=== PATIENT | male | born 1930 | race Caucasian/White ===

== ENCOUNTER 2017-05-18 09:42 | Inpatient (IN) | payer MEDICARE, BC ==
[~2017-05-18] VITALS: Ht 177.8 cm; Wt 67.1 kg
[2017-05-18] MEDS ORDERED: HYDR-4076 PO (10:16)
[2017-05-18] MEDS ORDERED: FINA5TAB11 PO (10:16)
[2017-05-18] MEDS ORDERED: VERA240C2 PO (10:16)
[2017-05-18] MEDS ORDERED: OXYB10TA4 PO (10:16)
[2017-05-18] MEDS ORDERED: VITAMIN D2 (10:16)
[2017-05-18] MEDS ORDERED: LOSA100T15 PO (10:16)
[2017-05-18] MEDS ORDERED: BICA50TA2 PO (10:16)
[2017-05-18] MEDS ORDERED: CALC-343 PO (10:16)
[2017-05-18] MEDS ORDERED: IV NORMAL SALINE 1000 ML BAG IV ONE (10:30)
[2017-05-18 10:47] LABS: BASOPHILS # (AUTO) 0.1 K/uL (0.0-8.0); BASOPHILS % (AUTO) 0.5 % (0.0-2.0); EOSINOPHILS # (AUTO) 0.1 K/uL (0.0-0.7); EOSINOPHILS % (AUTO) 0.4 % (0.0-7.0); HEMOGLOBIN 13.4 g/dL (12.5-16.3); LYMPHOCYTES # (AUTO) 1.4 K/uL (20.0-40.0); LYMPHOCYTES % (AUTO) 10.3 % (20.5-51.5); MEAN CORPUSCULAR HEMOGLOBIN 27.9 uug (23.8-33.4); MEAN CORPUSCULAR HGB CONC 33 g/dL (32.5-36.3); MEAN CORPUSCULAR VOLUME 85.2 fL (73.0-96.2); MONOCYTES # (AUTO) 0.9 K/uL (2.0-10.0); MONOCYTES % (AUTO) 6.3 % (0.0-11.0); NEUTROPHILS # (AUTO) 11.2 K/uL (1.8-8.9); NEUTROPHILS % (AUTO) 82.5 % (38.5-71.5); PLATELET COUNT (AUTO) 244 K/uL (152-348); RED BLOOD CELL COUNT(AUTO) 4.81 MIL/uL (4.06-5.63); WHITE BLOOD COUNT (AUTO) 13.6 K/uL (3.6-10.2)
[2017-05-18 10:55] LABS: CARBON DIOXIDE 24 mmol/L (21-32); CHLORIDE 108 mmol/L (98-107); GLUCOSE 117 mg/dL (74-106); POTASSIUM 4.1 mmol/L (3.5-5.1); UREA NITROGEN, BLOOD 27 mg/dL (7-18)
[2017-05-18 11:09] LABS: ALANINE AMINOTRANSFERASE 19 U/L (16-63); ALKALINE PHOSPHATASE 58 U/L (50-136); ASPARTATE AMINOTRANSFERASE 14 U/L (15-37); BILIRUBIN,DIRECT 0.1 mg/dL (0.0-0.2); BILIRUBIN,TOTAL 0.5 mg/dL (0.2-1.0); TOTAL PROTEIN, SERUM 7.3 g/dL (6.4-8.2)
[2017-05-18] MEDS ORDERED: ASPIRIN 81 MG TAB.CHEW PO ONE (12:00)
[2017-05-18 12:14] LABS: *BILIRUBIN,URIN NEGATIVE (NEGATIVE); *BLOOD, URINE NEGATIVE (NEGATIVE); *CLARITY,URINE CLEAR (CLEAR); *COLOR,URINE YELLOW (YELLOW); *KETONES,URINE NEGATIVE (NEGATIVE); *PROTEIN,URINE NEGATIVE (NEGATIVE); *UROBILINOGEN,URINE 0.2 E.U./dl (NORMAL); LEUKOCYTE ESTERASE ,URINE NEGATIVE (NEGATIVE); NITRITE, URINE NEGATIVE (NEGATIVE); UGLUCOSE NEGATIVE (NEGATIVE)
--- NOTE | 2017-05-18 12:21 | NUR ---
MSECOMPLETED, BELONGINGS LIST,ADMIT ORDER DONE. SBAR REPORT TO RACHEL HERNANDEZ. PT TRANSFERED [facility] TO RM 221.
[2017-05-18] MEDS ORDERED: ASPIRIN 81 MG TAB.CHEW ONE (12:26)
[2017-05-18 12:34] LABS: BACTERIA,URINE NONE SEEN /HPF (NONE SEEN); RBC,URINE 0-3 /HPF (0-3); SQUAMOUS EPITHELIAL CELL,UR FEW /HPF (NONE SEEN); WBC,URINE 0-3 /HPF (0-3)
[2017-05-18 12:45] VITALS: BP 179/93
--- NOTE | 2017-05-18 14:24 | NUR ---
arrived to unit at 1245 via bed, Alert and oriented no complaints of pain, no signs of distress noted, daughter at bedside, all belongings documented, no skin issues noted, patient put on telemetry, call light in reach, bed locked and in lowest position
[2017-05-18 15:40] VITALS: BP 156/80
[2017-05-18] MEDS ORDERED: ERGOCALCIFEROL 50,000 UNIT CAPSULE PO SCH (18:30)
--- NOTE | 2017-05-18 19:50 | NUR ---
Pt resting in bed and watching TV. AAO x4. No acute distress noted. No c/o pain or discomfort. Safety measures maintained. Bed alarm on. Call light and personal belongings within reach. Will continue to monitor.
[2017-05-18 20:00] VITALS: BP 166/75
[2017-05-18] MEDS ORDERED: BISMUTH SUBSALICYLATE 262 MG/15 ML UDC PO PRN (20:15)
--- NOTE | 2017-05-18 20:30 | NUR ---
Pt c/o of upset stomach and gas feeling. No distention noted. Pt asked to have pepto bismol. Notified MD. New order of pepto bismol 30cc Q6HPRN. Will continue to monitor.
[2017-05-18] MEDS: hydrALAZINE HCL 25 MG TABLET PO SCH (21:07)
--- NOTE | 2017-05-18 23:35 | NUR ---
Pt BP elevated 167/85 and temp also elevated 99.8 F. Notified . New order for hydralazine 50 mg PO Q6HPRN for SBP > 150 and okay to give tylenol regarding temp. Will continue to monitor.
[2017-05-18 23:49] VITALS: BP 167/85
[2017-05-18] MEDS: hydrALAZINE HCL 25 MG TABLET PO PRN (23:52)
[2017-05-18] MEDS: ACETAMINOPHEN 325 MG TABLET PO PRN (23:52)
[2017-05-19 04:00] VITALS: BP 117/51
[2017-05-19] MEDS: hydrALAZINE HCL 25 MG TABLET PO SCH (05:41)
[2017-05-19 07:05] LABS: BASOPHILS % (AUTO) 0.3 % (0.0-2.0); EOSINOPHILS # (AUTO) 0.2 K/uL (0.0-0.7); EOSINOPHILS % (AUTO) 1.8 % (0.0-7.0); HEMATOCRIT 35.8 % (36.7-47.1); LYMPHOCYTES # (AUTO) 2.1 K/uL (20.0-40.0); LYMPHOCYTES % (AUTO) 19.3 % (20.5-51.5); MEAN CORPUSCULAR HEMOGLOBIN 28.6 uug (23.8-33.4); MEAN CORPUSCULAR HGB CONC 34 g/dL (32.5-36.3); MEAN CORPUSCULAR VOLUME 85.1 fL (73.0-96.2); MONOCYTES # (AUTO) 0.8 K/uL (2.0-10.0); MONOCYTES % (AUTO) 7.8 % (0.0-11.0); NEUTROPHILS # (AUTO) 7.6 K/uL (1.8-8.9); NEUTROPHILS % (AUTO) 70.8 % (38.5-71.5); PLATELET COUNT (AUTO) 213 K/uL (152-348); RED BLOOD CELL COUNT(AUTO) 4.21 MIL/uL (4.06-5.63); WHITE BLOOD COUNT (AUTO) 10.7 K/uL (3.6-10.2)
[2017-05-19] MEDS: VERAPAMIL SR 120 MG TABLET.SA PO SCH (08:14)
[2017-05-19] MEDS: FINASTERIDE 5 MG TABLET PO SCH (08:14)
[2017-05-19] MEDS: LOSARTAN POTASSIUM 50 MG TABLET PO SCH (08:14)
[2017-05-19] MEDS: OXYBUTYNIN XL 5 MG TABSR PO SCH (08:14)
[2017-05-19] MEDS: hydrALAZINE HCL 25 MG TABLET PO PRN ×2 (08:17→17:53)
[2017-05-19 08:26] LABS: ALANINE AMINOTRANSFERASE 17 U/L (16-63); ALKALINE PHOSPHATASE 46 U/L (50-136); ASPARTATE AMINOTRANSFERASE 15 U/L (15-37); BILIRUBIN,TOTAL 0.4 mg/dL (0.2-1.0); CARBON DIOXIDE 24 mmol/L (21-32); CHLORIDE 110 mmol/L (98-107); CHOLESTEROL 156 mg/dL (<200); CREATININE 1.7 mg/dL (0.6-1.3); GLUCOSE 91 mg/dL (74-106); HDL CHOLESTEROL 31 mg/dL (40-60); MAGNESIUM 1.7 mg/dL (1.8-2.4); PHOSPHOROUS 3.2 mg/dL (2.5-4.9); POTASSIUM 3.6 mmol/L (3.5-5.1); TOTAL PROTEIN, SERUM 6.2 g/dL (6.4-8.2); TRIGLYCERIDES 99 MG/DL (30-150); UREA NITROGEN, BLOOD 22 mg/dL (7-18)
[2017-05-19] MEDS: BICALUTAMIDE 50 MG TABLET PO SCH (08:27)
--- NOTE | 2017-05-19 08:30 | NUR ---
Pt. b/p elevated above 170 gave prn meds and routine medications. Pt is in no acute distress and asymptomatic with elevated b/p. Call light is within reach.
[2017-05-19] MEDS ORDERED: FUROSEMIDE 20 MG/2 ML VIAL IV SCH (09:00)
[2017-05-19] MEDS ORDERED: CALCIUM CARBONATE 500 MG TAB.CHEW PO SCH (09:00)
--- NOTE | 2017-05-19 11:30 | NUR ---
Notified Dr byers of pt's elevated b/p of sbp >170 pt remains asymptomatic from the elevated b/p. New orders received and carried out.
[2017-05-19] MEDS: SPIRONOLACTONE 25 MG TABLET PO SCH (11:49)
[2017-05-19 11:58] VITALS: BP 172/93
[2017-05-19] MEDS ORDERED: MAGNESIUM OXIDE 400 MG TABLET PO ONE (13:00)
--- NOTE | 2017-05-19 13:00 | NUR ---
Asked daughter re: pt's vit d mediaction on what day of the week he takes them. Daughter states that she will go back home and check the bottle about the proper dosage and frequency.
[2017-05-19] MEDS: hydrALAZINE HCL 50 MG TABLET PO SCH ×2 (13:53→21:08)
[2017-05-19] MEDS ORDERED: hydrALAZINE HCL 25 MG TABLET PO SCH (14:00)
[2017-05-19] MEDS ORDERED: CALC-555 PO (15:22)
[2017-05-19 15:37] VITALS: BP 158/84
--- NOTE | 2017-05-19 16:00 | NUR ---
Medication clarified and notified Pharmacist.
[2017-05-19 17:37] VITALS: BP 159/80
[2017-05-19] MEDS: ACETAMINOPHEN 325 MG TABLET PO PRN (17:37)
--- NOTE | 2017-05-19 18:30 | NUR ---
Pt remains asymptomatic with elevated b/p. Pt is in no acute distress. Call light is within reach.
--- NOTE | 2017-05-19 19:30 | NUR ---
RECEIVED PT LYING IN BED. AAOX4. DENIES ANY PAIN OR SOB. NOT IN ACUTE DISTRESS. 1ST DEGREE AV BLOCK ON TELE. IV SITE ON RIGHT WRIST INTACT AND PATENT. SAFETY MEASURE INITIATED AND CALL BROWNING WITHIN REACHED.
[2017-05-19 19:56] VITALS: BP 144/73
[2017-05-20 00:12] VITALS: BP 156/82
[2017-05-20] MEDS: hydrALAZINE HCL 25 MG TABLET PO PRN (00:13)
--- NOTE | 2017-05-20 00:13 | NUR ---
BP 156/82, HR 73. GAVE HYDRALAZINE 50MG PO. DENIES ANY DIZZINESS OR HEADACHE.
--- NOTE | 2017-05-20 03:00 | NUR ---
@ 0130 RECHECK BP 167.83, HR 74. @ 0230 RECHECK BP 160/88, HR 72 @0300 TELEPHONE CALL TO DOCTOR SWAPNIL AND INFORMED OF ABOVE. WITH NEW ORDER FOR NITRO PASTE 1/2 INCH Q6 HRS PRN FOR SBP > 160. ORDER READ BACK AND VERIFIED.
[2017-05-20] MEDS ORDERED: NITROGLYCERIN OINT 1 GM PACKET TP PRN ×2 (03:15→09:26)
[2017-05-20 04:00] VITALS: BP 159/85
[2017-05-20] MEDS: hydrALAZINE HCL 50 MG TABLET PO SCH (05:37)
[2017-05-20] MEDS: ACETAMINOPHEN 325 MG TABLET PO PRN (05:59)
--- NOTE | 2017-05-20 06:00 | NUR ---
AAOX4. DENIES ANY SOB. O2 SAT AT 94% ON RA. NOT IN ACUTE DISTRESS. COMPLAINED OF MILD HEADACHE AND GIVEN TYLENOL 650MG PER ORDER. 1ST DEGREE AV BLOCK AND BBB ON TELE. IV SITE ON RIGHT WRIST AREA INTACT AND PATENT. NEEDS ATTENDED TO AND MET. SAFETY MEASURE MAINTAINED AND CALL BROWNING WITHIN REACH.
--- NOTE | 2017-05-20 06:30 | NUR ---
BP DOWN TO 133/80, HR 72, AFTER GIVEN HYDRALAZINE ROUTINELY AN HOUR AGO.
--- NOTE | 2017-05-20 07:00 | NUR ---
received report from shift superintendent. patient in bed asleep. no acute distress noted iv access on the left wrist #22 intact and patent. elevated blood pressure noted last night around 150s/80's, pt has order for hydralazine routine and prn 0630 bp 133/80 per shift superintendent. No complaints of chest pain at this time. comfort measures provided will continue to monitor closely.
[2017-05-20 07:37] LABS: BASOPHILS % (AUTO) 0.3 % (0.0-2.0); EOSINOPHILS # (AUTO) 0.1 K/uL (0.0-0.7); HEMATOCRIT 37.4 % (36.7-47.1); HEMOGLOBIN 12.4 g/dL (12.5-16.3); LYMPHOCYTES # (AUTO) 1.6 K/uL (20.0-40.0); LYMPHOCYTES % (AUTO) 14.6 % (20.5-51.5); MEAN CORPUSCULAR HGB CONC 33 g/dL (32.5-36.3); MEAN CORPUSCULAR VOLUME 84.4 fL (73.0-96.2); MONOCYTES # (AUTO) 0.8 K/uL (2.0-10.0); MONOCYTES % (AUTO) 7.3 % (0.0-11.0); NEUTROPHILS # (AUTO) 8.7 K/uL (1.8-8.9); NEUTROPHILS % (AUTO) 76.8 % (38.5-71.5); PLATELET COUNT (AUTO) 242 K/uL (152-348); RED BLOOD CELL COUNT(AUTO) 4.43 MIL/uL (4.06-5.63); WHITE BLOOD COUNT (AUTO) 11.3 K/uL (3.6-10.2)
[2017-05-20 07:46] LABS: ALANINE AMINOTRANSFERASE 18 U/L (16-63); ALKALINE PHOSPHATASE 47 U/L (50-136); ASPARTATE AMINOTRANSFERASE 15 U/L (15-37); BILIRUBIN,TOTAL 0.6 mg/dL (0.2-1.0); CARBON DIOXIDE 25 mmol/L (21-32); CHLORIDE 106 mmol/L (98-107); CREATININE 1.7 mg/dL (0.6-1.3); GLUCOSE 96 mg/dL (74-106); MAGNESIUM 1.7 mg/dL (1.8-2.4); PHOSPHOROUS 3.2 mg/dL (2.5-4.9); POTASSIUM 3.4 mmol/L (3.5-5.1); TOTAL PROTEIN, SERUM 6.6 g/dL (6.4-8.2); UREA NITROGEN, BLOOD 25 mg/dL (7-18)
[2017-05-20] MEDS ORDERED: HYDR50TA68 PO (08:32)
[2017-05-20] MEDS ORDERED: ASPI81TA31 PO (08:32)
[2017-05-20] MEDS ORDERED: ISOS60TA4 PO (08:32)
[2017-05-20] MEDS ORDERED: SPIR25TA PO (08:32)
[2017-05-20] MEDS: SPIRONOLACTONE 25 MG TABLET PO SCH (08:39)
[2017-05-20] MEDS: BICALUTAMIDE 50 MG TABLET PO SCH (08:39)
[2017-05-20] MEDS: OXYBUTYNIN XL 5 MG TABSR PO SCH (08:40)
[2017-05-20] MEDS: LOSARTAN POTASSIUM 50 MG TABLET PO SCH (08:40)
[2017-05-20] MEDS: FINASTERIDE 5 MG TABLET PO SCH (08:40)
[2017-05-20 08:41] VITALS: BP 142/73
[2017-05-20] MEDS: VERAPAMIL SR 120 MG TABLET.SA PO SCH (08:41)
[2017-05-20] MEDS ORDERED: CALCIUM CARB/VITAMIN D 500MG-200UNITS TABLET PO SCH (09:00)
[2017-05-20] MEDS ORDERED: ASPIRIN 81 MG TAB.CHEW PO SCH (09:00)
--- NOTE | 2017-05-20 10:30 | NUR ---
Patient with orders for discharge, discharge papers explained and given to patient. belongings list completed. awaiting patient's daughter Heavenly to come and pick him up. will continue to monitor closely.
--- NOTE | 2017-05-20 11:00 | NUR ---
Dr. Hope came and assessed patient, daughter edmundo at bedside voiced concern about patient's back pain and requested if they could get an xray, Dr. Hope got in touch with Medical doctor, Order for bilateral hip xray stat, noted and carried out. Will continue to monitor closely.
--- NOTE | 2017-05-20 12:17 | NUR ---
PATIENT DISCHARGED IN STABLE CONDITION, DISCHARGE INSTRUCTIONS AND PAPERS GIVEN TO PATIENT. IV ACCESS REMOVED WELL TOLERATED ID BAND REMOVED AND DISCARDED. ACCOMPANIED PATIENT OUT OF HOSPITAL, LEFT VIA PRIVATE CAR WITH DAUGHTER CHIQUI.
== END 2017-05-20 12:17 | disposition home or self-care (01) | DRG 280 ==
LOC: ER 09:42 → TELE 12:16
PROVIDERS: ADMIT Internal Medicine; ATTEND Internal Medicine
DX: I13.0 Hypertensive heart and chronic kidney disease with heart failure and stage 1 through stage 4 chronic kidney disease, or unspecified chronic kidney disease (principal); I50.33 Acute on chronic diastolic (congestive) heart failure; I21.A1 Myocardial infarction type 2; N17.0 Acute kidney failure with tubular necrosis; I27.20 Pulmonary hypertension, unspecified; I08.3 Combined rheumatic disorders of mitral, aortic and tricuspid valves; C61 Malignant neoplasm of prostate; N18.9 Chronic kidney disease, unspecified; I25.10 Atherosclerotic heart disease of native coronary artery without angina pectoris; K57.90 Diverticulosis of intestine, part unspecified, without perforation or abscess without bleeding; Z98.61 Coronary angioplasty status; Z85.828 Personal history of other malignant neoplasm of skin; N40.0 Benign prostatic hyperplasia without lower urinary tract symptoms; Z79.899 Other long term (current) drug therapy; K52.9 Noninfective gastroenteritis and colitis, unspecified; E53.8 Deficiency of other specified B group vitamins; E55.9 Vitamin D deficiency, unspecified; I44.0 Atrioventricular block, first degree; I45.10 Unspecified right bundle-branch block; F03.90 Unspecified dementia, unspecified severity, without behavioral disturbance, psychotic disturbance, mood disturbance, and anxiety; E78.5 Hyperlipidemia, unspecified; R26.9 Unspecified abnormalities of gait and mobility; Z87.891 Personal history of nicotine dependence; Z91.81 History of falling; Z79.82 Long term (current) use of aspirin; H91.90 Unspecified hearing loss, unspecified ear; Z90.49 Acquired absence of other specified parts of digestive tract; M47.9 Spondylosis, unspecified; R15.9 Full incontinence of feces; N13.9 Obstructive and reflux uropathy, unspecified
CPT/HCPCS: 36415; 70030-TC; 71045; 71250; 73521; 83605; 83735; 84100; 84153; 84443; 85025; 85730; 87040; 87086; 93005; 93307; A4663; J1940; J7030

== ENCOUNTER 2017-06-12 10:25 | Inpatient (IN) | payer MEDICARE, BC ==
[~2017-06-12] VITALS: Ht 162.6 cm; Wt 66.2 kg
[~2017-06-12 10:25] MED LIST: ASPI81TA31 PO; BICA50TA2 PO; CALC-555 PO; FINA5TAB11 PO; HYDR50TA68 PO; ISOS60TA4 PO; LOSA100T15 PO; OXYB10TA4 PO; SPIR25TA PO; VERA240C2 PO
[2017-06-12] MEDS ORDERED: CYAN100071 PO (10:39)
--- NOTE | 2017-06-12 11:13 | NUR ---
PT IS IN BED #1A. DR GUTIERREZ EVALUATED THE PT.
[2017-06-12 11:17] LABS: BASOPHILS % (AUTO) 0.4 % (0.0-2.0); EOSINOPHILS # (AUTO) 0.1 K/uL (0.0-0.7); EOSINOPHILS % (AUTO) 1.4 % (0.0-7.0); HEMOGLOBIN 11.4 g/dL (12.5-16.3); LYMPHOCYTES # (AUTO) 1.7 K/uL (20.0-40.0); MEAN CORPUSCULAR HEMOGLOBIN 28.7 uug (23.8-33.4); MEAN CORPUSCULAR HGB CONC 34 g/dL (32.5-36.3); MEAN CORPUSCULAR VOLUME 85.4 fL (73.0-96.2); MONOCYTES # (AUTO) 0.7 K/uL (2.0-10.0); MONOCYTES % (AUTO) 7.9 % (0.0-11.0); NEUTROPHILS # (AUTO) 6.8 K/uL (1.8-8.9); NEUTROPHILS % (AUTO) 72.3 % (38.5-71.5); PLATELET COUNT (AUTO) 206 K/uL (152-348); RED BLOOD CELL COUNT(AUTO) 3.98 MIL/uL (4.06-5.63); WHITE BLOOD COUNT (AUTO) 9.4 K/uL (3.6-10.2)
[2017-06-12 11:24] LABS: CARBON DIOXIDE 24 mmol/L (21-32); CHLORIDE 106 mmol/L (98-107); CREATININE 3.6 mg/dL (0.6-1.3); GLUCOSE 92 mg/dL (74-106); POTASSIUM 5.3 mmol/L (3.5-5.1); UREA NITROGEN, BLOOD 61 mg/dL (7-18)
[2017-06-12 11:28] LABS: ALANINE AMINOTRANSFERASE 18 U/L (16-63); ALKALINE PHOSPHATASE 40 U/L (50-136); ASPARTATE AMINOTRANSFERASE 10 U/L (15-37); BILIRUBIN,DIRECT 0.1 mg/dL (0.0-0.2); BILIRUBIN,TOTAL 0.5 mg/dL (0.2-1.0); TOTAL PROTEIN, SERUM 7.1 g/dL (6.4-8.2)
[2017-06-12 11:41] LABS: *BILIRUBIN,URIN NEGATIVE (NEGATIVE); *BLOOD, URINE NEGATIVE (NEGATIVE); *CLARITY,URINE CLEAR (CLEAR); *COLOR,URINE YELLOW (YELLOW); *KETONES,URINE NEGATIVE (NEGATIVE); *PROTEIN,URINE NEGATIVE (NEGATIVE); *UROBILINOGEN,URINE 0.2 E.U./dl (NORMAL); LEUKOCYTE ESTERASE ,URINE NEGATIVE (NEGATIVE); NITRITE, URINE NEGATIVE (NEGATIVE); PH,URINE 5.5 (5.0-8.0); UGLUCOSE NEGATIVE (NEGATIVE)
[2017-06-12 11:51] LABS: BACTERIA,URINE NONE SEEN /HPF (NONE SEEN); RBC,URINE 0-3 /HPF (0-3); SQUAMOUS EPITHELIAL CELL,UR FEW /HPF (NONE SEEN); WBC,URINE 0-3 /HPF (0-3)
--- NOTE | 2017-06-12 12:48 | NUR ---
PT WAS TRANSFERED TO ROOM #222. REPORT WAS GIVEN TO DAVID M/Rachel.
--- NOTE | 2017-06-12 13:10 | NUR ---
Admitted 86 y/o male from ER. Admitting dx Acute Kidney Injury. Pt A&O x4. Ugandan speaking, able to make needs known. Denies pain. On RA. Sinus rhythm on Tele with PACs. PO diet. BM current. No acute distress noted. Head to toe skin assessment completed. Noted with redness to sacrum. Pt continent of bowel and bladder. Oriented pt to unit, room, bed, call light, and surroundings. Appears comfortable. Will continue to monitor for change.
--- NOTE | 2017-06-12 14:05 | NUR ---
Called Dr. Levine's office for orders. Spoke with Renee and left message. Awaiting call back.
[2017-06-12 15:48] VITALS: BP 153/63
[2017-06-12] MEDS ORDERED: ONDANSETRON 4 MG/2 ML VIAL IV PRN (16:00)
[2017-06-12] MEDS ORDERED: ACETAMINOPHEN 325 MG TABLET PO PRN (16:00)
[2017-06-12] MEDS ORDERED: ZOLPIDEM 5 MG TABLET PO PRN (16:00)
[2017-06-12] MEDS: IV NS 1000 ML 1,000 ML IV PRN (16:08)
[2017-06-12] MEDS: CALCIUM CARB/VITAMIN D 500MG-200UNITS TABLET PO SCH (18:05)
--- NOTE | 2017-06-12 19:20 | NUR ---
AAOX4. DENIES ANY PAIN OR SOB AT THIS TIME. IN NO ACUTE DISTRESS. IV SITE ON RIGHT AC INTACT AND PATENT. IVF INFUSING. SR ON TELE AT 74/MIN WITH 1ST DEGREE AV BLOCK. SAFETY MEASURE INITIATED AND CALL BROWNING WITHIN REACH.
[2017-06-12 20:00] VITALS: BP 142/87
[2017-06-12] MEDS: hydrALAZINE HCL 50 MG TABLET PO SCH (21:08)
[2017-06-13] VITALS: BP 132/74
[2017-06-13 04:00] VITALS: BP 155/83
[2017-06-13] MEDS: hydrALAZINE HCL 50 MG TABLET PO SCH ×3 (05:29→21:15)
--- NOTE | 2017-06-13 06:08 | NUR ---
AAOX4. DENIES ANY PAIN OR SOB. IN NO ACUTE DISTRESS. O2 SAT AT 97% ON RA. IV SITE ON RIGHT AC INTACT AND PATENT. IVF INFUSING. SR ON TELE, WITH 1ST DEGREE AV BLOCK. DENIES ANY CHEST PAIN. SAFETY MEASURE MAINTAINED AND CALL BROWNING WITHIN REACH.
[2017-06-13 06:43] LABS: ALANINE AMINOTRANSFERASE 17 U/L (16-63); ALKALINE PHOSPHATASE 39 U/L (50-136); ASPARTATE AMINOTRANSFERASE 12 U/L (15-37); BILIRUBIN,TOTAL 0.3 mg/dL (0.2-1.0); CARBON DIOXIDE 26 mmol/L (21-32); CHLORIDE 108 mmol/L (98-107); GLUCOSE 92 mg/dL (74-106); MAGNESIUM 1.9 mg/dL (1.8-2.4); PHOSPHOROUS 3.6 mg/dL (2.5-4.9); POTASSIUM 4.9 mmol/L (3.5-5.1); TOTAL PROTEIN, SERUM 6.7 g/dL (6.4-8.2); UREA NITROGEN, BLOOD 54 mg/dL (7-18)
[2017-06-13 07:04] LABS: BASOPHILS # (AUTO) 0.1 K/uL (0.0-8.0); BASOPHILS % (AUTO) 0.6 % (0.0-2.0); EOSINOPHILS # (AUTO) 0.2 K/uL (0.0-0.7); EOSINOPHILS % (AUTO) 1.8 % (0.0-7.0); HEMATOCRIT 34.6 % (36.7-47.1); HEMOGLOBIN 11.9 g/dL (12.5-16.3); LYMPHOCYTES # (AUTO) 1.8 K/uL (20.0-40.0); LYMPHOCYTES % (AUTO) 19.1 % (20.5-51.5); MEAN CORPUSCULAR HEMOGLOBIN 29.2 uug (23.8-33.4); MEAN CORPUSCULAR HGB CONC 35 g/dL (32.5-36.3); MEAN CORPUSCULAR VOLUME 84.8 fL (73.0-96.2); MONOCYTES # (AUTO) 0.7 K/uL (2.0-10.0); NEUTROPHILS # (AUTO) 6.8 K/uL (1.8-8.9); NEUTROPHILS % (AUTO) 71.5 % (38.5-71.5); PLATELET COUNT (AUTO) 196 K/uL (152-348); RED BLOOD CELL COUNT(AUTO) 4.08 MIL/uL (4.06-5.63); WHITE BLOOD COUNT (AUTO) 9.5 K/uL (3.6-10.2)
--- NOTE | 2017-06-13 07:25 | NUR ---
received report from brick off bearer nurse, patient in bed awake, no distress noted at this time, bed in low position, side rails up x2, bed alarm on.
[2017-06-13] MEDS ORDERED: VERAPAMIL 120 MG TABLET PO SCH (09:00)
[2017-06-13] MEDS ORDERED: OXYBUTYNIN CHLORIDE 5 MG TABLET PO SCH (09:00)
[2017-06-13] MEDS ORDERED: SPIRONOLACTONE 25 MG TABLET PO SCH (09:00)
[2017-06-13] MEDS: FINASTERIDE 5 MG TABLET PO SCH (09:16)
[2017-06-13] MEDS: ASPIRIN 81 MG TAB.CHEW PO SCH (09:16)
[2017-06-13] MEDS: CALCIUM CARB/VITAMIN D 500MG-200UNITS TABLET PO SCH ×2 (09:16→17:44)
[2017-06-13] MEDS: CYANOCOBALAMIN 1,000 MCG TABLET PO SCH (09:16)
[2017-06-13] MEDS: OXYBUTYNIN XL 5 MG TABSR PO SCH (09:17)
[2017-06-13] MEDS: VERAPAMIL SR 120 MG TABLET.SA PO SCH (09:19)
[2017-06-13] MEDS: BICALUTAMIDE 50 MG TABLET PO SCH (09:19)
[2017-06-13] MEDS: ISOSORBIDE MONONITRATE 60 MG TAB.SR.24H PO SCH (09:20)
[2017-06-13 10:57] VITALS: BP 186/79
[2017-06-13 12:05] VITALS: BP 138/86
[2017-06-13 14:53] VITALS: BP 123/74
--- NOTE | 2017-06-13 15:00 | NUR ---
patient was experiencing nausea, and was given zofran.
[2017-06-13] MEDS: IV NS 1000 ML 1,000 ML IV PRN (16:41)
--- NOTE | 2017-06-13 17:00 | NUR ---
patient taken for head ct. Addendum: 06/13/17 at 1846 by DONITA GRIGSBY RN disregard: patient was not taken to ct
--- NOTE | 2017-06-13 18:46 | NUR ---
patient has been cooperative with care, patients daughter spoke with dr. mathews. currently patient in bed, no distress noted, bed in low position, side rails up x2.
--- NOTE | 2017-06-13 19:20 | NUR ---
AAOX4. DENIES ANY PAIN OR SOB. IN NO ACUTE DISTRESS. IV SITE ON RIGHT ARM INTACT AND PATENT. IVF INFUSING. SR ON TELE AT 67/MIN WITH 1ST DEGREE AV BLOCK. NEEDS ATTENDED TO AND MET. AMBULATED ON THE BATHROOM WITH WALKER AND SUPERVISION THEN BACK TO BED. SAFETY MEASURE INITIATED AND CALL BROWNING WITHIN REACH.
[2017-06-13 21:02] VITALS: BP 119/62
[2017-06-14 00:48] VITALS: BP 126/66
[2017-06-14 04:00] VITALS: BP 123/90
[2017-06-14] MEDS: hydrALAZINE HCL 50 MG TABLET PO SCH ×2 (05:01→13:58)
--- NOTE | 2017-06-14 06:11 | NUR ---
AAOX4. DENIES ANY PAIN OR SOB. IN NO ACUTE DISTRESS. VS WNL. O2 SAT AT 97% ON RA. IV SITE ON RIGHT ARM INTACT AND PATENT. IVF INFUSING. SR WITH 1ST DEGREE AV BLOCK. HAD 1 EPISODE OF MOBITZ 2, NOT SUSTAINED. DENIES ANY CHEST PAIN. OR TIGHTNESS. SAFETY MEASURE MAINTAINED AND CALL BROWNING WITHIN REACH.
[2017-06-14] MEDS: FINASTERIDE 5 MG TABLET PO SCH (08:54)
[2017-06-14] MEDS: ASPIRIN 81 MG TAB.CHEW PO SCH (08:54)
[2017-06-14] MEDS: CALCIUM CARB/VITAMIN D 500MG-200UNITS TABLET PO SCH (08:54)
[2017-06-14] MEDS: CYANOCOBALAMIN 1,000 MCG TABLET PO SCH (08:54)
[2017-06-14] MEDS: OXYBUTYNIN XL 5 MG TABSR PO SCH (08:55)
[2017-06-14] MEDS: VERAPAMIL SR 120 MG TABLET.SA PO SCH (08:55)
[2017-06-14] MEDS: ISOSORBIDE MONONITRATE 60 MG TAB.SR.24H PO SCH (08:55)
[2017-06-14] MEDS: BICALUTAMIDE 50 MG TABLET PO SCH (08:59)
[2017-06-14 11:54] VITALS: BP 132/72
[2017-06-14 14:25] LABS: BASOPHILS % (AUTO) 0.4 % (0.0-2.0); EOSINOPHILS # (AUTO) 0.2 K/uL (0.0-0.7); EOSINOPHILS % (AUTO) 1.6 % (0.0-7.0); HEMATOCRIT 37.1 % (36.7-47.1); HEMOGLOBIN 12.3 g/dL (12.5-16.3); LYMPHOCYTES # (AUTO) 1.8 K/uL (20.0-40.0); LYMPHOCYTES % (AUTO) 15.7 % (20.5-51.5); MEAN CORPUSCULAR HEMOGLOBIN 28.2 uug (23.8-33.4); MEAN CORPUSCULAR HGB CONC 33 g/dL (32.5-36.3); MEAN CORPUSCULAR VOLUME 85.2 fL (73.0-96.2); MONOCYTES # (AUTO) 0.7 K/uL (2.0-10.0); MONOCYTES % (AUTO) 6.6 % (0.0-11.0); NEUTROPHILS # (AUTO) 8.5 K/uL (1.8-8.9); NEUTROPHILS % (AUTO) 75.7 % (38.5-71.5); PLATELET COUNT (AUTO) 220 K/uL (152-348); RED BLOOD CELL COUNT(AUTO) 4.35 MIL/uL (4.06-5.63); WHITE BLOOD COUNT (AUTO) 11.3 K/uL (3.6-10.2)
[2017-06-14 14:42] LABS: ALANINE AMINOTRANSFERASE 17 U/L (16-63); ALKALINE PHOSPHATASE 38 U/L (50-136); ASPARTATE AMINOTRANSFERASE 10 U/L (15-37); BILIRUBIN,TOTAL 0.3 mg/dL (0.2-1.0); CARBON DIOXIDE 25 mmol/L (21-32); CHLORIDE 107 mmol/L (98-107); CREATININE 2.7 mg/dL (0.6-1.3); GLUCOSE 112 mg/dL (74-106); MAGNESIUM 1.7 mg/dL (1.8-2.4); PHOSPHOROUS 3.9 mg/dL (2.5-4.9); POTASSIUM 4.6 mmol/L (3.5-5.1); TOTAL PROTEIN, SERUM 6.5 g/dL (6.4-8.2); UREA NITROGEN, BLOOD 45 mg/dL (7-18)
[2017-06-14 15:48] VITALS: BP 127/72
--- NOTE | 2017-06-14 16:00 | NUR ---
Pt is in no acute distress. Discharge instructions given to patient and daughter. Pt and daughter verbalized understanding. IV taken off. Pt is to f/u with primary doctor within 1 week. Pt is to f/u with Vaccines with his doctor.
== END 2017-06-14 16:05 | disposition home or self-care (01) | DRG 682 ==
LOC: ER 10:25 → MED 12:51 → TELE 15:55
PROVIDERS: ADMIT Internal Medicine; ATTEND Internal Medicine
DX: N17.0 Acute kidney failure with tubular necrosis (principal); G93.40 Encephalopathy, unspecified; E87.5 Hyperkalemia; N13.8 Other obstructive and reflux uropathy; D64.9 Anemia, unspecified; I34.0 Nonrheumatic mitral (valve) insufficiency; N20.0 Calculus of kidney; E78.5 Hyperlipidemia, unspecified; Z88.0 Allergy status to penicillin; Z85.828 Personal history of other malignant neoplasm of skin; Z79.82 Long term (current) use of aspirin; Z79.899 Other long term (current) drug therapy; Z85.46 Personal history of malignant neoplasm of prostate; I13.10 Hypertensive heart and chronic kidney disease without heart failure, with stage 1 through stage 4 chronic kidney disease, or unspecified chronic kidney disease; N18.9 Chronic kidney disease, unspecified
CPT/HCPCS: 36415; 70450; 71045; 76770; 83735; 84100; 85025; 85730; 93005; A4663; J2405; J7030

== ENCOUNTER 2017-10-20 14:59 | Inpatient (IN) | payer MEDICARE, BC ==
[~2017-10-20] VITALS: Ht 165.1 cm; Wt 64.9 kg
[~2017-10-20 14:59] MED LIST changes: -BICA50TA2 PO; +BICA50TA49 PO; +CYAN100071 PO; -LOSA100T15 PO; -SPIR25TA PO
--- NOTE | 2017-10-20 15:00 | NUR ---
PT ADMITTED IN RM 1A VIA ACCOMPANIED BY DAUGHTER. C/O GENERALIZED WEAKNESS FROM HIS HD CLINIC. DAUGHTER CLAIMED PT PT FROM HIS WC AND THEN SLIDED DOWN ON THE FLOOR OF THE ADMITTING AREA. NO NEURO DEFICT NOTED. PT PLACED ON THE GURNEY.
--- NOTE | 2017-10-20 15:20 | NUR ---
PT REFUSED TO HAVE AN IV LINE AND DR DO IS AWARE.
--- NOTE | 2017-10-20 15:20 | NUR ---
SEEN AND EXAMINED BY DR DO WITH NEW ORDERS.
[2017-10-20 15:31] LABS: BASOPHILS # (AUTO) 0.1 K/uL (0.0-8.0); BASOPHILS % (AUTO) 0.4 % (0.0-2.0); EOSINOPHILS # (AUTO) 0.1 K/uL (0.0-0.7); EOSINOPHILS % (AUTO) 0.8 % (0.0-7.0); HEMATOCRIT 25.3 % (36.7-47.1); HEMOGLOBIN 8.5 g/dL (12.5-16.3); LYMPHOCYTES # (AUTO) 1.8 K/uL (20.0-40.0); LYMPHOCYTES % (AUTO) 11.4 % (20.5-51.5); MEAN CORPUSCULAR HEMOGLOBIN 28.7 uug (23.8-33.4); MEAN CORPUSCULAR HGB CONC 34 g/dL (32.5-36.3); MEAN CORPUSCULAR VOLUME 85.4 fL (73.0-96.2); MONOCYTES # (AUTO) 0.9 K/uL (2.0-10.0); MONOCYTES % (AUTO) 5.4 % (0.0-11.0); NEUTROPHILS # (AUTO) 13.2 K/uL (1.8-8.9); PLATELET COUNT (AUTO) 170 K/uL (152-348); RED BLOOD CELL COUNT(AUTO) 2.96 MIL/uL (4.06-5.63); WHITE BLOOD COUNT (AUTO) 16.1 K/uL (3.6-10.2)
[2017-10-20 15:36] LABS: CARBON DIOXIDE 27 mmol/L (21-32); CHLORIDE 100 mmol/L (98-107); CREATININE 1.7 mg/dL (0.6-1.3); GLUCOSE 144 mg/dL (74-106); POTASSIUM 3.2 mmol/L (3.5-5.1); UREA NITROGEN, BLOOD 13 mg/dL (7-18)
--- NOTE | 2017-10-20 15:36 | NUR ---
PT'S DAUGHTER LEFT BEFORE REVIEWING MEDICATION LIST. PT IS DIFFICULTY REMEMBERING HIS MEDICATIONS AT THIS TIME.
[2017-10-20 15:42] LABS: ALANINE AMINOTRANSFERASE 19 U/L (16-63); ALKALINE PHOSPHATASE 46 U/L (50-136); ASPARTATE AMINOTRANSFERASE 17 U/L (15-37); BILIRUBIN,DIRECT 0.2 mg/dL (0.0-0.2); BILIRUBIN,TOTAL 0.7 mg/dL (0.2-1.0); TOTAL PROTEIN, SERUM 7.2 g/dL (6.4-8.2)
[2017-10-20] MEDS ORDERED: VANCOMYCIN IV 1,000 MG in IV DEXTROSE 5% 250 ML IV ONE (16:00)
[2017-10-20] MEDS ORDERED: LEVOFLOXACIN 750 MG/D5W 150 ML PIGGYBACK IV ONE (16:00)
[2017-10-20] MEDS ORDERED: LEVOFLOXACIN 750MG/D5W 150 ML IV ONE (16:48)
[2017-10-20] MEDS ORDERED: VANCOMYCIN IV 200 ML ONE (16:49)
[2017-10-20] MEDS ORDERED: ATOR20TA PO (17:35)
[2017-10-20] MEDS ORDERED: CLOP75TA33 PO (17:35)
[2017-10-20] MEDS ORDERED: AMLO5TAB4 PO (17:35)
--- NOTE | 2017-10-20 18:45 | NUR ---
PT IS BEING ADMITTED TO TELEMETRY UNIT . AWAITING FOR A BED ASSIGNMENT AND ROOM CLEANED. VANCOMYCIN 1GM IVPB AND LEVAQUIN 750MG IVPB GIVEN VIA LEFT FA G20. PT HAS A LILY CATHETER ON THE RIGHT UPPER CHEST FOR HIS HD.
--- NOTE | 2017-10-20 18:50 | NUR ---
STILL AWAITING FOR THE BED. DAUGHTER IS VERY UPSET. RN CUSTOM BOW MAKER IS AWARE.
--- NOTE | 2017-10-20 19:00 | NUR ---
REPORT GIVEN TO UBALDO HERNANDEZ
--- NOTE | 2017-10-20 19:41 | NUR ---
Report given to Romulo HERNANDEZ Tele.
--- NOTE | 2017-10-20 20:00 | NUR ---
NEW ADMIT FROM ER ADMITTED FOR PNEUMONIA, AAOX3 DENIES NO C/O CHEST PAIN OR SOB ON ASSESSMENT. ADMISSION ASSESSMENTS DONE. SAFETY MEASURES INITIATED, CALL LIGHT LEFT WITHIN PATIENT'S REACH
[2017-10-20 20:48] VITALS: BP 137/63
[2017-10-20] MEDS ORDERED: Z GUARD REMEDY PASTE 57 GM TUBE TOP PRN (21:00)
[2017-10-20] MEDS ORDERED: MAGNESIUM HYDROXIDE 30 ML LIQUID UDC PO PRN (21:00)
[2017-10-20] MEDS ORDERED: ONDANSETRON 4 MG/2 ML VIAL IV PRN (21:00)
[2017-10-20] MEDS ORDERED: ZOLPIDEM 5 MG TABLET PO PRN (21:00)
[2017-10-20] MEDS ORDERED: AZTREONAM 1 G in IV NORMAL SALINE 50 ML IV ONE (22:00)
[2017-10-20] MEDS ORDERED: AZTREONAM 1 G VIAL ONE (22:49)
[2017-10-20] MEDS: hydrALAZINE HCL 50 MG TABLET PO SCH (23:02)
[2017-10-21] VITALS (9 sets, daily range): BP systolic 95–141; BP diastolic 47–65
[2017-10-21] MEDS ORDERED: NITROGLYCERIN OINT 1 GM PACKET TP PRN (02:30)
[2017-10-21] MEDS: hydrALAZINE HCL 50 MG TABLET PO SCH ×3 (05:10→22:00)
--- NOTE | 2017-10-21 06:26 | NUR ---
PATIENT SLEPT WELL THROUGH THE SHIFT, ON TELE WITH SR AT 78. NO C/O CHEST PAIN OR SOB OR FEVER ON THIS SHIFT. NO ACUTE DISTRESS AT PRESENT. SAFETY MEASURES MAINTAINED AT ALL TIMES
[2017-10-21 06:30] LABS: EOSINOPHILS # (AUTO) 0.1 K/uL (0.0-0.7); MEAN CORPUSCULAR VOLUME 83.6 fL (73.0-96.2)
[2017-10-21 06:32] LABS: BASOPHILS % (AUTO) 0.3 % (0.0-2.0); EOSINOPHILS % (AUTO) 0.7 % (0.0-7.0); LYMPHOCYTES # (AUTO) 1.6 K/uL (20.0-40.0); LYMPHOCYTES % (AUTO) 12.5 % (20.5-51.5); MEAN CORPUSCULAR HEMOGLOBIN 28.3 uug (23.8-33.4); MEAN CORPUSCULAR HGB CONC 34 g/dL (32.5-36.3); MONOCYTES # (AUTO) 0.9 K/uL (2.0-10.0); MONOCYTES % (AUTO) 7.2 % (0.0-11.0); NEUTROPHILS # (AUTO) 10.3 K/uL (1.8-8.9); NEUTROPHILS % (AUTO) 79.3 % (38.5-71.5); PLATELET COUNT (AUTO) 162 K/uL (152-348)
--- NOTE | 2017-10-21 06:40 | NUR ---
MD KRAFT NOTIFIED OF POTASSIUM OF 3.2 FROM YESTERDAY IN ER AT 1520. LABS RECHECKED POTASSIUM IS NOW 3.9. AWARE OF NEW VALUE
[2017-10-21 06:58] LABS: HEMATOCRIT 20.6 % (36.7-47.1); RED BLOOD CELL COUNT(AUTO) 2.46 MIL/uL (4.06-5.63)
[2017-10-21 07:02] LABS: HEMOGLOBIN 6.9 g/dL (12.5-16.3)
--- NOTE | 2017-10-21 07:09 | NUR ---
DR. KRAFT NOTIFIED OF CRITICAL LAB VALUE: HEMOGLOBIN 6.9 ORDERS PROVIDED BY MD: -PROTONIX 40 MG IV DAILY -STOOL OB TIMES THREE -TRANSFUSE 1 UNIT OF PACKED RED BLOOD CELLS WITHOUT DIALYSIS
[2017-10-21 07:27] LABS: CARBON DIOXIDE 26 mmol/L (21-32); CHLORIDE 102 mmol/L (98-107); CREATININE 2.3 mg/dL (0.6-1.3); FERRITIN 266 ng/mL (26-388); GLUCOSE 99 mg/dL (74-106); MAGNESIUM 1.8 mg/dL (1.8-2.4); POTASSIUM 3.9 mmol/L (3.5-5.1); UREA NITROGEN, BLOOD 25 mg/dL (7-18)
[2017-10-21 08:14] LABS: IRON, SERUM 36 ug/dL (50-175)
--- NOTE | 2017-10-21 08:28 | NUR ---
PATIENT RESTING COMFORTABLY IN BED. NO SIGNS OF DISTRESS AT THIS TIME. STABLE CONDITION. 1-UNIT OF PRBC ORDERED TO BE TRANSFUSED. WILL NOTIFY DAUGHTER AND GET CONSENT FORM SIGNED BY PATIENT. BED REST AT THIS TIME. PT EVAL ORDERED. WILL CONTINUE TO MONITOR. BED ALARM ON, CALL LIGHT WITHIN REACH OF PATIENT.
[2017-10-21 08:33] LABS: CHOLESTEROL 108 mg/dL (<200); HDL CHOLESTEROL 39 mg/dL (40-60); PHOSPHOROUS 3.1 mg/dL (2.5-4.9); TRIGLYCERIDES 69 MG/DL (30-150)
[2017-10-21] MEDS ORDERED: CLOPIDOGREL 75 MG TABLET PO SCH (09:00)
[2017-10-21] MEDS: ISOSORBIDE MONONITRATE 60 MG TAB.SR.24H PO SCH (09:00)
[2017-10-21] MEDS ORDERED: ASPIRIN 81 MG TAB.CHEW PO SCH (09:00)
[2017-10-21] MEDS: AMLODIPINE 5 MG TABLET PO SCH (09:00)
[2017-10-21] MEDS: FINASTERIDE 5 MG TABLET PO SCH (09:00)
[2017-10-21] MEDS: PANTOPRAZOLE SODIUM 40 MG VIAL IV SCH (09:11)
[2017-10-21] MEDS: CYANOCOBALAMIN 1,000 MCG TABLET PO SCH (09:13)
--- NOTE | 2017-10-21 10:27 | NUR ---
NON ADMINISTRATION: NORVASC 5 MG PO, IMDUR 60 MG PO, PROSCAR 5 MG PO DUE TO DECREASED BLOOD PRESSURE. PLAVIX 75 MG PO AND ASPIRIN 81 MG PO DUE TO RISK FOR BLEEDING.
[2017-10-21 10:37] LABS: LYMPHOCYTES % (MANUAL) 13 % (20-40); MONOCYTES % (MANUAL) 7 % (2-10); NEUTROPHILS % (MANUAL) 80 % (42-75)
[2017-10-21] MEDS: BICALUTAMIDE 50 MG TABLET PO SCH (10:38)
[2017-10-21] MEDS ORDERED: VANCOMYCIN IV 1 G in PREMIXED 0 EACH IV ONE ×2 (12:00→16:30)
--- NOTE | 2017-10-21 13:26 | NUR ---
CALLED ERICA (DIALYSIS NURSE) TO CONFIRM TIME FOR BLOOD TRANSFUSION THROUGH DIALYSIS MACHINE. PATIENT HAS NOT YET BEEN SCHEDULED - UNKNOWN TIME AT THIS TIME.
[2017-10-21 13:56] LABS: *OCCULT BLOOD STOOL NEGATIVE (NEGATIVE)
--- NOTE | 2017-10-21 14:00 | NUR ---
Clinical Pharmacy Note: Vancomycin Dosing per Pharmacy Subjective: Vancomycin IV to start on this HD patient for pna. Patient received vancomycin 1000mg IVPB x1 on 10/21 at 1700. Objective: BUN 25/Scr 2.3 WBC 13 Temperature 98.8 Pre-HD level: 10.6 (per RN , occasional HD. Per MD, patient will be dialyzed today) Assessment/Plan: HD has been scheduled for today.As per vancomycin dosing protocol for dialysis patient, since vanco pre-HD level is below 15 mcg/ml, will give vancomycin 1000 mg IVPB x1 today post -HD. Plan to order vancomycin random level before next HD or if no HD , will dose by fall off level (not yet ordered). Will continue to dose per pre-HD vancomycin level. Will follow closely daily.
[2017-10-21] MEDS ORDERED: ALBUTEROL SULFATE 2.5 MG/3 ML NEBU NEB PRN (14:15)
[2017-10-21] MEDS ORDERED: IPRATROPIUM BROMIDE 0.5 MG/2.5 ML NEBU NEB PRN (14:15)
[2017-10-21] MEDS: AZTREONAM 0.5 G in IV NORMAL SALINE 50 ML IV SCH ×3 (14:17→22:04)
--- NOTE | 2017-10-21 14:17 | NUR ---
Azactam unable to be administered due to the start of dialysis.
[2017-10-21] MEDS ORDERED: EPOETIN ALFA 10,000 UNITS/ML VIAL IV ONE (14:30)
--- NOTE | 2017-10-21 14:30 | NUR ---
Dialysis started at this time. Epoetin administered by dialysis nurse with hemoglobin of 6.9. 1 unit PRBC will also be transfused through dialysis by dialysis nurse.
--- NOTE | 2017-10-21 14:45 | NUR ---
BLOOD PICKED UP AT THIS TIME. VERIFIED WITH LABORATORY. CONSENT SIGNED BY PATIENT.
--- NOTE | 2017-10-21 15:05 | NUR ---
PATIENT ASSESSED DURING FIRST 15 MINUTES OF BLOOD TRANSFUSION. NO ADVERSE REACTIONS NOTED. AFEBRILE. NO SIGNS OF RESPIRATORY DISTRESS. VITAL SIGNS STABLE. PATIENT A/OX4. NO SIGNIFICANT CHANGES NOTED.
--- NOTE | 2017-10-21 15:35 | NUR ---
Blood transfusion 1-unit PRBC transfusion completed at this time. vital signs stable. no signs of distress. afebrile. no signs of respiratory distress. No adverse reactions noted.
[2017-10-21 15:39] LABS: HEMATOCRIT 27.3 % (36.7-47.1)
[2017-10-21 15:50] LABS: HEMOGLOBIN 9.1 g/dL (12.5-16.3)
--- NOTE | 2017-10-21 16:01 | NUR ---
Vancomycin ordered to administered post-dialysis. MD orders will be followed. After administration of Vancomycin post-dialysis, administration of Azatam will follow.
[2017-10-21 16:31] LABS: *BILIRUBIN,URIN NEGATIVE (NEGATIVE); *BLOOD, URINE NEGATIVE (NEGATIVE); *CLARITY,URINE CLEAR (CLEAR); *COLOR,URINE YELLOW (YELLOW); *KETONES,URINE NEGATIVE (NEGATIVE); *PROTEIN,URINE NEGATIVE (NEGATIVE); *UROBILINOGEN,URINE 0.2 E.U./dl (NORMAL); LEUKOCYTE ESTERASE ,URINE NEGATIVE (NEGATIVE); NITRITE, URINE NEGATIVE (NEGATIVE); PH,URINE 5.5 (5.0-8.0); UGLUCOSE NEGATIVE (NEGATIVE)
[2017-10-21 17:12] LABS: *CREATININE,URINE 71.4 mg/dL (30-125); *URINE TOTAL PROTEIN RANDOM 20.5 mg/dL (<150/24HR)
--- NOTE | 2017-10-21 17:56 | NUR ---
Azactam 0.5 G IV will be administered later than scheduled due to Dialysis today, which delayed the administration time. Also, patient required Vancomycin to be administered post-dialysis. Vancomycin currently running - will run Azactam 0.5 G IV following vancomycin.
[2017-10-21 18:03] LABS: MUCUS,URINE FEW /LPF (0-FEW); WBC,URINE 0-3 /HPF (0-3)
--- NOTE | 2017-10-21 18:18 | NUR ---
Patient resting comfortably in bed. stable condition. vital signs stable. no signs of distress. O2 taken off - currently saturating at 95% room air. Telemetry discontinued. bed in locked/low position, side rails up x2, bed alarm on, call light within reach.
--- NOTE | 2017-10-21 19:00 | NUR ---
RECEIVED IN BED ALERT ORIENTED. NO SOB NO CHEST PAIN, R CHEST PERMA CATH DRESSING INTACT, NO BLEEDING NOTED. CONT TO MONITOR.
[2017-10-21] MEDS: ATORVASTATIN 20 MG TABLET PO SCH (20:25)
[2017-10-21] MEDS: CALCIUM CARB/VITAMIN D 500MG-200UNITS TABLET PO SCH (20:25)
[2017-10-22 05:10] VITALS: BP 122/66
[2017-10-22] MEDS: AZTREONAM 0.5 G in IV NORMAL SALINE 50 ML IV SCH ×3 (05:37→22:29)
[2017-10-22] MEDS: hydrALAZINE HCL 50 MG TABLET PO SCH ×3 (05:38→22:00)
--- NOTE | 2017-10-22 06:43 | NUR ---
PATIENT SLEPT MOST PART OF THE NIGHT, NO SOB NO CHEST PAIN, NOTED, NO COMPLAIN OF PAIN AT THIS TIME, KEPT CLEAN AND DRY, CALL LIGHT WITHIN REACH.
[2017-10-22 08:16] LABS: *OCCULT BLOOD STOOL NEGATIVE (NEGATIVE)
[2017-10-22] MEDS: CYANOCOBALAMIN 1,000 MCG TABLET PO SCH (08:36)
[2017-10-22] MEDS: ASPIRIN 81 MG TAB.CHEW PO SCH (08:37)
[2017-10-22] MEDS: CALCIUM CARB/VITAMIN D 500MG-200UNITS TABLET PO SCH ×2 (08:37→20:53)
[2017-10-22] MEDS: PANTOPRAZOLE SODIUM 40 MG VIAL IV SCH (08:37)
[2017-10-22] MEDS: FINASTERIDE 5 MG TABLET PO SCH (08:37)
[2017-10-22] MEDS: BICALUTAMIDE 50 MG TABLET PO SCH (08:38)
[2017-10-22] MEDS: PANTOPRAZOLE SODIUM 40 MG TABLET.DR PO SCH (08:39)
[2017-10-22] MEDS: ISOSORBIDE MONONITRATE 60 MG TAB.SR.24H PO SCH (08:39)
[2017-10-22] MEDS: AMLODIPINE 5 MG TABLET PO SCH (10:30)
[2017-10-22 10:42] VITALS: BP 99/54
[2017-10-22] MEDS: ACETAMINOPHEN 325 MG TABLET PO PRN (10:46)
--- NOTE | 2017-10-22 12:01 | NUR ---
Clinical Pharmacy Note: Vancomycin Dosing per Pharmacy Subjective: Vancomycin IV to continue on this HD patient (Per RN occasional HD) for sepsis, pna. Objective: BUN 25/Scr 2.3 (10/21) WBC 13 (10/21) Temperature 98.2 WT 165 cm HT 65kg Assessment/Plan: HD has been scheduled for today.As per vancomycin dosing protocol for dialysis patient, No dose cuellar be due today. Since patient on occasional HD, will consider dosing by fall off level, if no further HD is scheduled. Plan to order vancomycin random level before next HD or if no HD (by level-not yet ordered). Will continue to dose per pre-HD vancomycin level. Will follow closely daily.
[2017-10-22 15:05] VITALS: BP 105/47
[2017-10-22 16:11] LABS: BASOPHILS % (AUTO) 0.2 % (0.0-2.0); EOSINOPHILS # (AUTO) 0.1 K/uL (0.0-0.7); EOSINOPHILS % (AUTO) 0.4 % (0.0-7.0); HEMATOCRIT 24.6 % (36.7-47.1); HEMOGLOBIN 8.3 g/dL (12.5-16.3); LYMPHOCYTES # (AUTO) 2.1 K/uL (20.0-40.0); LYMPHOCYTES % (AUTO) 12.5 % (20.5-51.5); MEAN CORPUSCULAR HEMOGLOBIN 29.4 uug (23.8-33.4); MEAN CORPUSCULAR HGB CONC 34 g/dL (32.5-36.3); MEAN CORPUSCULAR VOLUME 86.7 fL (73.0-96.2); MONOCYTES # (AUTO) 1.8 K/uL (2.0-10.0); MONOCYTES % (AUTO) 10.7 % (0.0-11.0); NEUTROPHILS # (AUTO) 12.7 K/uL (1.8-8.9); NEUTROPHILS % (AUTO) 76.2 % (38.5-71.5); PLATELET COUNT (AUTO) 179 K/uL (152-348); RED BLOOD CELL COUNT(AUTO) 2.84 MIL/uL (4.06-5.63); WHITE BLOOD COUNT (AUTO) 16.7 K/uL (3.6-10.2)
[2017-10-22 16:24] LABS: ALANINE AMINOTRANSFERASE 14 U/L (16-63); ALKALINE PHOSPHATASE 45 U/L (50-136); ASPARTATE AMINOTRANSFERASE 11 U/L (15-37); BILIRUBIN,TOTAL 0.7 mg/dL (0.2-1.0); CARBON DIOXIDE 24 mmol/L (21-32); CREATININE 3.8 mg/dL (0.6-1.3); GLUCOSE 103 mg/dL (74-106); MAGNESIUM 1.8 mg/dL (1.8-2.4); PHOSPHOROUS 4.7 mg/dL (2.5-4.9); POTASSIUM 3.9 mmol/L (3.5-5.1); TOTAL PROTEIN, SERUM 6.6 g/dL (6.4-8.2); UREA NITROGEN, BLOOD 51 mg/dL (7-18)
[2017-10-22 16:32] LABS: CHLORIDE 97 mmol/L (98-107)
[2017-10-22 16:35] LABS: THYROID STIMULATING HORMONE 2.487 mIU/mL (0.358-3.740)
--- NOTE | 2017-10-22 18:44 | NUR ---
PT IS ALERT, IN NO DISTRESS. IV ANTIBIOTICS ADMINISTERED ORDERED, NO ADVERSE REACTION NOTED. VS STABLE, AFEBRILE. PT NO COUGHING, NO SOB NOTED. SAFETY MEASURES IN PLACE.
--- NOTE | 2017-10-22 19:50 | NUR ---
RECEIVED IN BED ALERT ORIENTED, NO COUGHING NO CONGESTION NOTED, CONT ON ABX FOR PNA, WITH NO ADVERSE REACTION NOTED, KEPT CLEAN AND DRY, CALL LIGHT WITHIN REACH. CONT TO MONITOR.
[2017-10-22 20:14] VITALS: BP 93/45
[2017-10-22] MEDS: ATORVASTATIN 20 MG TABLET PO SCH (20:53)
[2017-10-23] MEDS: AZTREONAM 0.5 G in IV NORMAL SALINE 50 ML IV SCH ×3 (05:13→21:03)
[2017-10-23] MEDS: hydrALAZINE HCL 50 MG TABLET PO SCH ×3 (06:00→21:35)
[2017-10-23] MEDS: PANTOPRAZOLE SODIUM 40 MG TABLET.DR PO SCH (06:04)
[2017-10-23 06:20] LABS: BASOPHILS # (AUTO) 0.1 K/uL (0.0-8.0); BASOPHILS % (AUTO) 0.6 % (0.0-2.0); EOSINOPHILS # (AUTO) 0.1 K/uL (0.0-0.7); EOSINOPHILS % (AUTO) 0.8 % (0.0-7.0); HEMOGLOBIN 7.8 g/dL (12.5-16.3); LYMPHOCYTES # (AUTO) 2.2 K/uL (20.0-40.0); LYMPHOCYTES % (AUTO) 15.7 % (20.5-51.5); MEAN CORPUSCULAR HEMOGLOBIN 28.9 uug (23.8-33.4); MEAN CORPUSCULAR HGB CONC 34 g/dL (32.5-36.3); MEAN CORPUSCULAR VOLUME 85.4 fL (73.0-96.2); MONOCYTES # (AUTO) 1.4 K/uL (2.0-10.0); MONOCYTES % (AUTO) 9.8 % (0.0-11.0); NEUTROPHILS # (AUTO) 10.2 K/uL (1.8-8.9); NEUTROPHILS % (AUTO) 73.1 % (38.5-71.5); PLATELET COUNT (AUTO) 179 K/uL (152-348); RED BLOOD CELL COUNT(AUTO) 2.69 MIL/uL (4.06-5.63)
[2017-10-23 06:25] VITALS: BP 103/47
[2017-10-23 06:34] LABS: ALANINE AMINOTRANSFERASE 12 U/L (16-63); ALKALINE PHOSPHATASE 39 U/L (50-136); ASPARTATE AMINOTRANSFERASE 14 U/L (15-37); BILIRUBIN,TOTAL 0.6 mg/dL (0.2-1.0); CARBON DIOXIDE 22 mmol/L (21-32); CHLORIDE 100 mmol/L (98-107); CREATININE 3.8 mg/dL (0.6-1.3); GLUCOSE 106 mg/dL (74-106); MAGNESIUM 1.9 mg/dL (1.8-2.4); PHOSPHOROUS 4.5 mg/dL (2.5-4.9); POTASSIUM 3.7 mmol/L (3.5-5.1); TOTAL PROTEIN, SERUM 6.2 g/dL (6.4-8.2); UREA NITROGEN, BLOOD 59 mg/dL (7-18)
--- NOTE | 2017-10-23 06:36 | NUR ---
PATIENT AWAKE, SLEPT MOST OF THE NIGHT, NO COMPLAIN OF PAIN NOR DISCOMFORT, NO COUGHING NO CONGESTION NOTED, TURN AND REPOSITION, KEPT CLEAN AND DRY. CALL LIGHT WITHIN REACH.
[2017-10-23] MEDS: ISOSORBIDE MONONITRATE 60 MG TAB.SR.24H PO SCH (09:00)
[2017-10-23] MEDS: CYANOCOBALAMIN 1,000 MCG TABLET PO SCH (09:54)
[2017-10-23] MEDS: FINASTERIDE 5 MG TABLET PO SCH (09:55)
[2017-10-23] MEDS: CLOPIDOGREL 75 MG TABLET PO SCH (09:55)
[2017-10-23] MEDS: ASPIRIN 81 MG TAB.CHEW PO SCH (09:55)
[2017-10-23] MEDS: CALCIUM CARB/VITAMIN D 500MG-200UNITS TABLET PO SCH ×2 (09:55→20:54)
[2017-10-23] MEDS: BICALUTAMIDE 50 MG TABLET PO SCH (09:58)
[2017-10-23] MEDS: ACETAMINOPHEN 325 MG TABLET PO PRN (10:56)
[2017-10-23 11:14] VITALS: BP 105/50
--- NOTE | 2017-10-23 11:16 | NUR ---
Clinical Pharmacy Note: Vancomycin Dosing per Pharmacy Subjective: Vancomycin IV to continue on this HD patient (Per RN occasional HD) for sepsis, pna. Objective: BUN 59/Scr 3.8 WBC 14 Temperature 98.4 WT 165 cm HT 65kg Assessment/Plan: HD has been scheduled for today.As per vancomycin dosing protocol for dialysis patient, pre-HD random level is on order. . Will follow the level for further dosing. Will follow closely daily. Addendum: 10/23/17 at 1540 by BANDAR BARRERA ADM PRE-HD VANCOMYCIN LEVEL IS 14.6. WILL ADMINISTER 1GRAM X1 POST HD TODAY(HD IS NOT DONE YET).
[2017-10-23 15:06] VITALS: BP 130/55
--- NOTE | 2017-10-23 18:39 | NUR ---
PATIENT ALERT, IN NO DISTRESS. IV ANTIBIOTICS ADMINISTERED ORDERED, NO ADVERSE REACTION NOTED. VS STABLE, AFEBRILE, NO COUGHING NOTED. PATIENT KEPT CLEAN/DRY. SAFETY MEASURES IN PLACE.
--- NOTE | 2017-10-23 19:30 | NUR ---
Received patient in stable condition with no acute distress. Patient is A/Ox2-3 & able to make his needs known. Pertinent assessment completed. Vital signs within range. Patient denies pain & SOB. Dialysis nurse with patient at beginning of shift while patient is doing dialysis. Noted with a perma cath on right upper chest which is patent. IV site noted & documented on the left forearm 22G SL. Patient to be on ATB therapy for prophylaxis. Call light within reach of patient. Will continue to monitor through shift.
[2017-10-23 20:44] VITALS: BP 104/53
[2017-10-23] MEDS: ATORVASTATIN 20 MG TABLET PO SCH (20:54)
--- NOTE | 2017-10-23 21:30 | NUR ---
Per dialysis nurse, 2L taken out from patient. Patient tolerated well. No acute distress. Vitals were stable. Will continue to monitor through shift.
[2017-10-23] MEDS ORDERED: VANCOMYCIN IV 1 G in PREMIXED 0 EACH IV ONE (22:00)
[2017-10-24 04:28] VITALS: BP 114/57
[2017-10-24] MEDS: hydrALAZINE HCL 50 MG TABLET PO SCH ×2 (05:02→13:01)
[2017-10-24] MEDS: AZTREONAM 0.5 G in IV NORMAL SALINE 50 ML IV SCH ×3 (05:02→21:07)
--- NOTE | 2017-10-24 05:46 | NUR ---
Patient slept well during the night. No acute distress noted. Vital signs within range. All needs attended to promptly. Medications administered per MD order. Safety & comfort measures implemented. Call light within reach. Will endorse to oncoming shift.
[2017-10-24] MEDS: PANTOPRAZOLE SODIUM 40 MG TABLET.DR PO SCH (06:07)
[2017-10-24] MEDS: ISOSORBIDE MONONITRATE 60 MG TAB.SR.24H PO SCH (09:00)
[2017-10-24] MEDS: CLOPIDOGREL 75 MG TABLET PO SCH (09:05)
[2017-10-24] MEDS: CALCIUM CARB/VITAMIN D 500MG-200UNITS TABLET PO SCH ×2 (09:05→20:21)
[2017-10-24] MEDS: FINASTERIDE 5 MG TABLET PO SCH (09:05)
[2017-10-24] MEDS: CYANOCOBALAMIN 1,000 MCG TABLET PO SCH (09:05)
[2017-10-24] MEDS: BICALUTAMIDE 50 MG TABLET PO SCH (09:07)
[2017-10-24] MEDS: ASPIRIN 81 MG TAB.CHEW PO SCH (09:12)
--- NOTE | 2017-10-24 09:53 | NUR ---
Clinical Pharmacy Note: Vancomycin Dosing per Pharmacy Subjective: Vancomycin IV to continue on this HD patient (Per RN occasional HD) for sepsis, pna. Objective: BUN 59/Scr 3.8 (10/23) WBC 14 (10/23) Temperature 98.3 WT 165 cm HT 65kg Assessment/Plan: No HD scheduled for today therefore no dose will be given today. Last dose yesterday 10/23 @2206 of 1gm post HD. Will continue to follow HD schedule for dose per protocol. Will monitor
[2017-10-24 11:04] VITALS: BP 96/49
[2017-10-24 12:23] LABS: BASOPHILS # (AUTO) 0.1 K/uL (0.0-8.0); BASOPHILS % (AUTO) 0.5 % (0.0-2.0); EOSINOPHILS # (AUTO) 0.2 K/uL (0.0-0.7); EOSINOPHILS % (AUTO) 1.2 % (0.0-7.0); HEMOGLOBIN 7.8 g/dL (12.5-16.3); LYMPHOCYTES # (AUTO) 2.4 K/uL (20.0-40.0); MEAN CORPUSCULAR HEMOGLOBIN 29.5 uug (23.8-33.4); MEAN CORPUSCULAR HGB CONC 34 g/dL (32.5-36.3); MEAN CORPUSCULAR VOLUME 86.8 fL (73.0-96.2); MONOCYTES # (AUTO) 1.5 K/uL (2.0-10.0); MONOCYTES % (AUTO) 9.8 % (0.0-11.0); NEUTROPHILS # (AUTO) 11.5 K/uL (1.8-8.9); NEUTROPHILS % (AUTO) 73.5 % (38.5-71.5); PLATELET COUNT (AUTO) 190 K/uL (152-348); RED BLOOD CELL COUNT(AUTO) 2.65 MIL/uL (4.06-5.63); WHITE BLOOD COUNT (AUTO) 15.6 K/uL (3.6-10.2)
[2017-10-24 12:42] LABS: ALANINE AMINOTRANSFERASE 11 U/L (16-63); ALKALINE PHOSPHATASE 42 U/L (50-136); ASPARTATE AMINOTRANSFERASE 11 U/L (15-37); BILIRUBIN,TOTAL 0.7 mg/dL (0.2-1.0); CARBON DIOXIDE 24 mmol/L (21-32); CHLORIDE 98 mmol/L (98-107); CREATININE 3.3 mg/dL (0.6-1.3); GLUCOSE 94 mg/dL (74-106); MAGNESIUM 1.8 mg/dL (1.8-2.4); PHOSPHOROUS 3.8 mg/dL (2.5-4.9); POTASSIUM 3.7 mmol/L (3.5-5.1); TOTAL PROTEIN, SERUM 6.4 g/dL (6.4-8.2); UREA NITROGEN, BLOOD 57 mg/dL (7-18)
[2017-10-24 15:32] VITALS: BP 99/55
--- NOTE | 2017-10-24 17:57 | NUR ---
PATIENT SLEPT INTERMITTENTLY, IN NO DISTRESS. MEAL INTAKE/FLUID ADEQUATE, PT WITH GOOD APPETITE. MONITORED VS, BP THROUGHOUT THE SHIFT, HELD BP MEDICATIONS DUE TO DECREASE IN BP, MD AWARE. NO SIGNIFICANT CHANGE IN PATIENT'S CONDITION. PATIENT KEPT CLEAN/DRY. SAFETY MEASURES IN PLACE.
--- NOTE | 2017-10-24 18:00 | NUR ---
PERMACATH ON RIGHT UPPER CHEST INTACT, DRESSING CLEAN/DRY, NO S/S OF BLEEDING.
--- NOTE | 2017-10-24 19:30 | NUR ---
Received patient in stable condition with no acute distress. Patient resting comfortably at beginning of shift, vital signs within range. Pertinent assessment completed. Noted with Permacath right upper chest for dialysis, which is intact, dressing is clean & dry. IV site on right wrist is flushing well & patent. On ATB therapy for PNA. Call light within reach. Will continue to monitor through shift.
[2017-10-24 20:13] VITALS: BP 101/47
[2017-10-24] MEDS: ATORVASTATIN 20 MG TABLET PO SCH (20:21)
[2017-10-25 04:53] VITALS: BP 101/48
[2017-10-25] MEDS: AZTREONAM 0.5 G in IV NORMAL SALINE 50 ML IV SCH (06:05)
[2017-10-25] MEDS: PANTOPRAZOLE SODIUM 40 MG TABLET.DR PO SCH (06:05)
--- NOTE | 2017-10-25 06:23 | NUR ---
Patient slept well during the shift. All needs attended to. No pain or SOB during shift. Skin care provided. Patient changed per diaper soiling. Medications administered per MD order. Good input & output from patient. Permacath is intact, dressing is clean & dry with no s/s of bleeding. Comfort & safety measures provided. Will endorse to day shift nurse.
[2017-10-25 06:35] LABS: BASOPHILS # (AUTO) 0.1 K/uL (0.0-8.0); BASOPHILS % (AUTO) 0.6 % (0.0-2.0); EOSINOPHILS # (AUTO) 0.2 K/uL (0.0-0.7); EOSINOPHILS % (AUTO) 1.5 % (0.0-7.0); HEMATOCRIT 23.6 % (36.7-47.1); LYMPHOCYTES # (AUTO) 2.2 K/uL (20.0-40.0); LYMPHOCYTES % (AUTO) 14.3 % (20.5-51.5); MEAN CORPUSCULAR HEMOGLOBIN 29.6 uug (23.8-33.4); MEAN CORPUSCULAR HGB CONC 34 g/dL (32.5-36.3); MEAN CORPUSCULAR VOLUME 87.3 fL (73.0-96.2); MONOCYTES # (AUTO) 1.5 K/uL (2.0-10.0); MONOCYTES % (AUTO) 10.1 % (0.0-11.0); NEUTROPHILS % (AUTO) 73.5 % (38.5-71.5); PLATELET COUNT (AUTO) 228 K/uL (152-348)
[2017-10-25 06:56] LABS: CARBON DIOXIDE 25 mmol/L (21-32); CHLORIDE 101 mmol/L (98-107); CREATININE 3.3 mg/dL (0.6-1.3); GLUCOSE 94 mg/dL (74-106); MAGNESIUM 1.8 mg/dL (1.8-2.4); UREA NITROGEN, BLOOD 63 mg/dL (7-18)
[2017-10-25] MEDS: CLOPIDOGREL 75 MG TABLET PO SCH (08:40)
[2017-10-25] MEDS: ASPIRIN 81 MG TAB.CHEW PO SCH (08:40)
[2017-10-25] MEDS: FINASTERIDE 5 MG TABLET PO SCH (08:40)
[2017-10-25] MEDS: CALCIUM CARB/VITAMIN D 500MG-200UNITS TABLET PO SCH (08:40)
[2017-10-25] MEDS: CYANOCOBALAMIN 1,000 MCG TABLET PO SCH (08:40)
[2017-10-25] MEDS: BICALUTAMIDE 50 MG TABLET PO SCH (08:42)
[2017-10-25] MEDS: ISOSORBIDE MONONITRATE 60 MG TAB.SR.24H PO SCH (08:45)
--- NOTE | 2017-10-25 09:50 | NUR ---
EPOCRIT GIVEN TO SINKER PULLER, TO BE ADMINISTERED WITH DIALYSIS PROCEDURE.
[2017-10-25] MEDS ORDERED: EPOETIN ALFA 20,000 UNIT/ML ML IV ONE (10:00)
[2017-10-25 11:06] VITALS: BP 99/38
[2017-10-25] MEDS ORDERED: PANT40TA2 PO (12:31)
[2017-10-25] MEDS ORDERED: ALBU2.5V7 NEB (12:31)
[2017-10-25] MEDS ORDERED: IPRA0.2S6 NEB (12:31)
[2017-10-25] MEDS ORDERED: ACET325T53 PO (12:31)
[2017-10-25] MEDS ORDERED: AZIT250T13 PO (12:31)
--- NOTE | 2017-10-25 13:20 | NUR ---
DISCHARGE PACKET PRINTED UNDER [employer] T[employer]PER'S USER ACCOUNT DUE TO PRIMARY RN'S PENDING [facility] ISSUE/PROBLEM.
--- NOTE | 2017-10-25 13:20 | NUR ---
PATIENT DISCHARGED TO [facility]. DISCHARGE INSTRUCTIONS/TEACHINGS PROVIDED, PT VERBALIZED UNDERSTANDING. IV ACCESS AND ID BAND REMOVED. BELONGINGS DONE.
[2017-10-25] MEDS ORDERED: AZITHROMYCIN 250 MG TABLET PO ONE (14:00)
[2017-10-25] MEDS ORDERED: VANCOMYCIN IV 500 MG in IV DEXTROSE 5% 100 ML IV ONE (14:00)
--- NOTE | 2017-10-25 14:30 | NUR ---
REPORT GIVEN TO AFSANEH BLANTON [facility]
--- NOTE | 2017-10-25 14:50 | NUR ---
PATIENT PICKED UP BY AMBULANCE. PATIENT ALERT, IN NO DISTRESS. DAUGHTER PRESENT.
[2017-10-25] MEDS ORDERED: CALCIUM CARB/VITAMIN D 500MG-200UNITS TABLET PO SCH (21:00)
[2017-10-26] MEDS ORDERED: AZITHROMYCIN 250 MG TABLET PO SCH (14:00)
== END 2017-10-25 15:00 | DRG 193 ==
LOC: ER 15:01 → TELE 19:41 → MED 10-21 17:09
PROVIDERS: ADMIT Internal Medicine; ATTEND Internal Medicine
PROC: 5A1D70Z Performance of Urinary Filtration, Intermittent, Less than 6 Hours Per Day (ICD-10-PCS; principal; 2017-10-21)
DX: J18.9 Pneumonia, unspecified organism (principal); I21.A1 Myocardial infarction type 2; N17.0 Acute kidney failure with tubular necrosis; J98.11 Atelectasis; E44.0 Moderate protein-calorie malnutrition; I31.3 Pericardial effusion (noninflammatory); J91.8 Pleural effusion in other conditions classified elsewhere; D63.8 Anemia in other chronic diseases classified elsewhere; I25.2 Old myocardial infarction; Z88.0 Allergy status to penicillin; Z87.891 Personal history of nicotine dependence; F03.90 Unspecified dementia, unspecified severity, without behavioral disturbance, psychotic disturbance, mood disturbance, and anxiety; I34.1 Nonrheumatic mitral (valve) prolapse; Z99.2 Dependence on renal dialysis; Z95.5 Presence of coronary angioplasty implant and graft; Z90.49 Acquired absence of other specified parts of digestive tract; Z85.46 Personal history of malignant neoplasm of prostate; Z85.828 Personal history of other malignant neoplasm of skin; K21.0 Gastro-esophageal reflux disease with esophagitis; Z79.82 Long term (current) use of aspirin; Z79.02 Long term (current) use of antithrombotics/antiplatelets; D50.9 Iron deficiency anemia, unspecified; H91.90 Unspecified hearing loss, unspecified ear; K52.9 Noninfective gastroenteritis and colitis, unspecified; S30.1XXA Contusion of abdominal wall, initial encounter; W19.XXXA Unspecified fall, initial encounter; Y92.099 Unspecified place in other non-institutional residence as the place of occurrence of the external cause; K22.70 Barrett's esophagus without dysplasia; M85.80 Other specified disorders of bone density and structure, unspecified site; E78.5 Hyperlipidemia, unspecified; M25.552 Pain in left hip; M19.90 Unspecified osteoarthritis, unspecified site; Z87.19 Personal history of other diseases of the digestive system; R73.9 Hyperglycemia, unspecified; I12.9 Hypertensive chronic kidney disease with stage 1 through stage 4 chronic kidney disease, or unspecified chronic kidney disease; N18.9 Chronic kidney disease, unspecified
CPT/HCPCS: 36415; 70030-TC; 71045; 73501; 83550; 83605; 83735; 84100; 84156; 84300; 84443; 85018; 85025; 85730; 86850; 86900; 86901; 86920; 87040; 87086; 90937; 93005; 93307; 97110; 97116; 97530; A4663; C9113; J0885; J1956; J3370; J3490; J7040; J7060; P9016-BL; P9021; Q0144

== ENCOUNTER 2017-12-08 16:44 | Inpatient (IN) | payer MEDICARE, BC ==
[~2017-12-08] VITALS: Ht 165.1 cm; Wt 65.8 kg
[~2017-12-08 16:44] MED LIST changes: +ACET325T53 PO; +ALBU2.5V7 NEB; +ATOR20TA PO; +AZIT250T13 PO; +CLOP75TA33 PO; -HYDR50TA68 PO; +IPRA0.2S6 NEB; +PANT40TA2 PO; -VERA240C2 PO
[2017-12-08] MEDS ORDERED: IV NORMAL SALINE 500 ML BAG IV ONE (17:00)
[2017-12-08] MEDS ORDERED: MAGN400O6 PO (17:03)
[2017-12-08] MEDS ORDERED: CLOP75TA15 PO (17:03)
[2017-12-08 17:15] LABS: BASOPHILS # (AUTO) 0.1 K/uL (0.0-8.0); BASOPHILS % (AUTO) 0.5 % (0.0-2.0); EOSINOPHILS # (AUTO) 0.1 K/uL (0.0-0.7); EOSINOPHILS % (AUTO) 1.2 % (0.0-7.0); HEMATOCRIT 36.1 % (36.7-47.1); HEMOGLOBIN 11.7 g/dL (12.5-16.3); LYMPHOCYTES # (AUTO) 2.4 K/uL (20.0-40.0); LYMPHOCYTES % (AUTO) 21.1 % (20.5-51.5); MEAN CORPUSCULAR HGB CONC 32 g/dL (32.5-36.3); MEAN CORPUSCULAR VOLUME 89.6 fL (73.0-96.2); NEUTROPHILS # (AUTO) 7.6 K/uL (1.8-8.9); NEUTROPHILS % (AUTO) 68.2 % (38.5-71.5); PLATELET COUNT (AUTO) 201 K/uL (152-348); RED BLOOD CELL COUNT(AUTO) 4.03 MIL/uL (4.06-5.63); WHITE BLOOD COUNT (AUTO) 11.2 K/uL (3.6-10.2)
[2017-12-08 17:28] LABS: CARBON DIOXIDE 27 mmol/L (21-32); CHLORIDE 107 mmol/L (98-107); CREATININE 2.5 mg/dL (0.6-1.3); GLUCOSE 101 mg/dL (74-106); UREA NITROGEN, BLOOD 38 mg/dL (7-18)
[2017-12-08 17:34] LABS: ALANINE AMINOTRANSFERASE 73 U/L (16-63); ALKALINE PHOSPHATASE 53 U/L (50-136); ASPARTATE AMINOTRANSFERASE 30 U/L (15-37); BILIRUBIN,DIRECT 0.2 mg/dL (0.0-0.2)
[2017-12-08] MEDS ORDERED: ASPIRIN 81 MG TAB.CHEW ONE (17:59)
[2017-12-08] MEDS ORDERED: ASPIRIN 81 MG TAB.CHEW PO ONE (18:00)
[2017-12-08 18:55] VITALS: BP 187/103
[2017-12-08] MEDS: NITROGLYCERIN OINT 1 GM PACKET TP SCH (19:00)
[2017-12-08] MEDS ORDERED: ERYT3.5O24 EACHEYE (19:52)
[2017-12-08] MEDS ORDERED: EYEL1MED TP (19:52)
[2017-12-08] MEDS ORDERED: ISOS30TA6 PO (19:52)
[2017-12-08] MEDS ORDERED: CARV3.12 PO (19:52)
[2017-12-08 20:13] VITALS: BP 166/100
[2017-12-08] MEDS ORDERED: IV 1/2NS 1000 ML 1,000 ML IV PRN (20:23)
[2017-12-08] MEDS ORDERED: Z GUARD REMEDY PASTE 57 GM TUBE TOP PRN (20:30)
[2017-12-08] MEDS ORDERED: ZOLPIDEM 5 MG TABLET PO PRN (20:30)
[2017-12-08] MEDS ORDERED: ACETAMINOPHEN 325 MG TABLET PO PRN (20:30)
[2017-12-08] MEDS ORDERED: ONDANSETRON 4 MG/2 ML VIAL IV PRN (20:30)
[2017-12-08] MEDS ORDERED: MAGNESIUM HYDROXIDE 30 ML LIQUID UDC PO PRN (20:30)
[2017-12-08] MEDS ORDERED: CARVEDILOL 3.125 MG TABLET PO SCH (21:00)
[2017-12-08] MEDS: hydrALAZINE HCL 50 MG TABLET PO SCH (21:02)
[2017-12-08 21:51] LABS: *BILIRUBIN,URIN NEGATIVE (NEGATIVE); *BLOOD, URINE Trace-intact (NEGATIVE); *CLARITY,URINE CLEAR (CLEAR); *COLOR,URINE YELLOW (YELLOW); *KETONES,URINE NEGATIVE (NEGATIVE); *PROTEIN,URINE TRACE (NEGATIVE); *UROBILINOGEN,URINE 0.2 E.U./dl (NORMAL); LEUKOCYTE ESTERASE ,URINE NEGATIVE (NEGATIVE); NITRITE, URINE NEGATIVE (NEGATIVE); PH,URINE 6.5 (5.0-8.0); UGLUCOSE NEGATIVE (NEGATIVE)
[2017-12-08 21:55] LABS: BACTERIA,URINE NONE SEEN /HPF (NONE SEEN); RBC,URINE 0-3 /HPF (0-3); SQUAMOUS EPITHELIAL CELL,UR FEW /HPF (NONE SEEN); WBC,URINE 0-3 /HPF (0-3)
[2017-12-08 21:57] LABS: *CREATININE,URINE 114.7 mg/dL (30-125); *URINE TOTAL PROTEIN RANDOM 38.5 mg/dL (<150/24HR)
[2017-12-09] VITALS (16 sets, daily range): BP systolic 120–206; BP diastolic 62–121
[2017-12-09] MEDS: NITROGLYCERIN OINT 1 GM PACKET TP SCH ×5 (00:25→23:12)
[2017-12-09] MEDS ORDERED: CARVEDILOL 12.5 MG TABLET PO ONE (00:50)
[2017-12-09 01:35] LABS: ABG BASE EXCESS -2.1 mmol/L; ABG HCO3 23.6 mmol/L; ABG PH 7.348 (7.350-7.450); ABG PO2 77.2 mmHg (75.0-100.0); ABG SITE RIGHT RADIAL; ABG TOTAL HEMOGLOBIN 12.3 G/dL (13.5-18.0); COHb 1.9 % (0.5-1.5); MetHb 0.2 % (0.0-1.5); O2Hb 92.4 % (94.0-97.0); VENT MODE Nasal Cannula
[2017-12-09] MEDS ORDERED: FUROSEMIDE 40 MG/4 ML VIAL IV ONE (02:45)
[2017-12-09 05:30] LABS: BASOPHILS % (AUTO) 0.2 % (0.0-2.0); EOSINOPHILS % (AUTO) 0.3 % (0.0-7.0); HEMATOCRIT 33.5 % (36.7-47.1); LYMPHOCYTES # (AUTO) 1.5 K/uL (20.0-40.0); MEAN CORPUSCULAR HEMOGLOBIN 28.9 uug (23.8-33.4); MEAN CORPUSCULAR HGB CONC 33 g/dL (32.5-36.3); MEAN CORPUSCULAR VOLUME 88.1 fL (73.0-96.2); MONOCYTES # (AUTO) 0.8 K/uL (2.0-10.0); MONOCYTES % (AUTO) 6.7 % (0.0-11.0); NEUTROPHILS # (AUTO) 9.2 K/uL (1.8-8.9); NEUTROPHILS % (AUTO) 79.8 % (38.5-71.5); PLATELET COUNT (AUTO) 175 K/uL (152-348); WHITE BLOOD COUNT (AUTO) 11.5 K/uL (3.6-10.2)
[2017-12-09 05:52] LABS: CARBON DIOXIDE 27 mmol/L (21-32); CHLORIDE 108 mmol/L (98-107); CHOLESTEROL 99 mg/dL (<200); CREATININE 2.5 mg/dL (0.6-1.3); FERRITIN 143 ng/mL (26-388); GLUCOSE 113 mg/dL (74-106); HDL CHOLESTEROL 36 mg/dL (40-60); MAGNESIUM 1.9 mg/dL (1.8-2.4); PHOSPHOROUS 4.2 mg/dL (2.5-4.9); POTASSIUM 3.9 mmol/L (3.5-5.1); TRIGLYCERIDES 67 MG/DL (30-150); UREA NITROGEN, BLOOD 36 mg/dL (7-18)
[2017-12-09 05:53] LABS: IRON, SERUM 36 ug/dL (50-175)
[2017-12-09 05:55] LABS: THYROID STIMULATING HORMONE 2.631 mIU/mL (0.358-3.740)
[2017-12-09] MEDS: hydrALAZINE HCL 50 MG TABLET PO SCH ×3 (05:56→21:03)
[2017-12-09] MEDS ORDERED: CARVEDILOL 12.5 MG TABLET PO SCH (08:00)
[2017-12-09] MEDS: CLOPIDOGREL 75 MG TABLET PO SCH (08:13)
[2017-12-09] MEDS: FINASTERIDE 5 MG TABLET PO SCH (08:13)
[2017-12-09] MEDS: ATORVASTATIN 20 MG TABLET PO SCH (08:14)
[2017-12-09] MEDS: ASPIRIN 81 MG TAB.CHEW PO SCH (08:14)
[2017-12-09] MEDS: ISOSORBIDE MONONITRATE 30 MG TAB.SR.24H PO SCH (08:15)
[2017-12-09] MEDS: ERYTHROMYCIN 0.5% OPHT OINT 3.5 GM TUBE RIGHTEYE SCH ×2 (09:00→21:03)
[2017-12-09] MEDS ORDERED: VANCOMYCIN IV 1 G in PREMIXED 0 EACH IV ONE (10:00)
[2017-12-09] MEDS ORDERED: AZTREONAM 1 G in IV NORMAL SALINE 50 ML IV SCH (14:00)
[2017-12-09] MEDS: AZTREONAM 0.5 G in IV NORMAL SALINE 50 ML IV SCH ×2 (14:53→21:03)
[2017-12-09 21:39] LABS: *BILIRUBIN,URIN NEGATIVE (NEGATIVE); *BLOOD, URINE NEGATIVE (NEGATIVE); *COLOR,URINE YELLOW (YELLOW); *KETONES,URINE NEGATIVE (NEGATIVE); *PROTEIN,URINE NEGATIVE (NEGATIVE); *UROBILINOGEN,URINE 0.2 E.U./dl (NORMAL); LEUKOCYTE ESTERASE ,URINE NEGATIVE (NEGATIVE); NITRITE, URINE NEGATIVE (NEGATIVE); PH,URINE 5.5 (5.0-8.0); UGLUCOSE NEGATIVE (NEGATIVE)
[2017-12-09 21:52] LABS: *CLARITY,URINE SLIGHTLY HAZY (CLEAR)
[2017-12-09 21:53] LABS: BACTERIA,URINE MODERATE /HPF (NONE SEEN); MUCUS,URINE MODERATE /LPF (0-FEW); WBC,URINE NONE SEEN /HPF (0-3)
[2017-12-10] VITALS (9 sets, daily range): BP systolic 107–178; BP diastolic 64–109
[2017-12-10] MEDS: AZTREONAM 0.5 G in IV NORMAL SALINE 50 ML IV SCH ×3 (05:13→21:04)
[2017-12-10] MEDS: NITROGLYCERIN OINT 1 GM PACKET TP SCH ×4 (05:13→23:44)
[2017-12-10] MEDS: hydrALAZINE HCL 50 MG TABLET PO SCH ×3 (05:14→21:03)
[2017-12-10 06:55] LABS: BASOPHILS # (AUTO) 0.1 K/uL (0.0-8.0); BASOPHILS % (AUTO) 0.5 % (0.0-2.0); EOSINOPHILS # (AUTO) 0.1 K/uL (0.0-0.7); EOSINOPHILS % (AUTO) 1.2 % (0.0-7.0); HEMATOCRIT 34.1 % (36.7-47.1); HEMOGLOBIN 11.3 g/dL (12.5-16.3); LYMPHOCYTES # (AUTO) 1.6 K/uL (20.0-40.0); LYMPHOCYTES % (AUTO) 13.1 % (20.5-51.5); MEAN CORPUSCULAR HEMOGLOBIN 29.5 uug (23.8-33.4); MEAN CORPUSCULAR HGB CONC 33 g/dL (32.5-36.3); MEAN CORPUSCULAR VOLUME 89.1 fL (73.0-96.2); MONOCYTES # (AUTO) 0.8 K/uL (2.0-10.0); NEUTROPHILS # (AUTO) 9.4 K/uL (1.8-8.9); NEUTROPHILS % (AUTO) 78.2 % (38.5-71.5); PLATELET COUNT (AUTO) 162 K/uL (152-348); RED BLOOD CELL COUNT(AUTO) 3.83 MIL/uL (4.06-5.63)
[2017-12-10 07:07] LABS: ALANINE AMINOTRANSFERASE 62 U/L (16-63); ALKALINE PHOSPHATASE 46 U/L (50-136); ASPARTATE AMINOTRANSFERASE 25 U/L (15-37); BILIRUBIN,TOTAL 0.9 mg/dL (0.2-1.0); CARBON DIOXIDE 28 mmol/L (21-32); CHLORIDE 108 mmol/L (98-107); CREATININE 2.3 mg/dL (0.6-1.3); GLUCOSE 105 mg/dL (74-106); MAGNESIUM 1.7 mg/dL (1.8-2.4); PHOSPHOROUS 3.5 mg/dL (2.5-4.9); POTASSIUM 3.2 mmol/L (3.5-5.1); TOTAL PROTEIN, SERUM 6.4 g/dL (6.4-8.2); UREA NITROGEN, BLOOD 38 mg/dL (7-18); VANCOMYCIN,RANDOM 8.6 ug/mL (18.0-26.0)
[2017-12-10] MEDS: FINASTERIDE 5 MG TABLET PO SCH ×2 (09:00→11:47)
[2017-12-10] MEDS ORDERED: VANCOMYCIN IV 1 G in PREMIXED 0 EACH IV ONE (10:00)
[2017-12-10] MEDS: ISOSORBIDE MONONITRATE 30 MG TAB.SR.24H PO SCH (11:47)
[2017-12-10] MEDS: ATORVASTATIN 20 MG TABLET PO SCH (11:47)
[2017-12-10] MEDS: CLOPIDOGREL 75 MG TABLET PO SCH (11:47)
[2017-12-10] MEDS: ASPIRIN 81 MG TAB.CHEW PO SCH (11:47)
[2017-12-10] MEDS: ERYTHROMYCIN 0.5% OPHT OINT 3.5 GM TUBE RIGHTEYE SCH ×2 (11:48→21:03)
[2017-12-10] MEDS ORDERED: POTASSIUM CHLORIDE 10 MEQ TAB.PRT.SR PO ONE (14:15)
[2017-12-10] MEDS ORDERED: MAGNESIUM SULFATE/D5W 100 ML IV SCH (14:30)
[2017-12-10 14:39] LABS: HEPATITIS B SURFACE AB Reactive (.); HEPATITIS B SURFACE AG Negative (Negative)
[2017-12-10] MEDS: FUROSEMIDE 40 MG/4 ML VIAL IV SCH (16:34)
[2017-12-10] MEDS: AMLODIPINE 5 MG TABLET PO SCH (18:54)
[2017-12-10] MEDS: ISOSORBIDE DINITRATE 20 MG TABLET PO SCH (21:03)
[2017-12-11] VITALS (8 sets, daily range): BP systolic 106–134; BP diastolic 48–75
[2017-12-11] MEDS: AZTREONAM 0.5 G in IV NORMAL SALINE 50 ML IV SCH ×3 (05:11→21:08)
[2017-12-11] MEDS: ISOSORBIDE DINITRATE 20 MG TABLET PO SCH ×3 (05:13→21:12)
[2017-12-11 06:09] LABS: BASOPHILS # (AUTO) 0.1 K/uL (0.0-8.0); BASOPHILS % (AUTO) 0.5 % (0.0-2.0); EOSINOPHILS # (AUTO) 0.3 K/uL (0.0-0.7); EOSINOPHILS % (AUTO) 2.1 % (0.0-7.0); HEMATOCRIT 33.4 % (36.7-47.1); HEMOGLOBIN 11.3 g/dL (12.5-16.3); LYMPHOCYTES # (AUTO) 2.5 K/uL (20.0-40.0); LYMPHOCYTES % (AUTO) 18.8 % (20.5-51.5); MEAN CORPUSCULAR HEMOGLOBIN 29.9 uug (23.8-33.4); MEAN CORPUSCULAR HGB CONC 34 g/dL (32.5-36.3); MEAN CORPUSCULAR VOLUME 88.7 fL (73.0-96.2); MONOCYTES # (AUTO) 1.2 K/uL (2.0-10.0); MONOCYTES % (AUTO) 8.7 % (0.0-11.0); NEUTROPHILS # (AUTO) 9.3 K/uL (1.8-8.9); NEUTROPHILS % (AUTO) 69.9 % (38.5-71.5); PLATELET COUNT (AUTO) 211 K/uL (152-348); RED BLOOD CELL COUNT(AUTO) 3.77 MIL/uL (4.06-5.63); WHITE BLOOD COUNT (AUTO) 13.4 K/uL (3.6-10.2)
[2017-12-11] MEDS: NITROGLYCERIN OINT 1 GM PACKET TP SCH ×4 (06:10→23:55)
[2017-12-11 06:38] LABS: CARBON DIOXIDE 27 mmol/L (21-32); CHLORIDE 108 mmol/L (98-107); CREATININE 2.3 mg/dL (0.6-1.3); GLUCOSE 91 mg/dL (74-106); MAGNESIUM 2.2 mg/dL (1.8-2.4); PHOSPHOROUS 3.4 mg/dL (2.5-4.9); POTASSIUM 3.5 mmol/L (3.5-5.1); UREA NITROGEN, BLOOD 35 mg/dL (7-18)
[2017-12-11] MEDS: hydrALAZINE HCL 50 MG TABLET PO SCH ×3 (08:27→21:12)
[2017-12-11] MEDS: ASPIRIN 81 MG TAB.CHEW PO SCH (08:28)
[2017-12-11] MEDS: CLOPIDOGREL 75 MG TABLET PO SCH (08:28)
[2017-12-11] MEDS: FUROSEMIDE 40 MG/4 ML VIAL IV SCH ×2 (08:28→10:40)
[2017-12-11] MEDS: ATORVASTATIN 20 MG TABLET PO SCH (08:28)
[2017-12-11] MEDS: AMLODIPINE 5 MG TABLET PO SCH (08:28)
[2017-12-11] MEDS: MUPIROCIN 2% OINT 22 GM TUBE NS SCH ×2 (08:29→21:08)
[2017-12-11] MEDS: ERYTHROMYCIN 0.5% OPHT OINT 3.5 GM TUBE RIGHTEYE SCH ×3 (08:30→21:08)
[2017-12-11 10:08] LABS: CALCITRIOL VIT D,1,25 DIHYDROX 10.5 pg/mL (19.9-79.3)
[2017-12-11 10:24] LABS: VANCOMYCIN,RANDOM 14.8 ug/mL (18.0-26.0)
[2017-12-11] MEDS ORDERED: VANCOMYCIN IV 1 G in PREMIXED 0 EACH IV ONE (12:00)
[2017-12-12] VITALS: BP 107/59
[2017-12-12 04:00] VITALS: BP 108/61
[2017-12-12] MEDS: AZTREONAM 0.5 G in IV NORMAL SALINE 50 ML IV SCH ×3 (05:44→21:13)
[2017-12-12] MEDS: NITROGLYCERIN OINT 1 GM PACKET TP SCH ×4 (05:44→23:50)
[2017-12-12] MEDS: hydrALAZINE HCL 50 MG TABLET PO SCH ×3 (06:00→21:19)
[2017-12-12] MEDS: ISOSORBIDE DINITRATE 20 MG TABLET PO SCH ×3 (06:00→21:20)
[2017-12-12] MEDS: CLOPIDOGREL 75 MG TABLET PO SCH (08:37)
[2017-12-12] MEDS: ASPIRIN 81 MG TAB.CHEW PO SCH (08:37)
[2017-12-12] MEDS: ATORVASTATIN 20 MG TABLET PO SCH (08:37)
[2017-12-12] MEDS: FUROSEMIDE 40 MG/4 ML VIAL IV SCH (08:37)
[2017-12-12] MEDS: ERYTHROMYCIN 0.5% OPHT OINT 3.5 GM TUBE RIGHTEYE SCH ×2 (08:40→20:35)
[2017-12-12] MEDS: MUPIROCIN 2% OINT 22 GM TUBE NS SCH ×2 (08:40→20:35)
[2017-12-12] MEDS: AMLODIPINE 5 MG TABLET PO SCH (08:43)
[2017-12-12 08:44] VITALS: BP 93/57
[2017-12-12] MEDS ORDERED: VANCOMYCIN IV 1 G in PREMIXED 0 EACH IV ONE (09:00)
[2017-12-12 12:14] VITALS: BP 120/56
[2017-12-12 15:54] VITALS: BP 116/60
[2017-12-12 20:03] VITALS: BP 106/49
[2017-12-12] MEDS: MIRALAX 17 GM POWD.PACK PO SCH (21:47)
[2017-12-13 04:52] VITALS: BP 129/76
[2017-12-13] MEDS: AZTREONAM 0.5 G in IV NORMAL SALINE 50 ML IV SCH (05:05)
[2017-12-13] MEDS: NITROGLYCERIN OINT 1 GM PACKET TP SCH ×2 (05:05→12:54)
[2017-12-13 06:23] LABS: BASOPHILS # (AUTO) 0.1 K/uL (0.0-8.0); BASOPHILS % (AUTO) 0.6 % (0.0-2.0); EOSINOPHILS # (AUTO) 0.2 K/uL (0.0-0.7); EOSINOPHILS % (AUTO) 1.7 % (0.0-7.0); HEMATOCRIT 31.7 % (36.7-47.1); HEMOGLOBIN 10.8 g/dL (12.5-16.3); LYMPHOCYTES % (AUTO) 17.1 % (20.5-51.5); MEAN CORPUSCULAR HEMOGLOBIN 29.6 uug (23.8-33.4); MEAN CORPUSCULAR HGB CONC 34 g/dL (32.5-36.3); MONOCYTES # (AUTO) 1.2 K/uL (2.0-10.0); MONOCYTES % (AUTO) 9.8 % (0.0-11.0); NEUTROPHILS # (AUTO) 8.3 K/uL (1.8-8.9); NEUTROPHILS % (AUTO) 70.8 % (38.5-71.5); PLATELET COUNT (AUTO) 188 K/uL (152-348); RED BLOOD CELL COUNT(AUTO) 3.64 MIL/uL (4.06-5.63); WHITE BLOOD COUNT (AUTO) 11.7 K/uL (3.6-10.2)
[2017-12-13] MEDS: ISOSORBIDE DINITRATE 20 MG TABLET PO SCH ×2 (06:28→14:22)
[2017-12-13] MEDS: hydrALAZINE HCL 50 MG TABLET PO SCH ×2 (06:28→14:22)
[2017-12-13 07:03] LABS: ALANINE AMINOTRANSFERASE 33 U/L (16-63); ALKALINE PHOSPHATASE 37 U/L (50-136); ASPARTATE AMINOTRANSFERASE 13 U/L (15-37); BILIRUBIN,TOTAL 0.5 mg/dL (0.2-1.0); CARBON DIOXIDE 25 mmol/L (21-32); CHLORIDE 106 mmol/L (98-107); CREATININE 2.5 mg/dL (0.6-1.3); GLUCOSE 93 mg/dL (74-106); MAGNESIUM 1.9 mg/dL (1.8-2.4); PHOSPHOROUS 3.1 mg/dL (2.5-4.9); POTASSIUM 3.3 mmol/L (3.5-5.1); TOTAL PROTEIN, SERUM 5.7 g/dL (6.4-8.2); UREA NITROGEN, BLOOD 42 mg/dL (7-18)
[2017-12-13] MEDS: CLOPIDOGREL 75 MG TABLET PO SCH (08:42)
[2017-12-13] MEDS: ASPIRIN 81 MG TAB.CHEW PO SCH (08:42)
[2017-12-13] MEDS: ATORVASTATIN 20 MG TABLET PO SCH (08:42)
[2017-12-13] MEDS: FUROSEMIDE 40 MG/4 ML VIAL IV SCH (08:42)
[2017-12-13] MEDS: AMLODIPINE 5 MG TABLET PO SCH ×2 (08:43→08:55)
[2017-12-13] MEDS: MIRALAX 17 GM POWD.PACK PO SCH (08:43)
[2017-12-13] MEDS: MUPIROCIN 2% OINT 22 GM TUBE NS SCH (08:44)
[2017-12-13] MEDS: ERYTHROMYCIN 0.5% OPHT OINT 3.5 GM TUBE RIGHTEYE SCH (08:45)
[2017-12-13] MEDS ORDERED: FURO40TA5 PO (11:30)
[2017-12-13] MEDS ORDERED: POTASSIUM CHLORIDE 20 MEQ TAB.PRT.SR PO ONE (11:30)
[2017-12-13] MEDS ORDERED: MUPI22OI2 NS (11:30)
[2017-12-13] MEDS ORDERED: AMLO5TAB7 PO (11:30)
[2017-12-13] MEDS ORDERED: ZOLP5TAB8 PO (11:30)
[2017-12-13] MEDS ORDERED: CLOP75TA15 PO (11:30)
[2017-12-13] MEDS ORDERED: ERYT3.5O24 RIGHTEYE (11:30)
[2017-12-13] MEDS ORDERED: POLY17PO4 PO (11:30)
[2017-12-13] MEDS ORDERED: HYDR50TA68 PO (11:30)
[2017-12-13 11:42] VITALS: BP 109/54
[2017-12-13 14:22] VITALS: BP 126/45
[2017-12-14] MEDS ORDERED: FUROSEMIDE 40 MG TABLET PO SCH (09:00)
[2017-12-14] MEDS ORDERED: ISOS20TA8 PO (10:31)
[2017-12-14] MEDS ORDERED: NITROGLYCERIN OINT (10:37)
== END 2017-12-13 15:15 | DRG 280 ==
LOC: ER 16:44 → TELE 18:04 → CCU 12-09 01:17 → TELE 12-09 15:23 → MED 12-12 16:00
PROVIDERS: ADMIT Internal Medicine; ATTEND Internal Medicine
PROC: 0W9B3ZX Drainage of Left Pleural Cavity, Percutaneous Approach, Diagnostic (ICD-10-PCS; principal; 2017-12-11)
PROC: 0W993ZX Drainage of Right Pleural Cavity, Percutaneous Approach, Diagnostic (ICD-10-PCS; 2017-12-12)
DX: I13.0 Hypertensive heart and chronic kidney disease with heart failure and stage 1 through stage 4 chronic kidney disease, or unspecified chronic kidney disease (principal); N17.0 Acute kidney failure with tubular necrosis; I21.A1 Myocardial infarction type 2; G92 Toxic encephalopathy; I50.33 Acute on chronic diastolic (congestive) heart failure; J96.91 Respiratory failure, unspecified with hypoxia; J15.9 Unspecified bacterial pneumonia; E44.1 Mild protein-calorie malnutrition; N39.0 Urinary tract infection, site not specified; J91.8 Pleural effusion in other conditions classified elsewhere; J98.11 Atelectasis; Z87.891 Personal history of nicotine dependence; I25.2 Old myocardial infarction; Z88.0 Allergy status to penicillin; R29.6 Repeated falls; I25.10 Atherosclerotic heart disease of native coronary artery without angina pectoris; Z95.5 Presence of coronary angioplasty implant and graft; N18.9 Chronic kidney disease, unspecified; I08.0 Rheumatic disorders of both mitral and aortic valves; E83.52 Hypercalcemia; Z68.24 Body mass index [BMI] 24.0-24.9, adult; Z79.82 Long term (current) use of aspirin; C61 Malignant neoplasm of prostate; E86.1 Hypovolemia; D64.9 Anemia, unspecified; F03.90 Unspecified dementia, unspecified severity, without behavioral disturbance, psychotic disturbance, mood disturbance, and anxiety; K21.9 Gastro-esophageal reflux disease without esophagitis; K80.20 Calculus of gallbladder without cholecystitis without obstruction; Z85.828 Personal history of other malignant neoplasm of skin; I70.0 Atherosclerosis of aorta; I44.1 Atrioventricular block, second degree; I27.20 Pulmonary hypertension, unspecified; Z22.322 Carrier or suspected carrier of Methicillin resistant Staphylococcus aureus
CPT/HCPCS: 32555; 36415; 36600; 70030-TC; 70450; 71045; 76604; 76700; 82652; 83550; 83615; 83735; 83970; 83986; 84100; 84155; 84156; 84300; 84443; 85025; 85730; 86592; 86706; 86803; 87040; 87070; 87086; 87205; 87340; 93005; 93307; 97110; 97116; 97530; A4663; G0378; J1940; J2405; J3370; J3475; J3490; J7040

== ENCOUNTER 2017-12-13 15:46 | Inpatient (IN) | payer MEDICARE, BC ==
[~2017-12-13] VITALS: Ht 165.1 cm; Wt 65.8 kg
[~2017-12-13 15:46] MED LIST changes: -ALBU2.5V7 NEB; +AMLO5TAB7 PO; -AZIT250T13 PO; -BICA50TA49 PO; +CARV3.12 PO; +CLOP75TA15 PO; -CLOP75TA33 PO; +ERYT3.5O24 EACHEYE; +ERYT3.5O24 RIGHTEYE; +EYEL1MED TP; +FURO40TA5 PO; +HYDR50TA68 PO; -IPRA0.2S6 NEB; +ISOS30TA6 PO; -ISOS60TA4 PO; +MAGN400O6 PO; +MUPI22OI2 NS; -OXYB10TA4 PO; -PANT40TA2 PO; +POLY17PO4 PO; +ZOLP5TAB8 PO
[2017-12-13] MEDS ORDERED: ONDANSETRON 4 MG/2 ML VIAL IV PRN (16:00)
[2017-12-13] MEDS ORDERED: MAGNESIUM HYDROXIDE 30 ML LIQUID UDC PO PRN (16:00)
[2017-12-13] MEDS ORDERED: ACETAMINOPHEN 325 MG TABLET PO PRN (16:00)
[2017-12-13] MEDS ORDERED: HYDROCODONE/APAP 5-325MG TABLET PO PRN (16:00)
[2017-12-13] MEDS ORDERED: ZOLPIDEM 5 MG TABLET PO PRN (16:00)
[2017-12-13 16:27] VITALS: BP 121/55
[2017-12-13 20:03] VITALS: BP 94/45
[2017-12-13] MEDS ORDERED: DOCUSATE SODIUM 100 MG CAPSULE PO SCH (21:00)
[2017-12-14 05:46] VITALS: BP 139/78
[2017-12-14] MEDS ORDERED: PANTOPRAZOLE SODIUM 40 MG TABLET.DR PO SCH (07:00)
[2017-12-14 07:24] LABS: BASOPHILS % (AUTO) 0.4 % (0.0-2.0); EOSINOPHILS # (AUTO) 0.1 K/uL (0.0-0.7); EOSINOPHILS % (AUTO) 0.9 % (0.0-7.0); HEMATOCRIT 32.8 % (36.7-47.1); HEMOGLOBIN 11.1 g/dL (12.5-16.3); LYMPHOCYTES # (AUTO) 1.8 K/uL (20.0-40.0); LYMPHOCYTES % (AUTO) 14.2 % (20.5-51.5); MEAN CORPUSCULAR HEMOGLOBIN 29.9 uug (23.8-33.4); MEAN CORPUSCULAR HGB CONC 34 g/dL (32.5-36.3); MEAN CORPUSCULAR VOLUME 88.2 fL (73.0-96.2); MONOCYTES # (AUTO) 1.1 K/uL (2.0-10.0); MONOCYTES % (AUTO) 8.8 % (0.0-11.0); NEUTROPHILS # (AUTO) 9.4 K/uL (1.8-8.9); NEUTROPHILS % (AUTO) 75.7 % (38.5-71.5); PLATELET COUNT (AUTO) 204 K/uL (152-348); RED BLOOD CELL COUNT(AUTO) 3.71 MIL/uL (4.06-5.63); WHITE BLOOD COUNT (AUTO) 12.4 K/uL (3.6-10.2)
[2017-12-14 07:46] LABS: CARBON DIOXIDE 26 mmol/L (21-32); CHLORIDE 107 mmol/L (98-107); CHOLESTEROL 107 mg/dL (<200); CREATININE 2.2 mg/dL (0.6-1.3); GLUCOSE 93 mg/dL (74-106); HDL CHOLESTEROL 34 mg/dL (40-60); PHOSPHOROUS 2.8 mg/dL (2.5-4.9); POTASSIUM 3.2 mmol/L (3.5-5.1); TRIGLYCERIDES 86 MG/DL (30-150); UREA NITROGEN, BLOOD 37 mg/dL (7-18)
[2017-12-14] MEDS ORDERED: MAGNESIUM HYDROXIDE 30 ML LIQUID UDC PO PRN (09:45)
[2017-12-14] MEDS ORDERED: FINASTERIDE 5 MG TABLET PO SCH (09:45)
[2017-12-14] MEDS ORDERED: ACETAMINOPHEN 325 MG TABLET PO PRN (10:15)
[2017-12-14] MEDS: hydrALAZINE HCL 50 MG TABLET PO SCH ×3 (10:15→21:02)
[2017-12-14] MEDS ORDERED: ZOLPIDEM 5 MG TABLET PO PRN (10:15)
[2017-12-14] MEDS ORDERED: ISOS20TA8 PO (10:31)
[2017-12-14] MEDS ORDERED: NITROGLYCERIN OINT (10:37)
[2017-12-14] MEDS ORDERED: ISOSORBIDE DINITRATE 20 MG TABLET PO SCH (10:45)
[2017-12-14] MEDS: ATORVASTATIN 20 MG TABLET PO SCH (10:48)
[2017-12-14] MEDS: MUPIROCIN 2% OINT 22 GM TUBE NS SCH ×2 (10:48→20:58)
[2017-12-14] MEDS: ERYTHROMYCIN 0.5% OPHT OINT 3.5 GM TUBE RIGHTEYE SCH ×2 (10:48→20:55)
[2017-12-14] MEDS: ASPIRIN 81 MG TAB.CHEW PO SCH (10:49)
[2017-12-14] MEDS: CLOPIDOGREL 75 MG TABLET PO SCH (10:49)
[2017-12-14] MEDS: FUROSEMIDE 40 MG TABLET PO SCH (10:49)
[2017-12-14] MEDS: AMLODIPINE 5 MG TABLET PO SCH (10:49)
[2017-12-14] MEDS: CALCIUM CARB/VITAMIN D 500MG-200UNITS TABLET PO SCH ×2 (10:50→17:39)
[2017-12-14] MEDS: ISOSORBIDE DINITRATE 20 MG TABLET PO SCH ×3 (10:50→21:01)
[2017-12-14] MEDS: MIRALAX 17 GM POWD.PACK PO SCH (10:50)
[2017-12-14] MEDS ORDERED: POTASSIUM CHLORIDE 20 MEQ TAB.PRT.SR PO ONE (11:15)
[2017-12-14] MEDS ORDERED: NITROGLYCERIN OINT 1 GM PACKET TP SCH (12:00)
[2017-12-14 16:39] VITALS: BP 129/70
[2017-12-14 19:30] VITALS: BP 136/85
[2017-12-15 04:00] VITALS: BP 123/60
[2017-12-15] MEDS: hydrALAZINE HCL 50 MG TABLET PO SCH ×3 (05:53→21:16)
[2017-12-15] MEDS: ISOSORBIDE DINITRATE 20 MG TABLET PO SCH ×3 (05:54→21:16)
[2017-12-15 06:50] LABS: BASOPHILS # (AUTO) 0.1 K/uL (0.0-8.0); BASOPHILS % (AUTO) 0.4 % (0.0-2.0); EOSINOPHILS # (AUTO) 0.1 K/uL (0.0-0.7); HEMATOCRIT 32.5 % (36.7-47.1); LYMPHOCYTES # (AUTO) 2.4 K/uL (20.0-40.0); LYMPHOCYTES % (AUTO) 19.4 % (20.5-51.5); MEAN CORPUSCULAR HEMOGLOBIN 29.8 uug (23.8-33.4); MEAN CORPUSCULAR HGB CONC 34 g/dL (32.5-36.3); MONOCYTES # (AUTO) 1.2 K/uL (2.0-10.0); MONOCYTES % (AUTO) 10.2 % (0.0-11.0); NEUTROPHILS # (AUTO) 8.4 K/uL (1.8-8.9); PLATELET COUNT (AUTO) 211 K/uL (152-348); RED BLOOD CELL COUNT(AUTO) 3.69 MIL/uL (4.06-5.63); WHITE BLOOD COUNT (AUTO) 12.1 K/uL (3.6-10.2)
[2017-12-15 07:10] LABS: ALANINE AMINOTRANSFERASE 28 U/L (16-63); ALKALINE PHOSPHATASE 45 U/L (50-136); ASPARTATE AMINOTRANSFERASE 16 U/L (15-37); BILIRUBIN,TOTAL 0.6 mg/dL (0.2-1.0); CARBON DIOXIDE 28 mmol/L (21-32); CHLORIDE 108 mmol/L (98-107); GLUCOSE 98 mg/dL (74-106); MAGNESIUM 2.1 mg/dL (1.8-2.4); PHOSPHOROUS 2.7 mg/dL (2.5-4.9); POTASSIUM 3.6 mmol/L (3.5-5.1); TOTAL PROTEIN, SERUM 6.2 g/dL (6.4-8.2); UREA NITROGEN, BLOOD 31 mg/dL (7-18)
[2017-12-15 08:00] VITALS: BP 151/88
[2017-12-15] MEDS: ASPIRIN 81 MG TAB.CHEW PO SCH (09:26)
[2017-12-15] MEDS: CLOPIDOGREL 75 MG TABLET PO SCH (09:26)
[2017-12-15] MEDS: FUROSEMIDE 40 MG TABLET PO SCH (09:26)
[2017-12-15] MEDS: ATORVASTATIN 20 MG TABLET PO SCH (09:26)
[2017-12-15] MEDS: CALCIUM CARB/VITAMIN D 500MG-200UNITS TABLET PO SCH ×2 (09:27→18:03)
[2017-12-15] MEDS: AMLODIPINE 5 MG TABLET PO SCH (09:27)
[2017-12-15] MEDS: MIRALAX 17 GM POWD.PACK PO SCH (09:27)
[2017-12-15] MEDS: MUPIROCIN 2% OINT 22 GM TUBE NS SCH ×2 (09:33→20:38)
[2017-12-15] MEDS: ERYTHROMYCIN 0.5% OPHT OINT 3.5 GM TUBE RIGHTEYE SCH ×2 (09:33→20:35)
[2017-12-15 16:00] VITALS: BP 126/74
[2017-12-15 20:33] VITALS: BP 132/70
[2017-12-16 05:05] VITALS: BP 128/64
[2017-12-16] MEDS: hydrALAZINE HCL 50 MG TABLET PO SCH ×3 (06:06→21:18)
[2017-12-16] MEDS: ISOSORBIDE DINITRATE 20 MG TABLET PO SCH ×3 (06:08→21:18)
[2017-12-16 08:00] VITALS: BP 117/65
[2017-12-16] MEDS: MIRALAX 17 GM POWD.PACK PO SCH ×2 (09:00→09:30)
[2017-12-16] MEDS: MUPIROCIN 2% OINT 22 GM TUBE NS SCH ×2 (09:29→20:54)
[2017-12-16] MEDS: AMLODIPINE 5 MG TABLET PO SCH (09:30)
[2017-12-16] MEDS: ATORVASTATIN 20 MG TABLET PO SCH (09:30)
[2017-12-16] MEDS: ERYTHROMYCIN 0.5% OPHT OINT 3.5 GM TUBE RIGHTEYE SCH ×2 (09:30→20:54)
[2017-12-16] MEDS: FUROSEMIDE 40 MG TABLET PO SCH (09:30)
[2017-12-16] MEDS: ASPIRIN 81 MG TAB.CHEW PO SCH (09:30)
[2017-12-16] MEDS: CLOPIDOGREL 75 MG TABLET PO SCH (09:30)
[2017-12-16] MEDS: CALCIUM CARB/VITAMIN D 500MG-200UNITS TABLET PO SCH ×2 (09:31→17:48)
[2017-12-16 16:00] VITALS: BP 132/66
[2017-12-16 19:50] VITALS: BP 127/77
[2017-12-17 04:30] VITALS: BP 121/68
[2017-12-17] MEDS: ISOSORBIDE DINITRATE 20 MG TABLET PO SCH (06:11)
[2017-12-17] MEDS: hydrALAZINE HCL 50 MG TABLET PO SCH ×3 (06:11→21:06)
[2017-12-17] MEDS: FUROSEMIDE 40 MG TABLET PO SCH (08:56)
[2017-12-17] MEDS: ASPIRIN 81 MG TAB.CHEW PO SCH (08:56)
[2017-12-17] MEDS: ATORVASTATIN 20 MG TABLET PO SCH (08:56)
[2017-12-17] MEDS: CALCIUM CARB/VITAMIN D 500MG-200UNITS TABLET PO SCH ×2 (08:57→17:11)
[2017-12-17] MEDS: AMLODIPINE 5 MG TABLET PO SCH (08:57)
[2017-12-17] MEDS: MIRALAX 17 GM POWD.PACK PO SCH (08:57)
[2017-12-17] MEDS: CLOPIDOGREL 75 MG TABLET PO SCH (08:58)
[2017-12-17] MEDS: ERYTHROMYCIN 0.5% OPHT OINT 3.5 GM TUBE RIGHTEYE SCH ×2 (09:00→21:09)
[2017-12-17] MEDS: MUPIROCIN 2% OINT 22 GM TUBE NS SCH ×2 (09:02→21:08)
[2017-12-17] MEDS: ISOSORBIDE DINITRATE 10 MG TABLET PO SCH ×2 (13:31→21:07)
[2017-12-17 15:53] VITALS: BP 130/70
[2017-12-17 20:03] VITALS: BP 140/80
[2017-12-18 06:04] VITALS: BP 176/95
[2017-12-18] MEDS: hydrALAZINE HCL 50 MG TABLET PO SCH ×3 (06:19→21:32)
[2017-12-18] MEDS: ISOSORBIDE DINITRATE 10 MG TABLET PO SCH ×3 (06:19→21:57)
[2017-12-18] MEDS: MIRALAX 17 GM POWD.PACK PO SCH (09:00)
[2017-12-18] MEDS: CLOPIDOGREL 75 MG TABLET PO SCH (09:07)
[2017-12-18] MEDS: FUROSEMIDE 40 MG TABLET PO SCH (09:07)
[2017-12-18] MEDS: CALCIUM CARB/VITAMIN D 500MG-200UNITS TABLET PO SCH ×2 (09:07→17:06)
[2017-12-18] MEDS: ASPIRIN 81 MG TAB.CHEW PO SCH (09:07)
[2017-12-18] MEDS: ATORVASTATIN 20 MG TABLET PO SCH (09:08)
[2017-12-18] MEDS: AMLODIPINE 5 MG TABLET PO SCH (09:08)
[2017-12-18 10:18] VITALS: BP 142/69
[2017-12-18] MEDS: MUPIROCIN 2% OINT 22 GM TUBE NS SCH ×2 (10:37→20:18)
[2017-12-18] MEDS: ERYTHROMYCIN 0.5% OPHT OINT 3.5 GM TUBE RIGHTEYE SCH ×2 (10:40→20:18)
[2017-12-18 16:00] VITALS: BP 113/55
[2017-12-18 20:05] VITALS: BP 131/70
[2017-12-19] MEDS: ISOSORBIDE DINITRATE 10 MG TABLET PO SCH ×3 (05:31→22:35)
[2017-12-19] MEDS: hydrALAZINE HCL 50 MG TABLET PO SCH ×3 (05:32→22:35)
[2017-12-19 05:42] VITALS: BP 151/81
[2017-12-19] MEDS: FUROSEMIDE 40 MG TABLET PO SCH (08:53)
[2017-12-19] MEDS: ATORVASTATIN 20 MG TABLET PO SCH (08:53)
[2017-12-19] MEDS: CLOPIDOGREL 75 MG TABLET PO SCH (08:53)
[2017-12-19] MEDS: ASPIRIN 81 MG TAB.CHEW PO SCH (08:53)
[2017-12-19] MEDS: CALCIUM CARB/VITAMIN D 500MG-200UNITS TABLET PO SCH ×2 (08:53→16:35)
[2017-12-19] MEDS: MIRALAX 17 GM POWD.PACK PO SCH (08:54)
[2017-12-19] MEDS: AMLODIPINE 5 MG TABLET PO SCH (08:54)
[2017-12-19] MEDS: ERYTHROMYCIN 0.5% OPHT OINT 3.5 GM TUBE RIGHTEYE SCH ×2 (08:59→22:40)
[2017-12-19] MEDS: MUPIROCIN 2% OINT 22 GM TUBE NS SCH (08:59)
[2017-12-19 16:47] VITALS: BP 121/62
[2017-12-19 20:00] VITALS: BP 126/69
[2017-12-20 04:00] VITALS: BP 164/83
[2017-12-20] MEDS: hydrALAZINE HCL 50 MG TABLET PO SCH ×3 (06:28→21:09)
[2017-12-20] MEDS: ISOSORBIDE DINITRATE 10 MG TABLET PO SCH ×3 (06:29→21:10)
[2017-12-20 07:19] LABS: BASOPHILS # (AUTO) 0.1 K/uL (0.0-8.0); BASOPHILS % (AUTO) 0.6 % (0.0-2.0); EOSINOPHILS # (AUTO) 0.2 K/uL (0.0-0.7); EOSINOPHILS % (AUTO) 1.5 % (0.0-7.0); HEMATOCRIT 33.4 % (36.7-47.1); HEMOGLOBIN 11.3 g/dL (12.5-16.3); LYMPHOCYTES # (AUTO) 2.3 K/uL (20.0-40.0); LYMPHOCYTES % (AUTO) 22.2 % (20.5-51.5); MEAN CORPUSCULAR HEMOGLOBIN 29.2 uug (23.8-33.4); MEAN CORPUSCULAR HGB CONC 34 g/dL (32.5-36.3); MEAN CORPUSCULAR VOLUME 86.2 fL (73.0-96.2); MONOCYTES # (AUTO) 0.8 K/uL (2.0-10.0); NEUTROPHILS % (AUTO) 67.7 % (38.5-71.5); PLATELET COUNT (AUTO) 229 K/uL (152-348); RED BLOOD CELL COUNT(AUTO) 3.87 MIL/uL (4.06-5.63); WHITE BLOOD COUNT (AUTO) 10.3 K/uL (3.6-10.2)
[2017-12-20 08:15] LABS: CARBON DIOXIDE 30 mmol/L (21-32); CHLORIDE 105 mmol/L (98-107); CREATININE 2.4 mg/dL (0.6-1.3); GLUCOSE 94 mg/dL (74-106); PHOSPHOROUS 3.6 mg/dL (2.5-4.9); POTASSIUM 3.4 mmol/L (3.5-5.1); UREA NITROGEN, BLOOD 32 mg/dL (7-18)
[2017-12-20] MEDS: ASPIRIN 81 MG TAB.CHEW PO SCH (09:00)
[2017-12-20] MEDS: ATORVASTATIN 20 MG TABLET PO SCH (09:00)
[2017-12-20] MEDS: FUROSEMIDE 40 MG TABLET PO SCH (09:00)
[2017-12-20] MEDS: CLOPIDOGREL 75 MG TABLET PO SCH (09:00)
[2017-12-20] MEDS: MIRALAX 17 GM POWD.PACK PO SCH (09:00)
[2017-12-20] MEDS: CALCIUM CARB/VITAMIN D 500MG-200UNITS TABLET PO SCH ×2 (09:01→17:21)
[2017-12-20] MEDS: AMLODIPINE 5 MG TABLET PO SCH (09:01)
[2017-12-20] MEDS: ERYTHROMYCIN 0.5% OPHT OINT 3.5 GM TUBE RIGHTEYE SCH ×2 (09:02→21:11)
[2017-12-20] MEDS ORDERED: POTASSIUM CHLORIDE 20 MEQ TAB.PRT.SR PO ONE (11:00)
[2017-12-20 16:02] VITALS: BP 139/75
[2017-12-20 19:29] VITALS: BP 118/70
[2017-12-21 06:17] VITALS: BP 154/83
[2017-12-21 06:18] VITALS: BP 154/83
[2017-12-21] MEDS: hydrALAZINE HCL 50 MG TABLET PO SCH ×3 (06:27→21:03)
[2017-12-21] MEDS: ISOSORBIDE DINITRATE 10 MG TABLET PO SCH ×3 (06:27→21:05)
[2017-12-21 06:38] LABS: BASOPHILS # (AUTO) 0.1 K/uL (0.0-8.0); BASOPHILS % (AUTO) 0.7 % (0.0-2.0); EOSINOPHILS # (AUTO) 0.2 K/uL (0.0-0.7); EOSINOPHILS % (AUTO) 1.9 % (0.0-7.0); HEMOGLOBIN 11.1 g/dL (12.5-16.3); LYMPHOCYTES % (AUTO) 20.6 % (20.5-51.5); MEAN CORPUSCULAR HEMOGLOBIN 29.5 uug (23.8-33.4); MEAN CORPUSCULAR HGB CONC 34 g/dL (32.5-36.3); MONOCYTES # (AUTO) 0.8 K/uL (2.0-10.0); MONOCYTES % (AUTO) 8.2 % (0.0-11.0); NEUTROPHILS # (AUTO) 6.5 K/uL (1.8-8.9); NEUTROPHILS % (AUTO) 68.6 % (38.5-71.5); PLATELET COUNT (AUTO) 227 K/uL (152-348); RED BLOOD CELL COUNT(AUTO) 3.75 MIL/uL (4.06-5.63); WHITE BLOOD COUNT (AUTO) 9.5 K/uL (3.6-10.2)
[2017-12-21 06:48] LABS: ALANINE AMINOTRANSFERASE 22 U/L (16-63); ALKALINE PHOSPHATASE 40 U/L (50-136); ASPARTATE AMINOTRANSFERASE 15 U/L (15-37); BILIRUBIN,TOTAL 0.6 mg/dL (0.2-1.0); CARBON DIOXIDE 31 mmol/L (21-32); CHLORIDE 106 mmol/L (98-107); CREATININE 2.4 mg/dL (0.6-1.3); GLUCOSE 92 mg/dL (74-106); PHOSPHOROUS 3.9 mg/dL (2.5-4.9); POTASSIUM 3.3 mmol/L (3.5-5.1); TOTAL PROTEIN, SERUM 6.2 g/dL (6.4-8.2); UREA NITROGEN, BLOOD 34 mg/dL (7-18)
[2017-12-21 08:00] VITALS: BP 128/70
[2017-12-21] MEDS: CLOPIDOGREL 75 MG TABLET PO SCH (08:48)
[2017-12-21] MEDS: ASPIRIN 81 MG TAB.CHEW PO SCH (08:48)
[2017-12-21] MEDS: FUROSEMIDE 40 MG TABLET PO SCH (08:48)
[2017-12-21] MEDS: ATORVASTATIN 20 MG TABLET PO SCH (08:48)
[2017-12-21] MEDS: ERYTHROMYCIN 0.5% OPHT OINT 3.5 GM TUBE RIGHTEYE SCH ×2 (08:49→21:06)
[2017-12-21] MEDS: AMLODIPINE 5 MG TABLET PO SCH (08:49)
[2017-12-21] MEDS: CALCIUM CARB/VITAMIN D 500MG-200UNITS TABLET PO SCH ×2 (08:49→17:12)
[2017-12-21] MEDS: MIRALAX 17 GM POWD.PACK PO SCH (09:00)
[2017-12-21] MEDS: Z GUARD REMEDY PASTE 57 GM TUBE TOP PRN (11:02)
[2017-12-21] MEDS ORDERED: POTASSIUM CHLORIDE 10 MEQ TAB.PRT.SR PO ONE (14:15)
[2017-12-21 17:00] VITALS: BP 144/75
[2017-12-21 19:21] VITALS: BP 132/71
[2017-12-22 05:11] VITALS: BP 144/65
[2017-12-22] MEDS: ISOSORBIDE DINITRATE 10 MG TABLET PO SCH ×3 (06:06→21:02)
[2017-12-22] MEDS: hydrALAZINE HCL 50 MG TABLET PO SCH ×3 (06:06→21:01)
[2017-12-22] MEDS: MIRALAX 17 GM POWD.PACK PO SCH (09:00)
[2017-12-22] MEDS: ASPIRIN 81 MG TAB.CHEW PO SCH (09:01)
[2017-12-22] MEDS: ATORVASTATIN 20 MG TABLET PO SCH (09:01)
[2017-12-22] MEDS: CLOPIDOGREL 75 MG TABLET PO SCH (09:01)
[2017-12-22] MEDS: AMLODIPINE 5 MG TABLET PO SCH (09:01)
[2017-12-22] MEDS: FUROSEMIDE 40 MG TABLET PO SCH (09:01)
[2017-12-22] MEDS: CALCIUM CARB/VITAMIN D 500MG-200UNITS TABLET PO SCH ×2 (09:02→17:00)
[2017-12-22] MEDS: ERYTHROMYCIN 0.5% OPHT OINT 3.5 GM TUBE RIGHTEYE SCH ×2 (09:18→20:44)
[2017-12-22 19:24] VITALS: BP 137/76
[2017-12-23 05:09] VITALS: BP 140/88
[2017-12-23] MEDS: ISOSORBIDE DINITRATE 10 MG TABLET PO SCH ×3 (06:10→21:13)
[2017-12-23] MEDS: hydrALAZINE HCL 50 MG TABLET PO SCH ×3 (06:10→21:13)
[2017-12-23] MEDS: AMLODIPINE 5 MG TABLET PO SCH (08:44)
[2017-12-23] MEDS: MIRALAX 17 GM POWD.PACK PO SCH (08:44)
[2017-12-23] MEDS: CLOPIDOGREL 75 MG TABLET PO SCH (08:44)
[2017-12-23] MEDS: FUROSEMIDE 40 MG TABLET PO SCH (08:44)
[2017-12-23] MEDS: POTASSIUM CHLORIDE 10 MEQ TAB.PRT.SR PO SCH (08:44)
[2017-12-23] MEDS: CALCIUM CARB/VITAMIN D 500MG-200UNITS TABLET PO SCH ×2 (08:44→16:37)
[2017-12-23] MEDS: ATORVASTATIN 20 MG TABLET PO SCH (08:44)
[2017-12-23] MEDS: ASPIRIN 81 MG TAB.CHEW PO SCH (08:44)
[2017-12-23] MEDS: ERYTHROMYCIN 0.5% OPHT OINT 3.5 GM TUBE RIGHTEYE SCH ×2 (08:45→20:05)
[2017-12-23 19:32] VITALS: BP 147/80
[2017-12-24 06:17] VITALS: BP 141/92
[2017-12-24] MEDS: hydrALAZINE HCL 50 MG TABLET PO SCH ×3 (06:18→21:37)
[2017-12-24] MEDS: ISOSORBIDE DINITRATE 10 MG TABLET PO SCH ×3 (06:18→21:37)
[2017-12-24 07:26] LABS: BASOPHILS % (AUTO) 0.5 % (0.0-2.0); EOSINOPHILS # (AUTO) 0.2 K/uL (0.0-0.7); EOSINOPHILS % (AUTO) 2.1 % (0.0-7.0); HEMATOCRIT 33.4 % (36.7-47.1); HEMOGLOBIN 11.3 g/dL (12.5-16.3); LYMPHOCYTES # (AUTO) 1.8 K/uL (20.0-40.0); LYMPHOCYTES % (AUTO) 19.5 % (20.5-51.5); MEAN CORPUSCULAR HEMOGLOBIN 28.9 uug (23.8-33.4); MEAN CORPUSCULAR HGB CONC 34 g/dL (32.5-36.3); MEAN CORPUSCULAR VOLUME 85.5 fL (73.0-96.2); MONOCYTES # (AUTO) 0.8 K/uL (2.0-10.0); NEUTROPHILS # (AUTO) 6.6 K/uL (1.8-8.9); NEUTROPHILS % (AUTO) 69.9 % (38.5-71.5); PLATELET COUNT (AUTO) 235 K/uL (152-348); WHITE BLOOD COUNT (AUTO) 9.5 K/uL (3.6-10.2)
[2017-12-24 07:36] LABS: CARBON DIOXIDE 31 mmol/L (21-32); CHLORIDE 106 mmol/L (98-107); CREATININE 2.2 mg/dL (0.6-1.3); GLUCOSE 93 mg/dL (74-106); MAGNESIUM 1.9 mg/dL (1.8-2.4); PHOSPHOROUS 3.7 mg/dL (2.5-4.9); POTASSIUM 3.3 mmol/L (3.5-5.1); UREA NITROGEN, BLOOD 32 mg/dL (7-18)
[2017-12-24 08:31] VITALS: BP 129/77
[2017-12-24] MEDS: ASPIRIN 81 MG TAB.CHEW PO SCH (08:33)
[2017-12-24] MEDS: ATORVASTATIN 20 MG TABLET PO SCH (08:33)
[2017-12-24] MEDS: POTASSIUM CHLORIDE 10 MEQ TAB.PRT.SR PO SCH (08:33)
[2017-12-24] MEDS: CLOPIDOGREL 75 MG TABLET PO SCH (08:33)
[2017-12-24] MEDS: FUROSEMIDE 40 MG TABLET PO SCH (08:33)
[2017-12-24] MEDS: AMLODIPINE 5 MG TABLET PO SCH (08:34)
[2017-12-24] MEDS: CALCIUM CARB/VITAMIN D 500MG-200UNITS TABLET PO SCH ×2 (08:34→16:37)
[2017-12-24] MEDS: MIRALAX 17 GM POWD.PACK PO SCH (09:29)
[2017-12-24] MEDS ORDERED: POTASSIUM CHLORIDE 10 MEQ TAB.PRT.SR PO ONE (11:00)
[2017-12-24] MEDS ORDERED: MIRALAX 17 GM POWD.PACK PO PRN (16:30)
[2017-12-24 16:37] VITALS: BP 121/61
[2017-12-24 20:47] VITALS: BP 144/72
[2017-12-25 06:00] VITALS: BP 129/66
[2017-12-25] MEDS: hydrALAZINE HCL 50 MG TABLET PO SCH ×3 (06:15→21:26)
[2017-12-25] MEDS: ISOSORBIDE DINITRATE 10 MG TABLET PO SCH ×3 (06:39→21:27)
[2017-12-25 08:05] VITALS: BP 167/51
[2017-12-25] MEDS: ASPIRIN 81 MG TAB.CHEW PO SCH (08:20)
[2017-12-25] MEDS: CALCIUM CARB/VITAMIN D 500MG-200UNITS TABLET PO SCH ×2 (08:20→16:24)
[2017-12-25] MEDS: CLOPIDOGREL 75 MG TABLET PO SCH (08:20)
[2017-12-25] MEDS: AMLODIPINE 5 MG TABLET PO SCH (08:21)
[2017-12-25] MEDS: POTASSIUM CHLORIDE 10 MEQ TAB.PRT.SR PO SCH (08:21)
[2017-12-25] MEDS: FUROSEMIDE 40 MG TABLET PO SCH (08:21)
[2017-12-25] MEDS: ATORVASTATIN 20 MG TABLET PO SCH (08:21)
[2017-12-25 15:26] VITALS: BP 125/71
[2017-12-25] MEDS: CLOTRIMAZOLE 1% CREAM 30 GM TUBE TOP SCH (16:24)
[2017-12-25] MEDS: Z GUARD REMEDY PASTE 57 GM TUBE TOP PRN (16:24)
[2017-12-25 20:00] VITALS: BP 136/64
[2017-12-26 04:30] VITALS: BP 125/60
[2017-12-26] MEDS: hydrALAZINE HCL 50 MG TABLET PO SCH ×3 (05:55→22:17)
[2017-12-26] MEDS: ISOSORBIDE DINITRATE 10 MG TABLET PO SCH ×3 (05:56→22:17)
[2017-12-26 08:00] VITALS: BP 105/55
[2017-12-26] MEDS: ATORVASTATIN 20 MG TABLET PO SCH (08:33)
[2017-12-26] MEDS: FUROSEMIDE 40 MG TABLET PO SCH (08:33)
[2017-12-26] MEDS: CLOPIDOGREL 75 MG TABLET PO SCH (08:33)
[2017-12-26] MEDS: POTASSIUM CHLORIDE 10 MEQ TAB.PRT.SR PO SCH (08:33)
[2017-12-26] MEDS: ASPIRIN 81 MG TAB.CHEW PO SCH (08:34)
[2017-12-26] MEDS: CALCIUM CARB/VITAMIN D 500MG-200UNITS TABLET PO SCH ×2 (08:34→16:52)
[2017-12-26] MEDS: CLOTRIMAZOLE 1% CREAM 30 GM TUBE TOP SCH ×2 (08:34→16:53)
[2017-12-26] MEDS: AMLODIPINE 5 MG TABLET PO SCH (08:35)
[2017-12-26 16:20] VITALS: BP 122/58
[2017-12-26 20:00] VITALS: BP 127/62
[2017-12-27 06:30] VITALS: BP 131/62
[2017-12-27] MEDS: ISOSORBIDE DINITRATE 10 MG TABLET PO SCH ×3 (06:39→21:09)
[2017-12-27] MEDS: hydrALAZINE HCL 50 MG TABLET PO SCH ×3 (06:40→21:09)
[2017-12-27 07:30] VITALS: BP 116/63
[2017-12-27] MEDS: ASPIRIN 81 MG TAB.CHEW PO SCH (08:24)
[2017-12-27] MEDS: POTASSIUM CHLORIDE 10 MEQ TAB.PRT.SR PO SCH (08:24)
[2017-12-27] MEDS: FUROSEMIDE 40 MG TABLET PO SCH (08:24)
[2017-12-27] MEDS: ATORVASTATIN 20 MG TABLET PO SCH (08:24)
[2017-12-27] MEDS: AMLODIPINE 5 MG TABLET PO SCH (08:24)
[2017-12-27] MEDS: CLOPIDOGREL 75 MG TABLET PO SCH (08:24)
[2017-12-27] MEDS: CLOTRIMAZOLE 1% CREAM 30 GM TUBE TOP SCH ×2 (08:25→17:36)
[2017-12-27] MEDS: CALCIUM CARB/VITAMIN D 500MG-200UNITS TABLET PO SCH ×2 (08:25→17:34)
[2017-12-27 15:54] VITALS: BP 130/63
[2017-12-27 21:07] VITALS: BP 146/62
[2017-12-28 04:51] VITALS: BP 165/80
[2017-12-28] MEDS: hydrALAZINE HCL 50 MG TABLET PO SCH (04:58)
[2017-12-28] MEDS: ISOSORBIDE DINITRATE 10 MG TABLET PO SCH (04:59)
[2017-12-28] MEDS: ASPIRIN 81 MG TAB.CHEW PO SCH (08:35)
[2017-12-28] MEDS: CLOPIDOGREL 75 MG TABLET PO SCH (08:35)
[2017-12-28] MEDS: POTASSIUM CHLORIDE 10 MEQ TAB.PRT.SR PO SCH (08:35)
[2017-12-28] MEDS: FUROSEMIDE 40 MG TABLET PO SCH (08:35)
[2017-12-28] MEDS: ATORVASTATIN 20 MG TABLET PO SCH (08:35)
[2017-12-28 08:36] VITALS: BP 122/65
[2017-12-28] MEDS: AMLODIPINE 5 MG TABLET PO SCH (08:36)
[2017-12-28] MEDS: CALCIUM CARB/VITAMIN D 500MG-200UNITS TABLET PO SCH (08:36)
[2017-12-28] MEDS: CLOTRIMAZOLE 1% CREAM 30 GM TUBE TOP SCH (08:40)
== END 2017-12-28 13:45 | DRG 189 ==
PROVIDERS: ADMIT Internal Medicine; ATTEND Physical Medicine & Rehabilitation Pain Medicine
DX: J96.91 Respiratory failure, unspecified with hypoxia (principal); G93.41 Metabolic encephalopathy; I50.33 Acute on chronic diastolic (congestive) heart failure; I21.A1 Myocardial infarction type 2; I13.0 Hypertensive heart and chronic kidney disease with heart failure and stage 1 through stage 4 chronic kidney disease, or unspecified chronic kidney disease; N17.9 Acute kidney failure, unspecified; C61 Malignant neoplasm of prostate; D64.9 Anemia, unspecified; E11.22 Type 2 diabetes mellitus with diabetic chronic kidney disease; E78.5 Hyperlipidemia, unspecified; F03.90 Unspecified dementia, unspecified severity, without behavioral disturbance, psychotic disturbance, mood disturbance, and anxiety; F32.9 Major depressive disorder, single episode, unspecified; I08.0 Rheumatic disorders of both mitral and aortic valves; M81.0 Age-related osteoporosis without current pathological fracture; I27.20 Pulmonary hypertension, unspecified; N18.9 Chronic kidney disease, unspecified; Z85.828 Personal history of other malignant neoplasm of skin; Z22.322 Carrier or suspected carrier of Methicillin resistant Staphylococcus aureus; Z88.0 Allergy status to penicillin; K21.0 Gastro-esophageal reflux disease with esophagitis; I95.9 Hypotension, unspecified; Z98.61 Coronary angioplasty status; R53.81 Other malaise; I25.10 Atherosclerotic heart disease of native coronary artery without angina pectoris; E87.6 Hypokalemia; I44.1 Atrioventricular block, second degree; I70.0 Atherosclerosis of aorta; M16.12 Unilateral primary osteoarthritis, left hip
CPT/HCPCS: 36415; 71045; 73502; 83735; 84100; 85025; 92523; 92526; 92610; 97110; 97112; 97116; 97165; 97530; 97535; A4663

== ENCOUNTER 2018-11-09 10:47 | Inpatient (IN) | payer MEDICARE, BC ==
[~2018-11-09] VITALS: Ht 167.6 cm; Wt 65.8 kg
[~2018-11-09 10:47] MED LIST changes: -AMLO5TAB7 PO; +AMLO5TAB9 PO; +ASPI-605 PO; +CALC-883 PO; -CARV3.12 PO; +DONE5TAB34 PO; -ERYT3.5O24 EACHEYE; +FERR325T28 PO; +HEPA50007 SQ; +HYDR-4077 PO; +ISOS10TA2 PO; +ISOS20TA8 PO; -ISOS30TA6 PO; +LOPE2CAP14 PO; +MAG-55 PO; +NITROGLYCERIN OINT; +PANT40TA4 PO
--- NOTE | 2018-11-09 11:00 | NUR ---
patient help to bed unteady gait. AAOx4.
--- NOTE | 2018-11-09 11:00 | NUR ---
No paperwork brought with patient (regarding hx/meds ,etc.). Outpatient therapy staff and patient unable to provide any information about current home medications.
--- NOTE | 2018-11-09 11:03 | NUR ---
at bedside to examine patient
[2018-11-09] MEDS ORDERED: ACETAMINOPHEN ES 500 MG TABLET ONE (11:15)
[2018-11-09] MEDS ORDERED: ACETAMINOPHEN ES 500 MG TABLET PO ONE (11:15)
--- NOTE | 2018-11-09 11:19 | NUR ---
Pt's daughter at bedside.
--- NOTE | 2018-11-09 11:47 | NUR ---
pt. taken down for CT as ordered.
--- NOTE | 2018-11-09 12:08 | NUR ---
Patient back from CT.
--- NOTE | 2018-11-09 12:25 | NUR ---
Per Dr. Ansari pt to be admitted to tele. Called tele floor for bed assignment, no beds available at this time. Nursing supervisor rides and ERMD notified.
[2018-11-09] MEDS ORDERED: ATOR20TA PO (12:27)
[2018-11-09] MEDS ORDERED: ASPI81TA31 PO (12:27)
[2018-11-09] MEDS ORDERED: PANT40TA2 PO (12:27)
[2018-11-09] MEDS ORDERED: CLOT12CR TP (12:27)
[2018-11-09] MEDS ORDERED: LOPE2CAP PO (12:27)
[2018-11-09] MEDS ORDERED: FINA5TAB3 PO (12:27)
[2018-11-09] MEDS ORDERED: HYDR-4077 PO (12:27)
[2018-11-09] MEDS ORDERED: CYAN100T3 PO (12:27)
[2018-11-09] MEDS ORDERED: ACET-2154 PO (12:27)
[2018-11-09] MEDS ORDERED: CALC-34 PO (12:27)
[2018-11-09] MEDS ORDERED: MAGN400O6 PO (12:27)
[2018-11-09] MEDS ORDERED: CLOP75TA15 PO (12:27)
[2018-11-09] MEDS ORDERED: MAG355OR18 PO (12:27)
[2018-11-09] MEDS ORDERED: FERR325T28 PO (12:27)
[2018-11-09] MEDS ORDERED: DONE5TAB7 PO (12:27)
[2018-11-09] MEDS ORDERED: ISOS30TA6 PO (12:27)
[2018-11-09] MEDS ORDERED: AMLO5TAB9 PO (12:27)
[2018-11-09 12:49] LABS: BASOPHILS % (AUTO) 0.3 % (0.0-2.0); EOSINOPHILS # (AUTO) 0.1 K/uL (0.0-0.7); EOSINOPHILS % (AUTO) 0.7 % (0.0-7.0); HEMATOCRIT 31.7 % (36.7-47.1); HEMOGLOBIN 10.3 g/dL (12.5-16.3); LYMPHOCYTES # (AUTO) 1.1 K/uL (20.0-40.0); LYMPHOCYTES % (AUTO) 8.3 % (20.5-51.5); MEAN CORPUSCULAR HEMOGLOBIN 27.1 uug (23.8-33.4); MEAN CORPUSCULAR HGB CONC 32 g/dL (32.5-36.3); MEAN CORPUSCULAR VOLUME 83.7 fL (73.0-96.2); MONOCYTES # (AUTO) 0.9 K/uL (2.0-10.0); MONOCYTES % (AUTO) 6.2 % (0.0-11.0); NEUTROPHILS # (AUTO) 11.7 K/uL (1.8-8.9); NEUTROPHILS % (AUTO) 84.5 % (38.5-71.5); PLATELET COUNT (AUTO) 167 K/uL (152-348); RED BLOOD CELL COUNT(AUTO) 3.79 MIL/uL (4.06-5.63); WHITE BLOOD COUNT (AUTO) 13.8 K/uL (3.6-10.2)
[2018-11-09 12:53] LABS: CARBON DIOXIDE 22 mmol/L (21-32); CHLORIDE 107 mmol/L (98-107); CREATININE 2.3 mg/dL (0.6-1.3); GLUCOSE 99 mg/dL (74-106); POTASSIUM 3.8 mmol/L (3.5-5.1); UREA NITROGEN, BLOOD 38 mg/dL (7-18)
[2018-11-09 12:59] LABS: ALANINE AMINOTRANSFERASE 19 U/L (16-63); ALKALINE PHOSPHATASE 49 U/L (50-136); ASPARTATE AMINOTRANSFERASE 46 U/L (15-37); BILIRUBIN,DIRECT 0.2 mg/dL (0.0-0.2); BILIRUBIN,TOTAL 0.8 mg/dL (0.2-1.0); TOTAL PROTEIN, SERUM 6.6 g/dL (6.4-8.2)
--- NOTE | 2018-11-09 14:30 | NUR ---
Patient taken up to room 322, pt. AAOx4. via gurdean by juan Gomez.
--- NOTE | 2018-11-09 15:10 | NUR ---
PATIENT RECEIVED BY PADMINI 87 YEARS OLD MALE FROM ED WITH DX OF COMPRESSION FRACTURE L4 PLACED INTO BED FIXED AND MADE COMFORTABLE PATIENT IS ALERT AND AWARE BUT IS SOMEWHAT FORGETFUL DENIES PAIN OR DISCOMFORTS AT THIS TIME HE IS ON ROOM AIR WITH NO SHORTNESS OF BREATH AT THIS TIME.PATIENT DAUGHTER IS AT THE BEDSIDE AND ASSISTED WITH THE AD,MISSION PROTOCOL PATIENT ORIETED TO ROOM AND FACILITY MADE COMFORTABLE AND WILL CONTINUE TO OBSERVE.
--- NOTE | 2018-11-09 15:30 | NUR ---
CALLED DR KRAFT SPOKE WITH HIM RE BODY BRACE PER THE ED REPORT AND HE STATED TO ORDER PHYSICAL THERAPY TO ACCESS WHAT TYPE OF BRACE PATIENT WILL NEED AND ORDER IT PT EVAL ORDERED AT THIS TIME.
--- NOTE | 2018-11-09 15:31 | NUR ---
DR KRAFT STATED THAT HE WILL ORDER ALL THAT IS NECESSARY FOR THE PATIENT IN THE COMPUTER.
[2018-11-09 16:07] VITALS: BP 139/70
[2018-11-09] MEDS ORDERED: ZOLPIDEM 5 MG TABLET PO PRN (17:45)
[2018-11-09] MEDS ORDERED: MAGNESIUM HYDROXIDE 30 ML LIQUID UDC PO PRN (17:45)
[2018-11-09] MEDS ORDERED: ACETAMINOPHEN 325 MG TABLET PO PRN (17:45)
[2018-11-09] MEDS ORDERED: Z GUARD REMEDY PASTE 57 GM TUBE TOP PRN (17:45)
[2018-11-09] MEDS ORDERED: ONDANSETRON 4 MG/2 ML VIAL IV PRN (17:45)
[2018-11-09] MEDS ORDERED: HYDROCODONE/APAP 5-325MG TABLET PO PRN (17:45)
--- NOTE | 2018-11-09 17:56 | NUR ---
DR KRAFT HERE TO SEE PATIENT WITH ORDERS.
[2018-11-09] MEDS: ATORVASTATIN 20 MG TABLET PO SCH (21:44)
[2018-11-09] MEDS: Z GUARD REMEDY PASTE 57 GM TUBE TOP SCH (21:45)
[2018-11-09 22:40] VITALS: BP 95/71
[2018-11-10] MEDS: PANTOPRAZOLE SODIUM 40 MG TABLET.DR PO SCH (06:00)
[2018-11-10 06:41] VITALS: BP 114/72
[2018-11-10] MEDS ORDERED: CLOTRIMAZOLE 1% CREAM 30 GM TUBE TP SCH (09:00)
[2018-11-10] MEDS ORDERED: CYANOCOBALAMIN 100 MCG TABLET PO SCH (09:00)
[2018-11-10] MEDS: FERROUS SULFATE 325 MG TABEC PO SCH (09:19)
[2018-11-10] MEDS: CLOPIDOGREL 75 MG TABLET PO SCH (09:19)
[2018-11-10] MEDS: DONEPEZIL 5 MG TABLET PO SCH (09:19)
[2018-11-10] MEDS: FINASTERIDE 5 MG TABLET PO SCH (09:19)
[2018-11-10] MEDS: AMLODIPINE 5 MG TABLET PO SCH (09:19)
[2018-11-10] MEDS: ISOSORBIDE MONONITRATE 30 MG TAB.SR.24H PO SCH (09:19)
[2018-11-10] MEDS: ASPIRIN 81 MG TAB.CHEW PO SCH (09:21)
[2018-11-10] MEDS: Z GUARD REMEDY PASTE 57 GM TUBE TOP SCH ×2 (09:45→20:47)
[2018-11-10] MEDS ORDERED: CYANOCOBALAMIN 1,000 MCG TABLET PO SCH (09:52)
[2018-11-10] MEDS: CYANOCOBALAMIN 1,000 MCG TABLET PO SCH (10:25)
[2018-11-10 11:30] VITALS: BP 124/76
[2018-11-10 15:20] VITALS: BP 134/65
--- NOTE | 2018-11-10 17:34 | NUR ---
TEXTED DR. ROBIN FOR MRI APPROVAL.
--- NOTE | 2018-11-10 18:55 | NUR ---
PATIENT IN BED RESTING . NO S/S OF ACUTE DISTRESS NOTED, IV INTACT AND PATENT, NO C/O PAIN AT THIS TIME. SAFETY AND COMFORT PROVIDED. WILL CONTINUE TO MONITOR, CALL LIGHT WITHIN REACHED.
[2018-11-10 20:43] VITALS: BP 109/73
[2018-11-10] MEDS: ATORVASTATIN 20 MG TABLET PO SCH (20:46)
[2018-11-10] MEDS: hydrALAZINE HCL 50 MG TABLET PO SCH (22:20)
--- NOTE | 2018-11-10 23:19 | NUR ---
Pt in bed, awake and resting. No c/o pain at this time. In no acute signs of distress. Will continue to monitor.
[2018-11-11 05:43] VITALS: BP 165/86
[2018-11-11] MEDS: hydrALAZINE HCL 50 MG TABLET PO SCH ×3 (05:46→21:22)
[2018-11-11] MEDS: PANTOPRAZOLE SODIUM 40 MG TABLET.DR PO SCH (06:20)
--- NOTE | 2018-11-11 07:00 | NUR ---
Received patient in bed resting and calm, with no s/s of acute distress noted and no s/s of pain noted, IV intact and patent. continue to monitor and call light within reached.
[2018-11-11] MEDS: CYANOCOBALAMIN 1,000 MCG TABLET PO SCH (08:56)
[2018-11-11] MEDS: CLOPIDOGREL 75 MG TABLET PO SCH (08:56)
[2018-11-11] MEDS: FINASTERIDE 5 MG TABLET PO SCH (08:56)
[2018-11-11] MEDS: FERROUS SULFATE 325 MG TABEC PO SCH (08:56)
[2018-11-11] MEDS: DONEPEZIL 5 MG TABLET PO SCH (08:56)
[2018-11-11] MEDS: ASPIRIN 81 MG TAB.CHEW PO SCH (08:56)
[2018-11-11] MEDS: ISOSORBIDE MONONITRATE 30 MG TAB.SR.24H PO SCH (08:57)
[2018-11-11] MEDS: AMLODIPINE 5 MG TABLET PO SCH (08:57)
[2018-11-11] MEDS: Z GUARD REMEDY PASTE 57 GM TUBE TOP SCH ×2 (08:58→21:26)
[2018-11-11 11:30] LABS: BASOPHILS % (AUTO) 0.4 % (0.0-2.0); EOSINOPHILS # (AUTO) 0.3 K/uL (0.0-0.7); EOSINOPHILS % (AUTO) 3.3 % (0.0-7.0); HEMATOCRIT 31.6 % (36.7-47.1); HEMOGLOBIN 10.3 g/dL (12.5-16.3); LYMPHOCYTES # (AUTO) 1.2 K/uL (20.0-40.0); LYMPHOCYTES % (AUTO) 11.7 % (20.5-51.5); MEAN CORPUSCULAR HEMOGLOBIN 27.3 uug (23.8-33.4); MEAN CORPUSCULAR HGB CONC 33 g/dL (32.5-36.3); MONOCYTES % (AUTO) 9.4 % (0.0-11.0); NEUTROPHILS # (AUTO) 7.9 K/uL (1.8-8.9); NEUTROPHILS % (AUTO) 75.2 % (38.5-71.5); PLATELET COUNT (AUTO) 154 K/uL (152-348); RED BLOOD CELL COUNT(AUTO) 3.76 MIL/uL (4.06-5.63); WHITE BLOOD COUNT (AUTO) 10.5 K/uL (3.6-10.2)
[2018-11-11 11:40] LABS: ALANINE AMINOTRANSFERASE 12 U/L (16-63); ALKALINE PHOSPHATASE 47 U/L (50-136); ASPARTATE AMINOTRANSFERASE 42 U/L (15-37); BILIRUBIN,TOTAL 0.8 mg/dL (0.2-1.0); CARBON DIOXIDE 25 mmol/L (21-32); CHLORIDE 104 mmol/L (98-107); CREATININE 2.3 mg/dL (0.6-1.3); GLUCOSE 105 mg/dL (74-106); MAGNESIUM 1.8 mg/dL (1.8-2.4); PHOSPHOROUS 2.8 mg/dL (2.5-4.9); POTASSIUM 3.4 mmol/L (3.5-5.1); TOTAL PROTEIN, SERUM 6.6 g/dL (6.4-8.2); UREA NITROGEN, BLOOD 34 mg/dL (7-18)
[2018-11-11 11:45] VITALS: BP 101/68
--- NOTE | 2018-11-11 13:00 | NUR ---
PATIENT SEEN BY DR. MARCOS WITH ORDER EKG, CHEST XRAY, AND ECHOCARDIOGRAM.
[2018-11-11 15:11] VITALS: BP 131/69
--- NOTE | 2018-11-11 17:00 | NUR ---
PATIENT SEEN BY DR. CAROLANN VUONG (NEURO), NO SURGICAL INTERVENTION NEEDED AT THIS TIME, OK FOR BACK BRACE FOR COMFORT/SUPPORT.
--- NOTE | 2018-11-11 18:41 | NUR ---
PATIENT IN BED WITH NO S/S OF ACUTE DISTRESS NOTED, NO C/O PAIN AT THIS TIME. WILL CONTINUE TO MONITOR, CALL LIGHT WITHIN REACHED.
[2018-11-11 19:39] VITALS: BP 146/74
--- NOTE | 2018-11-11 20:00 | NUR ---
Patient received into care sitting up in bed awake. Patient is alert/oriented x2, and has no complaints of pain or discomfort at this time. IV site is patent and intact. All safety and fall precaution measures are in place. Call light and personal items are within reach at all times. Will continue to monitor.
[2018-11-11] MEDS: ATORVASTATIN 20 MG TABLET PO SCH (21:21)
[2018-11-12 04:27] VITALS: BP 143/72
[2018-11-12] MEDS: hydrALAZINE HCL 50 MG TABLET PO SCH ×2 (06:08→14:00)
[2018-11-12] MEDS: PANTOPRAZOLE SODIUM 40 MG TABLET.DR PO SCH (06:08)
--- NOTE | 2018-11-12 06:53 | NUR ---
Patient slept throughout night comfortably. All prescribed medications provided as ordered and tolerated well, with no adverse side effects noted or observed. Patient refused am blood draw, nurse explained risks/benefits for having blood work done, but patient still refused. Safety and fall precaution measures remain in place. Call light and personal items are within reach at all times.
[2018-11-12] MEDS ORDERED: HYDR-3326 PO (07:54)
[2018-11-12] MEDS: ASPIRIN 81 MG TAB.CHEW PO SCH (08:14)
[2018-11-12] MEDS: FINASTERIDE 5 MG TABLET PO SCH (08:14)
[2018-11-12] MEDS: DONEPEZIL 5 MG TABLET PO SCH (08:14)
[2018-11-12] MEDS: ISOSORBIDE MONONITRATE 30 MG TAB.SR.24H PO SCH (08:14)
[2018-11-12] MEDS: CYANOCOBALAMIN 1,000 MCG TABLET PO SCH (08:14)
[2018-11-12] MEDS: CLOPIDOGREL 75 MG TABLET PO SCH (08:15)
[2018-11-12] MEDS: FERROUS SULFATE 325 MG TABEC PO SCH (08:15)
[2018-11-12] MEDS: AMLODIPINE 5 MG TABLET PO SCH (08:15)
[2018-11-12] MEDS: Z GUARD REMEDY PASTE 57 GM TUBE TOP SCH (09:06)
[2018-11-12 11:39] VITALS: BP 124/64
[2018-11-12 14:00] VITALS: BP 114/49
--- NOTE | 2018-11-12 15:55 | NUR ---
dc orders received noted and carried out,dc instruction and education given to the pt,rn report given to juan miranda over aru.transfer the pt to aru via wheel chair,
== END 2018-11-12 15:30 | DRG 551 ==
LOC: ER 10:47 → TELE3 14:20 → MEDSURG3 17:00
PROVIDERS: ADMIT Internal Medicine; ATTEND Internal Medicine
DX: S32.049A Unspecified fracture of fourth lumbar vertebra, initial encounter for closed fracture (principal); I21.A1 Myocardial infarction type 2; N17.9 Acute kidney failure, unspecified; I13.0 Hypertensive heart and chronic kidney disease with heart failure and stage 1 through stage 4 chronic kidney disease, or unspecified chronic kidney disease; I50.32 Chronic diastolic (congestive) heart failure; W18.30XA Fall on same level, unspecified, initial encounter; Y93.01 Activity, walking, marching and hiking; Y92.099 Unspecified place in other non-institutional residence as the place of occurrence of the external cause; D63.8 Anemia in other chronic diseases classified elsewhere; W18.39XA Other fall on same level, initial encounter; N18.9 Chronic kidney disease, unspecified; I25.10 Atherosclerotic heart disease of native coronary artery without angina pectoris; Z95.2 Presence of prosthetic heart valve; Z98.61 Coronary angioplasty status; Z86.73 Personal history of transient ischemic attack (TIA), and cerebral infarction without residual deficits; Z79.82 Long term (current) use of aspirin; Z79.02 Long term (current) use of antithrombotics/antiplatelets; I70.8 Atherosclerosis of other arteries; I08.0 Rheumatic disorders of both mitral and aortic valves; F03.90 Unspecified dementia, unspecified severity, without behavioral disturbance, psychotic disturbance, mood disturbance, and anxiety; E78.5 Hyperlipidemia, unspecified; Z85.828 Personal history of other malignant neoplasm of skin; Z85.46 Personal history of malignant neoplasm of prostate; Z79.899 Other long term (current) drug therapy; K80.20 Calculus of gallbladder without cholecystitis without obstruction; I27.20 Pulmonary hypertension, unspecified
CPT/HCPCS: 36415; 70030-TC; 71045; 78306; 83550; 83735; 84100; 85025; 85730; 93005; 93307; A4663; A9150; A9503; G0378

== ENCOUNTER 2018-11-12 16:17 | Inpatient (IN) | payer MEDICARE, BC ==
[~2018-11-12] VITALS: Ht 167.6 cm; Wt 65.8 kg
[~2018-11-12 16:17] MED LIST changes: +ACET-2154 PO; -ACET325T53 PO; -ASPI-605 PO; +CALC-34 PO; -CALC-555 PO; -CALC-883 PO; +CLOT12CR TP; -CYAN100071 PO; +CYAN100T3 PO; -DONE5TAB34 PO; +DONE5TAB7 PO; -ERYT3.5O24 RIGHTEYE; -EYEL1MED TP; -FINA5TAB11 PO; +FINA5TAB3 PO; -FURO40TA5 PO; -HEPA50007 SQ; +HYDR-3326 PO; -HYDR50TA68 PO; -ISOS10TA2 PO; -ISOS20TA8 PO; +ISOS30TA6 PO; +LOPE2CAP PO; -LOPE2CAP14 PO; -MAG-55 PO; +MAG355OR18 PO; -MUPI22OI2 NS; -NITROGLYCERIN OINT; +PANT40TA2 PO; -PANT40TA4 PO; -POLY17PO4 PO; -ZOLP5TAB8 PO
[2018-11-12] MEDS ORDERED: Z GUARD REMEDY PASTE 57 GM TUBE TOP PRN (17:45)
[2018-11-12 18:09] VITALS: BP 149/72
[2018-11-12 20:21] VITALS: BP 139/70
[2018-11-12] MEDS: ATORVASTATIN 20 MG TABLET PO SCH (20:28)
[2018-11-13 05:10] VITALS: BP 148/76
[2018-11-13] MEDS: PANTOPRAZOLE SODIUM 40 MG TABLET.DR PO SCH (06:44)
[2018-11-13 08:00] VITALS: BP_SYST 154; BP_SYST 162; BP_DIAS 74; BP_DIAS 96
[2018-11-13 08:26] LABS: BASOPHILS # (AUTO) 0.1 K/uL (0.0-8.0); BASOPHILS % (AUTO) 0.6 % (0.0-2.0); EOSINOPHILS # (AUTO) 0.3 K/uL (0.0-0.7); EOSINOPHILS % (AUTO) 2.8 % (0.0-7.0); HEMATOCRIT 27.8 % (36.7-47.1); HEMOGLOBIN 9.5 g/dL (12.5-16.3); LYMPHOCYTES # (AUTO) 1.4 K/uL (20.0-40.0); LYMPHOCYTES % (AUTO) 14.1 % (20.5-51.5); MEAN CORPUSCULAR HEMOGLOBIN 28.6 uug (23.8-33.4); MEAN CORPUSCULAR HGB CONC 34 g/dL (32.5-36.3); MEAN CORPUSCULAR VOLUME 83.9 fL (73.0-96.2); MONOCYTES # (AUTO) 0.9 K/uL (2.0-10.0); MONOCYTES % (AUTO) 8.9 % (0.0-11.0); NEUTROPHILS # (AUTO) 7.2 K/uL (1.8-8.9); NEUTROPHILS % (AUTO) 73.6 % (38.5-71.5); PLATELET COUNT (AUTO) 166 K/uL (152-348); RED BLOOD CELL COUNT(AUTO) 3.31 MIL/uL (4.06-5.63); WHITE BLOOD COUNT (AUTO) 9.8 K/uL (3.6-10.2)
[2018-11-13 08:32] LABS: CARBON DIOXIDE 24 mmol/L (21-32); CHLORIDE 106 mmol/L (98-107); CREATININE 2.1 mg/dL (0.6-1.3); GLUCOSE 97 mg/dL (74-106); POTASSIUM 3.4 mmol/L (3.5-5.1); UREA NITROGEN, BLOOD 35 mg/dL (7-18)
[2018-11-13] MEDS ORDERED: CYANOCOBALAMIN 100 MCG TABLET PO SCH (09:00)
[2018-11-13] MEDS: AMLODIPINE 5 MG TABLET PO SCH (09:51)
[2018-11-13] MEDS: CLOPIDOGREL 75 MG TABLET PO SCH (09:51)
[2018-11-13] MEDS: hydrALAZINE HCL 50 MG TABLET PO SCH ×3 (09:51→17:45)
[2018-11-13] MEDS: ASPIRIN 81 MG TAB.CHEW PO SCH (09:51)
[2018-11-13] MEDS: CYANOCOBALAMIN 1,000 MCG TABLET PO SCH (09:52)
[2018-11-13] MEDS: FINASTERIDE 5 MG TABLET PO SCH (09:52)
[2018-11-13] MEDS: FERROUS SULFATE 325 MG TABEC PO SCH (09:52)
[2018-11-13] MEDS: ISOSORBIDE MONONITRATE 30 MG TAB.SR.24H PO SCH (09:52)
[2018-11-13] MEDS: DONEPEZIL 5 MG TABLET PO SCH (09:53)
[2018-11-13] MEDS ORDERED: POTASSIUM CHLORIDE 10 MEQ TAB.PRT.SR PO ONE (12:00)
[2018-11-13] MEDS: ACETAMINOPHEN 325 MG TABLET PO PRN ×2 (12:43→20:17)
[2018-11-13 17:27] VITALS: BP 138/63
[2018-11-13] MEDS: ATORVASTATIN 20 MG TABLET PO SCH (20:17)
[2018-11-13 20:30] VITALS: BP 136/60
[2018-11-14 00:40] VITALS: BP 133/79
[2018-11-14] MEDS: PANTOPRAZOLE SODIUM 40 MG TABLET.DR PO SCH (06:11)
[2018-11-14] MEDS: CLOPIDOGREL 75 MG TABLET PO SCH (07:50)
[2018-11-14] MEDS: FERROUS SULFATE 325 MG TABEC PO SCH (07:50)
[2018-11-14] MEDS: ACETAMINOPHEN 325 MG TABLET PO PRN (07:50)
[2018-11-14] MEDS: ASPIRIN 81 MG TAB.CHEW PO SCH (07:50)
[2018-11-14] MEDS: FINASTERIDE 5 MG TABLET PO SCH (07:50)
[2018-11-14] MEDS: CYANOCOBALAMIN 1,000 MCG TABLET PO SCH (07:51)
[2018-11-14] MEDS: hydrALAZINE HCL 50 MG TABLET PO SCH ×3 (07:52→18:07)
[2018-11-14] MEDS: ISOSORBIDE MONONITRATE 30 MG TAB.SR.24H PO SCH (07:52)
[2018-11-14] MEDS: DONEPEZIL 5 MG TABLET PO SCH (07:53)
[2018-11-14] MEDS: AMLODIPINE 5 MG TABLET PO SCH (07:53)
[2018-11-14 08:00] VITALS: BP 156/85
[2018-11-14 17:40] VITALS: BP 152/67
[2018-11-14] MEDS: ATORVASTATIN 20 MG TABLET PO SCH (20:15)
[2018-11-14 20:23] VITALS: BP 139/69
[2018-11-15 05:03] VITALS: BP 146/71
[2018-11-15] MEDS: PANTOPRAZOLE SODIUM 40 MG TABLET.DR PO SCH (06:06)
[2018-11-15] MEDS: ASPIRIN 81 MG TAB.CHEW PO SCH (08:13)
[2018-11-15] MEDS: hydrALAZINE HCL 50 MG TABLET PO SCH ×3 (08:13→17:20)
[2018-11-15] MEDS: AMLODIPINE 5 MG TABLET PO SCH (08:14)
[2018-11-15] MEDS: CLOPIDOGREL 75 MG TABLET PO SCH (08:14)
[2018-11-15] MEDS: FERROUS SULFATE 325 MG TABEC PO SCH (08:14)
[2018-11-15] MEDS: DONEPEZIL 5 MG TABLET PO SCH (08:15)
[2018-11-15] MEDS: ISOSORBIDE MONONITRATE 30 MG TAB.SR.24H PO SCH (08:15)
[2018-11-15] MEDS: FINASTERIDE 5 MG TABLET PO SCH (08:15)
[2018-11-15] MEDS: CYANOCOBALAMIN 1,000 MCG TABLET PO SCH (08:16)
[2018-11-15] MEDS: HYDROCODONE/APAP 5-325MG TABLET PO PRN (09:16)
[2018-11-15 09:17] VITALS: BP 146/65
[2018-11-15 16:43] VITALS: BP 124/62
[2018-11-15 19:38] VITALS: BP 127/61
[2018-11-15] MEDS: ATORVASTATIN 20 MG TABLET PO SCH (20:26)
[2018-11-16 06:04] VITALS: BP 143/69
[2018-11-16] MEDS: PANTOPRAZOLE SODIUM 40 MG TABLET.DR PO SCH (06:41)
[2018-11-16 07:34] VITALS: BP 142/74
[2018-11-16] MEDS: FINASTERIDE 5 MG TABLET PO SCH (08:23)
[2018-11-16] MEDS: ASPIRIN 81 MG TAB.CHEW PO SCH (08:23)
[2018-11-16] MEDS: ISOSORBIDE MONONITRATE 30 MG TAB.SR.24H PO SCH (08:23)
[2018-11-16] MEDS: CYANOCOBALAMIN 1,000 MCG TABLET PO SCH (08:23)
[2018-11-16] MEDS: DONEPEZIL 5 MG TABLET PO SCH (08:24)
[2018-11-16] MEDS: AMLODIPINE 5 MG TABLET PO SCH (08:24)
[2018-11-16] MEDS: CLOPIDOGREL 75 MG TABLET PO SCH (08:24)
[2018-11-16] MEDS: FERROUS SULFATE 325 MG TABEC PO SCH (08:24)
[2018-11-16] MEDS: hydrALAZINE HCL 50 MG TABLET PO SCH ×3 (08:24→17:18)
[2018-11-16] MEDS: HYDROCODONE/APAP 5-325MG TABLET PO PRN (12:57)
[2018-11-16] MEDS: ACETAMINOPHEN 325 MG TABLET PO PRN (15:28)
[2018-11-16 15:34] VITALS: BP 131/56
[2018-11-16] MEDS: CLOTRIMAZOLE 1% CREAM 30 GM TUBE TOP SCH (17:18)
[2018-11-16] MEDS: ATORVASTATIN 20 MG TABLET PO SCH (20:27)
[2018-11-16 20:50] VITALS: BP 127/62
[2018-11-17 04:10] VITALS: BP 138/69
[2018-11-17] MEDS: PANTOPRAZOLE SODIUM 40 MG TABLET.DR PO SCH (06:20)
[2018-11-17 07:30] VITALS: BP 153/74
[2018-11-17] MEDS: FINASTERIDE 5 MG TABLET PO SCH (08:38)
[2018-11-17] MEDS: FERROUS SULFATE 325 MG TABEC PO SCH (08:39)
[2018-11-17] MEDS: hydrALAZINE HCL 50 MG TABLET PO SCH ×3 (08:39→16:32)
[2018-11-17] MEDS: ISOSORBIDE MONONITRATE 30 MG TAB.SR.24H PO SCH (08:39)
[2018-11-17] MEDS: ASPIRIN 81 MG TAB.CHEW PO SCH (08:39)
[2018-11-17] MEDS: CYANOCOBALAMIN 1,000 MCG TABLET PO SCH (08:40)
[2018-11-17] MEDS: DONEPEZIL 5 MG TABLET PO SCH (08:40)
[2018-11-17] MEDS: CLOPIDOGREL 75 MG TABLET PO SCH (08:40)
[2018-11-17] MEDS: AMLODIPINE 5 MG TABLET PO SCH (08:40)
[2018-11-17] MEDS: CLOTRIMAZOLE 1% CREAM 30 GM TUBE TOP SCH ×2 (08:48→16:32)
[2018-11-17 16:50] VITALS: BP 127/56
[2018-11-17 19:59] VITALS: BP 131/53
[2018-11-17] MEDS: ATORVASTATIN 20 MG TABLET PO SCH (20:24)
[2018-11-18 05:36] VITALS: BP 156/72
[2018-11-18] MEDS: PANTOPRAZOLE SODIUM 40 MG TABLET.DR PO SCH (06:29)
[2018-11-18 07:39] VITALS: BP 151/77
[2018-11-18] MEDS: FINASTERIDE 5 MG TABLET PO SCH (08:53)
[2018-11-18] MEDS: ASPIRIN 81 MG TAB.CHEW PO SCH (08:53)
[2018-11-18] MEDS: CYANOCOBALAMIN 1,000 MCG TABLET PO SCH (08:53)
[2018-11-18] MEDS: FERROUS SULFATE 325 MG TABEC PO SCH (08:53)
[2018-11-18] MEDS: DONEPEZIL 5 MG TABLET PO SCH (08:53)
[2018-11-18] MEDS: CLOPIDOGREL 75 MG TABLET PO SCH (08:53)
[2018-11-18] MEDS: CLOTRIMAZOLE 1% CREAM 30 GM TUBE TOP SCH ×2 (08:54→17:46)
[2018-11-18] MEDS: AMLODIPINE 5 MG TABLET PO SCH (08:55)
[2018-11-18 09:36] VITALS: BP 136/61
[2018-11-18] MEDS: hydrALAZINE HCL 50 MG TABLET PO SCH ×3 (09:37→17:47)
[2018-11-18] MEDS: ISOSORBIDE MONONITRATE 30 MG TAB.SR.24H PO SCH (09:37)
[2018-11-18 16:14] VITALS: BP 126/62
[2018-11-18 19:50] VITALS: BP 127/70
[2018-11-18] MEDS: ATORVASTATIN 20 MG TABLET PO SCH (20:35)
[2018-11-18] MEDS: ACETAMINOPHEN 325 MG TABLET PO PRN (20:36)
[2018-11-19 04:50] VITALS: BP 145/71
[2018-11-19] MEDS: PANTOPRAZOLE SODIUM 40 MG TABLET.DR PO SCH (06:29)
[2018-11-19 07:54] VITALS: BP 151/69
[2018-11-19] MEDS: hydrALAZINE HCL 50 MG TABLET PO SCH ×3 (09:31→19:04)
[2018-11-19] MEDS: ASPIRIN 81 MG TAB.CHEW PO SCH (09:31)
[2018-11-19] MEDS: AMLODIPINE 5 MG TABLET PO SCH (09:31)
[2018-11-19] MEDS: CLOPIDOGREL 75 MG TABLET PO SCH (09:32)
[2018-11-19] MEDS: FERROUS SULFATE 325 MG TABEC PO SCH (09:32)
[2018-11-19] MEDS: CYANOCOBALAMIN 1,000 MCG TABLET PO SCH (09:33)
[2018-11-19] MEDS: ISOSORBIDE MONONITRATE 30 MG TAB.SR.24H PO SCH (09:33)
[2018-11-19] MEDS: FINASTERIDE 5 MG TABLET PO SCH (09:33)
[2018-11-19] MEDS: DONEPEZIL 5 MG TABLET PO SCH (09:33)
[2018-11-19] MEDS: CLOTRIMAZOLE 1% CREAM 30 GM TUBE TOP SCH ×2 (09:34→19:04)
[2018-11-19 15:43] VITALS: BP 138/65
[2018-11-19] MEDS: ATORVASTATIN 20 MG TABLET PO SCH (20:18)
[2018-11-19 20:21] VITALS: BP 156/80
[2018-11-19] MEDS ORDERED: CLONIDINE HCL 0.1 MG TABLET PO PRN (20:30)
[2018-11-20 05:42] VITALS: BP 148/71
[2018-11-20] MEDS: PANTOPRAZOLE SODIUM 40 MG TABLET.DR PO SCH (06:04)
[2018-11-20 07:36] LABS: BASOPHILS # (AUTO) 0.1 K/uL (0.0-8.0); BASOPHILS % (AUTO) 0.5 % (0.0-2.0); EOSINOPHILS # (AUTO) 0.2 K/uL (0.0-0.7); HEMATOCRIT 29.8 % (36.7-47.1); HEMOGLOBIN 9.6 g/dL (12.5-16.3); LYMPHOCYTES # (AUTO) 1.8 K/uL (20.0-40.0); LYMPHOCYTES % (AUTO) 14.7 % (20.5-51.5); MEAN CORPUSCULAR HEMOGLOBIN 26.8 uug (23.8-33.4); MEAN CORPUSCULAR HGB CONC 32 g/dL (32.5-36.3); MEAN CORPUSCULAR VOLUME 82.8 fL (73.0-96.2); MONOCYTES % (AUTO) 8.5 % (0.0-11.0); NEUTROPHILS % (AUTO) 74.3 % (38.5-71.5); PLATELET COUNT (AUTO) 225 K/uL (152-348); RED BLOOD CELL COUNT(AUTO) 3.59 MIL/uL (4.06-5.63)
[2018-11-20 07:55] LABS: CARBON DIOXIDE 22 mmol/L (21-32); CHLORIDE 107 mmol/L (98-107); GLUCOSE 98 mg/dL (74-106); MAGNESIUM 1.9 mg/dL (1.8-2.4); PHOSPHOROUS 3.3 mg/dL (2.5-4.9); POTASSIUM 3.7 mmol/L (3.5-5.1); UREA NITROGEN, BLOOD 29 mg/dL (7-18)
[2018-11-20] MEDS: FERROUS SULFATE 325 MG TABEC PO SCH (09:23)
[2018-11-20] MEDS: CLOPIDOGREL 75 MG TABLET PO SCH (09:23)
[2018-11-20] MEDS: AMLODIPINE 5 MG TABLET PO SCH (09:24)
[2018-11-20] MEDS: ASPIRIN 81 MG TAB.CHEW PO SCH (09:24)
[2018-11-20] MEDS: FINASTERIDE 5 MG TABLET PO SCH (09:25)
[2018-11-20] MEDS: hydrALAZINE HCL 50 MG TABLET PO SCH ×3 (09:25→17:05)
[2018-11-20] MEDS: ISOSORBIDE MONONITRATE 30 MG TAB.SR.24H PO SCH (09:26)
[2018-11-20] MEDS: DONEPEZIL 5 MG TABLET PO SCH (09:26)
[2018-11-20] MEDS: CYANOCOBALAMIN 1,000 MCG TABLET PO SCH (09:27)
[2018-11-20] MEDS: CLOTRIMAZOLE 1% CREAM 30 GM TUBE TOP SCH ×2 (09:28→17:06)
[2018-11-20 10:24] VITALS: BP 142/77
[2018-11-20 16:38] VITALS: BP 127/64
[2018-11-20 19:34] VITALS: BP 116/61
[2018-11-20] MEDS: ATORVASTATIN 20 MG TABLET PO SCH (20:01)
[2018-11-21 04:45] VITALS: BP 147/83
[2018-11-21] MEDS: PANTOPRAZOLE SODIUM 40 MG TABLET.DR PO SCH (06:11)
[2018-11-21 08:11] VITALS: BP 172/80
[2018-11-21] MEDS: AMLODIPINE 5 MG TABLET PO SCH (08:34)
[2018-11-21] MEDS: CLOPIDOGREL 75 MG TABLET PO SCH (08:34)
[2018-11-21] MEDS: ASPIRIN 81 MG TAB.CHEW PO SCH (08:34)
[2018-11-21] MEDS: FERROUS SULFATE 325 MG TABEC PO SCH (08:34)
[2018-11-21] MEDS: FINASTERIDE 5 MG TABLET PO SCH (08:34)
[2018-11-21] MEDS: hydrALAZINE HCL 50 MG TABLET PO SCH ×3 (08:35→17:11)
[2018-11-21] MEDS: DONEPEZIL 5 MG TABLET PO SCH (08:35)
[2018-11-21] MEDS: CYANOCOBALAMIN 1,000 MCG TABLET PO SCH (08:36)
[2018-11-21] MEDS: ISOSORBIDE MONONITRATE 30 MG TAB.SR.24H PO SCH (08:36)
[2018-11-21] MEDS: CLOTRIMAZOLE 1% CREAM 30 GM TUBE TOP SCH ×2 (08:37→17:12)
[2018-11-21] MEDS: HYDROCODONE/APAP 5-325MG TABLET PO PRN (09:47)
[2018-11-21 16:53] VITALS: BP 127/63
[2018-11-21] MEDS: ATORVASTATIN 20 MG TABLET PO SCH (20:15)
[2018-11-21 21:08] VITALS: BP 128/57
[2018-11-22 04:05] VITALS: BP 152/73
[2018-11-22] MEDS: PANTOPRAZOLE SODIUM 40 MG TABLET.DR PO SCH (06:01)
[2018-11-22 07:56] LABS: BASOPHILS # (AUTO) 0.1 K/uL (0.0-8.0); BASOPHILS % (AUTO) 0.6 % (0.0-2.0); EOSINOPHILS # (AUTO) 0.2 K/uL (0.0-0.7); EOSINOPHILS % (AUTO) 1.7 % (0.0-7.0); LYMPHOCYTES # (AUTO) 1.3 K/uL (20.0-40.0); LYMPHOCYTES % (AUTO) 13.3 % (20.5-51.5); MEAN CORPUSCULAR HEMOGLOBIN 27.3 uug (23.8-33.4); MEAN CORPUSCULAR HGB CONC 33 g/dL (32.5-36.3); MONOCYTES # (AUTO) 0.9 K/uL (2.0-10.0); MONOCYTES % (AUTO) 8.8 % (0.0-11.0); NEUTROPHILS # (AUTO) 7.6 K/uL (1.8-8.9); NEUTROPHILS % (AUTO) 75.6 % (38.5-71.5); PLATELET COUNT (AUTO) 240 K/uL (152-348); RED BLOOD CELL COUNT(AUTO) 3.66 MIL/uL (4.06-5.63); WHITE BLOOD COUNT (AUTO) 10.1 K/uL (3.6-10.2)
[2018-11-22 07:59] LABS: CARBON DIOXIDE 25 mmol/L (21-32); CHLORIDE 108 mmol/L (98-107); CREATININE 2.2 mg/dL (0.6-1.3); GLUCOSE 102 mg/dL (74-106); MAGNESIUM 1.8 mg/dL (1.8-2.4); PHOSPHOROUS 3.3 mg/dL (2.5-4.9); POTASSIUM 3.6 mmol/L (3.5-5.1); UREA NITROGEN, BLOOD 31 mg/dL (7-18)
[2018-11-22 08:00] VITALS: BP 145/72
[2018-11-22] MEDS: ASPIRIN 81 MG TAB.CHEW PO SCH (08:03)
[2018-11-22] MEDS: FERROUS SULFATE 325 MG TABEC PO SCH (08:04)
[2018-11-22] MEDS: HYDROCODONE/APAP 5-325MG TABLET PO PRN (08:04)
[2018-11-22] MEDS: CLOPIDOGREL 75 MG TABLET PO SCH (08:04)
[2018-11-22] MEDS: AMLODIPINE 5 MG TABLET PO SCH (08:05)
[2018-11-22] MEDS: hydrALAZINE HCL 50 MG TABLET PO SCH ×3 (08:05→17:24)
[2018-11-22] MEDS: ISOSORBIDE MONONITRATE 30 MG TAB.SR.24H PO SCH (08:06)
[2018-11-22] MEDS: CYANOCOBALAMIN 1,000 MCG TABLET PO SCH (08:07)
[2018-11-22] MEDS: DONEPEZIL 5 MG TABLET PO SCH (08:07)
[2018-11-22] MEDS: FINASTERIDE 5 MG TABLET PO SCH (08:08)
[2018-11-22] MEDS: CLOTRIMAZOLE 1% CREAM 30 GM TUBE TOP SCH ×2 (08:14→17:24)
[2018-11-22 16:17] VITALS: BP 126/59
[2018-11-22 20:25] VITALS: BP 133/69
[2018-11-22] MEDS: ATORVASTATIN 20 MG TABLET PO SCH (20:55)
[2018-11-23 05:53] VITALS: BP 153/82
[2018-11-23] MEDS: PANTOPRAZOLE SODIUM 40 MG TABLET.DR PO SCH (06:44)
[2018-11-23 07:46] VITALS: BP 158/69
[2018-11-23] MEDS: ISOSORBIDE MONONITRATE 30 MG TAB.SR.24H PO SCH (08:39)
[2018-11-23] MEDS: ASPIRIN 81 MG TAB.CHEW PO SCH (08:39)
[2018-11-23] MEDS: CYANOCOBALAMIN 1,000 MCG TABLET PO SCH (08:40)
[2018-11-23] MEDS: hydrALAZINE HCL 50 MG TABLET PO SCH ×3 (08:40→16:18)
[2018-11-23] MEDS: DONEPEZIL 5 MG TABLET PO SCH (08:40)
[2018-11-23] MEDS: FINASTERIDE 5 MG TABLET PO SCH (08:40)
[2018-11-23] MEDS: AMLODIPINE 5 MG TABLET PO SCH (08:40)
[2018-11-23] MEDS: CLOPIDOGREL 75 MG TABLET PO SCH (08:40)
[2018-11-23] MEDS: FERROUS SULFATE 325 MG TABEC PO SCH (08:40)
[2018-11-23] MEDS: CLOTRIMAZOLE 1% CREAM 30 GM TUBE TOP SCH ×2 (08:50→16:20)
[2018-11-23] MEDS: ACETAMINOPHEN 325 MG TABLET PO PRN (10:02)
[2018-11-23 15:42] VITALS: BP 137/68
[2018-11-23 19:30] VITALS: BP 147/72
[2018-11-23] MEDS: ATORVASTATIN 20 MG TABLET PO SCH (20:56)
[2018-11-24 05:38] VITALS: BP 125/68
[2018-11-24] MEDS: PANTOPRAZOLE SODIUM 40 MG TABLET.DR PO SCH (06:00)
[2018-11-24] MEDS: CYANOCOBALAMIN 1,000 MCG TABLET PO SCH (08:39)
[2018-11-24] MEDS: FERROUS SULFATE 325 MG TABEC PO SCH (08:39)
[2018-11-24] MEDS: AMLODIPINE 5 MG TABLET PO SCH (08:39)
[2018-11-24] MEDS: ISOSORBIDE MONONITRATE 30 MG TAB.SR.24H PO SCH (08:39)
[2018-11-24] MEDS: FINASTERIDE 5 MG TABLET PO SCH (08:39)
[2018-11-24] MEDS: hydrALAZINE HCL 50 MG TABLET PO SCH ×3 (08:39→17:15)
[2018-11-24] MEDS: ASPIRIN 81 MG TAB.CHEW PO SCH (08:39)
[2018-11-24] MEDS: CLOPIDOGREL 75 MG TABLET PO SCH (08:39)
[2018-11-24] MEDS: CLOTRIMAZOLE 1% CREAM 30 GM TUBE TOP SCH ×2 (08:40→17:15)
[2018-11-24] MEDS: DONEPEZIL 5 MG TABLET PO SCH (08:40)
[2018-11-24 10:23] VITALS: BP 136/59
[2018-11-24] MEDS: ACETAMINOPHEN 325 MG TABLET PO PRN (12:13)
[2018-11-24 16:36] VITALS: BP 119/66
[2018-11-24 19:50] VITALS: BP 123/59
[2018-11-24] MEDS: ATORVASTATIN 20 MG TABLET PO SCH (20:23)
[2018-11-25 04:00] VITALS: BP 134/73
[2018-11-25] MEDS: PANTOPRAZOLE SODIUM 40 MG TABLET.DR PO SCH (06:05)
[2018-11-25 08:00] VITALS: BP 144/74
[2018-11-25] MEDS: ASPIRIN 81 MG TAB.CHEW PO SCH (08:31)
[2018-11-25] MEDS: CLOPIDOGREL 75 MG TABLET PO SCH (08:31)
[2018-11-25] MEDS: hydrALAZINE HCL 50 MG TABLET PO SCH ×3 (08:31→17:15)
[2018-11-25] MEDS: AMLODIPINE 5 MG TABLET PO SCH (08:32)
[2018-11-25] MEDS: FINASTERIDE 5 MG TABLET PO SCH (08:32)
[2018-11-25] MEDS: DONEPEZIL 5 MG TABLET PO SCH (08:32)
[2018-11-25] MEDS: FERROUS SULFATE 325 MG TABEC PO SCH (08:32)
[2018-11-25] MEDS: CYANOCOBALAMIN 1,000 MCG TABLET PO SCH (08:32)
[2018-11-25] MEDS: CLOTRIMAZOLE 1% CREAM 30 GM TUBE TOP SCH ×2 (08:34→17:15)
[2018-11-25] MEDS: ISOSORBIDE MONONITRATE 30 MG TAB.SR.24H PO SCH (08:34)
[2018-11-25] MEDS: ACETAMINOPHEN 325 MG TABLET PO PRN ×2 (08:39→20:28)
[2018-11-25 15:30] VITALS: BP 134/68
[2018-11-25] MEDS: ATORVASTATIN 20 MG TABLET PO SCH (20:28)
[2018-11-25 21:30] VITALS: BP 135/72
[2018-11-26 05:45] VITALS: BP 135/60
[2018-11-26] MEDS: PANTOPRAZOLE SODIUM 40 MG TABLET.DR PO SCH (06:15)
[2018-11-26] MEDS: ASPIRIN 81 MG TAB.CHEW PO SCH (08:32)
[2018-11-26] MEDS: CYANOCOBALAMIN 1,000 MCG TABLET PO SCH (08:32)
[2018-11-26] MEDS: FINASTERIDE 5 MG TABLET PO SCH (08:32)
[2018-11-26] MEDS: CLOPIDOGREL 75 MG TABLET PO SCH (08:32)
[2018-11-26] MEDS: ISOSORBIDE MONONITRATE 30 MG TAB.SR.24H PO SCH (08:33)
[2018-11-26] MEDS: FERROUS SULFATE 325 MG TABEC PO SCH (08:33)
[2018-11-26] MEDS: AMLODIPINE 5 MG TABLET PO SCH (08:33)
[2018-11-26] MEDS: hydrALAZINE HCL 50 MG TABLET PO SCH ×3 (08:33→17:16)
[2018-11-26] MEDS: DONEPEZIL 5 MG TABLET PO SCH (08:34)
[2018-11-26] MEDS: CLOTRIMAZOLE 1% CREAM 30 GM TUBE TOP SCH ×2 (08:41→17:16)
[2018-11-26 15:39] VITALS: BP 136/58
[2018-11-26 20:10] VITALS: BP 130/66
[2018-11-26] MEDS: ATORVASTATIN 20 MG TABLET PO SCH (20:30)
[2018-11-27 05:46] VITALS: BP 126/72
[2018-11-27] MEDS: PANTOPRAZOLE SODIUM 40 MG TABLET.DR PO SCH (06:14)
[2018-11-27 07:30] VITALS: BP 163/69
[2018-11-27] MEDS: CLOTRIMAZOLE 1% CREAM 30 GM TUBE TOP SCH (09:00)
[2018-11-27] MEDS: CLOPIDOGREL 75 MG TABLET PO SCH (09:47)
[2018-11-27] MEDS: FERROUS SULFATE 325 MG TABEC PO SCH (09:48)
[2018-11-27] MEDS: AMLODIPINE 5 MG TABLET PO SCH (09:48)
[2018-11-27] MEDS: ASPIRIN 81 MG TAB.CHEW PO SCH (09:48)
[2018-11-27] MEDS: FINASTERIDE 5 MG TABLET PO SCH (09:49)
[2018-11-27] MEDS: CYANOCOBALAMIN 1,000 MCG TABLET PO SCH (09:49)
[2018-11-27] MEDS: hydrALAZINE HCL 50 MG TABLET PO SCH ×2 (09:49→14:07)
[2018-11-27] MEDS: ISOSORBIDE MONONITRATE 30 MG TAB.SR.24H PO SCH (09:49)
[2018-11-27] MEDS: DONEPEZIL 5 MG TABLET PO SCH (09:49)
[2018-11-27 12:29] VITALS: BP 157/63
[2018-11-27 14:04] VITALS: BP 130/69
[2018-11-27 14:07] VITALS: BP 130/69
== END 2018-11-27 15:30 | disposition home health service (06) | DRG 682 ==
LOC: SA1 11-13 19:02
PROVIDERS: ADMIT Physical Medicine & Rehabilitation Pain Medicine; ATTEND Physical Medicine & Rehabilitation Pain Medicine
DX: N17.9 Acute kidney failure, unspecified (principal); I21.A1 Myocardial infarction type 2; I13.0 Hypertensive heart and chronic kidney disease with heart failure and stage 1 through stage 4 chronic kidney disease, or unspecified chronic kidney disease; I50.32 Chronic diastolic (congestive) heart failure; S32.049D Unspecified fracture of fourth lumbar vertebra, subsequent encounter for fracture with routine healing; W19.XXXD Unspecified fall, subsequent encounter; D63.8 Anemia in other chronic diseases classified elsewhere; E78.5 Hyperlipidemia, unspecified; F03.90 Unspecified dementia, unspecified severity, without behavioral disturbance, psychotic disturbance, mood disturbance, and anxiety; I27.20 Pulmonary hypertension, unspecified; N18.9 Chronic kidney disease, unspecified; Z85.46 Personal history of malignant neoplasm of prostate; Z86.73 Personal history of transient ischemic attack (TIA), and cerebral infarction without residual deficits; Z85.828 Personal history of other malignant neoplasm of skin; R53.81 Other malaise; R53.1 Weakness; I08.0 Rheumatic disorders of both mitral and aortic valves; Z95.2 Presence of prosthetic heart valve; I25.10 Atherosclerotic heart disease of native coronary artery without angina pectoris; Z79.01 Long term (current) use of anticoagulants; Z98.61 Coronary angioplasty status; I44.1 Atrioventricular block, second degree; K21.0 Gastro-esophageal reflux disease with esophagitis; M19.90 Unspecified osteoarthritis, unspecified site; Z88.0 Allergy status to penicillin
CPT/HCPCS: 36415; 70551; 71045; 72141; 72148; 83735; 84100; 85025; A4663

== ENCOUNTER 2020-01-26 11:25 | Inpatient (IN) | payer MEDICARE, BC ==
[~2020-01-26] VITALS: Ht 165.1 cm; Wt 83.9 kg
[~2020-01-26 11:25] MED LIST changes: +AMLO-212 PO; -AMLO5TAB9 PO; -CALC-34 PO; -CLOT12CR TP; -CYAN100T3 PO; +CYAN100T44 PO; -LOPE2CAP PO; -MAG355OR18 PO; -MAGN400O6 PO
--- NOTE | 2020-01-26 11:30 | NUR ---
Patient BIB daughter from SNF for c/o BLE swelling. Patient upon arrival denies CP,SOB. DR Levine at bedside to speak to daughter.
[2020-01-26 11:58] LABS: BASOPHILS # (AUTO) 0.1 K/uL (0.0-8.0); BASOPHILS % (AUTO) 0.7 % (0.0-2.0); EOSINOPHILS # (AUTO) 0.1 K/uL (0.0-0.7); EOSINOPHILS % (AUTO) 0.7 % (0.0-7.0); HEMATOCRIT 42.6 % (36.7-47.1); HEMOGLOBIN 13.9 g/dL (12.5-16.3); LYMPHOCYTES # (AUTO) 1.5 K/uL (20.0-40.0); LYMPHOCYTES % (AUTO) 14.5 % (20.5-51.5); MEAN CORPUSCULAR HEMOGLOBIN 28.3 uug (23.8-33.4); MEAN CORPUSCULAR HGB CONC 33 g/dL (32.5-36.3); MEAN CORPUSCULAR VOLUME 86.8 fL (73.0-96.2); MONOCYTES # (AUTO) 0.7 K/uL (2.0-10.0); MONOCYTES % (AUTO) 6.7 % (0.0-11.0); NEUTROPHILS # (AUTO) 7.9 K/uL (1.8-8.9); NEUTROPHILS % (AUTO) 77.4 % (38.5-71.5); PLATELET COUNT (AUTO) 128 K/uL (152-348); RED BLOOD CELL COUNT(AUTO) 4.91 MIL/uL (4.06-5.63); WHITE BLOOD COUNT (AUTO) 10.2 K/uL (3.6-10.2)
[2020-01-26] MEDS ORDERED: ALBU8.5H8 IH (11:59)
[2020-01-26] MEDS ORDERED: FURO-151 PO (11:59)
[2020-01-26] MEDS ORDERED: POLY10DR31 RIGHTEYE (11:59)
[2020-01-26] MEDS ORDERED: Z-GUARD TOP (11:59)
[2020-01-26] MEDS ORDERED: CLOT15CR27 TP (11:59)
[2020-01-26] MEDS ORDERED: GUAI600T53 PO (11:59)
[2020-01-26] MEDS ORDERED: CARV3.12 PO (11:59)
[2020-01-26] MEDS ORDERED: LOPE2CAP14 PO (11:59)
[2020-01-26] MEDS ORDERED: APIX2.5T PO (11:59)
[2020-01-26 12:18] LABS: CARBON DIOXIDE 29 mmol/L (21-32); CHLORIDE 104 mmol/L (98-107); CREATININE 3.3 mg/dL (0.6-1.3); GLUCOSE 110 mg/dL (74-106); POTASSIUM 3.6 mmol/L (3.5-5.1); UREA NITROGEN, BLOOD 48 mg/dL (7-18)
[2020-01-26 12:22] LABS: ALANINE AMINOTRANSFERASE 18 U/L (16-63); ALKALINE PHOSPHATASE 45 U/L (50-136); ASPARTATE AMINOTRANSFERASE 20 U/L (15-37); BILIRUBIN,DIRECT 0.3 mg/dL (0.0-0.2); TOTAL PROTEIN, SERUM 6.3 g/dL (6.4-8.2)
[2020-01-26] MEDS ORDERED: MAGNESIUM HYDROXIDE 30 ML LIQUID UDC PO PRN (14:15)
[2020-01-26] MEDS ORDERED: Z GUARD REMEDY PASTE 57 GM TUBE TOP PRN (14:15)
[2020-01-26] MEDS ORDERED: ZOLPIDEM 5 MG TABLET PO PRN (14:15)
[2020-01-26] MEDS ORDERED: ONDANSETRON 4 MG/2 ML VIAL IV PRN (14:15)
[2020-01-26] MEDS ORDERED: ASPIRIN 81 MG TAB.CHEW GT SCH (14:15)
[2020-01-26] MEDS ORDERED: ACETAMINOPHEN 325 MG TABLET PO PRN (14:15)
[2020-01-26 15:11] VITALS: BP 122/60
--- NOTE | 2020-01-26 16:15 | NUR ---
Pt alert and oriented x 2. LISSET LE's and UE's +2 Edema noted. Wound noted on lisset foot. KCI bed ordered and wound care nurse for eval. Pt forgetful. Daughter Leighann [phone] DPOA - asked for copy of DPOA papers. 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 PT V pacing with BB @ rate of 60's. Placed phone call to dietary to notify per daughter pt cannot have anything chocolate flavored. Plan of care implemented for congestion - limit fluid intake, daily wgt, monitor I/O and fall precaution. DVT pump ordered. IV on right wrist area #20 HL intact no s/s of infiltration. Call light is within reach.
[2020-01-26] MEDS: FUROSEMIDE 40 MG/4 ML VIAL IV SCH (17:51)
[2020-01-26] MEDS: ASPIRIN 81 MG TAB.CHEW GT SCH (17:53)
--- NOTE | 2020-01-26 19:30 | NUR ---
Patient received AOX2 in bed and awake. On 2L NC with no s/s of respiratory distress.Reilly any pain at this time. Will continue to monitor.
[2020-01-26 20:18] VITALS: BP 128/65
[2020-01-26] MEDS: ATORVASTATIN 20 MG TABLET PO SCH (21:00)
--- NOTE | 2020-01-26 23:00 | NUR ---
Lasix 40mg not administered at 2300H because it is scheduled Q12H and was given last at 1800H. Will give at 0600H and notify pharmacy.
[2020-01-26 23:59] VITALS: BP 110/61
[2020-01-27 04:46] VITALS: BP 114/60
[2020-01-27 05:27] LABS: *BILIRUBIN,URIN NEGATIVE (NEGATIVE); *BLOOD, URINE NEGATIVE (NEGATIVE); *CLARITY,URINE CLEAR (CLEAR); *COLOR,URINE YELLOW (YELLOW); *KETONES,URINE NEGATIVE (NEGATIVE); *UROBILINOGEN,URINE 0.2 E.U./dl (NORMAL); LEUKOCYTE ESTERASE ,URINE 1+ (NEGATIVE); NITRITE, URINE POSITIVE (NEGATIVE); PH,URINE 5.5 (5.0-8.0); UGLUCOSE NEGATIVE (NEGATIVE)
[2020-01-27 05:33] LABS: *CREATININE,URINE 65.8 mg/dL (30-125); *URINE TOTAL PROTEIN RANDOM 19.6 mg/dL (<150/24HR)
[2020-01-27 05:36] LABS: BACTERIA,URINE MANY /HPF (NONE SEEN); SQUAMOUS EPITHELIAL CELL,UR FEW /HPF (NONE SEEN); URINE AMORPHOUS URATE FEW /HPF; WBC,URINE 80-100 /HPF (0-3)
[2020-01-27] MEDS: FUROSEMIDE 40 MG/4 ML VIAL IV SCH ×2 (05:51→19:30)
[2020-01-27] MEDS: PANTOPRAZOLE SODIUM 40 MG TABLET.DR PO SCH (06:49)
[2020-01-27 07:00] LABS: BASOPHILS # (AUTO) 0.1 K/uL (0.0-8.0); BASOPHILS % (AUTO) 0.9 % (0.0-2.0); EOSINOPHILS # (AUTO) 0.1 K/uL (0.0-0.7); EOSINOPHILS % (AUTO) 1.7 % (0.0-7.0); HEMATOCRIT 43.1 % (36.7-47.1); HEMOGLOBIN 13.9 g/dL (12.5-16.3); LYMPHOCYTES # (AUTO) 1.2 K/uL (20.0-40.0); MEAN CORPUSCULAR HEMOGLOBIN 28.4 uug (23.8-33.4); MEAN CORPUSCULAR HGB CONC 32 g/dL (32.5-36.3); MEAN CORPUSCULAR VOLUME 87.9 fL (73.0-96.2); MONOCYTES # (AUTO) 0.5 K/uL (2.0-10.0); MONOCYTES % (AUTO) 6.3 % (0.0-11.0); NEUTROPHILS # (AUTO) 6.6 K/uL (1.8-8.9); NEUTROPHILS % (AUTO) 77.1 % (38.5-71.5); PLATELET COUNT (AUTO) 112 K/uL (152-348); RED BLOOD CELL COUNT(AUTO) 4.91 MIL/uL (4.06-5.63); WHITE BLOOD COUNT (AUTO) 8.6 K/uL (3.6-10.2)
[2020-01-27 07:08] LABS: ALANINE AMINOTRANSFERASE 15 U/L (16-63); ALKALINE PHOSPHATASE 44 U/L (50-136); ASPARTATE AMINOTRANSFERASE 20 U/L (15-37); BILIRUBIN,TOTAL 0.8 mg/dL (0.2-1.0); CARBON DIOXIDE 30 mmol/L (21-32); CHLORIDE 105 mmol/L (98-107); CHOLESTEROL 88 mg/dL (<200); CREATININE 3.1 mg/dL (0.6-1.3); GLUCOSE 89 mg/dL (74-106); HDL CHOLESTEROL 37 mg/dL (40-60); MAGNESIUM 2.3 mg/dL (1.8-2.4); PHOSPHOROUS 4.4 mg/dL (2.5-4.9); POTASSIUM 3.3 mmol/L (3.5-5.1); TRIGLYCERIDES 58 MG/DL (30-150); UREA NITROGEN, BLOOD 47 mg/dL (7-18)
[2020-01-27 07:18] LABS: THYROID STIMULATING HORMONE 4.999 mIU/mL (0.358-3.740)
[2020-01-27] MEDS ORDERED: POTASSIUM CHLORIDE 20 MEQ POWDER PACKET PO ONE (07:30)
[2020-01-27 08:03] LABS: CREATINE KINASE, TOTAL 36 U/L (39-308)
[2020-01-27] MEDS: ASPIRIN 81 MG TAB.CHEW GT SCH (08:42)
--- NOTE | 2020-01-27 09:51 | NUR ---
Patient in bed, awake. On 2L NC, denies any pain or SOB at this time. Will continue to monitor.
[2020-01-27 11:34] VITALS: BP 111/59
--- NOTE | 2020-01-27 12:09 | NUR ---
WOUND CARE CONSULT: PT PRESENTS WITH RASH TO PERINEAL AREA, VERY BONY SACRAL AREA WITH BLANCHABLE REDNESS AND DRY WOUNDS TO TOES, PRESENT ON ADMISSION. RECOMMENDATIONS MADE FOR SKIN PROTECTION. DISCUSSED WITH NURSING STAFF. RECOMMEND DPM CONSULT. DR PONCE NOTIFIED OF CONSULT REQUEST. MD IN AGREEMENT WITH PLAN OF CARE.
--- NOTE | 2020-01-27 14:35 | NUR ---
Pt is in bed resting. On 2L NC. Denies any SOB or chest pain. Denies pain. Wound care nurse came to assess patient today. Safety and comfort provided. Will endorse to oncoming shift.
[2020-01-27 15:36] VITALS: BP 124/53
--- NOTE | 2020-01-27 18:00 | NUR ---
DOZING AT INTERVALS THIS PM. VERY SOB AT REST. DENIES DISCOMFORT.
--- NOTE | 2020-01-27 19:30 | NUR ---
Patient resides at [facility] [phone]- address: [address] [place] [address]. Has hx of CVA with right sided weakness. He is wheelchair bound and requires max to total assist with adl's. His COVID-19 test result is negative. Current dc plan is return to the [facility] once discharge. Addendum: 01/27/20 at 1931 by REMY RAPHAEL CMG Amended: Links added.
[2020-01-27] MEDS: CLOTRIMAZOLE 1% CREAM 30 GM TUBE TOP SCH (19:31)
[2020-01-27 20:00] VITALS: BP 115/60
[2020-01-27] MEDS: ATORVASTATIN 20 MG TABLET PO SCH (21:08)
--- NOTE | 2020-01-27 23:40 | NUR ---
Received pt sleeping comfortably. Aroused to verbal stimuli easily. Alert and oriented x2. On 2L O2 via NC, no acute distress noted. Denies pain/ discomfort. Right upper arm midline, patent and intact. Due med given as ordered. Safety measures maintained. Call light and personal items within reach. Will continue to monitor.
[2020-01-28] VITALS: BP 127/66
[2020-01-28 04:27] VITALS: BP 137/72
[2020-01-28] MEDS: FUROSEMIDE 40 MG/4 ML VIAL IV SCH ×2 (05:53→17:03)
[2020-01-28] MEDS: PANTOPRAZOLE SODIUM 40 MG TABLET.DR PO SCH (06:10)
--- NOTE | 2020-01-28 06:30 | NUR ---
Pt slept comfortably at night. Skin care rendered, Mepilex applied on sacral area. Turned and repositioned q2h. Both heels offloaded. All needs attended to promptly. Will endorse accordingly.
[2020-01-28 08:00] VITALS: BP 137/69
[2020-01-28] MEDS: ASPIRIN 81 MG TAB.CHEW PO SCH (08:27)
[2020-01-28] MEDS: HYDROCODONE/APAP 5-325MG TABLET PO PRN ×2 (08:28→16:32)
[2020-01-28] MEDS: CLOTRIMAZOLE 1% CREAM 30 GM TUBE TOP SCH ×3 (08:30→20:16)
[2020-01-28 10:28] LABS: BASOPHILS % (AUTO) 0.5 % (0.0-2.0); EOSINOPHILS # (AUTO) 0.1 K/uL (0.0-0.7); EOSINOPHILS % (AUTO) 1.5 % (0.0-7.0); HEMOGLOBIN 12.9 g/dL (12.5-16.3); LYMPHOCYTES % (AUTO) 11.7 % (20.5-51.5); MEAN CORPUSCULAR HEMOGLOBIN 28.4 uug (23.8-33.4); MEAN CORPUSCULAR HGB CONC 32 g/dL (32.5-36.3); MEAN CORPUSCULAR VOLUME 87.6 fL (73.0-96.2); MONOCYTES # (AUTO) 0.6 K/uL (2.0-10.0); NEUTROPHILS # (AUTO) 6.6 K/uL (1.8-8.9); NEUTROPHILS % (AUTO) 79.3 % (38.5-71.5); PLATELET COUNT (AUTO) 107 K/uL (152-348); RED BLOOD CELL COUNT(AUTO) 4.56 MIL/uL (4.06-5.63); WHITE BLOOD COUNT (AUTO) 8.3 K/uL (3.6-10.2)
[2020-01-28 11:13] LABS: CARBON DIOXIDE 29 mmol/L (21-32); CHLORIDE 104 mmol/L (98-107); GLUCOSE 141 mg/dL (74-106); MAGNESIUM 2.1 mg/dL (1.8-2.4); PHOSPHOROUS 3.7 mg/dL (2.5-4.9); POTASSIUM 3.3 mmol/L (3.5-5.1); UREA NITROGEN, BLOOD 45 mg/dL (7-18)
[2020-01-28 11:28] VITALS: BP 146/67
[2020-01-28] MEDS ORDERED: POTASSIUM CHLORIDE 20 MEQ TAB.PRT.SR PO ONE (11:30)
[2020-01-28 15:50] VITALS: BP 127/69
[2020-01-28 20:00] VITALS: BP 138/71
--- NOTE | 2020-01-28 20:11 | NUR ---
NSG: Received Patient lying in bed, awake. On 2L via NC, Denies any pain or SOB at this time. Will continue to monitor.
[2020-01-28] MEDS: ATORVASTATIN 20 MG TABLET PO SCH (20:15)
[2020-01-29 04:00] VITALS: BP 131/61
[2020-01-29] MEDS: FUROSEMIDE 40 MG/4 ML VIAL IV SCH ×2 (05:35→17:46)
[2020-01-29] MEDS: PANTOPRAZOLE SODIUM 40 MG TABLET.DR PO SCH (06:11)
--- NOTE | 2020-01-29 06:50 | NUR ---
nsg: remain calm and comfortable. no c/o pain or discomfort at this time. good davina care provided. resting in bed comfortably.
[2020-01-29 08:04] LABS: BASOPHILS # (AUTO) 0.1 K/uL (0.0-8.0); BASOPHILS % (AUTO) 0.6 % (0.0-2.0); CARBON DIOXIDE 32 mmol/L (21-32); CHLORIDE 105 mmol/L (98-107); CREATININE 2.8 mg/dL (0.6-1.3); EOSINOPHILS # (AUTO) 0.1 K/uL (0.0-0.7); EOSINOPHILS % (AUTO) 1.7 % (0.0-7.0); GLUCOSE 87 mg/dL (74-106); HEMATOCRIT 40.7 % (36.7-47.1); HEMOGLOBIN 13.2 g/dL (12.5-16.3); LYMPHOCYTES # (AUTO) 1.2 K/uL (20.0-40.0); LYMPHOCYTES % (AUTO) 13.3 % (20.5-51.5); MEAN CORPUSCULAR HEMOGLOBIN 28.4 uug (23.8-33.4); MEAN CORPUSCULAR HGB CONC 32 g/dL (32.5-36.3); MEAN CORPUSCULAR VOLUME 87.8 fL (73.0-96.2); MONOCYTES # (AUTO) 0.8 K/uL (2.0-10.0); MONOCYTES % (AUTO) 9.1 % (0.0-11.0); NEUTROPHILS # (AUTO) 6.6 K/uL (1.8-8.9); NEUTROPHILS % (AUTO) 75.3 % (38.5-71.5); PHOSPHOROUS 3.4 mg/dL (2.5-4.9); PLATELET COUNT (AUTO) 107 K/uL (152-348); POTASSIUM 3.6 mmol/L (3.5-5.1); RED BLOOD CELL COUNT(AUTO) 4.63 MIL/uL (4.06-5.63); UREA NITROGEN, BLOOD 45 mg/dL (7-18); WHITE BLOOD COUNT (AUTO) 8.8 K/uL (3.6-10.2)
[2020-01-29] MEDS: ASPIRIN 81 MG TAB.CHEW PO SCH (09:39)
[2020-01-29] MEDS: HYDROCODONE/APAP 5-325MG TABLET PO PRN (09:39)
[2020-01-29] MEDS: CLOTRIMAZOLE 1% CREAM 30 GM TUBE TOP SCH ×2 (09:40→20:57)
[2020-01-29] MEDS: CARVEDILOL 3.125 MG TABLET PO SCH ×2 (09:41→17:46)
[2020-01-29 11:10] VITALS: BP 129/65
[2020-01-29 11:12] VITALS: BP 129/65
[2020-01-29 15:30] VITALS: BP 128/57
[2020-01-29] MEDS ORDERED: POTASSIUM CHLORIDE 20 MEQ POWDER PACKET PO ONE (18:00)
[2020-01-29 20:00] VITALS: BP 137/68
[2020-01-29] MEDS: ATORVASTATIN 20 MG TABLET PO SCH (20:55)
[2020-01-30] MEDS: FUROSEMIDE 40 MG/4 ML VIAL IV SCH ×3 (02:17→17:47)
[2020-01-30] MEDS: PANTOPRAZOLE SODIUM 40 MG TABLET.DR PO SCH (06:20)
[2020-01-30 06:47] VITALS: BP 142/74
--- NOTE | 2020-01-30 07:15 | NUR ---
Received PT in bed, awake AO X 3. PT is cooperative and pleasant. No acute distress or no shortness of breath noted. PT stated that they had a good sleep. Able to make needs known. Safety measures provided, call light within reach, bed low and lock.
[2020-01-30] MEDS: ASPIRIN 81 MG TAB.CHEW PO SCH (08:36)
[2020-01-30] MEDS: CARVEDILOL 3.125 MG TABLET PO SCH ×2 (08:37→17:48)
[2020-01-30] MEDS: CLOTRIMAZOLE 1% CREAM 30 GM TUBE TOP SCH ×2 (08:37→21:57)
[2020-01-30 11:33] VITALS: BP 134/73
[2020-01-30 12:43] LABS: BASOPHILS % (AUTO) 0.5 % (0.0-2.0); EOSINOPHILS # (AUTO) 0.1 K/uL (0.0-0.7); EOSINOPHILS % (AUTO) 1.8 % (0.0-7.0); HEMATOCRIT 40.9 % (36.7-47.1); HEMOGLOBIN 13.3 g/dL (12.5-16.3); LYMPHOCYTES # (AUTO) 1.1 K/uL (20.0-40.0); LYMPHOCYTES % (AUTO) 13.1 % (20.5-51.5); MEAN CORPUSCULAR HEMOGLOBIN 28.3 uug (23.8-33.4); MEAN CORPUSCULAR HGB CONC 33 g/dL (32.5-36.3); MONOCYTES # (AUTO) 0.8 K/uL (2.0-10.0); MONOCYTES % (AUTO) 10.3 % (0.0-11.0); NEUTROPHILS % (AUTO) 74.3 % (38.5-71.5); PLATELET COUNT (AUTO) 102 K/uL (152-348); WHITE BLOOD COUNT (AUTO) 8.1 K/uL (3.6-10.2)
[2020-01-30 14:49] LABS: CARBON DIOXIDE 30 mmol/L (21-32); CHLORIDE 104 mmol/L (98-107); CREATININE 2.6 mg/dL (0.6-1.3); GLUCOSE 98 mg/dL (74-106); POTASSIUM 3.7 mmol/L (3.5-5.1); UREA NITROGEN, BLOOD 43 mg/dL (7-18)
[2020-01-30 14:50] LABS: MAGNESIUM 2.4 mg/dL (1.8-2.4); PHOSPHOROUS 3.4 mg/dL (2.5-4.9)
[2020-01-30 15:11] VITALS: BP 123/66
--- NOTE | 2020-01-30 18:34 | NUR ---
PT is in bed, awake AO X 3. PT finished dinner. No acute distress or no shortness of breath noted. Vitals WNL. Safety measures provided, call light within reach, bed low and lock. Will endorse report to shift mgr nurse.
--- NOTE | 2020-01-30 20:16 | NUR ---
Received patient in bed .Alert and able to make needs known.Denied pain.No s/s of distress noted.O2 at 2LPM via NC .Midline on right upper arm patent and intact.Due meds given.Safety measures in placed.Call light with in reach .Will continue to monitor.
[2020-01-30 20:44] VITALS: BP 151/74
[2020-01-30] MEDS: ATORVASTATIN 20 MG TABLET PO SCH (21:51)
[2020-01-31] MEDS: FUROSEMIDE 40 MG/4 ML VIAL IV SCH ×3 (01:42→16:58)
[2020-01-31 04:00] VITALS: BP 145/77
[2020-01-31] MEDS: PANTOPRAZOLE SODIUM 40 MG TABLET.DR PO SCH (06:02)
[2020-01-31 07:35] LABS: ALANINE AMINOTRANSFERASE 21 U/L (16-63); ALKALINE PHOSPHATASE 49 U/L (50-136); ASPARTATE AMINOTRANSFERASE 28 U/L (15-37); BILIRUBIN,TOTAL 0.8 mg/dL (0.2-1.0); CARBON DIOXIDE 33 mmol/L (21-32); CHLORIDE 109 mmol/L (98-107); CREATININE 2.4 mg/dL (0.6-1.3); GLUCOSE 91 mg/dL (74-106); MAGNESIUM 2.1 mg/dL (1.8-2.4); PHOSPHOROUS 3.5 mg/dL (2.5-4.9); POTASSIUM 3.9 mmol/L (3.5-5.1); TOTAL PROTEIN, SERUM 5.5 g/dL (6.4-8.2); UREA NITROGEN, BLOOD 40 mg/dL (7-18)
[2020-01-31 08:56] LABS: BASOPHILS # (AUTO) 0.1 K/uL (0.0-8.0); BASOPHILS % (AUTO) 0.7 % (0.0-2.0); EOSINOPHILS # (AUTO) 0.2 K/uL (0.0-0.7); EOSINOPHILS % (AUTO) 2.2 % (0.0-7.0); HEMATOCRIT 39.8 % (36.7-47.1); LYMPHOCYTES # (AUTO) 1.2 K/uL (20.0-40.0); LYMPHOCYTES % (AUTO) 15.4 % (20.5-51.5); MEAN CORPUSCULAR HEMOGLOBIN 28.5 uug (23.8-33.4); MEAN CORPUSCULAR HGB CONC 33 g/dL (32.5-36.3); MEAN CORPUSCULAR VOLUME 87.1 fL (73.0-96.2); MONOCYTES # (AUTO) 0.6 K/uL (2.0-10.0); MONOCYTES % (AUTO) 8.1 % (0.0-11.0); NEUTROPHILS # (AUTO) 5.6 K/uL (1.8-8.9); NEUTROPHILS % (AUTO) 73.6 % (38.5-71.5); PLATELET COUNT (AUTO) 102 K/uL (152-348); RED BLOOD CELL COUNT(AUTO) 4.57 MIL/uL (4.06-5.63); WHITE BLOOD COUNT (AUTO) 7.7 K/uL (3.6-10.2)
[2020-01-31] MEDS: ASPIRIN 81 MG TAB.CHEW PO SCH (08:56)
[2020-01-31] MEDS: CARVEDILOL 3.125 MG TABLET PO SCH ×2 (08:57→17:00)
[2020-01-31] MEDS: CLOTRIMAZOLE 1% CREAM 30 GM TUBE TOP SCH ×2 (08:58→20:47)
[2020-01-31 11:40] VITALS: BP 126/70
--- NOTE | 2020-01-31 14:02 | NUR ---
patient is alert, awake, patient saturated on room air 87% -89% only, started back on o2 2 liter via nasal canula, saturating at 93% at 2liter o2 via nasal canula.
[2020-01-31 16:09] VITALS: BP 122/65
[2020-01-31] MEDS: VANCOMYCIN IV 1,000 MG in IV DEXTROSE 5% 250 ML IV SCH (16:58)
[2020-01-31] MEDS: MEROPENEM 500 MG in IV NORMAL SALINE 50 ML IV SCH (18:40)
--- NOTE | 2020-01-31 19:30 | NUR ---
Pt received asleep and in bed. On 2L NC with no s/s of respiratory distress. No other issues or concerns at this time.
[2020-01-31 20:00] VITALS: BP 132/60
[2020-01-31] MEDS: ATORVASTATIN 20 MG TABLET PO SCH (20:48)
[2020-02-01 04:06] VITALS: BP 130/71
[2020-02-01] MEDS: MEROPENEM 500 MG in IV NORMAL SALINE 50 ML IV SCH ×2 (04:32→16:18)
[2020-02-01] MEDS: PANTOPRAZOLE SODIUM 40 MG TABLET.DR PO SCH (06:00)
--- NOTE | 2020-02-01 06:44 | NUR ---
Pt slept throughout the night. On 2L NC and is tolerating well, sating at 95%. Tolerated all medications given. Wound care performed on B toes and on sacrum. Safety and comfort provided to patient. No other issues or concerns at this time. Will endorse to day shift
[2020-02-01] MEDS: ASPIRIN 81 MG TAB.CHEW PO SCH (08:11)
[2020-02-01] MEDS: CARVEDILOL 3.125 MG TABLET PO SCH ×2 (08:11→17:17)
[2020-02-01] MEDS: FUROSEMIDE 40 MG/4 ML VIAL IV SCH ×2 (08:18→16:17)
[2020-02-01] MEDS: CLOTRIMAZOLE 1% CREAM 30 GM TUBE TOP SCH ×2 (08:55→21:00)
[2020-02-01 11:29] VITALS: BP 116/63
[2020-02-01 15:49] VITALS: BP 127/60
[2020-02-01] MEDS ORDERED: ALBUTEROL SULFATE 2.5 MG/ 0.5 ML NEBU NEB PRN (16:00)
[2020-02-01 17:08] LABS: ALBUMIN 2.8 g/dL (2.9-4.4); ALPHA-1-GLOBULIN 0.3 g/dL (0.0-0.4); ALPHA-2-GLOBULIN 0.5 g/dL (0.4-1.0); BETA GLOBULIN 0.7 g/dL (0.7-1.3); GAMMA GLOBULIN 1.4 g/dL (0.4-1.8); GLOBULIN, TOTAL 2.8 g/dL (2.2-3.9); M-SPIKE Not Observed g/dL (Not Observed)
[2020-02-01 20:40] VITALS: BP 126/60
[2020-02-01] MEDS: ATORVASTATIN 20 MG TABLET PO SCH (20:59)
--- NOTE | 2020-02-01 21:17 | NUR ---
patient resting comfortably. v/s stable. Nc2l sat at 94%. no s/s of acute distress. would care provided on perineum and toes. will continue to monitor and assess.
[2020-02-02] MEDS: VANCOMYCIN IV 1,000 MG in IV DEXTROSE 5% 250 ML IV SCH (03:27)
[2020-02-02] MEDS: MEROPENEM 500 MG in IV NORMAL SALINE 50 ML IV SCH (04:35)
[2020-02-02 05:00] VITALS: BP 131/65
--- NOTE | 2020-02-02 05:35 | NUR ---
patient refused labs this morning. dentures lab technician will try back after breakfast.
[2020-02-02] MEDS: PANTOPRAZOLE SODIUM 40 MG TABLET.DR PO SCH (06:16)
[2020-02-02] MEDS: ASPIRIN 81 MG TAB.CHEW PO SCH (08:04)
[2020-02-02] MEDS: CLOTRIMAZOLE 1% CREAM 30 GM TUBE TOP SCH (08:06)
[2020-02-02] MEDS: CARVEDILOL 3.125 MG TABLET PO SCH (08:11)
[2020-02-02] MEDS: FUROSEMIDE 40 MG/4 ML VIAL IV SCH (08:36)
[2020-02-02] MEDS ORDERED: ALBU2.5V13 NEB (10:24)
[2020-02-02] MEDS ORDERED: CARV3.122 PO (10:24)
[2020-02-02] MEDS ORDERED: SULF1TAB48 PO (10:24)
[2020-02-02] MEDS ORDERED: ASPI81TA31 PO (10:24)
[2020-02-02] MEDS ORDERED: ATOR20TA PO (10:24)
[2020-02-02 12:03] VITALS: BP 115/51
--- NOTE | 2020-02-02 15:15 | NUR ---
dc orders received noted and carried out.dc midline per md orders,dc instruction and education given to the pt,pt left the facility via ambulances in stable condition
== END 2020-02-02 15:33 | disposition home health service (06) | DRG 280 ==
LOC: ER 11:25 → TELE3 14:02 → MEDSURG3 01-29 18:05
PROVIDERS: ADMIT Student in an Organized Health Care Education/Training Program; ATTEND Nurse Practitioner Acute Care
PROC: 05H533Z Insertion of Infusion Device into Right Subclavian Vein, Percutaneous Approach (ICD-10-PCS; principal; 2020-01-27)
PROC: B546ZZA Ultrasonography of Right Subclavian Vein, Guidance (ICD-10-PCS; 2020-01-27)
DX: I13.0 Hypertensive heart and chronic kidney disease with heart failure and stage 1 through stage 4 chronic kidney disease, or unspecified chronic kidney disease (principal); N17.0 Acute kidney failure with tubular necrosis; I21.A1 Myocardial infarction type 2; I50.33 Acute on chronic diastolic (congestive) heart failure; J96.01 Acute respiratory failure with hypoxia; E44.0 Moderate protein-calorie malnutrition; N39.0 Urinary tract infection, site not specified; I69.351 Hemiplegia and hemiparesis following cerebral infarction affecting right dominant side; K57.92 Diverticulitis of intestine, part unspecified, without perforation or abscess without bleeding; J98.11 Atelectasis; Z16.12 Extended spectrum beta lactamase (ESBL) resistance; N18.9 Chronic kidney disease, unspecified; B35.1 Tinea unguium; D64.9 Anemia, unspecified; E78.5 Hyperlipidemia, unspecified; I25.10 Atherosclerotic heart disease of native coronary artery without angina pectoris; I25.2 Old myocardial infarction; F03.90 Unspecified dementia, unspecified severity, without behavioral disturbance, psychotic disturbance, mood disturbance, and anxiety; Z98.61 Coronary angioplasty status; Z95.0 Presence of cardiac pacemaker; Z79.01 Long term (current) use of anticoagulants; M20.42 Other hammer toe(s) (acquired), left foot; M20.41 Other hammer toe(s) (acquired), right foot; I27.29 Other secondary pulmonary hypertension; D69.6 Thrombocytopenia, unspecified; M19.90 Unspecified osteoarthritis, unspecified site; K29.70 Gastritis, unspecified, without bleeding; Z85.46 Personal history of malignant neoplasm of prostate; Z95.2 Presence of prosthetic heart valve; I27.20 Pulmonary hypertension, unspecified; K21.00 Gastro-esophageal reflux disease with esophagitis, without bleeding; Z68.30 Body mass index [BMI] 30.0-30.9, adult; Z85.828 Personal history of other malignant neoplasm of skin; B96.1 Klebsiella pneumoniae [K. pneumoniae] as the cause of diseases classified elsewhere; Z95.5 Presence of coronary angioplasty implant and graft; I73.9 Peripheral vascular disease, unspecified; L89.892 Pressure ulcer of other site, stage 2
CPT/HCPCS: 36415; 70030-TC; 71045; 83735; 83970; 84100; 84155; 84156; 84165; 84300; 84443; 85025; 85730; 87077; 87086; 93005; 93307; 94664; A4663; G0378; J1940; J2185; J3370; J3490; J7050; J7060

== ENCOUNTER 2020-04-12 20:55 | Inpatient (IN) | payer MEDICARE, BC ==
[~2020-04-12] VITALS: Ht 170.2 cm; Wt 68.0 kg
[~2020-04-12 20:55] MED LIST changes: +ALBU2.5V13 NEB; +ALBU8.5H8 IH; +APIX2.5T PO; +CARV3.12 PO; +CARV3.122 PO; -CLOP75TA15 PO; +CLOT15CR27 TP; +GUAI600T53 PO; -HYDR-3326 PO; -ISOS30TA6 PO; +LOPE2CAP14 PO; -PANT40TA2 PO; +POLY10DR31 RIGHTEYE; +SULF1TAB48 PO; +Z-GUARD TOP
--- NOTE | 2020-04-12 21:21 | NUR ---
[facility], [id number] Rayo Scales EMT
--- NOTE | 2020-04-12 21:25 | NUR ---
From ' [facility]"
[2020-04-12] MEDS ORDERED: VANCOMYCIN 1G/D5W 200 ML PIGGYBACK IV ONE (22:15)
[2020-04-12] MEDS ORDERED: CEFEPIME HCL 2 G in IV DEXTROSE 5% 100 ML IV ONE (22:15)
[2020-04-12] MEDS ORDERED: AZITHROMYCIN IV 500 MG in IV DEXTROSE 5% 250 ML IV ONE (22:15)
[2020-04-12 22:19] LABS: ABG BASE EXCESS 8.3 mmol/L; ABG HCO3 36.6 mmol/L; ABG PCO2 71.8 mmHg (35.0-45.0); ABG PH 7.325 (7.350-7.450); ABG PO2 80.7 mmHg (75.0-100.0); ABG SITE RIGHT BRACHIAL; COHb 1.9 % (0.5-1.5); MetHb 0.3 % (0.0-1.5); O2Hb 93.9 % (94.0-97.0); VENT MODE Nasal Cannula
[2020-04-12] MEDS ORDERED: CEFEPIME HCL 1 G VIAL ONE (22:32)
[2020-04-12] MEDS ORDERED: AZITHROMYCIN 500MG/ D5W 250ML IVPB **ER PYXIS ONLY IV ONE (22:33)
[2020-04-12] MEDS ORDERED: VANCOMYCIN IV 200 ML ONE (22:33)
[2020-04-12 22:35] LABS: BASOPHILS # (AUTO) 0.1 K/uL (0.0-8.0); BASOPHILS % (AUTO) 0.7 % (0.0-2.0); EOSINOPHILS % (AUTO) 0.5 % (0.0-7.0); HEMATOCRIT 36.5 % (36.7-47.1); HEMOGLOBIN 11.4 g/dL (12.5-16.3); LYMPHOCYTES # (AUTO) 1.3 K/uL (20.0-40.0); LYMPHOCYTES % (AUTO) 12.4 % (20.5-51.5); MEAN CORPUSCULAR HEMOGLOBIN 29.4 uug (23.8-33.4); MEAN CORPUSCULAR HGB CONC 31 g/dL (32.5-36.3); MEAN CORPUSCULAR VOLUME 93.5 fL (73.0-96.2); MONOCYTES # (AUTO) 0.7 K/uL (2.0-10.0); MONOCYTES % (AUTO) 6.9 % (0.0-11.0); NEUTROPHILS # (AUTO) 8.3 K/uL (1.8-8.9); NEUTROPHILS % (AUTO) 79.5 % (38.5-71.5); PLATELET COUNT (AUTO) 90 K/uL (152-348); WHITE BLOOD COUNT (AUTO) 10.5 K/uL (3.6-10.2)
[2020-04-12 22:41] LABS: CARBON DIOXIDE 30 mmol/L (21-32); CHLORIDE 104 mmol/L (98-107); CREATININE 2.7 mg/dL (0.6-1.3); GLUCOSE 116 mg/dL (74-106); POTASSIUM 4.9 mmol/L (3.5-5.1); UREA NITROGEN, BLOOD 59 mg/dL (7-18)
[2020-04-12] MEDS ORDERED: MAGN400O6 PO (22:44)
[2020-04-12] MEDS ORDERED: BICA50TA49 PO (22:44)
[2020-04-12] MEDS ORDERED: ISOS60TA72 PO (22:44)
[2020-04-12] MEDS ORDERED: CALC1TAB91 PO (22:44)
[2020-04-12] MEDS ORDERED: CYAN-51 PO (22:44)
[2020-04-12] MEDS ORDERED: FURO20TA4 PO (22:44)
[2020-04-12] MEDS ORDERED: LOPE-195 PO (22:44)
[2020-04-12] MEDS ORDERED: CLOP75TA33 PO (22:44)
[2020-04-12] MEDS ORDERED: VERA240C2 PO (22:44)
[2020-04-12] MEDS ORDERED: MAG30ORA PO (22:44)
[2020-04-12] MEDS ORDERED: OXYB5TAB16 PO (22:44)
[2020-04-12] MEDS ORDERED: BISA10SU61 RC (22:44)
[2020-04-12 23:00] LABS: ALANINE AMINOTRANSFERASE 8 U/L (16-63); ALKALINE PHOSPHATASE 33 U/L (50-136); ASPARTATE AMINOTRANSFERASE 16 U/L (15-37); CREATINE KINASE, TOTAL 27 U/L (39-308); LACTATE DEHYDROGENASE 209 U/L (85-227); TOTAL PROTEIN, SERUM 4.6 g/dL (6.4-8.2)
[2020-04-12] MEDS ORDERED: FUROSEMIDE 40 MG/4 ML VIAL IV ONE (23:30)
[2020-04-12 23:46] LABS: FERRITIN 74 ng/mL (26-388)
[2020-04-13 00:07] LABS: LYMPHOCYTES % (MANUAL) 13 % (20-40); MONOCYTES % (MANUAL) 7 % (2-10); NEUTROPHILS % (MANUAL) 80 % (42-75)
--- NOTE | 2020-04-13 00:13 | NUR ---
ER MD on phone updating daughter of patient with plan of care for patient.
[2020-04-13] MEDS ORDERED: FUROSEMIDE 20 MG/2 ML VIAL ONE (00:23)
[2020-04-13 01:16] LABS: *BILIRUBIN,URIN NEGATIVE (NEGATIVE); *BLOOD, URINE 1+ (NEGATIVE); *COLOR,URINE YELLOW (YELLOW); *KETONES,URINE NEGATIVE (NEGATIVE); *UROBILINOGEN,URINE 0.2 E.U./dl (NORMAL); LEUKOCYTE ESTERASE ,URINE 2+ (NEGATIVE); NITRITE, URINE NEGATIVE (NEGATIVE); PH,URINE 5.5 (5.0-8.0); UGLUCOSE NEGATIVE (NEGATIVE)
[2020-04-13 01:20] LABS: *CLARITY,URINE HAZY (CLEAR)
[2020-04-13 01:25] LABS: BACTERIA,URINE MANY /HPF (NONE SEEN); SQUAMOUS EPITHELIAL CELL,UR FEW /HPF (NONE SEEN); URINE AMORPHOUS URATE FEW /HPF; WBC,URINE 80-100 /HPF (0-3)
--- NOTE | 2020-04-13 02:56 | NUR ---
Dr. Nixon call center contacted, Dr. Nixon paged, pending call back.
--- NOTE | 2020-04-13 03:00 | NUR ---
Dr. Nixon called back, transferred to [facility] for admission.
--- NOTE | 2020-04-13 03:02 | NUR ---
Med/surg Telemetry floor called. DAVID Altamirano states patient will be going to room 320.
--- NOTE | 2020-04-13 03:26 | NUR ---
Med/surg telemetry floor called to give report on patient. Pending callback.
--- NOTE | 2020-04-13 03:40 | NUR ---
Patient is sleeping in room, eyes closed.
--- NOTE | 2020-04-13 03:44 | NUR ---
DAVID Perez called back from telemetry floor, report given, patient will be going to telemetry room 320.
--- NOTE | 2020-04-13 04:25 | NUR ---
Pt. admitted to telemetry room 320, under care of Dr. Nixon and RN Ana. Belongs List completed, old paperwork with patient, transported upstairs via gurney.
[2020-04-13 05:39] VITALS: BP 162/61
--- NOTE | 2020-04-13 06:00 | NUR ---
Pt arrived to unit at 0425 via gurney from the ED. No s/s of acute distress noted at this time. Pt on 4L NC, O2 saturation at 99%. Tele monitor in place, FELISAR. Daughter called at 0430 and was notified and informed that call return will be returned after patient establishment was complete. Daughter called back at 0525 upset that her call was not returned "in a timely manner" stating "Were you never going to call me back?". Spoke to the daughter and attempted to deescalate the situation explaining the care that was being provided in the time and initial assessment being performed. Patient continued to be upset and focused on providing information in regards to the patient's past medical history. Addendum: 04/13/20 at 0831 by ALEXANDER GODDARD RN Daughter stated patient received first dose of COVID vaccine and is set to receive 2nd dose on or around April 18.
[2020-04-13] MEDS ORDERED: MAG HYDROX/AL HYDROX/SIMETH 30 ML LIQUID UDC PO PRN (07:45)
[2020-04-13] MEDS ORDERED: ACETAMINOPHEN 325 MG TABLET PO PRN ×2 (07:45→13:45)
[2020-04-13] MEDS ORDERED: hydrALAZINE HCL 50 MG TABLET PO SCH (07:45)
[2020-04-13] MEDS ORDERED: BISACODYL 10 MG SUPP.RECT RC PRN (07:45)
[2020-04-13] MEDS ORDERED: LOPERAMIDE HCL 2 MG CAPSULE PO PRN (07:45)
[2020-04-13] MEDS ORDERED: MAGNESIUM HYDROXIDE 30 ML LIQUID UDC PO PRN (07:45)
[2020-04-13] MEDS ORDERED: CLOPIDOGREL 75 MG TABLET PO SCH (09:00)
[2020-04-13] MEDS ORDERED: VERAPAMIL SR 120 MG TABLET.SA PO SCH (09:00)
[2020-04-13] MEDS ORDERED: FUROSEMIDE 40 MG/4 ML VIAL IV SCH (09:00)
[2020-04-13] MEDS ORDERED: OXYBUTYNIN CHLORIDE 5 MG TABLET PO SCH (09:00)
[2020-04-13] MEDS ORDERED: FUROSEMIDE 20 MG TABLET PO SCH (09:00)
[2020-04-13] MEDS: FINASTERIDE 5 MG TABLET PO SCH (09:00)
[2020-04-13] MEDS ORDERED: CALCIUM CARB/VITAMIN D 500MG-200UNITS TABLET PO SCH (09:00)
[2020-04-13] MEDS: CYANOCOBALAMIN 1,000 MCG TABLET PO SCH (09:00)
[2020-04-13] MEDS ORDERED: BICALUTAMIDE 50 MG TABLET PO SCH (09:00)
[2020-04-13] MEDS ORDERED: ISOSORBIDE MONONITRATE 60 MG TAB.SR.24H PO SCH (09:00)
[2020-04-13] MEDS: FUROSEMIDE 40 MG/4 ML VIAL IV SCH ×2 (10:08→18:03)
--- NOTE | 2020-04-13 10:34 | NUR ---
Unable to administer VitB12 and Proscar 0900 dose due to medication list error. Pharmacy had to verify medications with patient's facility before hospitalization and verify with MD.
[2020-04-13 12:00] VITALS: BP 137/67
--- NOTE | 2020-04-13 12:52 | NUR ---
WOUND CARE CONSULT: REVIEWED CHART, NURSING DOCUMENTATION AND PHOTOS WHICH INDICATE FRAGILE AREAS OF DISCOLORATION WITH SOME WEEPING TO ARMS, SACRAL WOUND WITH NECROTIC TISSUE, WELL LOWER EXTREMITY WOUNDS, PRESENT ON ADMISSION. DR NONA SALINAS CALLED FOR SURGICAL CONSULT AND DR PONCE NOTIFIED OF DPM CONSULT REQUEST. PT IS ON FIRST STEP CIRRUS LOW AIRLOSS MATTRESS. RECOMMENDATIONS MADE FOR UPPER EXTREMITY AND SACRAL WOUNDS AND SKIN PROTECTION. DISCUSSED WITH NURSING STAFF. DEFER TO DPM FOR LOWER EXTREMITIES. MD IN AGREEMENT WITH PLAN OF CARE.
[2020-04-13] MEDS ORDERED: SODIUM HYPOCHLORITE 0.125% (QUARTER STRENGTH) 473 ML BOTTLE TP SCH (13:00)
[2020-04-13] MEDS ORDERED: Z GUARD REMEDY PASTE 57 GM TUBE TOP PRN (13:00)
[2020-04-13] MEDS ORDERED: ALBU2.5V38 IH ×2 (13:06→13:24)
[2020-04-13] MEDS ORDERED: DONE10TA44 PO (13:14)
[2020-04-13] MEDS ORDERED: POLY10DR31 OP (13:14)
[2020-04-13] MEDS ORDERED: ASPI81TA31 PO (13:14)
[2020-04-13] MEDS ORDERED: ATOR20TA PO (13:14)
[2020-04-13] MEDS ORDERED: GUAI600T53 PO (13:14)
[2020-04-13] MEDS ORDERED: APIX2.5T PO (13:14)
[2020-04-13] MEDS ORDERED: CARV3.122 PO (13:14)
[2020-04-13] MEDS ORDERED: FINA5TAB11 PO (13:14)
[2020-04-13] MEDS ORDERED: FERR325T23 PO (13:14)
[2020-04-13] MEDS ORDERED: FURO-151 PO (13:14)
[2020-04-13] MEDS ORDERED: ACET-2154 PO (13:24)
[2020-04-13] MEDS ORDERED: ZINC113P3 TP (13:24)
[2020-04-13] MEDS ORDERED: CLOT15CR27 TP (13:24)
[2020-04-13] MEDS ORDERED: CYAN-51 PO (13:24)
[2020-04-13] MEDS ORDERED: LOPE2CAP PO (13:24)
[2020-04-13] MEDS ORDERED: ALBUTEROL SULFATE 2.5 MG/3 ML NEBU IH PRN (13:45)
[2020-04-13] MEDS: CEFTRIAXONE 1 G in IV DEXTROSE 5% 50 ML IV SCH (15:16)
[2020-04-13 16:14] VITALS: BP 150/54
[2020-04-13] MEDS ORDERED: APIXABAN 2.5 MG TABLET PO SCH (17:00)
[2020-04-13] MEDS ORDERED: GUAIFENESIN LA 600 MG TABLET.SA PO SCH (17:00)
[2020-04-13] MEDS: CARVEDILOL 3.125 MG TABLET PO SCH (18:03)
[2020-04-13] MEDS ORDERED: GUAIFENESIN SUGAR FREE 100 MG/5 ML UDC PO PRN (20:00)
[2020-04-13 20:22] VITALS: BP 146/57
[2020-04-13] MEDS: ALBUTEROL SULFATE 2.5 MG/3 ML NEBU IH SCH (20:35)
[2020-04-13] MEDS: POLYVINYL ALCOHOL OPHT DROPS 15 ML BOTTLE OP SCH (20:42)
[2020-04-13] MEDS: DONEPEZIL 10 MG TABLET PO SCH (20:42)
[2020-04-13] MEDS: ATORVASTATIN 20 MG TABLET PO SCH (20:43)
[2020-04-13] MEDS ORDERED: Z GUARD REMEDY PASTE 57 GM TUBE TOP SCH (21:00)
[2020-04-14 00:45] VITALS: BP 148/51
--- NOTE | 2020-04-14 01:10 | NUR ---
Pt's oxygen was titrated by RT. Now on 6L NC, saturating at 97%.
--- NOTE | 2020-04-14 04:07 | NUR ---
Pt is placed on simple face mask, 10L saturating at 95%
[2020-04-14 05:14] VITALS: BP 151/73
--- NOTE | 2020-04-14 06:12 | NUR ---
Pt PCR is negative. Transferred to room 308. Remained on 10L Simple Face Mask, saturating at 97%. V paced, 63 on tele monitor. No s/s of acute distress. Comfort care and needs attended. Safety measures in place. Will endorse to oncoming nurse.
[2020-04-14 07:04] LABS: BASOPHILS % (AUTO) 0.5 % (0.0-2.0); EOSINOPHILS # (AUTO) 0.1 K/uL (0.0-0.7); EOSINOPHILS % (AUTO) 0.9 % (0.0-7.0); HEMATOCRIT 33.7 % (36.7-47.1); HEMOGLOBIN 10.9 g/dL (12.5-16.3); LYMPHOCYTES # (AUTO) 1.2 K/uL (20.0-40.0); LYMPHOCYTES % (AUTO) 12.3 % (20.5-51.5); MEAN CORPUSCULAR HEMOGLOBIN 29.7 uug (23.8-33.4); MEAN CORPUSCULAR HGB CONC 32 g/dL (32.5-36.3); MONOCYTES # (AUTO) 0.7 K/uL (2.0-10.0); MONOCYTES % (AUTO) 7.1 % (0.0-11.0); NEUTROPHILS # (AUTO) 7.5 K/uL (1.8-8.9); NEUTROPHILS % (AUTO) 79.2 % (38.5-71.5); PLATELET COUNT (AUTO) 127 K/uL (152-348); RED BLOOD CELL COUNT(AUTO) 3.66 MIL/uL (4.06-5.63); WHITE BLOOD COUNT (AUTO) 9.4 K/uL (3.6-10.2)
[2020-04-14 07:45] LABS: ALANINE AMINOTRANSFERASE 10 U/L (16-63); ALKALINE PHOSPHATASE 41 U/L (50-136); ASPARTATE AMINOTRANSFERASE 16 U/L (15-37); CARBON DIOXIDE 34 mmol/L (21-32); CHLORIDE 101 mmol/L (98-107); CREATININE 2.5 mg/dL (0.6-1.3); GLUCOSE 94 mg/dL (74-106); MAGNESIUM 2.4 mg/dL (1.8-2.4); PHOSPHOROUS 3.8 mg/dL (2.5-4.9); TOTAL PROTEIN, SERUM 5.3 g/dL (6.4-8.2); UREA NITROGEN, BLOOD 58 mg/dL (7-18)
[2020-04-14] MEDS: ALBUTEROL SULFATE 2.5 MG/3 ML NEBU IH SCH ×2 (08:06→20:25)
--- NOTE | 2020-04-14 08:25 | NUR ---
RESPIRATORY HERE AND CHANGED PATIENTS O2 TO NASAL CANULLA AT 6L/M AND SAT IS AT 96-97 AT THIS TIME WILL CONTINUE TO OBSERVE.
[2020-04-14] MEDS: FINASTERIDE 5 MG TABLET PO SCH (08:33)
[2020-04-14] MEDS: CARVEDILOL 3.125 MG TABLET PO SCH ×2 (08:33→16:08)
[2020-04-14] MEDS: FUROSEMIDE 40 MG/4 ML VIAL IV SCH ×2 (08:33→16:08)
[2020-04-14] MEDS: FERROUS SULFATE 325 MG TABEC PO SCH (08:33)
[2020-04-14] MEDS: CYANOCOBALAMIN 1,000 MCG TABLET PO SCH (08:33)
[2020-04-14] MEDS ORDERED: CYANOCOBALAMIN 1,000 MCG TABLET PO SCH (09:00)
[2020-04-14] MEDS ORDERED: ASPIRIN 81 MG TAB.CHEW PO SCH (09:00)
[2020-04-14] MEDS ORDERED: FINASTERIDE 5 MG TABLET PO SCH (09:00)
--- NOTE | 2020-04-14 10:19 | NUR ---
ROSA ELENADre ALMANZAR NEPHROLOGY HEAD WRESTLING COACH HERE TO SEE PATIENT WITH NEW ORDERS AND NOTED
--- NOTE | 2020-04-14 11:45 | NUR ---
SITA CUBA [facility] NEPHROLOGY HERE TO SEE PATIENT AND I ASKED HIM IF I COULD INSERT IVAN BECAUSE PATIENT IS INCONTINENT HAS A SACRAL DECUBITUS AND ON DIURETICS WITH ORDER FOR STRICT INTAKE AND OUTPUT AND HE STATED OKAY TO INSERT IVAN.IVAN INSERTED WITH MUCH DIFFICULTY SCROTUM VERY SWOLLEN WILL CONTINUE TO OBSERVE.
[2020-04-14 11:53] VITALS: BP 120/62
[2020-04-14] MEDS: CEFTRIAXONE 1 G in IV DEXTROSE 5% 50 ML IV SCH (16:08)
--- NOTE | 2020-04-14 18:00 | NUR ---
KATHRYN BALTAZAR JIG AND FIXTURE BUILDER APPRENTICE FOR DR SALINAS HERE AND SEEN PATIENT ACCESSED HIS WOUND AND STATED WILL TRY TO DEBRIDE NEXT WEEK BUT NO ORDERS AT THIS TIME PATIENT CONTINUES TO HAVE EDEMA GENERALISED WITH DIURETICS ORDERED TURNED AND REPOSITIONED Q2H ON FIRST STEP AICHA ALERT BUT IS UNABLE TO VERBALISE NEEDS ALL NEED ANTICIPATED AND SATISFIED WILL CONTINUE TO OBSERVE.
[2020-04-14 20:27] VITALS: BP 143/46
[2020-04-14] MEDS: ATORVASTATIN 20 MG TABLET PO SCH (20:56)
[2020-04-14] MEDS: DONEPEZIL 10 MG TABLET PO SCH (20:56)
[2020-04-14] MEDS: APIXABAN 2.5 MG TABLET PO SCH (20:57)
--- NOTE | 2020-04-14 21:00 | NUR ---
PATIENT AWAKE, RESPONSIVE TO VERBAL STIMULI, NO SOB NO CHEST PAIN. PATIENT TELE MONITOR V PACING. PATIENT ON 10 LITER O2 VIA MASK, OXYGEN SAT 99%. PATIENT HAS NO COMPLAIN OF PAIN AT THIS TIME, TURN AND REPOSITION, IVAN CATH PATENT, CONT TO MONITOR.
[2020-04-14] MEDS: POLYVINYL ALCOHOL OPHT DROPS 15 ML BOTTLE OP SCH (23:39)
[2020-04-15 00:39] VITALS: BP 154/46
[2020-04-15 05:55] VITALS: BP 145/45
--- NOTE | 2020-04-15 06:30 | NUR ---
PATIENT AWAKE VERBALLY RESPONSIVE, ABLE TO MAKE SOME NEEDS KNOWN, PATIENT HAS NO COMPLAIN OF PAIN, TURN AND REPOSITION, ELEVATE BOTH ARMS AND LEGS DUE SWELLING, TX DONE ON SACRUM, R LATERAL LEG, AND BILATERAL ARMS HEMATOMA/BRUISES. PATIENT DRANK ENSURE 100%, OXYGEN SAT 96-99% AT 10 LPM. CONT TO MONITOR.
[2020-04-15 07:02] LABS: BASOPHILS % (AUTO) 0.4 % (0.0-2.0); EOSINOPHILS % (AUTO) 0.4 % (0.0-7.0); HEMATOCRIT 31.3 % (36.7-47.1); HEMOGLOBIN 10.5 g/dL (12.5-16.3); LYMPHOCYTES # (AUTO) 1.1 K/uL (20.0-40.0); LYMPHOCYTES % (AUTO) 12.2 % (20.5-51.5); MEAN CORPUSCULAR HEMOGLOBIN 30.5 uug (23.8-33.4); MEAN CORPUSCULAR HGB CONC 33 g/dL (32.5-36.3); MEAN CORPUSCULAR VOLUME 91.2 fL (73.0-96.2); MONOCYTES # (AUTO) 0.5 K/uL (2.0-10.0); MONOCYTES % (AUTO) 5.8 % (0.0-11.0); NEUTROPHILS # (AUTO) 7.5 K/uL (1.8-8.9); NEUTROPHILS % (AUTO) 81.2 % (38.5-71.5); PLATELET COUNT (AUTO) 125 K/uL (152-348); RED BLOOD CELL COUNT(AUTO) 3.43 MIL/uL (4.06-5.63); WHITE BLOOD COUNT (AUTO) 9.3 K/uL (3.6-10.2)
[2020-04-15 07:18] LABS: CARBON DIOXIDE 35 mmol/L (21-32); CHLORIDE 102 mmol/L (98-107); CREATININE 2.6 mg/dL (0.6-1.3); GLUCOSE 132 mg/dL (74-106); POTASSIUM 3.9 mmol/L (3.5-5.1); UREA NITROGEN, BLOOD 64 mg/dL (7-18)
--- NOTE | 2020-04-15 07:30 | NUR ---
RECEIVED PATIENT IN BED ASLEEP BUT IS EASILY AROUSABLE ON ROUNDS ALERT WHEN AWAKE ALL NEEDS ANTICIPATED AND SATISFIED TOTALLY DEPENDENT ON NURSES FOR ALL ADL ON FIRST AICHA FOR DECUBITUS MANAGEMENT TURNED AND REPOSITIONED Q2H ON O2 BY SIMPLE MASK AT 10 L/M BY NASAL CANULLA WITH O2 SAT AT 95-97% WITH NO SOB PATIENT CONTINUE TO HAVE GENERALISED EDEMA OF THE ENTIRE BODY INCLUDING BOTH ARMS BOTH LOWER EXT AND THIGHS PITTING 3-4PLUS REMAIN ON DIURETICS ORDERED WITH DIURESING WELL.BOTH HEELS FLOATED MADE COMFORTABLE WILL CONTINUE TO OBSERVE.
[2020-04-15] MEDS: FERROUS SULFATE 325 MG TABEC PO SCH (08:23)
[2020-04-15] MEDS: CYANOCOBALAMIN 1,000 MCG TABLET PO SCH (08:23)
[2020-04-15] MEDS: FINASTERIDE 5 MG TABLET PO SCH (08:23)
[2020-04-15] MEDS: FUROSEMIDE 40 MG/4 ML VIAL IV SCH ×2 (08:23→16:27)
[2020-04-15] MEDS: CARVEDILOL 3.125 MG TABLET PO SCH ×2 (08:24→16:27)
[2020-04-15] MEDS: ALBUTEROL SULFATE 2.5 MG/3 ML NEBU IH SCH ×2 (08:25→19:45)
[2020-04-15] MEDS: APIXABAN 2.5 MG TABLET PO SCH ×2 (08:28→20:23)
[2020-04-15] MEDS ORDERED: VANCOMYCIN IV 500 MG in IV DEXTROSE 5% 100 ML IV SCH (08:45)
--- NOTE | 2020-04-15 09:11 | NUR ---
SEEN AND EXAMINED BY ROSA ELENA ALMANZAR NEPHROLOGY AUTO TRAVEL COUNSELOR WITH NEW ORDERS AND NOTED
[2020-04-15] MEDS ORDERED: VANCOMYCIN IV 1,250 MG in IV DEXTROSE 5% 250 ML IV ONE (09:15)
[2020-04-15 11:12] VITALS: BP 133/58
[2020-04-15] MEDS: CEFTRIAXONE 1 G in IV DEXTROSE 5% 50 ML IV SCH (14:38)
[2020-04-15 15:25] VITALS: BP 144/51
--- NOTE | 2020-04-15 18:02 | NUR ---
REMAIN ON O2 BY SIMPLE MASK WITH SATS AT 97 PERCENT WITH NO SOB AT THIS TIME SPOON FED WITH GOOD APPETITE CONTINUE TO HAVE GENERALISED EDEMA ANASARCA UPPER AND LOWER EXT ELEVATED IVAN CATH INTACT WITH TEA COLORED URINE CONTINUE TO DIURESE ORDERED TURNED AND REPOSITIONED Q2H FOR MADE COMFORTABLE WILL CONTINUE TO OBSERVE
--- NOTE | 2020-04-15 19:30 | NUR ---
RECEIVED PATIENT AWAKE, ALERT AND RESPONSIVE TO VERBAL STIMULI. PT IN NO ACUTE DISTRESS. PATIENT TELE MONITOR V PACING. PATIENT ON 8 LITER O2 VIA MASK, OXYGEN SAT 98%. PT TURN AND REPOSITION, PT IVAN CATH PATENT, WILL CONTINUE TO MONITOR.
[2020-04-15 20:12] VITALS: BP 144/48
[2020-04-15] MEDS: ATORVASTATIN 20 MG TABLET PO SCH (20:13)
[2020-04-15] MEDS: DONEPEZIL 10 MG TABLET PO SCH (20:13)
[2020-04-15] MEDS: MUPIROCIN 2% OINT 22 GM TUBE NS SCH (20:14)
[2020-04-15] MEDS: POLYVINYL ALCOHOL OPHT DROPS 15 ML BOTTLE OP SCH (20:14)
[2020-04-15] MEDS: CLOTRIMAZOLE 1% CREAM 30 GM TUBE TP PRN (20:15)
[2020-04-16 00:52] VITALS: BP 150/44
[2020-04-16 05:58] VITALS: BP 156/44
--- NOTE | 2020-04-16 06:22 | NUR ---
PT IN NO ACUTE DISTRESS. PT IV AND IVAN CATHETER INTACT. DRESSING CHANGED. PT TURNED AND REPOSITIONED. PRESCIBED MEDICATON GIVEN AND PT TOLERATED IT WELL. PT ON VPACING. PT VITAL SIGNS WNL. PT ON 8L SIMPLE MASK. SAFETY AND COMFORT PROVIDED. ALL NEEDS ARE MET. WILL ENDORSE TO INCOMING NURSE FOR CONTINUITY OF CARE.
[2020-04-16 06:38] LABS: BASOPHILS % (AUTO) 0.5 % (0.0-2.0); EOSINOPHILS # (AUTO) 0.1 K/uL (0.0-0.7); EOSINOPHILS % (AUTO) 1.2 % (0.0-7.0); HEMATOCRIT 30.6 % (36.7-47.1); HEMOGLOBIN 10.1 g/dL (12.5-16.3); LYMPHOCYTES # (AUTO) 1.4 K/uL (20.0-40.0); LYMPHOCYTES % (AUTO) 14.9 % (20.5-51.5); MEAN CORPUSCULAR HEMOGLOBIN 30.2 uug (23.8-33.4); MEAN CORPUSCULAR HGB CONC 33 g/dL (32.5-36.3); MEAN CORPUSCULAR VOLUME 91.7 fL (73.0-96.2); MONOCYTES # (AUTO) 0.8 K/uL (2.0-10.0); MONOCYTES % (AUTO) 8.3 % (0.0-11.0); NEUTROPHILS # (AUTO) 6.9 K/uL (1.8-8.9); NEUTROPHILS % (AUTO) 75.1 % (38.5-71.5); PLATELET COUNT (AUTO) 114 K/uL (152-348); RED BLOOD CELL COUNT(AUTO) 3.33 MIL/uL (4.06-5.63); WHITE BLOOD COUNT (AUTO) 9.3 K/uL (3.6-10.2)
[2020-04-16 07:04] LABS: ALANINE AMINOTRANSFERASE < 6 U/L (16-63); ALKALINE PHOSPHATASE 42 U/L (50-136); ASPARTATE AMINOTRANSFERASE 18 U/L (15-37); BILIRUBIN,TOTAL 0.7 mg/dL (0.2-1.0); CARBON DIOXIDE 34 mmol/L (21-32); CHLORIDE 104 mmol/L (98-107); CREATININE 2.5 mg/dL (0.6-1.3); GLUCOSE 95 mg/dL (74-106); MAGNESIUM 2.3 mg/dL (1.8-2.4); PHOSPHOROUS 3.2 mg/dL (2.5-4.9); POTASSIUM 3.8 mmol/L (3.5-5.1); TOTAL PROTEIN, SERUM 5.5 g/dL (6.4-8.2); UREA NITROGEN, BLOOD 66 mg/dL (7-18)
[2020-04-16] MEDS ORDERED: COVID-19 VACC, MRNA(PFIZER)/PF 30 MCG/0.3 ML VIAL IM ONE (07:45)
[2020-04-16] MEDS: ALBUTEROL SULFATE 2.5 MG/3 ML NEBU IH SCH ×2 (08:10→19:40)
[2020-04-16] MEDS: APIXABAN 2.5 MG TABLET PO SCH ×2 (08:22→20:19)
[2020-04-16] MEDS: CYANOCOBALAMIN 1,000 MCG TABLET PO SCH (08:22)
[2020-04-16] MEDS: FUROSEMIDE 40 MG/4 ML VIAL IV SCH ×3 (08:22→16:15)
[2020-04-16] MEDS: FINASTERIDE 5 MG TABLET PO SCH (08:22)
[2020-04-16] MEDS: CARVEDILOL 3.125 MG TABLET PO SCH ×2 (08:27→16:19)
[2020-04-16] MEDS: MUPIROCIN 2% OINT 22 GM TUBE NS SCH ×2 (08:40→20:20)
[2020-04-16] MEDS ORDERED: METOLAZONE 2.5 MG TABLET PO ONE (09:00)
[2020-04-16] MEDS ORDERED: POTASSIUM CHLORIDE 20 MEQ POWDER PACKET PO ONE (09:00)
[2020-04-16] MEDS: FERROUS SULFATE 300 MG/5 ML LIQUID UDC PO SCH (09:34)
[2020-04-16] MEDS: MUPIROCIN 2% OINT 22 GM TUBE TP SCH (09:41)
--- NOTE | 2020-04-16 11:25 | NUR ---
Patient is alert and oriented x 3 on oxygen at 8L via simple mask saturation at 95-96% , VS WNL, ankle dressing done. Will continue to monitor.
[2020-04-16 11:30] VITALS: BP 133/53
[2020-04-16] MEDS: CEFTRIAXONE 1 G in IV DEXTROSE 5% 50 ML IV SCH (14:37)
--- NOTE | 2020-04-16 15:58 | NUR ---
Per respiratory therapist 02 titrated to 6L. Patient is saturating at 96% via simple mask . No s/s of distress. Will continue to monitor.
[2020-04-16 16:00] VITALS: BP 146/57
--- NOTE | 2020-04-16 17:27 | NUR ---
Dr. Levine made aware regarding patient's recent PNA vaccine. Per MD, patient ok to receive the second dose of Pfizer vaccine. Will endorse accordingly.
--- NOTE | 2020-04-16 18:15 | NUR ---
Patient on 6L oxygen via simple mask saturation of 96%. Wound dressing change and pericare done. Medications given as prescribed, safety precaution in place , aspiration precaution observed. Placed call light within reach. All needs met.
--- NOTE | 2020-04-16 19:30 | NUR ---
Received patient lying in bed. Asleep but easily arouse to verbal stimuli. AOx2-3. In no acute distress. O2 at 6LPM via simple mask in place. O2 sat at 97%. HOB elevated. Pt edematous on BUE and BLE. Elevated ext. with pillows. Right upper arm midline intact and patent. PIV on left upper arm and right AC remains intact. 100% V pacing on tele at 60/min. Blankenship cath intact and draining via gravity. Safety measure initiated and call hazel within reached.
[2020-04-16 20:00] VITALS: BP 146/58
[2020-04-16] MEDS: DONEPEZIL 10 MG TABLET PO SCH (20:19)
[2020-04-16] MEDS: ATORVASTATIN 20 MG TABLET PO SCH (20:19)
[2020-04-16] MEDS: POLYVINYL ALCOHOL OPHT DROPS 15 ML BOTTLE OP SCH (20:20)
[2020-04-17] VITALS: BP 150/57
[2020-04-17 04:00] VITALS: BP 150/66
--- NOTE | 2020-04-17 06:07 | NUR ---
Slept well last night. In no acute distress. Remains on O2 at 6LPM via simple mask in place. O2 sat at 99%. HOB kept elevated. Right upper arm midline intact and patent. PIV on left upper arm and right AC remains intact. 100% V pacing on tele at 60/min. Blankenship cath intact and draining via gravity. Dressing remains clean and dry on BUE, right knee and sacrum area. Safety measure maintained and call hazel within reached.
[2020-04-17 06:10] LABS: BASOPHILS % (AUTO) 0.4 % (0.0-2.0); EOSINOPHILS # (AUTO) 0.1 K/uL (0.0-0.7); HEMATOCRIT 31.4 % (36.7-47.1); HEMOGLOBIN 10.3 g/dL (12.5-16.3); LYMPHOCYTES # (AUTO) 1.2 K/uL (20.0-40.0); LYMPHOCYTES % (AUTO) 12.8 % (20.5-51.5); MEAN CORPUSCULAR HEMOGLOBIN 30.3 uug (23.8-33.4); MEAN CORPUSCULAR HGB CONC 33 g/dL (32.5-36.3); MEAN CORPUSCULAR VOLUME 92.4 fL (73.0-96.2); MONOCYTES # (AUTO) 0.8 K/uL (2.0-10.0); MONOCYTES % (AUTO) 8.5 % (0.0-11.0); NEUTROPHILS # (AUTO) 7.5 K/uL (1.8-8.9); NEUTROPHILS % (AUTO) 77.3 % (38.5-71.5); PLATELET COUNT (AUTO) 115 K/uL (152-348); WHITE BLOOD COUNT (AUTO) 9.8 K/uL (3.6-10.2)
[2020-04-17 06:26] LABS: ALANINE AMINOTRANSFERASE 9 U/L (16-63); ALKALINE PHOSPHATASE 43 U/L (50-136); ASPARTATE AMINOTRANSFERASE 17 U/L (15-37); BILIRUBIN,TOTAL 0.7 mg/dL (0.2-1.0); CARBON DIOXIDE 37 mmol/L (21-32); CHLORIDE 102 mmol/L (98-107); CREATININE 2.5 mg/dL (0.6-1.3); GLUCOSE 98 mg/dL (74-106); MAGNESIUM 2.3 mg/dL (1.8-2.4); PHOSPHOROUS 3.4 mg/dL (2.5-4.9); POTASSIUM 3.7 mmol/L (3.5-5.1); TOTAL PROTEIN, SERUM 5.5 g/dL (6.4-8.2); UREA NITROGEN, BLOOD 68 mg/dL (7-18)
[2020-04-17] MEDS: ALBUTEROL SULFATE 2.5 MG/3 ML NEBU IH SCH ×2 (07:42→19:26)
--- NOTE | 2020-04-17 08:00 | NUR ---
Pt alert x1 arousable to touch. Anasarca noted. Cecilio legs elevated and offloaded. dressing intact in cecilio arm. RIGHT UE MIDLINE intact. PT saturating 96% on 6 liters o2. Lungs diminished cecilio upper lobes. Aspiration precaution implemented. F/C intact draining yellow cloudy urine. Call light is within reach.
[2020-04-17] MEDS ORDERED: POTASSIUM CHLORIDE 20 MEQ POWDER PACKET PO ONE (08:15)
[2020-04-17] MEDS: FUROSEMIDE 40 MG/4 ML VIAL IV SCH ×3 (10:38→16:47)
[2020-04-17] MEDS: CARVEDILOL 3.125 MG TABLET PO SCH ×2 (10:39→16:47)
[2020-04-17] MEDS: MUPIROCIN 2% OINT 22 GM TUBE NS SCH ×2 (10:39→20:29)
[2020-04-17] MEDS: ACETAzolamide 250 MG TABLET PO SCH ×2 (10:39→20:26)
[2020-04-17] MEDS: FINASTERIDE 5 MG TABLET PO SCH (10:40)
[2020-04-17] MEDS: MUPIROCIN 2% OINT 22 GM TUBE TP SCH (10:40)
[2020-04-17] MEDS: CYANOCOBALAMIN 1,000 MCG TABLET PO SCH (10:40)
[2020-04-17] MEDS: FERROUS SULFATE 300 MG/5 ML LIQUID UDC PO SCH (10:40)
[2020-04-17] MEDS: APIXABAN 2.5 MG TABLET PO SCH ×2 (10:42→20:28)
[2020-04-17] MEDS ORDERED: COVID-19 VACC, MRNA(PFIZER)/PF 30 MCG/0.3 ML VIAL IM ONE (11:00)
[2020-04-17 11:36] VITALS: BP 162/63
[2020-04-17] MEDS: VANCOMYCIN IV 1,250 MG in IV DEXTROSE 5% 250 ML IV SCH (13:20)
[2020-04-17 14:00] VITALS: BP 121/60
[2020-04-17] MEDS: CEFTRIAXONE 1 G in IV DEXTROSE 5% 50 ML IV SCH (14:21)
[2020-04-17 15:44] VITALS: BP 125/50
--- NOTE | 2020-04-17 17:56 | NUR ---
pt had about 950 urine output from lasix given throughout shift. Call light is within reach. Pt remains on 6 liter with 02 sat 96%
--- NOTE | 2020-04-17 18:40 | NUR ---
Dr abarca here and saw pt's LE's wounds dressing changed on right lower leg/calf area as instructed
[2020-04-17] MEDS: ATORVASTATIN 20 MG TABLET PO SCH (20:26)
[2020-04-17] MEDS: DONEPEZIL 10 MG TABLET PO SCH (20:26)
[2020-04-17] MEDS: POLYVINYL ALCOHOL OPHT DROPS 15 ML BOTTLE OP SCH (20:29)
[2020-04-17 20:33] VITALS: BP 120/51
[2020-04-18 00:36] VITALS: BP 139/52
[2020-04-18 04:51] VITALS: BP 148/44
--- NOTE | 2020-04-18 05:11 | NUR ---
Pt slept throughout the night with no complaints. Titrated O2 to 5L on mask. Tried to put patient on 4L NC but would not tolerate and sated at 90%. Placed back on mask 5L and pt started sating at 97%. No pain noted. Pt has labored breathing, clear lung sounds. Midline is patent. Pt V-pacing on monitor. No other issues or concerns at this time, will endorse to day shift.
[2020-04-18 07:35] LABS: CARBON DIOXIDE 35 mmol/L (21-32); CHLORIDE 103 mmol/L (98-107); CREATININE 2.4 mg/dL (0.6-1.3); GLUCOSE 93 mg/dL (74-106); POTASSIUM 3.7 mmol/L (3.5-5.1); UREA NITROGEN, BLOOD 73 mg/dL (7-18)
[2020-04-18] MEDS: ALBUTEROL SULFATE 2.5 MG/3 ML NEBU IH SCH ×3 (08:27→20:08)
[2020-04-18] MEDS: CYANOCOBALAMIN 1,000 MCG TABLET PO SCH (08:58)
[2020-04-18] MEDS: CARVEDILOL 3.125 MG TABLET PO SCH ×2 (08:58→16:57)
[2020-04-18] MEDS: ACETAzolamide 250 MG TABLET PO SCH ×2 (08:59→20:44)
[2020-04-18] MEDS: FINASTERIDE 5 MG TABLET PO SCH (08:59)
[2020-04-18] MEDS: FERROUS SULFATE 300 MG/5 ML LIQUID UDC PO SCH (08:59)
[2020-04-18] MEDS: MUPIROCIN 2% OINT 22 GM TUBE NS SCH ×2 (09:02→20:45)
[2020-04-18] MEDS: FUROSEMIDE 40 MG/4 ML VIAL IV SCH ×3 (09:03→16:57)
[2020-04-18] MEDS: APIXABAN 2.5 MG TABLET PO SCH ×2 (09:15→20:45)
[2020-04-18] MEDS: MUPIROCIN 2% OINT 22 GM TUBE TP SCH (09:36)
--- NOTE | 2020-04-18 10:00 | NUR ---
Received pt in bed, arousable to name and touch. No s/s of acute distress. Pt on 8L with simple mask, O2 saturation 95%, no SOB noted. Pt currently with V Pacing on Tele monitor, rate 60. Anascara noted, BL legs elevated, offloaded. Scheduled medications administered per order, pt able to swallow, no a/r noted. R UA midline patent and intact. Blankenship Catheter intact, draining yellow urine. HOB elevated, aspiration precautions in place. Safety measures and fall precautions in place. Call light within reach. Will continue to monitor.
[2020-04-18 11:36] VITALS: BP 125/55
[2020-04-18] MEDS: CEFTRIAXONE 1 G in IV DEXTROSE 5% 50 ML IV SCH (14:02)
[2020-04-18 16:01] VITALS: BP 126/52
--- NOTE | 2020-04-18 18:40 | NUR ---
EOSS: Pt in bed, no s/s of acute distress. Needs met promptly during shift. Wound care administered per protocol. Pt kept clean and dry. Blankenship catheter intact, pt had 850 output of yellow urine. JOAQUIN midline patent and intact. Pt tolerated meals and fluids. HOB elevated, aspiration precautions maintained throughout shift. Safety measures and fall precautions maintained. Call light within reach. Will endorse care to restaurant shift leader.
--- NOTE | 2020-04-18 19:30 | NUR ---
RECEIVED PT IN NO ACUTE DISTRESS. IV INTACT. PT ON 8L SIMPLE MASK. SAFETY AND COMFORT PROVIDED. WILL CONTINUE TO MONITOR.
[2020-04-18 20:12] VITALS: BP 123/62
[2020-04-18] MEDS: DONEPEZIL 10 MG TABLET PO SCH (20:44)
[2020-04-18] MEDS: ATORVASTATIN 20 MG TABLET PO SCH (20:44)
[2020-04-18] MEDS: POLYVINYL ALCOHOL OPHT DROPS 15 ML BOTTLE OP SCH (21:01)
[2020-04-19] VITALS: BP 140/56
[2020-04-19 04:08] VITALS: BP 136/47
--- NOTE | 2020-04-19 06:34 | NUR ---
PT SLEPT INTERMITTENTLY. PT IN NO ACUTE DISTRESS. IV INTACT. PRESCRIBED 7MEDICATION GIVEN AND PT TOLERATED IT WELL. SAFETY AND COMFORT PROVIDED. WILL ENDORSE TO INCOMING NURSE FOR CONTINUITY OF CARE.
--- NOTE | 2020-04-19 06:34 | NUR ---
WOUND DRESSING CHANGED. PT HAD BOWEL MOVEMENT. PT TURNED AND REPOSITIONED.
[2020-04-19] MEDS: ALBUTEROL SULFATE 2.5 MG/3 ML NEBU IH SCH ×2 (08:10→20:30)
[2020-04-19] MEDS: FUROSEMIDE 40 MG/4 ML VIAL IV SCH ×3 (09:34→17:40)
[2020-04-19] MEDS: FINASTERIDE 5 MG TABLET PO SCH (09:34)
[2020-04-19] MEDS: FERROUS SULFATE 300 MG/5 ML LIQUID UDC PO SCH (09:34)
[2020-04-19] MEDS: CYANOCOBALAMIN 1,000 MCG TABLET PO SCH (09:34)
[2020-04-19] MEDS: APIXABAN 2.5 MG TABLET PO SCH ×2 (09:34→20:17)
[2020-04-19] MEDS: CARVEDILOL 3.125 MG TABLET PO SCH ×2 (09:35→17:40)
[2020-04-19] MEDS: ACETAzolamide 250 MG TABLET PO SCH ×2 (09:36→20:17)
[2020-04-19] MEDS: MUPIROCIN 2% OINT 22 GM TUBE NS SCH ×2 (09:38→20:18)
[2020-04-19] MEDS: CLOTRIMAZOLE 1% CREAM 30 GM TUBE TP PRN (09:38)
[2020-04-19] MEDS: MUPIROCIN 2% OINT 22 GM TUBE TP SCH (09:38)
[2020-04-19 12:00] VITALS: BP 148/66
[2020-04-19 12:41] LABS: CHLORIDE 101 mmol/L (98-107); CREATININE 2.5 mg/dL (0.6-1.3); GLUCOSE 106 mg/dL (74-106); POTASSIUM 3.2 mmol/L (3.5-5.1); UREA NITROGEN, BLOOD 77 mg/dL (7-18)
[2020-04-19 12:50] LABS: CARBON DIOXIDE 40 mmol/L (21-32)
[2020-04-19] MEDS: VANCOMYCIN IV 1,250 MG in IV DEXTROSE 5% 250 ML IV SCH (13:00)
[2020-04-19 16:00] VITALS: BP 147/66
[2020-04-19] MEDS ORDERED: POTASSIUM CHLORIDE 20 MEQ TAB.PRT.SR PO ONE (18:30)
--- NOTE | 2020-04-19 19:31 | NUR ---
Patient handoff to DAVID Henderson. Jimmy Asif RN
[2020-04-19] MEDS: DONEPEZIL 10 MG TABLET PO SCH (20:17)
[2020-04-19] MEDS: ATORVASTATIN 20 MG TABLET PO SCH (20:17)
[2020-04-19] MEDS: POLYVINYL ALCOHOL OPHT DROPS 15 ML BOTTLE OP SCH (20:18)
--- NOTE | 2020-04-19 20:52 | NUR ---
Received patient lying in bed. Asleep but easily arouse to verbal stimuli. AOx2-3. In no acute distress. O2 at 8LPM via simple mask in place. O2 sat at 96%. HOB elevated. Pt edematous on BUE and BLE. Elevated ext. with pillows. Right arm still oozing moderately. Right upper arm midline intact and patent. PIV on left upper arm and right AC intact. 100% V pacing on tele at 60/min. Blankenship cath intact and draining via gravity. Safety measure initiated and call hazel within reached.
[2020-04-19 21:14] VITALS: BP_SYST 135; BP_SYST 162; BP_DIAS 49; BP_DIAS 62
[2020-04-20] VITALS: BP 129/54
--- NOTE | 2020-04-20 00:24 | NUR ---
Telephone call from pt daughter Leighann and updated on pt current condition and states understanding.
[2020-04-20 04:00] VITALS: BP 142/67
--- NOTE | 2020-04-20 06:00 | NUR ---
Patient noted to be desaturating with O2 sat fluctuating between 75-88%. Pt remains alert to tactile stimuli. HOB kept elevated. Patient placed on non-rebreather mask at 15L/min. Called RT/Karan and suctions patient secretions and Karan able to suction dry secretions with some blood present. Patient O2 sat went up to 97-98% and maintaining. Continue to monitor.
--- NOTE | 2020-04-20 06:25 | NUR ---
Dr. Murphy informed of patient condition. Awaiting for any new order.
--- NOTE | 2020-04-20 06:44 | NUR ---
Pt asleep at this time, but arouse to verbal stimuli. Appears comfortable. O2 sat at 100% on non-rebreather at 15LPM. HOB kept elevated. BUE and BLE kept elevated with pillows. 100% V Pacing on tele at 61/min. Blankenship catheter intact and draining via gravity. Turn and reposition for comfort. Continue to monitor.
[2020-04-20 07:24] LABS: CARBON DIOXIDE 39 mmol/L (21-32); CHLORIDE 101 mmol/L (98-107); CREATININE 2.3 mg/dL (0.6-1.3); GLUCOSE 106 mg/dL (74-106); POTASSIUM 3.4 mmol/L (3.5-5.1); UREA NITROGEN, BLOOD 76 mg/dL (7-18)
[2020-04-20] MEDS: MUPIROCIN 2% OINT 22 GM TUBE NS SCH (08:10)
[2020-04-20] MEDS: FUROSEMIDE 40 MG/4 ML VIAL IV SCH ×3 (08:10→16:47)
[2020-04-20] MEDS: MUPIROCIN 2% OINT 22 GM TUBE TP SCH (08:11)
[2020-04-20] MEDS: ALBUTEROL SULFATE 2.5 MG/3 ML NEBU IH SCH ×2 (08:12→19:52)
[2020-04-20] MEDS: CARVEDILOL 3.125 MG TABLET PO SCH ×2 (08:48→16:47)
[2020-04-20] MEDS: CYANOCOBALAMIN 1,000 MCG TABLET PO SCH (08:49)
[2020-04-20] MEDS: FINASTERIDE 5 MG TABLET PO SCH (08:49)
[2020-04-20] MEDS: FERROUS SULFATE 300 MG/5 ML LIQUID UDC PO SCH (08:50)
[2020-04-20] MEDS: APIXABAN 2.5 MG TABLET PO SCH ×2 (08:50→21:00)
[2020-04-20] MEDS: ACETAzolamide 250 MG TABLET PO SCH ×2 (08:51→21:13)
--- NOTE | 2020-04-20 09:00 | NUR ---
PATIENT DESATURATING TO 80-82%. CALLED RT FOR SUCTIONING. SATURATION WNL POST-SUCTIONING.
--- NOTE | 2020-04-20 09:04 | NUR ---
Spoke with POUCH MAKING MACHINE OPERATOR, discussed bloody secretions suctioned by RT. Herson jackson.
[2020-04-20] MEDS ORDERED: POTASSIUM CHLORIDE 10 MEQ TAB.PRT.SR PO ONE (09:30)
[2020-04-20] MEDS ORDERED: POTASSIUM CHLORIDE 20 MEQ POWDER PACKET GT ONE ×2 (10:30→17:00)
[2020-04-20 12:00] VITALS: BP 128/56
[2020-04-20 15:46] VITALS: BP 156/65
[2020-04-20 17:50] LABS: ABG HCO3 34.6 mmol/L; ABG PCO2 52.6 mmHg (35.0-45.0); ABG PH 7.436 (7.350-7.450); ABG PO2 72.8 mmHg (75.0-100.0); ABG SITE RIGHT RADIAL; ABG TOTAL HEMOGLOBIN 10.6 G/dL (13.5-18.0); COHb 0.9 % (0.5-1.5); MetHb 0.4 % (0.0-1.5); O2Hb 93.7 % (94.0-97.0)
--- NOTE | 2020-04-20 19:00 | NUR ---
PATIENT ASLEEP BUT AROUSABLE, NO S/S OF SOB OR CHEST PAIN, PATIENT ON TELE MONITOR V PACING AT THIS TIME. PATIENT ON 15LITER PER MIN OXYGEN ON NON REBREATHER MASK, HOB ELEVATED, OXYGEN SAT 94 T0 98%, TURN AND REPOSITION, IVAN CATH PATENT DRAINING YELLOW COLOR URINE IN MODERATE AMOUNT, TX CONT ON SACRAL WOUND. CONT TO MONITOR.
[2020-04-20 20:09] VITALS: BP 191/72
[2020-04-20] MEDS: DONEPEZIL 10 MG TABLET PO SCH (21:10)
[2020-04-20] MEDS: ATORVASTATIN 20 MG TABLET PO SCH (21:10)
[2020-04-20] MEDS: POLYVINYL ALCOHOL OPHT DROPS 15 ML BOTTLE OP SCH (21:11)
--- NOTE | 2020-04-20 21:14 | NUR ---
Eliquis medication held, patient has nasal bleeding noted, Dr Morejon order to hold medication at this time. cont to monitor.
[2020-04-21 00:03] VITALS: BP 144/57
[2020-04-21 04:09] VITALS: BP 151/60
[2020-04-21 06:05] LABS: BASOPHILS % (AUTO) 0.5 % (0.0-2.0); EOSINOPHILS # (AUTO) 0.1 K/uL (0.0-0.7); EOSINOPHILS % (AUTO) 0.8 % (0.0-7.0); HEMATOCRIT 29.5 % (36.7-47.1); HEMOGLOBIN 9.4 g/dL (12.5-16.3); LYMPHOCYTES # (AUTO) 1.2 K/uL (20.0-40.0); LYMPHOCYTES % (AUTO) 12.8 % (20.5-51.5); MEAN CORPUSCULAR HEMOGLOBIN 29.8 uug (23.8-33.4); MEAN CORPUSCULAR HGB CONC 32 g/dL (32.5-36.3); MEAN CORPUSCULAR VOLUME 93.4 fL (73.0-96.2); MONOCYTES # (AUTO) 0.8 K/uL (2.0-10.0); MONOCYTES % (AUTO) 7.8 % (0.0-11.0); NEUTROPHILS # (AUTO) 7.5 K/uL (1.8-8.9); NEUTROPHILS % (AUTO) 78.1 % (38.5-71.5); PLATELET COUNT (AUTO) 142 K/uL (152-348); RED BLOOD CELL COUNT(AUTO) 3.16 MIL/uL (4.06-5.63); WHITE BLOOD COUNT (AUTO) 9.7 K/uL (3.6-10.2)
[2020-04-21 06:15] LABS: CARBON DIOXIDE 37 mmol/L (21-32); CHLORIDE 103 mmol/L (98-107); CREATININE 2.5 mg/dL (0.6-1.3); GLUCOSE 98 mg/dL (74-106); MAGNESIUM 2.4 mg/dL (1.8-2.4); POTASSIUM 3.3 mmol/L (3.5-5.1); UREA NITROGEN, BLOOD 79 mg/dL (7-18); VANCOMYCIN,RANDOM 26.4 ug/mL (18.0-26.0)
--- NOTE | 2020-04-21 06:24 | NUR ---
PATIENT AWAKE, HOB ELEVATED, ON NON REBREATHER MASK AT 15LPM, SAT 98%. PATIENT RESPONSIVE TO TACTILE AND VERBAL STIMULI. PATIENT BILATERAL ARMS AN BILATERAL LOWER EXTREMITIES ARE SWOLLEN, KEPT IT ELEVATED, TX CONT ON SACRAL WOUNDS, WITH MINIMAL BLEEDING NOTED FROM NASAL, THIS DURING SUCTIONING, RENDERED ORAL CARE. CONT TO MONITOR.
[2020-04-21] MEDS: ALBUTEROL SULFATE 2.5 MG/3 ML NEBU IH SCH ×2 (07:34→19:34)
--- NOTE | 2020-04-21 08:00 | NUR ---
Received patient awake, alert and open eyes with eye contact when aroused. Saturating 98% @ 10L via NRM no signs of distress requires frequent oral suctioning with bright red secretions. Hospitalist aware of bright red secretions, adviced to hold Eliquis. Remains V-paced on monitor at a rate of 68.
[2020-04-21] MEDS: FERROUS SULFATE 300 MG/5 ML LIQUID UDC PO SCH (08:14)
[2020-04-21] MEDS: FUROSEMIDE 40 MG/4 ML VIAL IV SCH ×3 (08:14→17:16)
[2020-04-21] MEDS: FINASTERIDE 5 MG TABLET PO SCH (08:16)
[2020-04-21] MEDS: CYANOCOBALAMIN 1,000 MCG TABLET PO SCH (08:16)
[2020-04-21] MEDS: CARVEDILOL 3.125 MG TABLET PO SCH ×2 (08:16→17:16)
[2020-04-21] MEDS: ACETAzolamide 250 MG TABLET PO SCH ×2 (08:20→20:45)
[2020-04-21] MEDS: MUPIROCIN 2% OINT 22 GM TUBE TP SCH (08:21)
[2020-04-21] MEDS: POTASSIUM CHLORIDE 50 ML IV SCH ×4 (09:36→12:23)
--- NOTE | 2020-04-21 11:00 | NUR ---
Seen by health care administrator Dr. Maldonado, adviced to continue lasix IV and will follow up labs in the morning.
[2020-04-21 12:12] VITALS: BP 179/40
--- NOTE | 2020-04-21 12:30 | NUR ---
Seen by Dr Freedman for [place] followup. With order for ultrasound guided thoracentesis of the left lung. Telephone consent obtained from daughter Leighann.
[2020-04-21] MEDS ORDERED: VANCOMYCIN IV 1,000 MG in IV DEXTROSE 5% 250 ML IV SCH (13:00)
--- NOTE | 2020-04-21 16:05 | NUR ---
4 bags of IV potassium completed will follow up labs in AM.
--- NOTE | 2020-04-21 16:06 | NUR ---
continue 10L 02 via NRM saturating at 98 to 100%.
[2020-04-21 17:13] VITALS: BP 186/66
--- NOTE | 2020-04-21 19:30 | NUR ---
Report received. Patient awake, had a large semi soft brown stools. Cleaned. Skin care provided. Z guard ointment applied to affected areas. Turned and repositioned. Desaturates easily. On 100% non rebreather mask. HOB elevated above 30 degrees. Addendum: 04/22/20 at 0028 by JIMMY GEORGE RN Amended: Links added. Addendum: 04/22/20 at 0031 by JIMMY GEORGE RN Amended: Links added. Addendum: 04/22/20 at 0033 by JIMMY GEORGE RN Amended: Links added. Addendum: 04/22/20 at 0034 by JIMMY GEORGE RN Amended: Links added.
--- NOTE | 2020-04-21 19:35 | NUR ---
RT here. Deep suctioning done by him; with scant amount of clear ortiz secretions. Patient with weak cough effort. Addendum: 04/22/20 at 0031 by JIMMY GEORGE RN Amended: Links added. Addendum: 04/22/20 at 0033 by JIMMY GEORGE RN Amended: Links added. Addendum: 04/22/20 at 0034 by JIMMY GEORGE RN Amended: Links added.
[2020-04-21 20:11] VITALS: BP 142/37
--- NOTE | 2020-04-21 20:45 | NUR ---
Patient awake oriented to name only. PO meds crushed and given with applesauce. No swallowing difficulty. Addendum: 04/22/20 at 0033 by JIMMY GEORGE RN Amended: Links added. Addendum: 04/22/20 at 0034 by JIMMY GEORGE RN Amended: Links added.
[2020-04-21] MEDS: POLYVINYL ALCOHOL OPHT DROPS 15 ML BOTTLE OP SCH (20:46)
[2020-04-21] MEDS: DONEPEZIL 10 MG TABLET PO SCH (20:46)
[2020-04-21] MEDS: ATORVASTATIN 20 MG TABLET PO SCH (20:46)
[2020-04-22] VITALS (8 sets, daily range): BP systolic 108–155; BP diastolic 31–45
--- NOTE | 2020-04-22 00:34 | NUR ---
Remains on 100% non rebreather mask; O2 sat 94-96%. Addendum: 04/22/20 at 0034 by JIMMY GEORGE RN Amended: Links added.
--- NOTE | 2020-04-22 02:00 | NUR ---
Am care done. Had a large liquid dark green stools. Wound care treatment done; both arms oozing serous fluids more from R arm. Arms wrapped with Kerlix dressings. Both heels offloaded at all times. With generalized edema. Addendum: 04/22/20 at 0319 by JIMMY GEORGE RN Amended: Links added.
--- NOTE | 2020-04-22 03:30 | NUR ---
Patient's daughter Leighann called; updated of patient's condition.
--- NOTE | 2020-04-22 06:15 | NUR ---
Remains on 100% non rebreather mask; O2 sats 94-97%. No neuro changes. For US guided Thoracentesis today. Addendum: 04/22/20 at 0617 by JIMMY GEORGE RN Amended: Links added.
[2020-04-22 07:24] LABS: BASOPHILS % (AUTO) 0.5 % (0.0-2.0); EOSINOPHILS % (AUTO) 0.3 % (0.0-7.0); HEMATOCRIT 29.8 % (36.7-47.1); HEMOGLOBIN 9.5 g/dL (12.5-16.3); LYMPHOCYTES # (AUTO) 1.3 K/uL (20.0-40.0); LYMPHOCYTES % (AUTO) 12.1 % (20.5-51.5); MEAN CORPUSCULAR HEMOGLOBIN 29.9 uug (23.8-33.4); MEAN CORPUSCULAR HGB CONC 32 g/dL (32.5-36.3); MEAN CORPUSCULAR VOLUME 93.8 fL (73.0-96.2); MONOCYTES # (AUTO) 0.9 K/uL (2.0-10.0); MONOCYTES % (AUTO) 8.3 % (0.0-11.0); NEUTROPHILS # (AUTO) 8.3 K/uL (1.8-8.9); NEUTROPHILS % (AUTO) 78.8 % (38.5-71.5); PLATELET COUNT (AUTO) 142 K/uL (152-348); RED BLOOD CELL COUNT(AUTO) 3.18 MIL/uL (4.06-5.63); WHITE BLOOD COUNT (AUTO) 10.6 K/uL (3.6-10.2)
[2020-04-22 07:35] LABS: CARBON DIOXIDE 38 mmol/L (21-32); CHLORIDE 104 mmol/L (98-107); CREATININE 2.6 mg/dL (0.6-1.3); GLUCOSE 101 mg/dL (74-106); MAGNESIUM 2.8 mg/dL (1.8-2.4); PHOSPHOROUS 3.4 mg/dL (2.5-4.9); UREA NITROGEN, BLOOD 79 mg/dL (7-18); VANCOMYCIN,RANDOM 23.2 ug/mL (18.0-26.0)
[2020-04-22] MEDS: FERROUS SULFATE 300 MG/5 ML LIQUID UDC PO SCH (08:01)
[2020-04-22] MEDS: ACETAzolamide 250 MG TABLET PO SCH ×2 (08:01→20:12)
[2020-04-22] MEDS: FINASTERIDE 5 MG TABLET PO SCH (08:01)
[2020-04-22] MEDS: FUROSEMIDE 40 MG/4 ML VIAL IV SCH ×3 (08:02→16:18)
[2020-04-22] MEDS: CARVEDILOL 3.125 MG TABLET PO SCH ×2 (08:02→16:18)
[2020-04-22] MEDS: CYANOCOBALAMIN 1,000 MCG TABLET PO SCH (08:02)
[2020-04-22] MEDS: MUPIROCIN 2% OINT 22 GM TUBE TP SCH (08:04)
[2020-04-22] MEDS: ALBUTEROL SULFATE 2.5 MG/3 ML NEBU IH SCH ×2 (08:25→19:36)
[2020-04-22] MEDS: POTASSIUM CHLORIDE 50 ML IV SCH ×6 (08:26→16:24)
[2020-04-22 09:32] LABS: *CHLORIDE RNDM,URINE 99 mmol/L (100-250); *POTASSIUM RNDM,URINE 39 mmol/L (25-125)
--- NOTE | 2020-04-22 10:04 | NUR ---
Received patient in bed alert , open his eyes ,make eye contact and responds verbally. No signs of distress. On 100% NRM saturating at 95%. All due meds given crushed with applesauce and tolerated well. Turning and repositioning rendered. Call light within reach. All needs met promptly. Will continue to monitor.
--- NOTE | 2020-04-22 11:45 | NUR ---
DR WINSTON NOTIFIED OF PATIENT DESATURATING TO 87-88% IN SPITE OF 15L NRM. SAID OKAY TO START ON HI FLOW TO MAINTAIN SATURATION AT 90%
--- NOTE | 2020-04-22 12:08 | NUR ---
US GUIDED THORACENTESIS STARTED AT BEDSIDE.
--- NOTE | 2020-04-22 12:29 | NUR ---
THORACENTESIS COMPLETED, PATIENT TOLERATED PROCEDURE WELL. SPECIMEN SENT TO LAB FOR ANALYSIS. WILL FOLLOW-UP CXR
--- NOTE | 2020-04-22 12:41 | NUR ---
PT PLACED ON VAPOTHERM TO MAINTAIN SPO2 ABOVE 90%. PT COMFORTABLE WITH SPO2 AROUND 95% WITH SETTINGS ON 40 L AND 100%. WILL CONTINUE TO MONITOR
--- NOTE | 2020-04-22 12:46 | NUR ---
700ml thoracentesis fluid sent to the lab . Patient post thoracentesis vs BP:127/34 P:62 T:97.8 RR: 20on high flow oxygen of 40L saturating at 100% will continue to monitor.
--- NOTE | 2020-04-22 16:46 | NUR ---
Patient in bed, no signs of distress. On High flow oxygen of 20L saturating at 100% via NRM. Turning and repositioning rendered. All due meds given as ordered and tolerated well. Call light place within easy reach. Will continue to monitor.
--- NOTE | 2020-04-22 20:00 | NUR ---
Received patient lying in bed. AOx1 only. Able to follow direction. No signs or symptoms of pain or discomfort. On High flow at 20L with 100% FiO2. O2 sat at 98%. 100% V Pacing on tele at 60/min. Right upper arm midline intact and patent. Blankenship catheter intact and draining via gravity. Turned and repositioned for comfort. Safety measure initiated. Continue to monitor.
[2020-04-22] MEDS: POLYVINYL ALCOHOL OPHT DROPS 15 ML BOTTLE OP SCH (20:12)
[2020-04-22] MEDS: ATORVASTATIN 20 MG TABLET PO SCH (20:12)
[2020-04-22] MEDS: DONEPEZIL 10 MG TABLET PO SCH (20:12)
[2020-04-23] VITALS (8 sets, daily range): BP systolic 94–150; BP diastolic 34–57
--- NOTE | 2020-04-23 | NUR ---
Patient asleep at this time. Appears comfortable. O2 sat at 100% on high flow at 20L with FiO2 of 100%. HOB kept elevated. 100% V pacing on tele at 60/min. Continue to monitor.
--- NOTE | 2020-04-23 06:12 | NUR ---
Pt slept well last night. In no acute distress. O2 sat at 98% with high flow O2 at 20L with FiO2 of 100%. HOB kept elevated. V100% V Pacing on tele with HR of 61/min.Turned and repositioned for comfort. Blankenship catheter intact an draining via gravity. Needs anticipated to and met. Oral care provided. Kept clean and comfortable.
[2020-04-23 07:00] LABS: BASOPHILS % (AUTO) 0.5 % (0.0-2.0); EOSINOPHILS % (AUTO) 0.3 % (0.0-7.0); HEMATOCRIT 30.2 % (36.7-47.1); HEMOGLOBIN 9.5 g/dL (12.5-16.3); LYMPHOCYTES # (AUTO) 1.2 K/uL (20.0-40.0); LYMPHOCYTES % (AUTO) 11.8 % (20.5-51.5); MEAN CORPUSCULAR HEMOGLOBIN 29.7 uug (23.8-33.4); MEAN CORPUSCULAR HGB CONC 32 g/dL (32.5-36.3); MEAN CORPUSCULAR VOLUME 94.2 fL (73.0-96.2); MONOCYTES # (AUTO) 0.7 K/uL (2.0-10.0); MONOCYTES % (AUTO) 7.3 % (0.0-11.0); NEUTROPHILS # (AUTO) 8.2 K/uL (1.8-8.9); NEUTROPHILS % (AUTO) 80.1 % (38.5-71.5); PLATELET COUNT (AUTO) 127 K/uL (152-348); RED BLOOD CELL COUNT(AUTO) 3.21 MIL/uL (4.06-5.63); WHITE BLOOD COUNT (AUTO) 10.3 K/uL (3.6-10.2)
[2020-04-23 07:18] LABS: CHLORIDE 106 mmol/L (98-107); CREATININE 2.7 mg/dL (0.6-1.3); GLUCOSE 109 mg/dL (74-106); POTASSIUM 3.6 mmol/L (3.5-5.1)
[2020-04-23] MEDS: ALBUTEROL SULFATE 2.5 MG/3 ML NEBU IH SCH ×2 (07:21→20:01)
[2020-04-23 07:52] LABS: CARBON DIOXIDE 41 mmol/L (21-32)
[2020-04-23 07:53] LABS: UREA NITROGEN, BLOOD 83 mg/dL (7-18)
[2020-04-23] MEDS: FERROUS SULFATE 300 MG/5 ML LIQUID UDC PO SCH (08:17)
[2020-04-23] MEDS: FINASTERIDE 5 MG TABLET PO SCH (08:17)
[2020-04-23] MEDS: CYANOCOBALAMIN 1,000 MCG TABLET PO SCH (08:17)
[2020-04-23] MEDS: FUROSEMIDE 40 MG/4 ML VIAL IV SCH ×3 (08:20→17:08)
[2020-04-23 08:22] LABS: ABG HCO3 40.4 mmol/L; ABG PCO2 54.2 mmHg (35.0-45.0); ABG PO2 84.5 mmHg (75.0-100.0); ABG SITE LEFT RADIAL; ABG TOTAL HEMOGLOBIN 10.4 G/dL (13.5-18.0); COHb 1.4 % (0.5-1.5); MetHb 0.2 % (0.0-1.5); O2Hb 95.3 % (94.0-97.0); VENT MODE Vapotherm
[2020-04-23] MEDS: ACETAzolamide 250 MG TABLET PO SCH ×2 (08:24→20:05)
[2020-04-23] MEDS: CARVEDILOL 3.125 MG TABLET PO SCH ×2 (08:24→17:09)
[2020-04-23] MEDS: MUPIROCIN 2% OINT 22 GM TUBE TP SCH (08:25)
[2020-04-23] MEDS ORDERED: VANCOMYCIN IV 1,000 MG in IV DEXTROSE 5% 250 ML IV SCH (09:00)
--- NOTE | 2020-04-23 13:30 | NUR ---
Dr. Levine made aware of the patient's urine output of 100ml 4 hours after Lasix 80mg IV was given. Per Dr. Levine it is ok to give Lasix 80mg IV at 1330.
--- NOTE | 2020-04-23 14:40 | NUR ---
ULTRASOUND GUIDED THORACENTESIS OF THE RIGHT LUNG DONE. CHEST X-RAY DONE. 1000ML PLEURAL FLUID COLLECTED AND SEND TO THE LAB. VS STABLE, NO S/SX OF DISTRESS. ON HIGH FLOW OXYGEN AT 30L WITH FiO2 OF 65% SATURATING at 100%. AUDIBLE LUNG SOUNDS NOTED. WILL CONTINUE TO MONITOR.
--- NOTE | 2020-04-23 15:19 | NUR ---
Spoke with his daughter Leighann Canela regarding her visit to her father tomorrow between 10-11AM for 15 mins. Nursing evaporator supervisor Laquita made aware of the visit.
--- NOTE | 2020-04-23 17:32 | NUR ---
Patient on high flow oxygen of 20L at 50 Fio2 saturating at 95%. Turning and repositioning rendered. All needs attended promptly. Will continue to monitor.
--- NOTE | 2020-04-23 19:38 | NUR ---
Received patient lying in bed. AOx1 only. Appears weak and lethargic at this time. No signs or symptoms of pain or SOB. On High flow at 20L with 50% FiO2. O2 sat at 97%. 100% V Pacing on tele at 61/min. Right upper arm midline intact and patent. Blankenship catheter intact and draining via gravity. Safety measure initiated. Continue to monitor.
[2020-04-23] MEDS: ATORVASTATIN 20 MG TABLET PO SCH (20:04)
[2020-04-23] MEDS: POLYVINYL ALCOHOL OPHT DROPS 15 ML BOTTLE OP SCH (20:04)
[2020-04-23] MEDS: DONEPEZIL 10 MG TABLET PO SCH (20:04)
--- NOTE | 2020-04-23 21:11 | NUR ---
PATIENT WAS DESATURATING BETWEEN 75-82% ON HIGH FLOW O2 AT 20L WITH 50% FIO2. ALSO NOTED WITH 2 SECONDS OF V TACH ON THE MONITOR. PT WAS SUCTIONED BY RT AND HIGH FLOW CHANGE TO 100% FIO2. O2 SAT WENT BACK TO 90-94% AND BACK TO 100% V PACING AT 63/MIN. CONTINUE TO MONITOR.
--- NOTE | 2020-04-23 22:34 | NUR ---
PATIENT O2 SAT AT 100% AT THIS TIME. STILL ON HIGH FLOW 20L WITH 100% FIO2. APPEARS COMFORTABLE. WILL CONTINUE TO MONITOR.
--- NOTE | 2020-04-23 23:00 | NUR ---
RT place patient back on 50% FiO2. O2 sat at 96% at this time. Continue to monitor.
[2020-04-24] VITALS (8 sets, daily range): BP systolic 96–159; BP diastolic 45–65
--- NOTE | 2020-04-24 06:12 | NUR ---
Pt slept most of the night. In no apparent distress. O2 sat at 97% with high flow O2 at 20L with FiO2 of 50%. HOB kept elevated. 100% V Pacing on tele with HR of 61/min.Turned and repositioned for comfort. Suction secretions PRN. Blankenship catheter intact and draining via gravity with clear yellow urine output on drainage bag. Needs anticipated to and met. Oral care provided. Kept clean and comfortable.
[2020-04-24 06:18] LABS: ABG BASE EXCESS 14.8 mmol/L; ABG PCO2 54.1 mmHg (35.0-45.0); ABG PH 7.487 (7.350-7.450); ABG PO2 79.1 mmHg (75.0-100.0); ABG SITE RIGHT BRACHIAL; ABG TOTAL HEMOGLOBIN 9.9 G/dL (13.5-18.0); COHb 0.9 % (0.5-1.5); MetHb 0.4 % (0.0-1.5)
[2020-04-24 06:48] LABS: BASOPHILS % (AUTO) 0.3 % (0.0-2.0); EOSINOPHILS % (AUTO) 0.4 % (0.0-7.0); HEMATOCRIT 30.3 % (36.7-47.1); HEMOGLOBIN 9.7 g/dL (12.5-16.3); LYMPHOCYTES # (AUTO) 1.1 K/uL (20.0-40.0); LYMPHOCYTES % (AUTO) 12.4 % (20.5-51.5); MEAN CORPUSCULAR HEMOGLOBIN 29.9 uug (23.8-33.4); MEAN CORPUSCULAR HGB CONC 32 g/dL (32.5-36.3); MEAN CORPUSCULAR VOLUME 93.9 fL (73.0-96.2); MONOCYTES # (AUTO) 0.6 K/uL (2.0-10.0); MONOCYTES % (AUTO) 6.6 % (0.0-11.0); NEUTROPHILS % (AUTO) 80.3 % (38.5-71.5); PLATELET COUNT (AUTO) 134 K/uL (152-348); RED BLOOD CELL COUNT(AUTO) 3.23 MIL/uL (4.06-5.63); WHITE BLOOD COUNT (AUTO) 8.7 K/uL (3.6-10.2)
[2020-04-24 07:08] LABS: ALANINE AMINOTRANSFERASE 8 U/L (16-63); ALKALINE PHOSPHATASE 36 U/L (50-136); ASPARTATE AMINOTRANSFERASE 23 U/L (15-37); CHLORIDE 106 mmol/L (98-107); CREATININE 2.6 mg/dL (0.6-1.3); GLUCOSE 104 mg/dL (74-106); MAGNESIUM 2.5 mg/dL (1.8-2.4); PHOSPHOROUS 3.3 mg/dL (2.5-4.9); POTASSIUM 2.9 mmol/L (3.5-5.1); TOTAL PROTEIN, SERUM 5.3 g/dL (6.4-8.2)
[2020-04-24 07:39] LABS: CARBON DIOXIDE 42 mmol/L (21-32); UREA NITROGEN, BLOOD 83 mg/dL (7-18)
[2020-04-24] MEDS: ALBUTEROL SULFATE 2.5 MG/3 ML NEBU IH SCH ×2 (07:58→20:29)
--- NOTE | 2020-04-24 08:00 | NUR ---
Pt on high flow 20 liters with 50% FIo2 saturating 98%. Pt lethargic non verbal. pt arousable with touch. F/c intact draining yellow urine with sediments noted. F/c drained prior to giving lasix to monitor urine output. Dressing changed on right leg as ordered. Noted wound darkened skin with minimal drainage. IV on right arm midline flushing well with minimal resistance. Call light is within reach. PT is in continous pulse ox.
[2020-04-24] MEDS ORDERED: POTASSIUM CHLORIDE 50 ML IV SCH (08:30)
[2020-04-24] MEDS: FERROUS SULFATE 300 MG/5 ML LIQUID UDC PO SCH (08:47)
[2020-04-24] MEDS: CYANOCOBALAMIN 1,000 MCG TABLET PO SCH (08:47)
[2020-04-24] MEDS: FINASTERIDE 5 MG TABLET PO SCH (08:47)
[2020-04-24] MEDS: FUROSEMIDE 40 MG/4 ML VIAL IV SCH ×3 (08:47→16:38)
[2020-04-24] MEDS: CARVEDILOL 3.125 MG TABLET PO SCH ×2 (08:48→16:36)
[2020-04-24] MEDS: ENSURE ENLIVE (VAN) 240 ML LIQUID PO SCH (08:49)
[2020-04-24] MEDS: ACETAzolamide 250 MG TABLET PO SCH ×2 (08:49→20:43)
[2020-04-24] MEDS: MUPIROCIN 2% OINT 22 GM TUBE TP SCH (08:49)
[2020-04-24] MEDS: POTASSIUM CHLORIDE 50 ML IV SCH ×4 (09:16→12:57)
--- NOTE | 2020-04-24 14:23 | NUR ---
Ct chest result read verbatim to DR Elizondo. Leighann daughter saw pt earlier in person @1100. Notified DR Elizondo that daughter wants to speak with him re comfort care vs HD plan. Notified of low output from lasix 80mg x 2 with only 300cc out since am. No further orders received. Call light is within reach.
--- NOTE | 2020-04-24 17:15 | NUR ---
Pt desaturated to 75% o2 sat. Called RT for assistance since o2 sat wont go up for 3-4 mins and RT set up High Flow to 40L with 100%FI02 with 02 sat of 100%.
[2020-04-24 17:22] LABS: CARBON DIOXIDE 39 mmol/L (21-32); CHLORIDE 108 mmol/L (98-107); CREATININE 2.8 mg/dL (0.6-1.3); GLUCOSE 102 mg/dL (74-106); POTASSIUM 3.5 mmol/L (3.5-5.1)
[2020-04-24 17:28] LABS: UREA NITROGEN, BLOOD 86 mg/dL (7-18)
--- NOTE | 2020-04-24 17:40 | NUR ---
High Flow set up back to 20 lit with 50% fio2 with saturation 96%. Blood drawn by labor union business representative done earlier
--- NOTE | 2020-04-24 18:15 | NUR ---
Spoke with Leighann daughter f/u re: decision for plan of care. Per Leighann Elizondo hasn't called her back. "It seems like the hospital is pushing for hospice." Reinforce to daughter that we just wanted to know what her decision was so we can follow what she wants for her dad and that we will wait for her decision.
--- NOTE | 2020-04-24 20:00 | NUR ---
Received patient lying in bed. Continue to appear weak and lethargic at this time but non-verbally responsive to tactile stimuli. No signs or symptoms of pain or SOB. On High flow at 20L with 50% FiO2. O2 sat at 100%. 100% V Pacing on tele at 55/min. Right upper arm midline intact and patent. Blankenship catheter intact and draining via gravity. Safety measure initiated. Continue to monitor.
[2020-04-24] MEDS: DONEPEZIL 10 MG TABLET PO SCH (20:43)
[2020-04-24] MEDS: ATORVASTATIN 20 MG TABLET PO SCH (20:43)
[2020-04-24] MEDS: POLYVINYL ALCOHOL OPHT DROPS 15 ML BOTTLE OP SCH (20:44)
[2020-04-25] VITALS (8 sets, daily range): BP systolic 105–127; BP diastolic 38–58
--- NOTE | 2020-04-25 03:21 | NUR ---
PATIENT ON CONT HIGH FLOW @ 50% @ 20L/M, PT AT TIMES, DE SATS 87-89%, PLACED ON FIO2 @ 60%, HR 60 APPROX, BUT AT TIMES, GETS LOW HR, NURSE INFORMED, H2O CHANGED FOR HIGH FLOW, CONT PULSE OXY AT BEDSIDE. Dre JUNGP Addendum: 04/25/20 at 0322 by RICKEY JONES RT Amended: Links added.
--- NOTE | 2020-04-25 06:16 | NUR ---
Pt slept well last night. Responsive to tactile stimuli. Non-verbal. In no apparent distress. No signs or symptoms of pain or SOB. O2 sat fluctuates between 90-100% with high flow O2 at 20L with FiO2 of 50%. HOB kept elevated. 100% V Pacing on tele with PVC with HR of 67/min. Turned and repositioned for comfort. Blankenship catheter intact and draining via gravity. Needs anticipated to and met. Kept dry clean and comfortable.
[2020-04-25 06:58] LABS: BASOPHILS % (AUTO) 0.3 % (0.0-2.0); EOSINOPHILS # (AUTO) 0.1 K/uL (0.0-0.7); EOSINOPHILS % (AUTO) 0.7 % (0.0-7.0); HEMATOCRIT 33.3 % (36.7-47.1); HEMOGLOBIN 10.5 g/dL (12.5-16.3); LYMPHOCYTES # (AUTO) 1.4 K/uL (20.0-40.0); MEAN CORPUSCULAR HGB CONC 32 g/dL (32.5-36.3); MEAN CORPUSCULAR VOLUME 94.9 fL (73.0-96.2); MONOCYTES # (AUTO) 0.7 K/uL (2.0-10.0); MONOCYTES % (AUTO) 6.1 % (0.0-11.0); NEUTROPHILS # (AUTO) 8.5 K/uL (1.8-8.9); NEUTROPHILS % (AUTO) 79.9 % (38.5-71.5); PLATELET COUNT (AUTO) 152 K/uL (152-348); WHITE BLOOD COUNT (AUTO) 10.6 K/uL (3.6-10.2)
[2020-04-25] MEDS: ALBUTEROL SULFATE 2.5 MG/3 ML NEBU IH SCH ×2 (07:21→19:47)
[2020-04-25 07:49] LABS: ALANINE AMINOTRANSFERASE 8 U/L (16-63); ALKALINE PHOSPHATASE 40 U/L (50-136); ASPARTATE AMINOTRANSFERASE 19 U/L (15-37); BILIRUBIN,TOTAL 1.2 mg/dL (0.2-1.0); CARBON DIOXIDE 39 mmol/L (21-32); CHLORIDE 108 mmol/L (98-107); CREATININE 2.8 mg/dL (0.6-1.3); GLUCOSE 107 mg/dL (74-106); MAGNESIUM 2.7 mg/dL (1.8-2.4); PHOSPHOROUS 3.5 mg/dL (2.5-4.9); POTASSIUM 3.2 mmol/L (3.5-5.1); TOTAL PROTEIN, SERUM 5.8 g/dL (6.4-8.2)
[2020-04-25 07:51] LABS: UREA NITROGEN, BLOOD 85 mg/dL (7-18)
[2020-04-25] MEDS: FERROUS SULFATE 300 MG/5 ML LIQUID UDC PO SCH (08:28)
[2020-04-25] MEDS: FINASTERIDE 5 MG TABLET PO SCH (08:29)
[2020-04-25] MEDS: CYANOCOBALAMIN 1,000 MCG TABLET PO SCH (08:29)
[2020-04-25] MEDS: FUROSEMIDE 40 MG/4 ML VIAL IV SCH ×3 (08:30→16:48)
[2020-04-25] MEDS: CARVEDILOL 3.125 MG TABLET PO SCH ×2 (08:30→16:48)
[2020-04-25] MEDS: ACETAzolamide 250 MG TABLET PO SCH ×2 (08:30→20:09)
--- NOTE | 2020-04-25 08:58 | NUR ---
SEEN BY DR DILLON WITH ORDER TO TRY BACK ON BIPAP WITH NEW SETTINGS DUE TO HYPERCAPNIA
[2020-04-25] MEDS: ENSURE ENLIVE (VAN) 240 ML LIQUID PO SCH (09:05)
[2020-04-25] MEDS: MUPIROCIN 2% OINT 22 GM TUBE TP SCH (09:06)
[2020-04-25] MEDS: POTASSIUM CHLORIDE 50 ML IV SCH ×2 (09:34→10:59)
--- NOTE | 2020-04-25 11:00 | NUR ---
Patient seen both by Hospitalist for Nephro and Cardio. See notes. Low potassium replaced with 2 bags.
--- NOTE | 2020-04-25 15:54 | NUR ---
Good PM care given. Patient had large liquidly stool. Wound care completed. Patient remains comfortable with current respiratory setting 35/60. Patient's remains on V pace with frequent PVCs. Will follow up with labs in the morning.
[2020-04-25] MEDS: ATORVASTATIN 20 MG TABLET PO SCH (20:09)
[2020-04-25] MEDS: DONEPEZIL 10 MG TABLET PO SCH (20:09)
[2020-04-25] MEDS: POLYVINYL ALCOHOL OPHT DROPS 15 ML BOTTLE OP SCH (21:03)
[2020-04-26] VITALS (8 sets, daily range): BP systolic 79–129; BP diastolic 39–53
--- NOTE | 2020-04-26 01:22 | NUR ---
RN spoke to pt's daughter Leighann, and update given; Leighann asked if pt already have HD; informed her that no HD yet, and most probably we will call her to have a dialysis catheter if she's agreeable to HD; Charge Nurse made aware of conversation and will pass to AM nurse to follow up.
[2020-04-26 06:33] LABS: ABG BASE EXCESS 12.1 mmol/L; ABG HCO3 37.9 mmol/L; ABG PCO2 55.5 mmHg (35.0-45.0); ABG PH 7.452 (7.350-7.450); ABG PO2 63.6 mmHg (75.0-100.0); ABG SITE RIGHT RADIAL; ABG TOTAL HEMOGLOBIN 10.8 G/dL (13.5-18.0); COHb 1.3 % (0.5-1.5); MetHb 0.3 % (0.0-1.5); O2Hb 91.6 % (94.0-97.0); VENT MODE HIGH FLOW NASAL CANNULA
--- NOTE | 2020-04-26 06:52 | NUR ---
pt rested well in between care; repositioned for comfort; BMx2 incontinence care done; dressing to sacrum changed twice.
--- NOTE | 2020-04-26 07:18 | NUR ---
Received patient in bed with eye closed. Patients looks comfortable with current high flow oxygen set at 35/60 saturating at 99%. Patient is V Pacing with frequent PVCs at 67 bpm.
[2020-04-26] MEDS: ALBUTEROL SULFATE 2.5 MG/3 ML NEBU IH SCH ×2 (07:40→19:19)
--- NOTE | 2020-04-26 08:00 | NUR ---
Received patient in bed sleeping. Patient is V Pacing at 61 BPM. Patient is on high flow oxygen at 35/60. Patient is comfortable and saturating at 96%.
[2020-04-26] MEDS: FUROSEMIDE 40 MG/4 ML VIAL IV SCH ×3 (08:40→17:16)
[2020-04-26] MEDS: CYANOCOBALAMIN 1,000 MCG TABLET PO SCH (08:40)
[2020-04-26] MEDS: CARVEDILOL 3.125 MG TABLET PO SCH ×2 (08:41→17:00)
[2020-04-26] MEDS: FERROUS SULFATE 300 MG/5 ML LIQUID UDC PO SCH (08:41)
[2020-04-26] MEDS: FINASTERIDE 5 MG TABLET PO SCH (08:41)
[2020-04-26] MEDS: ACETAzolamide 250 MG TABLET PO SCH ×2 (08:41→20:36)
[2020-04-26] MEDS: MUPIROCIN 2% OINT 22 GM TUBE TP SCH (08:56)
[2020-04-26] MEDS: ENSURE ENLIVE (VAN) 240 ML LIQUID PO SCH (09:11)
--- NOTE | 2020-04-26 15:00 | NUR ---
Received a call from DR. Weiner for consent for insertion of temporary hemodialysis catheter. Daughter, Leighann, notified and gave consent for procedure.
[2020-04-26 15:03] LABS: CHLORIDE 108 mmol/L (98-107); CREATININE 2.8 mg/dL (0.6-1.3); GLUCOSE 127 mg/dL (74-106); MAGNESIUM 2.4 mg/dL (1.8-2.4); PHOSPHOROUS 2.8 mg/dL (2.5-4.9); POTASSIUM 3.2 mmol/L (3.5-5.1)
[2020-04-26 15:16] LABS: BASOPHILS % (AUTO) 0.5 % (0.0-2.0); EOSINOPHILS # (AUTO) 0.1 K/uL (0.0-0.7); EOSINOPHILS % (AUTO) 0.8 % (0.0-7.0); HEMATOCRIT 32.9 % (36.7-47.1); HEMOGLOBIN 10.1 g/dL (12.5-16.3); LYMPHOCYTES # (AUTO) 1.3 K/uL (20.0-40.0); LYMPHOCYTES % (AUTO) 12.1 % (20.5-51.5); MEAN CORPUSCULAR HEMOGLOBIN 29.5 uug (23.8-33.4); MEAN CORPUSCULAR HGB CONC 31 g/dL (32.5-36.3); MEAN CORPUSCULAR VOLUME 95.7 fL (73.0-96.2); MONOCYTES # (AUTO) 0.6 K/uL (2.0-10.0); MONOCYTES % (AUTO) 5.4 % (0.0-11.0); NEUTROPHILS # (AUTO) 8.5 K/uL (1.8-8.9); NEUTROPHILS % (AUTO) 81.2 % (38.5-71.5); PLATELET COUNT (AUTO) 145 K/uL (152-348); RED BLOOD CELL COUNT(AUTO) 3.44 MIL/uL (4.06-5.63); WHITE BLOOD COUNT (AUTO) 10.4 K/uL (3.6-10.2)
[2020-04-26 15:17] LABS: CARBON DIOXIDE 41 mmol/L (21-32)
[2020-04-26 15:18] LABS: UREA NITROGEN, BLOOD 87 mg/dL (7-18)
--- NOTE | 2020-04-26 15:42 | NUR ---
Insertion of hemodialysis done at bedside by DR. Weiner. Patient tolerated well. Will monitor insertion site for bleeding.
--- NOTE | 2020-04-26 18:00 | NUR ---
Patient has started hemodialysis.
[2020-04-26] MEDS ORDERED: ALBUMIN HUMAN 25% 100 ML IV ONE (18:30)
--- NOTE | 2020-04-26 18:38 | NUR ---
Blood pressure dropped to 88/44 while on dialysis. Administered 25% of albumin per Dr. Palmer. Given by dialysis nurse. Continue GO observation.
--- NOTE | 2020-04-26 18:59 | NUR ---
dr mathews notified of bp 79/41. advisced to stop HD
[2020-04-26] MEDS: ATORVASTATIN 20 MG TABLET PO SCH (20:36)
[2020-04-26] MEDS: DONEPEZIL 10 MG TABLET PO SCH (20:36)
[2020-04-26] MEDS: POLYVINYL ALCOHOL OPHT DROPS 15 ML BOTTLE OP SCH (20:37)
[2020-04-27] VITALS (10 sets, daily range): BP systolic 86–133; BP diastolic 38–64
[2020-04-27] MEDS: CLOTRIMAZOLE 1% CREAM 30 GM TUBE TP PRN ×2 (05:00→22:00)
[2020-04-27] MEDS ORDERED: ALBUMIN HUMAN 25% 50 ML IV ONE (06:00)
[2020-04-27] MEDS ORDERED: ALBUMIN HUMAN 25% 100 ML IV ONE (06:30)
--- NOTE | 2020-04-27 06:45 | NUR ---
pt rested well in between care; VS stable; afebrile; dressing changed to sacrum twice; HD Nurse here and requested for albumin 25 gm 100 ml; oral care; repositioned q2h; continue to monitor; continue plan of care.
--- NOTE | 2020-04-27 07:18 | NUR ---
Sleeping, on moderate high back rest. O2 on HiFlow at 25L 50% FIO2. Hemodialysis ongoing. Tele v paced
[2020-04-27] MEDS: ALBUTEROL SULFATE 2.5 MG/3 ML NEBU IH SCH ×2 (08:11→19:45)
--- NOTE | 2020-04-27 08:17 | NUR ---
Noted desaturation and decreased BP during hemodialysis. HD stopped, no output. RT at bedside, HHN done, suctioning done. Hi Flow maintained at 25L 50% FIO2 after treatment with latest O2 sat of 94%
--- NOTE | 2020-04-27 08:30 | NUR ---
O2 sat post HHN not sustained, down to 89%. Hi Flow changed to 25L to 60% FIO2 with O2 sat of 97%
[2020-04-27] MEDS: CARVEDILOL 3.125 MG TABLET PO SCH (09:00)
[2020-04-27] MEDS: ACETAzolamide 250 MG TABLET PO SCH ×2 (09:07→20:24)
[2020-04-27] MEDS: FERROUS SULFATE 300 MG/5 ML LIQUID UDC PO SCH (09:07)
[2020-04-27] MEDS: FINASTERIDE 5 MG TABLET PO SCH (09:08)
[2020-04-27] MEDS: CYANOCOBALAMIN 1,000 MCG TABLET PO SCH (09:08)
[2020-04-27] MEDS: MUPIROCIN 2% OINT 22 GM TUBE TP SCH (09:08)
[2020-04-27] MEDS: ENSURE ENLIVE (VAN) 240 ML LIQUID PO SCH (09:09)
[2020-04-27] MEDS: FUROSEMIDE 40 MG/4 ML VIAL IV SCH ×3 (09:13→17:44)
--- NOTE | 2020-04-27 11:00 | NUR ---
Hi flow titrated to 25L at 50% FIO2.
--- NOTE | 2020-04-27 13:00 | NUR ---
With BM to loose greenish stool. Incontinence care done. Repositioned in bed comfortably.
--- NOTE | 2020-04-27 18:31 | NUR ---
Assisted with meals, with fair appetite. Repositioned in bed comfortably.
[2020-04-27] MEDS: DONEPEZIL 10 MG TABLET PO SCH (20:22)
[2020-04-27] MEDS: ATORVASTATIN 20 MG TABLET PO SCH (20:22)
[2020-04-27] MEDS: POLYVINYL ALCOHOL OPHT DROPS 15 ML BOTTLE OP SCH (20:24)
[2020-04-28] VITALS (9 sets, daily range): BP systolic 92–125; BP diastolic 46–66
--- NOTE | 2020-04-28 04:26 | NUR ---
PATIENT PLACE ON BI/PAP @ 23:30 ORDERED WITH FILL LARGE MASK, SETTINGS, 15/5 PS 10, RATE 16, FIO2 @ 50%, DOING WELL, PULSE OXY CONT AT BEDSIDE, PT WILL BE ON HFNC ON DAY SHIFT . Dre JONES RCP Addendum: 04/28/20 at 0428 by RICKEY JONES RT Amended: Links added.
[2020-04-28 07:24] LABS: BASOPHILS % (AUTO) 0.2 % (0.0-2.0); CARBON DIOXIDE 36 mmol/L (21-32); CHLORIDE 108 mmol/L (98-107); CREATININE 2.3 mg/dL (0.6-1.3); EOSINOPHILS # (AUTO) 0.1 K/uL (0.0-0.7); EOSINOPHILS % (AUTO) 0.8 % (0.0-7.0); GLUCOSE 103 mg/dL (74-106); HEMATOCRIT 29.8 % (36.7-47.1); HEMOGLOBIN 9.2 g/dL (12.5-16.3); LYMPHOCYTES # (AUTO) 1.5 K/uL (20.0-40.0); LYMPHOCYTES % (AUTO) 15.5 % (20.5-51.5); MAGNESIUM 2.3 mg/dL (1.8-2.4); MEAN CORPUSCULAR HEMOGLOBIN 29.7 uug (23.8-33.4); MEAN CORPUSCULAR HGB CONC 31 g/dL (32.5-36.3); MEAN CORPUSCULAR VOLUME 95.9 fL (73.0-96.2); MONOCYTES # (AUTO) 0.7 K/uL (2.0-10.0); MONOCYTES % (AUTO) 7.2 % (0.0-11.0); NEUTROPHILS # (AUTO) 7.5 K/uL (1.8-8.9); NEUTROPHILS % (AUTO) 76.3 % (38.5-71.5); PHOSPHOROUS 2.5 mg/dL (2.5-4.9); PLATELET COUNT (AUTO) 115 K/uL (152-348); POTASSIUM 2.9 mmol/L (3.5-5.1); RED BLOOD CELL COUNT(AUTO) 3.11 MIL/uL (4.06-5.63); UREA NITROGEN, BLOOD 66 mg/dL (7-18); WHITE BLOOD COUNT (AUTO) 9.8 K/uL (3.6-10.2)
--- NOTE | 2020-04-28 07:24 | NUR ---
Patient rseted well in between care; repositioned q2h; BM x2 incontinence care done; had BiPap last night and tolerated well; VSS; afebrile; continue to monitor; continue plan of care
[2020-04-28] MEDS: ALBUTEROL SULFATE 2.5 MG/3 ML NEBU IH SCH ×2 (07:54→19:42)
[2020-04-28] MEDS: MIDODRINE HCL 5 MG TABLET PO SCH (08:18)
[2020-04-28] MEDS ORDERED: POTASSIUM CHLORIDE 20 MEQ POWDER PACKET NG ONE (08:45)
[2020-04-28] MEDS ORDERED: POTASSIUM CHLORIDE 50 ML IV SCH (08:45)
[2020-04-28] MEDS: ACETAzolamide 250 MG TABLET PO SCH ×2 (09:00→21:02)
[2020-04-28] MEDS: FUROSEMIDE 40 MG/4 ML VIAL IV SCH ×3 (09:00→16:07)
[2020-04-28] MEDS: CYANOCOBALAMIN 1,000 MCG TABLET PO SCH (09:00)
[2020-04-28] MEDS: FINASTERIDE 5 MG TABLET PO SCH (09:00)
[2020-04-28] MEDS ORDERED: ALBUMIN HUMAN 25% 100 ML IV ONE (10:00)
[2020-04-28] MEDS ORDERED: POTASSIUM CHLORIDE 20 MEQ TAB.PRT.SR PO ONE (10:30)
--- NOTE | 2020-04-28 11:17 | NUR ---
resting quietly. unable to awais full dialysis tx. 200 ml fl added according to dialysis nurse. b/p 89/45 at this time midodrine given this am. other po meds on hold. 2 bottles albumin given iv. awais po intake for bkfst fed 80% of his meal. awais well. sleeping now not easily arousable as this morning. but responsive to painful stimuli. monitoring b/p at this time 94/46-60
[2020-04-28] MEDS: ENSURE ENLIVE (VAN) 240 ML LIQUID PO SCH (11:28)
[2020-04-28] MEDS: MUPIROCIN 2% OINT 22 GM TUBE TP SCH (11:29)
[2020-04-28] MEDS ORDERED: POTASSIUM CHLORIDE 20 MEQ TAB.PRT.SR PO SCH (12:30)
[2020-04-28] MEDS: FERROUS SULFATE 300 MG/5 ML LIQUID UDC PO SCH (13:51)
[2020-04-28] MEDS: POTASSIUM CHLORIDE 50 ML IV SCH ×2 (16:41→19:07)
--- NOTE | 2020-04-28 19:55 | NUR ---
Received patient in bed .Sleeping not easily arousable but responsive to painful stimuli.On high flow 25 L FIO2 50 %O2 sat at 99%.HOB elevated.No s/s of distress noted. Blankenship catheter in place draining with clear yellow urine output. BMx1. Will continue to monitor.
[2020-04-28] MEDS: DONEPEZIL 10 MG TABLET PO SCH (21:02)
[2020-04-28] MEDS: ATORVASTATIN 20 MG TABLET PO SCH (21:02)
[2020-04-28] MEDS: POLYVINYL ALCOHOL OPHT DROPS 15 ML BOTTLE OP SCH (21:19)
[2020-04-29 00:32] VITALS: BP 123/58
--- NOTE | 2020-04-29 04:49 | NUR ---
PATIENT PLACED ON BI/PAP @ 23:30 WITH SAME SETTINGS, 15/ , R15 , FIO2 @ 50%, SAT 100%, HR 60 APPROX, WILL GO ON HFNC IN AM DAY SHIFT, WITH ABG @ 08:00 . Dre JONES RCP Addendum: 04/29/20 at 0451 by RICKEY JONES RT Amended: Links added.
[2020-04-29 05:47] VITALS: BP 122/59
--- NOTE | 2020-04-29 05:57 | NUR ---
Patient on Bipap as ordered.Saturating well at 99%-100%.No distress noted.Dialysis catheter in place on right groin with 3 lumen.Patient had BM this a.m .Changed and repositioned patient. Wound care tx rendered.Tolerated well.Bp 123/58,98.6,60 ,18.
[2020-04-29 06:50] LABS: BASOPHILS % (AUTO) 0.4 % (0.0-2.0); EOSINOPHILS # (AUTO) 0.1 K/uL (0.0-0.7); EOSINOPHILS % (AUTO) 0.9 % (0.0-7.0); HEMATOCRIT 28.7 % (36.7-47.1); HEMOGLOBIN 8.8 g/dL (12.5-16.3); LYMPHOCYTES # (AUTO) 1.4 K/uL (20.0-40.0); LYMPHOCYTES % (AUTO) 13.5 % (20.5-51.5); MEAN CORPUSCULAR HEMOGLOBIN 29.7 uug (23.8-33.4); MEAN CORPUSCULAR HGB CONC 31 g/dL (32.5-36.3); MONOCYTES # (AUTO) 0.8 K/uL (2.0-10.0); MONOCYTES % (AUTO) 7.5 % (0.0-11.0); NEUTROPHILS # (AUTO) 7.8 K/uL (1.8-8.9); NEUTROPHILS % (AUTO) 77.7 % (38.5-71.5); PLATELET COUNT (AUTO) 111 K/uL (152-348); RED BLOOD CELL COUNT(AUTO) 2.96 MIL/uL (4.06-5.63)
[2020-04-29 07:12] LABS: CARBON DIOXIDE 36 mmol/L (21-32); CHLORIDE 109 mmol/L (98-107); CREATININE 2.3 mg/dL (0.6-1.3); GLUCOSE 111 mg/dL (74-106); MAGNESIUM 2.5 mg/dL (1.8-2.4); PHOSPHOROUS 2.6 mg/dL (2.5-4.9); POTASSIUM 3.8 mmol/L (3.5-5.1); UREA NITROGEN, BLOOD 64 mg/dL (7-18)
[2020-04-29] MEDS: ALBUTEROL SULFATE 2.5 MG/3 ML NEBU IH SCH ×2 (07:58→20:18)
[2020-04-29] MEDS: MIDODRINE HCL 5 MG TABLET PO SCH (08:18)
--- NOTE | 2020-04-29 08:29 | NUR ---
Pt responds to his name with verbal stimuli. HHN tx given by R.T. Pt put on HI FLOW with setting of 25L @ 50%FIO2 with saturation of 100%. UE's and LE's +3 Edema. Call light is withi reach.
[2020-04-29] MEDS: FUROSEMIDE 40 MG/4 ML VIAL IV SCH ×3 (09:00→20:55)
[2020-04-29] MEDS: ALBUMIN HUMAN 25% 100 ML IV PRN (09:00)
--- NOTE | 2020-04-29 09:00 | NUR ---
HD RN started dialysis. Plasmanate given to HD nurse to give to patient.
[2020-04-29 10:06] LABS: HEPATITIS B SURFACE AB Reactive (.); HEPATITIS B SURFACE AG Negative (Negative)
--- NOTE | 2020-04-29 11:45 | NUR ---
HD done and took out 400cc. Clarified with Conrado KIDD of [facility] if he want to transfer to icu to have pt put ofn pressors during nest dialysis for optimal dialysis session secondary to pts b/p drops during dialysis and needs midodrine and albumin to keep pressure up.
[2020-04-29 12:00] VITALS: BP 98/48
--- NOTE | 2020-04-29 12:00 | NUR ---
PEr SITA KIDD. Dr Elizondo will be here to see pt tomorrow and will decide if transfer to ICU for pressors during HD is necessary.
[2020-04-29] MEDS: FERROUS SULFATE 300 MG/5 ML LIQUID UDC PO SCH (12:10)
[2020-04-29] MEDS: CYANOCOBALAMIN 1,000 MCG TABLET PO SCH (12:10)
[2020-04-29] MEDS: FINASTERIDE 5 MG TABLET PO SCH (12:10)
[2020-04-29] MEDS: PROTEIN SUPPLEMENT (PROSTAT) 30 ML LIQUID PO SCH (12:11)
[2020-04-29] MEDS: ENSURE ENLIVE (VAN) 240 ML LIQUID PO SCH (12:11)
[2020-04-29] MEDS: MUPIROCIN 2% OINT 22 GM TUBE TP SCH (12:11)
[2020-04-29] MEDS: ACETAzolamide 250 MG TABLET PO SCH ×2 (12:12→22:51)
[2020-04-29 12:46] LABS: ABG BASE EXCESS 5.2 mmol/L; ABG HCO3 29.2 mmol/L; ABG PCO2 40.9 mmHg (35.0-45.0); ABG PH 7.472 (7.350-7.450); ABG PO2 84.7 mmHg (75.0-100.0); ABG SITE RIGHT RADIAL; ABG TOTAL HEMOGLOBIN 9.3 G/dL (13.5-18.0); COHb 1.3 % (0.5-1.5); MetHb 0.2 % (0.0-1.5); O2Hb 95.4 % (94.0-97.0); VENT MODE High Flow
[2020-04-29 15:58] VITALS: BP 104/57
[2020-04-29 20:14] VITALS: BP 123/55
[2020-04-29] MEDS: ATORVASTATIN 20 MG TABLET PO SCH (20:55)
[2020-04-29] MEDS: DONEPEZIL 10 MG TABLET PO SCH (21:03)
[2020-04-29] MEDS: POLYVINYL ALCOHOL OPHT DROPS 15 ML BOTTLE OP SCH (21:05)
[2020-04-29] MEDS: CLOTRIMAZOLE 1% CREAM 30 GM TUBE TP PRN (22:00)
[2020-04-30] VITALS (7 sets, daily range): BP systolic 108–178; BP diastolic 44–73
--- NOTE | 2020-04-30 06:32 | NUR ---
Pt rested well in between care; no acute distress; dressing changed to sacrum start of shift and at 0600: repositioned q2h; spoke to pt's daughter Leighann and update given; dressing to right groin done; needs attended.
[2020-04-30 07:12] LABS: BASOPHILS % (AUTO) 0.3 % (0.0-2.0); EOSINOPHILS % (AUTO) 0.5 % (0.0-7.0); HEMATOCRIT 29.9 % (36.7-47.1); HEMOGLOBIN 9.3 g/dL (12.5-16.3); LYMPHOCYTES # (AUTO) 1.2 K/uL (20.0-40.0); LYMPHOCYTES % (AUTO) 11.6 % (20.5-51.5); MEAN CORPUSCULAR HEMOGLOBIN 29.9 uug (23.8-33.4); MEAN CORPUSCULAR HGB CONC 31 g/dL (32.5-36.3); MONOCYTES # (AUTO) 0.8 K/uL (2.0-10.0); MONOCYTES % (AUTO) 7.5 % (0.0-11.0); NEUTROPHILS % (AUTO) 80.1 % (38.5-71.5); PLATELET COUNT (AUTO) 116 K/uL (152-348); RED BLOOD CELL COUNT(AUTO) 3.11 MIL/uL (4.06-5.63)
[2020-04-30 07:25] LABS: CARBON DIOXIDE 32 mmol/L (21-32); CHLORIDE 108 mmol/L (98-107); GLUCOSE 95 mg/dL (74-106); MAGNESIUM 2.3 mg/dL (1.8-2.4); PHOSPHOROUS 2.3 mg/dL (2.5-4.9); POTASSIUM 4.2 mmol/L (3.5-5.1); UREA NITROGEN, BLOOD 45 mg/dL (7-18)
--- NOTE | 2020-04-30 08:00 | NUR ---
Pt awake enough to eat. Pt responds to simple yes or no questions. Pt responded No if he is in pain. Responded yes that he is hungry. Aspiration precaution implemented. No coughing noted while eating. Medications crushed with apple sauce. BLE's +3 and UE's +3 edema pitting. LE's floated. Pt on KCI bed. Turn q 2 hrs implemented. Dressing on sacral area and right calf intact. F/c Draining dark yellow urine by gravity. ML on right upper arm intact and flushing well. Call light is within reach.
[2020-04-30] MEDS: CYANOCOBALAMIN 1,000 MCG TABLET PO SCH (08:15)
[2020-04-30] MEDS: FERROUS SULFATE 300 MG/5 ML LIQUID UDC PO SCH (08:15)
[2020-04-30] MEDS: FUROSEMIDE 40 MG/4 ML VIAL IV SCH ×3 (08:15→16:25)
[2020-04-30] MEDS: FINASTERIDE 5 MG TABLET PO SCH (08:15)
[2020-04-30] MEDS: PROTEIN SUPPLEMENT (PROSTAT) 30 ML LIQUID PO SCH (08:16)
[2020-04-30] MEDS: ENSURE ENLIVE (VAN) 240 ML LIQUID PO SCH (08:17)
[2020-04-30] MEDS: ACETAzolamide 250 MG TABLET PO SCH ×2 (08:18→20:43)
[2020-04-30] MEDS: MUPIROCIN 2% OINT 22 GM TUBE TP SCH (08:18)
[2020-04-30] MEDS: ALBUTEROL SULFATE 2.5 MG/3 ML NEBU IH SCH ×2 (08:33→20:13)
--- NOTE | 2020-04-30 16:30 | NUR ---
Found pt while doing hour rounds found pt pulled out his high flow oxygen and desaturating to 82%. Reapplied hi flow o2 with same setting @ 20liters with 50% fi02 and able to get o2 sat back up to 98% o2 sat.
--- NOTE | 2020-04-30 17:01 | NUR ---
Spoke with Sancho FREEDMAN stated HD will be with held today per DR Elizondo.
--- NOTE | 2020-04-30 19:00 | NUR ---
PATIENT ASLEEP BUT AROUSABLE, ON HIGH FLOW OXYGEN 25 LITERS, FIO2 50, OXYGEN SAT 96 TO 99%. PATIENT STILL HAS GEN SWELLING NOTED, TURN AND REPOSITION. NO S/S OF CHEST PAIN NOR SOB. KEPT COMFORTABLE.
--- NOTE | 2020-04-30 19:50 | NUR ---
PATIENT ON TELE MONITOR V PACING, CONT TO MONITOR.
[2020-04-30] MEDS: DONEPEZIL 10 MG TABLET PO SCH (20:43)
[2020-04-30] MEDS: ATORVASTATIN 20 MG TABLET PO SCH (20:44)
[2020-04-30] MEDS: POLYVINYL ALCOHOL OPHT DROPS 15 ML BOTTLE OP SCH (20:48)
[2020-05-01 00:24] VITALS: BP 129/54
--- NOTE | 2020-05-01 01:41 | NUR ---
PATIENT REMOVING CPAP CAUSING DESATURATION, REORIENT PATIENT, ASSESS FOR PAIN AND DISCOMFORT, KEPT CLEAN AND DRY, BUT NOT EFFECTIVE, NOTIFY MD WITH ORDER. PATIENT LISSET SOFT WRIST RESTRAINT CHECK FOR PLACEMENT AND CIRCULATION, CONT TO MONITOR.
[2020-05-01 04:19] VITALS: BP 112/57
[2020-05-01] MEDS: ALBUTEROL SULFATE 2.5 MG/3 ML NEBU IH SCH ×2 (07:17→19:13)
[2020-05-01 07:32] VITALS: BP 116/55
[2020-05-01] MEDS: FERROUS SULFATE 300 MG/5 ML LIQUID UDC PO SCH (08:32)
[2020-05-01] MEDS: FUROSEMIDE 40 MG/4 ML VIAL IV SCH ×3 (08:32→16:07)
[2020-05-01] MEDS: ACETAzolamide 250 MG TABLET PO SCH ×2 (08:33→21:00)
[2020-05-01] MEDS: FINASTERIDE 5 MG TABLET PO SCH (08:33)
[2020-05-01] MEDS: CYANOCOBALAMIN 1,000 MCG TABLET PO SCH (08:33)
[2020-05-01] MEDS: ENSURE ENLIVE (VAN) 240 ML LIQUID PO SCH (08:34)
[2020-05-01] MEDS: MUPIROCIN 2% OINT 22 GM TUBE TP SCH (08:35)
[2020-05-01] MEDS: PROTEIN SUPPLEMENT (PROSTAT) 30 ML LIQUID PO SCH (08:36)
[2020-05-01 11:54] VITALS: BP 113/45
--- NOTE | 2020-05-01 14:00 | NUR ---
1400 PATIENTS DAUGHTER HERE AT BEDSIDE. PT IS IN BED WITH EYES CLOSED. CALL LIGHT WITHIN EASY REACH.
[2020-05-01 16:00] VITALS: BP 108/63
--- NOTE | 2020-05-01 18:00 | NUR ---
PT IS ON FIRST STEP MATTRESS WITH EYES CLOSED. CONTINUES ON HI GUILLE 25% VIA NC WITH NO SHORTNESS OF BREATH OR DIFFICULTIES BREATHING. DRESSINGS ARE DRY AND INTACT. PT ON TELE CONTINUING TO SHOW V-PACING. CALL LIGHT WITHIN EASY REACH. WILL CONTINUE TO MONITOR.
[2020-05-01] MEDS: ALBUMIN HUMAN 25% 100 ML IV PRN (19:47)
[2020-05-01] MEDS: DONEPEZIL 10 MG TABLET PO SCH (21:00)
[2020-05-01] MEDS: ATORVASTATIN 20 MG TABLET PO SCH (21:00)
[2020-05-01] MEDS: POLYVINYL ALCOHOL OPHT DROPS 15 ML BOTTLE OP SCH (21:00)
--- NOTE | 2020-05-01 21:00 | NUR ---
Post HD, from 7pm to 9pm, pt unable to fully tolerate due to hypotension (SBP in 80s) despite albumin adminitration. Unable to give midodrine, pt is not fully awake and unable to fully follow commands
--- NOTE | 2020-05-01 21:42 | NUR ---
Post HD, pt asleep, attempted to give PO meds, however pt does not fully follow commands, high risk for aspiration at this time.
[2020-05-01 22:05] VITALS: BP_SYST 87; BP_SYST 93; BP_DIAS 40; BP_DIAS 42
--- NOTE | 2020-05-01 22:40 | NUR ---
Attempted to provide eye drop, pt only moaned and does not want to open his eyes
--- NOTE | 2020-05-01 22:59 | NUR ---
Pt occasionally responds to name and pain, only verbalizes "yeah"
[2020-05-02] VITALS (8 sets, daily range): BP systolic 92–142; BP diastolic 10–51
--- NOTE | 2020-05-02 06:15 | NUR ---
Dr. Avendano at bedside, showed the episode of 3 sec vtach with hr of 160. Also notified, pt's bp has been low with SBP <90s and DBP <40
[2020-05-02 06:52] LABS: BASOPHILS % (AUTO) 0.2 % (0.0-2.0); HEMATOCRIT 26.2 % (36.7-47.1); HEMOGLOBIN 8.4 g/dL (12.5-16.3); LYMPHOCYTES # (AUTO) 0.7 K/uL (20.0-40.0); LYMPHOCYTES % (AUTO) 3.1 % (20.5-51.5); MEAN CORPUSCULAR HEMOGLOBIN 30.7 uug (23.8-33.4); MEAN CORPUSCULAR HGB CONC 32 g/dL (32.5-36.3); MEAN CORPUSCULAR VOLUME 96.3 fL (73.0-96.2); MONOCYTES # (AUTO) 1.4 K/uL (2.0-10.0); MONOCYTES % (AUTO) 5.8 % (0.0-11.0); NEUTROPHILS # (AUTO) 21.8 K/uL (1.8-8.9); NEUTROPHILS % (AUTO) 90.9 % (38.5-71.5); PLATELET COUNT (AUTO) 104 K/uL (152-348); RED BLOOD CELL COUNT(AUTO) 2.72 MIL/uL (4.06-5.63); WHITE BLOOD COUNT (AUTO) 23.9 K/uL (3.6-10.2)
[2020-05-02 07:05] LABS: ALANINE AMINOTRANSFERASE 29 U/L (16-63); ALKALINE PHOSPHATASE 81 U/L (50-136); ASPARTATE AMINOTRANSFERASE 62 U/L (15-37); BILIRUBIN,TOTAL 1.3 mg/dL (0.2-1.0); CARBON DIOXIDE 28 mmol/L (21-32); CHLORIDE 107 mmol/L (98-107); CREATININE 2.8 mg/dL (0.6-1.3); GLUCOSE 99 mg/dL (74-106); MAGNESIUM 2.2 mg/dL (1.8-2.4); PHOSPHOROUS 2.5 mg/dL (2.5-4.9); POTASSIUM 4.2 mmol/L (3.5-5.1); TOTAL PROTEIN, SERUM 5.3 g/dL (6.4-8.2); UREA NITROGEN, BLOOD 58 mg/dL (7-18)
[2020-05-02] MEDS: ALBUTEROL SULFATE 2.5 MG/3 ML NEBU IH SCH ×2 (07:26→20:05)
--- NOTE | 2020-05-02 07:30 | NUR ---
PATIENT RECEIVED IN BED WITH EYES CLOSED. RIGHT UPPER ARM MID-LINE INTACT WITH NO REDNESS OR SWELLING. RT AT BEDSIDE AND REMOVED BI-PAP AND PT PLACED ON HI-GUILLE 25L VIA NC FIO2 50 WITH SATURATION AT 99%. CALL LIGHT WITHIN REACH AND WILL CONTINUE TO OBSERVE.
[2020-05-02] MEDS: FINASTERIDE 5 MG TABLET PO SCH (08:25)
[2020-05-02] MEDS: CYANOCOBALAMIN 1,000 MCG TABLET PO SCH (08:25)
[2020-05-02] MEDS: ACETAzolamide 250 MG TABLET PO SCH ×2 (08:25→21:39)
[2020-05-02] MEDS: FERROUS SULFATE 300 MG/5 ML LIQUID UDC PO SCH (08:25)
[2020-05-02] MEDS: PROTEIN SUPPLEMENT (PROSTAT) 30 ML LIQUID PO SCH (08:25)
[2020-05-02] MEDS: ENSURE ENLIVE (VAN) 240 ML LIQUID PO SCH (08:28)
[2020-05-02] MEDS: MUPIROCIN 2% OINT 22 GM TUBE TP SCH (08:29)
[2020-05-02 09:06] LABS: ABG BASE EXCESS 1.1 mmol/L; ABG HCO3 24.9 mmol/L; ABG PCO2 36.1 mmHg (35.0-45.0); ABG PH 7.456 (7.350-7.450); ABG PO2 91.5 mmHg (75.0-100.0); ABG SITE RIGHT RADIAL; ABG TOTAL HEMOGLOBIN 8.9 G/dL (13.5-18.0); COHb 1.4 % (0.5-1.5); MetHb 0.2 % (0.0-1.5); O2Hb 95.9 % (94.0-97.0); VENT MODE HF - Aquinox
[2020-05-02] MEDS ORDERED: MIDODRINE HCL 5 MG TABLET PO SCH (11:30)
[2020-05-02] MEDS ORDERED: ALBUMIN HUMAN 25% 100 ML IV PRN (11:30)
[2020-05-02] MEDS: ALBUMIN HUMAN 25% 100 ML IV PRN (13:20)
--- NOTE | 2020-05-02 15:30 | NUR ---
PATIENT FINISHED DIALYSIS AND REPORT GIVEN BY THE DIALYSIS NURSE. PATIENT FINISHED DIALYSIS SESSION WITH BLOOD PRESSURE OF 130/45. 2000ML OUTPUT NOTED. PT TOLERATED WELL. PT CURRENTLY IN BED WITH EYES CLOSED WITH HI-GUILLE O2 AT 25L VIA NC FIO2 50. WILL CONTINUE TO MONITOR.
--- NOTE | 2020-05-02 19:45 | NUR ---
PATIENT AWAKE HOB ELEVATE, NO SOB NO CHEST PAIN NOTED, ON HIGH FLOW OXYGEN TOLERATE WELL, NO DESATURATION NOTED. PATIENT HAS NO S/S PAIN AT THIS TIME. PATIENT TELE MONITOR V PACING. PATIENT BP WAS CLOSELY MONITORED, CONT TO MONITOR.
[2020-05-02] MEDS: ATORVASTATIN 20 MG TABLET PO SCH (21:38)
[2020-05-02] MEDS: DONEPEZIL 10 MG TABLET PO SCH (21:38)
[2020-05-02] MEDS: POLYVINYL ALCOHOL OPHT DROPS 15 ML BOTTLE OP SCH (23:35)
[2020-05-03] VITALS (53 sets, daily range): BP systolic 77–146; BP diastolic 4–82
[2020-05-03] MEDS ORDERED: IV NORMAL SALINE 500 ML IV ONE
--- NOTE | 2020-05-03 00:01 | NUR ---
PATIENT BP 112/[address] MOORE WITH ORDER TO GIVE NS 500ML ONCE. CONT TO MONITOR.
--- NOTE | 2020-05-03 02:00 | NUR ---
PATIENT BP STILL LOW 126/ 37, MD AWARE OF PATIENT LOW DIASTOLIC, PATIENT AWAKE, NO S/S OF DISTRESS, CONT TO MONITOR.
[2020-05-03 06:49] LABS: BASOPHILS % (AUTO) 0.1 % (0.0-2.0); EOSINOPHILS % (AUTO) 0.1 % (0.0-7.0)
--- NOTE | 2020-05-03 06:49 | NUR ---
PATIENT WILL BE TRANSFER TO CCU FOR CLOSELY MONITORING OF BP. HELENE HERNANDEZ GAVE REPORT.
[2020-05-03 06:50] LABS: HEMATOCRIT 22.9 % (36.7-47.1); LYMPHOCYTES # (AUTO) 1.5 K/uL (20.0-40.0); MEAN CORPUSCULAR HEMOGLOBIN 30.6 uug (23.8-33.4); MEAN CORPUSCULAR HGB CONC 32 g/dL (32.5-36.3); MEAN CORPUSCULAR VOLUME 97.1 fL (73.0-96.2); MONOCYTES # (AUTO) 1.7 K/uL (2.0-10.0); MONOCYTES % (AUTO) 8.4 % (0.0-11.0); NEUTROPHILS # (AUTO) 17.4 K/uL (1.8-8.9); NEUTROPHILS % (AUTO) 84.4 % (38.5-71.5); PLATELET COUNT (AUTO) 91 K/uL (152-348); WHITE BLOOD COUNT (AUTO) 20.6 K/uL (3.6-10.2)
[2020-05-03 06:51] LABS: CARBON DIOXIDE 28 mmol/L (21-32); CHLORIDE 104 mmol/L (98-107); CREATININE 2.4 mg/dL (0.6-1.3); GLUCOSE 97 mg/dL (74-106); MAGNESIUM 2.3 mg/dL (1.8-2.4); PHOSPHOROUS 2.5 mg/dL (2.5-4.9); POTASSIUM 3.6 mmol/L (3.5-5.1); UREA NITROGEN, BLOOD 58 mg/dL (7-18)
[2020-05-03 06:52] LABS: RED BLOOD CELL COUNT(AUTO) 2.36 MIL/uL (4.06-5.63)
[2020-05-03 06:57] LABS: HEMOGLOBIN 7.2 g/dL (12.5-16.3)
--- NOTE | 2020-05-03 06:57 | NUR ---
RECEIVED CALL FROM ASHLEY (LAB) REGARDING PT HEMOGLOBIN 7.2 AND HEMATOCRIT 22.9.
--- NOTE | 2020-05-03 07:13 | NUR ---
TRANSFER PATIENT TO CCU BED 1, GAVE REPORT TO BOBBY HERNANDEZ AGAIN. NOTIFY CCU STAFF HGH 7.2, HCT 22.9.
[2020-05-03] MEDS: ALBUTEROL SULFATE 2.5 MG/3 ML NEBU IH SCH ×2 (07:14→19:51)
--- NOTE | 2020-05-03 07:27 | NUR ---
Patient down from third floor GO transfer by R.N and RT team. Patient lethargic responding only to painful stimuli, and morning care by moaning and withdrawing. On high flow 20L=40%. saturation of 100%. no respiratory distress noted. Vpacing on demand rate fluctuating between 60-80. sbp in the low 90's. blackburn to gravity. Sacral wound and bue sores. Will continue with care plan.
--- NOTE | 2020-05-03 07:46 | NUR ---
Cardiology services, Dr. Gonzales in the unit to examine pt. during assessment informed of low sbp stand by orders for levophed received and orders to upgrade pt. to ICU if levophed started. Current sbp of 91/46 recycled x3 (85/41, 83/42).
[2020-05-03] MEDS: PROTEIN SUPPLEMENT (PROSTAT) 30 ML LIQUID PO SCH (07:49)
--- NOTE | 2020-05-03 07:55 | NUR ---
Pulmonary services, Dr. Del Cid in the unit to see and examine pt. report given see order hx.
[2020-05-03] MEDS: FERROUS SULFATE 300 MG/5 ML LIQUID UDC PO SCH (08:03)
[2020-05-03] MEDS: FINASTERIDE 5 MG TABLET PO SCH (08:03)
[2020-05-03] MEDS: ENSURE ENLIVE (VAN) 240 ML LIQUID PO SCH ×2 (08:06→21:25)
[2020-05-03] MEDS: CLOTRIMAZOLE 1% CREAM 30 GM TUBE TP PRN (08:06)
[2020-05-03] MEDS: ACETAzolamide 250 MG TABLET PO SCH ×2 (08:09→21:20)
[2020-05-03] MEDS: CYANOCOBALAMIN 1,000 MCG TABLET PO SCH (08:09)
[2020-05-03] MEDS: MUPIROCIN 2% OINT 22 GM TUBE TP SCH (08:09)
[2020-05-03] MEDS: MIDODRINE HCL 5 MG TABLET PO SCH ×3 (08:16→21:21)
--- NOTE | 2020-05-03 10:48 | NUR ---
Attending physician Dr. Brando Ashby in the unit to see and examine pt. while in the unit pt's SBP in the low 70's at this time also pt. barely arousable assessment done by physician. Agreed in starting pt. on levophed drip. Boiler Tube Blower updated as well.
[2020-05-03] MEDS: NOREPINEPHRINE BITARTRATE 32 MG in IV NORMAL SALINE 218 ML IV PRN (11:01)
--- NOTE | 2020-05-03 13:51 | NUR ---
Whit Zeta with surgery team in the unit to follow up on sacral wound. Report given. Will continue with care plan.
[2020-05-03 15:44] LABS: BAND % (MANUAL) 7 % (0-10); LYMPHOCYTES % (MANUAL) 10 % (20-40); MONOCYTES % (MANUAL) 9 % (2-10); NEUTROPHILS % (MANUAL) 73 % (42-75)
[2020-05-03] MEDS: POLYVINYL ALCOHOL OPHT DROPS 15 ML BOTTLE OP SCH (21:20)
[2020-05-03] MEDS: ATORVASTATIN 20 MG TABLET PO SCH (21:20)
[2020-05-03] MEDS: DONEPEZIL 10 MG TABLET PO SCH (21:20)
[2020-05-04] VITALS (96 sets, daily range): BP systolic 77–130; BP diastolic 43–74
[2020-05-04 05:25] LABS: BASOPHILS # (AUTO) 0.1 K/uL (0.0-8.0); BASOPHILS % (AUTO) 0.2 % (0.0-2.0); EOSINOPHILS # (AUTO) 0.1 K/uL (0.0-0.7); EOSINOPHILS % (AUTO) 0.3 % (0.0-7.0); HEMATOCRIT 26.8 % (36.7-47.1); HEMOGLOBIN 8.4 g/dL (12.5-16.3); LYMPHOCYTES # (AUTO) 1.5 K/uL (20.0-40.0); LYMPHOCYTES % (AUTO) 6.2 % (20.5-51.5); MEAN CORPUSCULAR HGB CONC 31 g/dL (32.5-36.3); MEAN CORPUSCULAR VOLUME 95.7 fL (73.0-96.2); MONOCYTES # (AUTO) 1.3 K/uL (2.0-10.0); MONOCYTES % (AUTO) 5.2 % (0.0-11.0); NEUTROPHILS # (AUTO) 21.7 K/uL (1.8-8.9); NEUTROPHILS % (AUTO) 88.1 % (38.5-71.5); PLATELET COUNT (AUTO) 139 K/uL (152-348); WHITE BLOOD COUNT (AUTO) 24.7 K/uL (3.6-10.2)
[2020-05-04 05:37] LABS: CARBON DIOXIDE 33 mmol/L (21-32); CHLORIDE 105 mmol/L (98-107); GLUCOSE 120 mg/dL (74-106); MAGNESIUM 2.3 mg/dL (1.8-2.4); PHOSPHOROUS 2.8 mg/dL (2.5-4.9); POTASSIUM 4.3 mmol/L (3.5-5.1); UREA NITROGEN, BLOOD 75 mg/dL (7-18)
[2020-05-04] MEDS: MIDODRINE HCL 5 MG TABLET PO SCH ×3 (05:55→21:53)
[2020-05-04] MEDS: ALBUTEROL SULFATE 2.5 MG/3 ML NEBU IH SCH ×2 (08:15→19:18)
--- NOTE | 2020-05-04 08:17 | NUR ---
Pt.was seen by MARIELA DILLON MD with new orders.
[2020-05-04] MEDS: PROTEIN SUPPLEMENT (PROSTAT) 30 ML LIQUID PO SCH (08:22)
[2020-05-04] MEDS: FERROUS SULFATE 300 MG/5 ML LIQUID UDC PO SCH (08:23)
[2020-05-04] MEDS: ACETAzolamide 250 MG TABLET PO SCH ×2 (08:23→20:59)
[2020-05-04] MEDS: ENSURE ENLIVE (VAN) 240 ML LIQUID PO SCH ×3 (08:24→17:18)
[2020-05-04] MEDS: FINASTERIDE 5 MG TABLET PO SCH (08:24)
[2020-05-04] MEDS: CYANOCOBALAMIN 1,000 MCG TABLET PO SCH (08:24)
[2020-05-04] MEDS: MUPIROCIN 2% OINT 22 GM TUBE TP SCH (08:25)
--- NOTE | 2020-05-04 09:30 | NUR ---
Pt.was seen by SITA CUBA NP
--- NOTE | 2020-05-04 09:58 | NUR ---
Pt.was seen by KATHRYN SLADE
[2020-05-04] MEDS: NOREPINEPHRINE BITARTRATE 32 MG in IV NORMAL SALINE 218 ML IV PRN (13:45)
--- NOTE | 2020-05-04 15:00 | NUR ---
levo gtt incr.for HD.HD started tolerated well.
--- NOTE | 2020-05-04 20:00 | NUR ---
ROUNDS MADE PATIENT IN BED . OPEN EYES TO NAME AND FOLLOW SIMPLE COMMANDS AND NON VERBAL .NO S/S/ OF DISTRESS TOLERATING HIGH FLOW 20 L=40% FIO2 SATURATION 98%.HOB UP .ON LEVOPHED DRIP 0.03 MCG/KG/MIN TO KEEP SBP >90. S/P DIALYSIS 500ML FLUID REMOVAL RIGHT LILY CATHETER .F/C TO BSD . CONTINUE TO MONITOR V/S.
[2020-05-04] MEDS: POLYVINYL ALCOHOL OPHT DROPS 15 ML BOTTLE OP SCH (20:55)
[2020-05-04] MEDS: ATORVASTATIN 20 MG TABLET PO SCH (20:58)
[2020-05-04] MEDS: DONEPEZIL 10 MG TABLET PO SCH (20:59)
--- NOTE | 2020-05-04 21:00 | NUR ---
crushed medication and given with applesauce. patient able to swallow,turned and reposition patient . offloaded back and bilateral upper and lower extremities up with pillows .
--- NOTE | 2020-05-04 22:39 | NUR ---
NAHOMY COOMBS ,updated with patient condition v/s and medical history informed about the current medication . with order for antibiotics ,Merrem and Mycamine to start ,patient urine with gram negative rods and yeast .fax orders to nursing household refrigeration mechanic .
--- NOTE | 2020-05-04 22:45 | NUR ---
changed soiled linens patient had bmx1 moderate in amt ,soft and brownish in color ,after care done .
[2020-05-04] MEDS ORDERED: MEROPENEM 500 MG in IV NORMAL SALINE 50 ML IV SCH (23:15)
[2020-05-04] MEDS ORDERED: MICAFUNGIN SODIUM 100 MG in IV NORMAL SALINE 100 ML IV SCH (23:15)
--- NOTE | 2020-05-04 23:30 | NUR ---
respiratory therapist at b/s , from hi flow to bipap 15/5 rate 16 fio2 40%.saturation 100 % .hob up oral care done by respiratory therapist .suction patient via mouth .
[2020-05-05] VITALS (75 sets, daily range): BP systolic 81–140; BP diastolic 35–87
[2020-05-05] MEDS ORDERED: MEROPENEM 500 MG VIAL IV ONE (00:01)
--- NOTE | 2020-05-05 02:00 | NUR ---
NO S/S OF RESPIRATORY DISTRESS TOLERATING BIPAP . REMAINS ON LEVOPHED DRIP SEE FLOW SHEET.CONTINUE BP TAKING Q15 MINUTES .
--- NOTE | 2020-05-05 04:30 | NUR ---
AM CARE DONE ,BATH PATIENT ,INCONTINENT OF STOOL ,CHANGED SOILED LINENS AND GOWN . SACRAL WOUND TREATMENT DONE FOLLOW WOUND CARE ORDERS .
--- NOTE | 2020-05-05 05:45 | NUR ---
RESPIRATORY THERAPIST PLACED PATIENT BACK TO HI FLOW FOR ABG AT 0700.
[2020-05-05 06:00] LABS: BASOPHILS % (AUTO) 0.3 % (0.0-2.0); EOSINOPHILS % (AUTO) 0.3 % (0.0-7.0); HEMATOCRIT 24.3 % (36.7-47.1); HEMOGLOBIN 7.8 g/dL (12.5-16.3); LYMPHOCYTES # (AUTO) 1.6 K/uL (20.0-40.0); LYMPHOCYTES % (AUTO) 9.6 % (20.5-51.5); MEAN CORPUSCULAR HEMOGLOBIN 30.1 uug (23.8-33.4); MEAN CORPUSCULAR HGB CONC 32 g/dL (32.5-36.3); MONOCYTES # (AUTO) 1.1 K/uL (2.0-10.0); MONOCYTES % (AUTO) 6.3 % (0.0-11.0); NEUTROPHILS % (AUTO) 83.5 % (38.5-71.5); PLATELET COUNT (AUTO) 147 K/uL (152-348); RED BLOOD CELL COUNT(AUTO) 2.59 MIL/uL (4.06-5.63); WHITE BLOOD COUNT (AUTO) 16.7 K/uL (3.6-10.2)
[2020-05-05] MEDS: MIDODRINE HCL 5 MG TABLET PO SCH ×3 (06:05→21:29)
[2020-05-05] MEDS: NOREPINEPHRINE BITARTRATE 32 MG in IV NORMAL SALINE 218 ML IV PRN (06:06)
[2020-05-05 06:11] LABS: CARBON DIOXIDE 31 mmol/L (21-32); CHLORIDE 107 mmol/L (98-107); CREATININE 2.7 mg/dL (0.6-1.3); GLUCOSE 103 mg/dL (74-106); MAGNESIUM 2.1 mg/dL (1.8-2.4); POTASSIUM 4.1 mmol/L (3.5-5.1); UREA NITROGEN, BLOOD 65 mg/dL (7-18)
[2020-05-05 06:34] LABS: ABG BASE EXCESS 2.9 mmol/L; ABG HCO3 26.8 mmol/L; ABG PCO2 38.3 mmHg (35.0-45.0); ABG PH 7.463 (7.350-7.450); ABG PO2 114.4 mmHg (75.0-100.0); ABG SITE RIGHT RADIAL; COHb 1.7 % (0.5-1.5); MetHb 0.4 % (0.0-1.5); O2Hb 96.8 % (94.0-97.0); VENT MODE HF - Aquinox
[2020-05-05] MEDS: ALBUTEROL SULFATE 2.5 MG/3 ML NEBU IH SCH ×2 (07:35→19:07)
--- NOTE | 2020-05-05 07:46 | NUR ---
Linda Del Cid in the unit to see and assess pt. full report given
[2020-05-05] MEDS: CYANOCOBALAMIN 1,000 MCG TABLET PO SCH (08:11)
[2020-05-05] MEDS: FINASTERIDE 5 MG TABLET PO SCH (08:11)
[2020-05-05] MEDS: ACETAzolamide 250 MG TABLET PO SCH ×2 (08:11→21:27)
[2020-05-05] MEDS: FERROUS SULFATE 300 MG/5 ML LIQUID UDC PO SCH (08:11)
[2020-05-05] MEDS: PROTEIN SUPPLEMENT (PROSTAT) 30 ML LIQUID PO SCH (08:11)
[2020-05-05] MEDS: ENSURE ENLIVE (VAN) 240 ML LIQUID PO SCH ×3 (08:12→17:00)
[2020-05-05] MEDS: MUPIROCIN 2% OINT 22 GM TUBE TP SCH (08:12)
--- NOTE | 2020-05-05 09:17 | NUR ---
Nephro POWER CRANE OPERATOR Conrado Brian in the unit to see and assess pt. full report given
[2020-05-05] MEDS: NOREPINEPHRINE BITARTRATE 8 MG in IV NORMAL SALINE 242 ML IV PRN (09:48)
[2020-05-05] MEDS: IV NORMAL SALINE 250 ML IV PRN (11:00)
[2020-05-05] MEDS: MEROPENEM 500 MG in IV NORMAL SALINE 50 ML IV SCH (17:17)
--- NOTE | 2020-05-05 18:50 | NUR ---
INTERNETWORKING TECHNICIAN Sofiaa in the unit to see and assess pt. full report given
--- NOTE | 2020-05-05 19:22 | NUR ---
shift report given to night custodian RN. pt in bed asleep but arousable to verbal stimuli. pt on high flow oxygen via NC @20L/min FiO2 35%. attempted to wean pt off of Levophed 2x during shift however unable to as pt's BP drops to the 80s. pt remains on Levo @0.01mcg/kg/min. JOAQUIN midline, (R) femoral dialysis cath and blackburn cath in place.
[2020-05-05] MEDS: DONEPEZIL 10 MG TABLET PO SCH (21:28)
[2020-05-05] MEDS: ATORVASTATIN 20 MG TABLET PO SCH (21:28)
[2020-05-05] MEDS: POLYVINYL ALCOHOL OPHT DROPS 15 ML BOTTLE OP SCH (21:31)
[2020-05-06] VITALS (50 sets, daily range): BP systolic 91–144; BP diastolic 45–77
[2020-05-06] MEDS: MICAFUNGIN SODIUM 100 MG in IV NORMAL SALINE 100 ML IV SCH ×2 (00:42→23:27)
--- NOTE | 2020-05-06 02:27 | NUR ---
DTR: Leighann telephoned here / update.
[2020-05-06 05:29] LABS: BASOPHILS # (AUTO) 0.1 K/uL (0.0-8.0); EOSINOPHILS # (AUTO) 0.1 K/uL (0.0-0.7); NEUTROPHILS # (AUTO) 10.8 K/uL (1.8-8.9)
[2020-05-06 05:30] LABS: *BILIRUBIN,URIN NEGATIVE (NEGATIVE); *CLARITY,URINE SLIGHTLY CLOUDY (CLEAR); *COLOR,URINE YELLOW (YELLOW); *KETONES,URINE NEGATIVE (NEGATIVE); *UROBILINOGEN,URINE 0.2 E.U./dl (NORMAL); LEUKOCYTE ESTERASE ,URINE 3+ (NEGATIVE); NITRITE, URINE NEGATIVE (NEGATIVE); PH,URINE 8.5 (5.0-8.0); UGLUCOSE NEGATIVE (NEGATIVE)
[2020-05-06 05:31] LABS: BASOPHILS % (AUTO) 0.4 % (0.0-2.0); EOSINOPHILS % (AUTO) 0.5 % (0.0-7.0); HEMATOCRIT 23.8 % (36.7-47.1); LYMPHOCYTES # (AUTO) 1.5 K/uL (20.0-40.0); LYMPHOCYTES % (AUTO) 11.6 % (20.5-51.5); MEAN CORPUSCULAR HEMOGLOBIN 29.6 uug (23.8-33.4); MEAN CORPUSCULAR HGB CONC 31 g/dL (32.5-36.3); MEAN CORPUSCULAR VOLUME 94.6 fL (73.0-96.2); MONOCYTES # (AUTO) 0.8 K/uL (2.0-10.0); MONOCYTES % (AUTO) 6.2 % (0.0-11.0); NEUTROPHILS % (AUTO) 81.3 % (38.5-71.5); PLATELET COUNT (AUTO) 147 K/uL (152-348); RED BLOOD CELL COUNT(AUTO) 2.52 MIL/uL (4.06-5.63); WHITE BLOOD COUNT (AUTO) 13.3 K/uL (3.6-10.2)
[2020-05-06 05:33] LABS: *BLOOD, URINE TRACE (NEGATIVE)
[2020-05-06 05:35] LABS: HEMOGLOBIN 7.4 g/dL (12.5-16.3)
[2020-05-06 05:41] LABS: CARBON DIOXIDE 29 mmol/L (21-32); CHLORIDE 107 mmol/L (98-107); CREATININE 3.1 mg/dL (0.6-1.3); GLUCOSE 86 mg/dL (74-106); MAGNESIUM 2.1 mg/dL (1.8-2.4); PHOSPHOROUS 2.9 mg/dL (2.5-4.9); POTASSIUM 4.2 mmol/L (3.5-5.1); UREA NITROGEN, BLOOD 72 mg/dL (7-18)
[2020-05-06 05:45] LABS: *CREATININE,URINE 65.5 mg/dL (30-125); *URINE TOTAL PROTEIN RANDOM 121.7 mg/dL (<150/24HR)
[2020-05-06 06:06] LABS: BACTERIA,URINE MODERATE /HPF (NONE SEEN); WBC,URINE TNTC /HPF (0-3)
[2020-05-06 06:07] LABS: MUCUS,URINE FEW /LPF (0-FEW); SQUAMOUS EPITHELIAL CELL,UR FEW /HPF (NONE SEEN); YEAST,URINE MODERATE /HPF (NONE SEEN)
[2020-05-06] MEDS: MIDODRINE HCL 5 MG TABLET PO SCH ×3 (06:23→21:07)
[2020-05-06] MEDS: ALBUTEROL SULFATE 2.5 MG/3 ML NEBU IH SCH ×2 (08:01→19:39)
[2020-05-06] MEDS: FERROUS SULFATE 300 MG/5 ML LIQUID UDC PO SCH (08:08)
[2020-05-06] MEDS: ACETAzolamide 250 MG TABLET PO SCH ×2 (08:08→20:53)
[2020-05-06] MEDS: FINASTERIDE 5 MG TABLET PO SCH (08:08)
[2020-05-06] MEDS: CYANOCOBALAMIN 1,000 MCG TABLET PO SCH (08:08)
[2020-05-06] MEDS: MUPIROCIN 2% OINT 22 GM TUBE TP SCH (08:09)
[2020-05-06] MEDS: Z GUARD REMEDY PASTE 57 GM TUBE TOP SCH ×2 (08:09→20:52)
[2020-05-06] MEDS: ENSURE ENLIVE (VAN) 240 ML LIQUID PO SCH ×3 (08:09→17:00)
[2020-05-06] MEDS: PROTEIN SUPPLEMENT (PROSTAT) 30 ML LIQUID PO SCH (08:10)
--- NOTE | 2020-05-06 08:45 | NUR ---
assisted pt with breakfast. finished a bowl of oatmeal and half of ensure bottle however when attempted to feed main dish like pureed waffle, pt spits it out of his mouth. pt able to eat fairly with time and assistance but also depending on the food given.
--- NOTE | 2020-05-06 09:31 | NUR ---
Dr. Del Cid in the unit to see and assess pt. full report given
--- NOTE | 2020-05-06 09:51 | NUR ---
PT ON VAPOTHERM 30% 15L WITH SPO2 MAINTAINING NORMAL LIMITS
--- NOTE | 2020-05-06 10:00 | NUR ---
ADJUNCT TEACHER Conrado Brian in the unit to see and assess pt. full report given. per ADJUNCT TEACHER, pt's Levophed may need to be put back on Levo again as he is scheduled to have dialysis today. pt's BP has been running in the 90s and low 100s since off of Levo.
--- NOTE | 2020-05-06 14:12 | NUR ---
PT PLACED ON 3LPM NASAL CANULA WITH SPO2 WITHIN NORMAL LIMITS AND SHOWS NO SIGNS OF DISTRESS. WILL CONTINUE TO MONITOR
--- NOTE | 2020-05-06 15:36 | NUR ---
dialysis nurse at bedside to dialyse pt. pt on Levophed, will titrate as needed
--- NOTE | 2020-05-06 17:22 | NUR ---
dialysis completed with 2L taken out total. pt tolerated dialysis fairly well with Levophed @0.02mcg. VSS
[2020-05-06] MEDS: MEROPENEM 500 MG in IV NORMAL SALINE 50 ML IV SCH (17:53)
[2020-05-06] MEDS: ATORVASTATIN 20 MG TABLET PO SCH (20:52)
[2020-05-06] MEDS: DONEPEZIL 10 MG TABLET PO SCH (20:54)
[2020-05-06] MEDS: POLYVINYL ALCOHOL OPHT DROPS 15 ML BOTTLE OP SCH (20:55)
--- NOTE | 2020-05-06 21:00 | NUR ---
Urine culture sent as ordered.
--- NOTE | 2020-05-06 21:00 | NUR ---
ABG done @ 2100 hrs; as ordered.
[2020-05-06 21:09] LABS: ABG BASE EXCESS 1.8 mmol/L; ABG HCO3 25.5 mmol/L; ABG PCO2 35.8 mmHg (35.0-45.0); ABG PO2 91.2 mmHg (75.0-100.0); ABG SITE LEFT RADIAL; ABG TOTAL HEMOGLOBIN 8.8 G/dL (13.5-18.0); COHb 1.5 % (0.5-1.5); MetHb 0.2 % (0.0-1.5); O2Hb 95.9 % (94.0-97.0); VENT MODE Nasal Cannula
--- NOTE | 2020-05-06 21:30 | NUR ---
Speaker phone call to DTR: Samina; patient only vocalized: noisy, unintelligible sounds. Addendum: 05/06/20 at 2141 by TAMIKA RAYA RN Disregard note: wrong patient.
[2020-05-07] VITALS (24 sets, daily range): BP systolic 102–133; BP diastolic 51–103
[2020-05-07] MEDS: IV NORMAL SALINE 250 ML IV PRN (00:57)
[2020-05-07] MEDS: MIDODRINE HCL 5 MG TABLET PO SCH ×3 (05:51→21:01)
[2020-05-07 06:01] LABS: BASOPHILS % (AUTO) 0.3 % (0.0-2.0); EOSINOPHILS % (AUTO) 0.3 % (0.0-7.0); HEMATOCRIT 28.2 % (36.7-47.1); HEMOGLOBIN 8.6 g/dL (12.5-16.3); LYMPHOCYTES # (AUTO) 1.4 K/uL (20.0-40.0); LYMPHOCYTES % (AUTO) 9.8 % (20.5-51.5); MEAN CORPUSCULAR HGB CONC 31 g/dL (32.5-36.3); MEAN CORPUSCULAR VOLUME 94.5 fL (73.0-96.2); MONOCYTES # (AUTO) 0.9 K/uL (2.0-10.0); MONOCYTES % (AUTO) 6.3 % (0.0-11.0); NEUTROPHILS # (AUTO) 12.2 K/uL (1.8-8.9); NEUTROPHILS % (AUTO) 83.3 % (38.5-71.5); PLATELET COUNT (AUTO) 174 K/uL (152-348); RED BLOOD CELL COUNT(AUTO) 2.98 MIL/uL (4.06-5.63); WHITE BLOOD COUNT (AUTO) 14.7 K/uL (3.6-10.2)
[2020-05-07 06:45] LABS: CARBON DIOXIDE 30 mmol/L (21-32); CHLORIDE 105 mmol/L (98-107); CREATININE 2.9 mg/dL (0.6-1.3); GLUCOSE 84 mg/dL (74-106); PHOSPHOROUS 3.3 mg/dL (2.5-4.9); POTASSIUM 4.4 mmol/L (3.5-5.1); UREA NITROGEN, BLOOD 58 mg/dL (7-18)
--- NOTE | 2020-05-07 07:15 | NUR ---
Received pt. sleeping, hemodynamically stable SBP within desired limit.blackburn to gravity. RUML patent. ON 3L NC. with saturation above 95%. Will continue with care plan.
[2020-05-07] MEDS: ALBUTEROL SULFATE 2.5 MG/3 ML NEBU IH SCH ×2 (07:49→19:13)
[2020-05-07] MEDS: FINASTERIDE 5 MG TABLET PO SCH (08:00)
[2020-05-07] MEDS: FERROUS SULFATE 300 MG/5 ML LIQUID UDC PO SCH (08:00)
[2020-05-07] MEDS: CYANOCOBALAMIN 1,000 MCG TABLET PO SCH (08:01)
[2020-05-07] MEDS: Z GUARD REMEDY PASTE 57 GM TUBE TOP SCH ×2 (08:01→21:01)
[2020-05-07] MEDS: ACETAzolamide 250 MG TABLET PO SCH ×2 (08:01→20:59)
[2020-05-07] MEDS: PROTEIN SUPPLEMENT (PROSTAT) 30 ML LIQUID PO SCH (08:04)
[2020-05-07] MEDS: ENSURE ENLIVE (VAN) 240 ML LIQUID PO SCH ×3 (08:05→17:10)
--- NOTE | 2020-05-07 09:00 | NUR ---
Pulmonary services, Dr. Del Cid in the unit to see and examine pt. report given see order hx.
[2020-05-07] MEDS: MUPIROCIN 2% OINT 22 GM TUBE TP SCH (09:13)
--- NOTE | 2020-05-07 09:35 | NUR ---
attending physician Dr. Michaels in the unit to follow up on pt. report given no new orders received.
--- NOTE | 2020-05-07 13:00 | NUR ---
Cardiology services, Dr. Hope in the unit to see and examine pt. report given, Orders to continue with care plan received. (at this time review surveillance system monitor hx. and determine that due to small and fine QRS's monitor system by default reads bradycardia.)
--- NOTE | 2020-05-07 13:15 | NUR ---
Patient seen by [facility] Wright surgery (Dr. Shaheen Combs. At this time after examining pt's sacral area orders to consent pt. for excisional debridment received. Jairo Adriana called pt's daughter and informed her of needed procedure. pt's daughter Ms. Esperanza Ochoa later on provided telephone consent procedure to be done tomorrow, with R.N. Amanda as witness.
[2020-05-07] MEDS ORDERED: LIDOCAINE HCL 1% 20 ML VIAL IJ PRN (13:30)
--- NOTE | 2020-05-07 14:41 | NUR ---
Up top this time Ms. Esperanza moreno's daughter was connected to her dad's bedside via zoom X3.
[2020-05-07] MEDS: MEROPENEM 500 MG in IV NORMAL SALINE 50 ML IV SCH (17:12)
--- NOTE | 2020-05-07 18:45 | NUR ---
Left pt. in bed sleeping after eating dinner, hemodinamically stable, sbp maintained without support of vasopressors. On 3L NC. with saturation above 95%, no respiratory distress noted or reported. Blankenship to gravity. IV access patent. Tolerating diet well with no s/s of aspiration. No new pressure sore areas, will endorse care to incoming shift R.N.
[2020-05-07] MEDS: DONEPEZIL 10 MG TABLET PO SCH (20:59)
[2020-05-07] MEDS: ATORVASTATIN 20 MG TABLET PO SCH (20:59)
[2020-05-07] MEDS: POLYVINYL ALCOHOL OPHT DROPS 15 ML BOTTLE OP SCH (21:00)
[2020-05-07] MEDS: MICAFUNGIN SODIUM 100 MG in IV NORMAL SALINE 100 ML IV SCH (23:34)
[2020-05-08] VITALS (32 sets, daily range): BP systolic 89–153; BP diastolic 42–84
[2020-05-08 05:24] LABS: BASOPHILS # (AUTO) 0.1 K/uL (0.0-8.0); BASOPHILS % (AUTO) 0.4 % (0.0-2.0); EOSINOPHILS # (AUTO) 0.1 K/uL (0.0-0.7); EOSINOPHILS % (AUTO) 0.4 % (0.0-7.0); HEMATOCRIT 26.1 % (36.7-47.1); HEMOGLOBIN 8.1 g/dL (12.5-16.3); LYMPHOCYTES # (AUTO) 1.3 K/uL (20.0-40.0); LYMPHOCYTES % (AUTO) 8.3 % (20.5-51.5); MEAN CORPUSCULAR HEMOGLOBIN 29.1 uug (23.8-33.4); MEAN CORPUSCULAR HGB CONC 31 g/dL (32.5-36.3); MEAN CORPUSCULAR VOLUME 93.9 fL (73.0-96.2); MONOCYTES # (AUTO) 1.4 K/uL (2.0-10.0); MONOCYTES % (AUTO) 8.7 % (0.0-11.0); NEUTROPHILS # (AUTO) 12.9 K/uL (1.8-8.9); NEUTROPHILS % (AUTO) 82.2 % (38.5-71.5); PLATELET COUNT (AUTO) 204 K/uL (152-348); RED BLOOD CELL COUNT(AUTO) 2.78 MIL/uL (4.06-5.63); WHITE BLOOD COUNT (AUTO) 15.6 K/uL (3.6-10.2)
[2020-05-08 05:43] LABS: ALANINE AMINOTRANSFERASE 13 U/L (16-63); ALKALINE PHOSPHATASE 84 U/L (50-136); ASPARTATE AMINOTRANSFERASE 23 U/L (15-37); BILIRUBIN,TOTAL 0.7 mg/dL (0.2-1.0); CARBON DIOXIDE 31 mmol/L (21-32); CHLORIDE 105 mmol/L (98-107); CREATININE 3.3 mg/dL (0.6-1.3); GLUCOSE 118 mg/dL (74-106); MAGNESIUM 2.2 mg/dL (1.8-2.4); PHOSPHOROUS 3.8 mg/dL (2.5-4.9); POTASSIUM 4.9 mmol/L (3.5-5.1); TOTAL PROTEIN, SERUM 6.4 g/dL (6.4-8.2); UREA NITROGEN, BLOOD 66 mg/dL (7-18)
[2020-05-08] MEDS: MIDODRINE HCL 5 MG TABLET PO SCH ×3 (06:13→22:22)
--- NOTE | 2020-05-08 06:23 | NUR ---
Patient remained somnolent & lethargic throughout entire shift. Able to respond when aroused. Patients vitals remain stable throughout the entirety of the shift. Remained off pressors. Patient was put on Bipap throughout the night per Routine Nocturnal protocol. Saturations when on 3L Nasal Canula >94% consistently and saturation on Bipap >94% consistently. Patient remains oliguric. 60cc total of urine output. Patients lower extremities are edematous and show signs of severe indentation. Had a bowel movement - soft/watery brown. Wound care done. Will be debrided later this morning. Afebrile & hemodynamically stable on handoff.
[2020-05-08] MEDS: ALBUTEROL SULFATE 2.5 MG/3 ML NEBU IH SCH ×2 (07:04→19:30)
--- NOTE | 2020-05-08 07:15 | NUR ---
Received pt. sleeping comfortable, araousable to verbal command, oriented to name, place and event. On 3LNC with saturation within desired limits. Hemodynamically stable and sbp above 90's no need of vasopressor. IV line patent. As reported patient stable during steward/stewardess night. Will continue with care plan.
[2020-05-08] MEDS: FERROUS SULFATE 300 MG/5 ML LIQUID UDC PO SCH (08:00)
[2020-05-08] MEDS: FINASTERIDE 5 MG TABLET PO SCH (08:00)
[2020-05-08] MEDS: ACETAzolamide 250 MG TABLET PO SCH ×2 (08:00→20:55)
--- NOTE | 2020-05-08 08:00 | NUR ---
Cardiology services, Dr. Hope in the unit to see and examine pt. No new orders received, will continue with care plan.
[2020-05-08] MEDS: ENSURE ENLIVE (VAN) 240 ML LIQUID PO SCH ×3 (08:01→17:36)
[2020-05-08] MEDS: PROTEIN SUPPLEMENT (PROSTAT) 30 ML LIQUID PO SCH (08:02)
[2020-05-08] MEDS: SODIUM HYPOCHLORITE 0.25% (HALF STRENGTH) 480 ML BOTTLE TOP SCH (08:02)
[2020-05-08] MEDS: Z GUARD REMEDY PASTE 57 GM TUBE TOP SCH ×2 (08:02→20:56)
[2020-05-08] MEDS: CYANOCOBALAMIN 1,000 MCG TABLET PO SCH (08:02)
[2020-05-08] MEDS: MUPIROCIN 2% OINT 22 GM TUBE TP SCH (08:05)
--- NOTE | 2020-05-08 08:30 | NUR ---
Pulmonary services, Dr. Del Cid in the unit to see and examine pt. report given. See order hx.
[2020-05-08] MEDS: LOPERAMIDE HCL 2 MG CAPSULE PO PRN ×2 (08:44→20:59)
--- NOTE | 2020-05-08 12:57 | NUR ---
Ashley Alicea in the unit to bubba pt.
--- NOTE | 2020-05-08 13:10 | NUR ---
Patient poorly tolerating Hemodialysis, sbp of 89/46. with heart rate of 70. Procedure stopped and pt. placed on levophed, right after procedure resumed.
[2020-05-08] MEDS: NOREPINEPHRINE BITARTRATE 8 MG in IV NORMAL SALINE 242 ML IV PRN (13:12)
--- NOTE | 2020-05-08 14:20 | NUR ---
Patient poorly tolerating HD as reported by Ladle Operator. started desaturating low 80's 90's. Pulmonary toileting rendered by Tomasz Ashley. RT called to be at bedside. Hemodialysis stopped at this time as reported. with a total of 1500cc out. Addendum: 05/08/20 at 1459 by BOBBY JOHNSON RN Reported respiratory rate in the high 30's low 40's.
[2020-05-08] MEDS: MEROPENEM 500 MG in IV NORMAL SALINE 50 ML IV SCH (17:36)
--- NOTE | 2020-05-08 19:09 | NUR ---
Left pt. sleeping arousable to name, place and event. On 3 liters nasal canula. Hemodynamically stable with sbp within desired limits off levophed drip. Tolerating diet well no n/v. medicated for diarrhea. No new skin breakdown. Will endorse to incoming shift.
[2020-05-08] MEDS: DONEPEZIL 10 MG TABLET PO SCH (20:55)
[2020-05-08] MEDS: ATORVASTATIN 20 MG TABLET PO SCH (20:55)
[2020-05-08] MEDS: POLYVINYL ALCOHOL OPHT DROPS 15 ML BOTTLE OP SCH (20:57)
[2020-05-08] MEDS: MICAFUNGIN SODIUM 100 MG in IV NORMAL SALINE 100 ML IV SCH (23:44)
[2020-05-09] VITALS (24 sets, daily range): BP systolic 89–136; BP diastolic 41–92
--- NOTE | 2020-05-09 04:00 | NUR ---
PATIENT BACK ON BI/PAP APPROX, 23:30 WITH FULL LARGE MASK, SETTINGS, 15/5, R16, FIO2 @ 35%, PT STABLE, NO CHANGES MADE, POSITION MASK AT TIMES, HR 61 APPROX, GOOD OXYGENATION, SAT 100% . Dre JONES RCP Addendum: 05/09/20 at 0401 by RICKEY JONES RT Amended: Links added.
[2020-05-09 04:56] LABS: BASOPHILS # (AUTO) 0.1 K/uL (0.0-8.0); BASOPHILS % (AUTO) 0.5 % (0.0-2.0); EOSINOPHILS # (AUTO) 0.1 K/uL (0.0-0.7); EOSINOPHILS % (AUTO) 0.7 % (0.0-7.0); HEMATOCRIT 24.7 % (36.7-47.1); HEMOGLOBIN 7.6 g/dL (12.5-16.3); LYMPHOCYTES % (AUTO) 8.8 % (20.5-51.5); MEAN CORPUSCULAR HEMOGLOBIN 28.9 uug (23.8-33.4); MEAN CORPUSCULAR HGB CONC 31 g/dL (32.5-36.3); MEAN CORPUSCULAR VOLUME 94.4 fL (73.0-96.2); MONOCYTES % (AUTO) 8.2 % (0.0-11.0); NEUTROPHILS # (AUTO) 9.7 K/uL (1.8-8.9); NEUTROPHILS % (AUTO) 81.8 % (38.5-71.5); PLATELET COUNT (AUTO) 144 K/uL (152-348); RED BLOOD CELL COUNT(AUTO) 2.62 MIL/uL (4.06-5.63); WHITE BLOOD COUNT (AUTO) 11.9 K/uL (3.6-10.2)
[2020-05-09 05:06] LABS: CARBON DIOXIDE 30 mmol/L (21-32); CHLORIDE 105 mmol/L (98-107); CREATININE 2.9 mg/dL (0.6-1.3); GLUCOSE 101 mg/dL (74-106); MAGNESIUM 2.1 mg/dL (1.8-2.4); PHOSPHOROUS 3.3 mg/dL (2.5-4.9); POTASSIUM 4.9 mmol/L (3.5-5.1); UREA NITROGEN, BLOOD 60 mg/dL (7-18)
[2020-05-09] MEDS: LOPERAMIDE HCL 2 MG CAPSULE PO PRN ×2 (06:00→12:31)
[2020-05-09] MEDS: MIDODRINE HCL 5 MG TABLET PO SCH ×3 (06:00→21:07)
[2020-05-09] MEDS: IV NORMAL SALINE 250 ML IV PRN (07:01)
--- NOTE | 2020-05-09 07:15 | NUR ---
Received pt. sleeping comfortable, araousable to verbal command, oriented to name, place and event. On 3LNC with saturation within desired limits. Hemodynamically stable and sbp above 90's. IV line to right upper arm and dialysis catheter in right groin. Blankenship catheter draining appropriately.
[2020-05-09] MEDS: ALBUTEROL SULFATE 2.5 MG/3 ML NEBU IH SCH ×2 (07:31→19:42)
[2020-05-09] MEDS: FERROUS SULFATE 300 MG/5 ML LIQUID UDC PO SCH (08:18)
[2020-05-09] MEDS: PROTEIN SUPPLEMENT (PROSTAT) 30 ML LIQUID PO SCH (08:18)
[2020-05-09] MEDS: FINASTERIDE 5 MG TABLET PO SCH (08:18)
[2020-05-09] MEDS: Z GUARD REMEDY PASTE 57 GM TUBE TOP SCH ×2 (08:19→20:48)
[2020-05-09] MEDS: ENSURE ENLIVE (VAN) 240 ML LIQUID PO SCH ×3 (08:19→17:00)
[2020-05-09] MEDS: CYANOCOBALAMIN 1,000 MCG TABLET PO SCH (08:20)
[2020-05-09] MEDS: ACETAzolamide 250 MG TABLET PO SCH ×2 (08:20→20:47)
[2020-05-09] MEDS: SODIUM HYPOCHLORITE 0.25% (HALF STRENGTH) 480 ML BOTTLE TOP SCH (08:20)
[2020-05-09] MEDS: MUPIROCIN 2% OINT 22 GM TUBE TP SCH (08:21)
--- NOTE | 2020-05-09 10:15 | NUR ---
Patient seen by Dr. Del Cid, full report given.
--- NOTE | 2020-05-09 11:15 | NUR ---
Patient seen by Dr. Hope.
--- NOTE | 2020-05-09 11:39 | NUR ---
BRANDON IN THE UNIT TO SEE PATIENT. FOR WOUNDS AND SCABS ON FEET AND RIGHT LEG PAINT WITH BETADINE AND CAN COVER THE RIGHT LEG WITH DRESSING.
--- NOTE | 2020-05-09 12:28 | NUR ---
GREEN CHAIN WORKER Tamara at bedside, reviewed labs and deferred wound debridement at this time due to low Hemoglobin level. Will re-evaluate tomorrow.
--- NOTE | 2020-05-09 17:15 | NUR ---
Patient too sleepy to eat dinner, but was arousable and opens eyes. Goes back to sleep quickly.
[2020-05-09] MEDS: MEROPENEM 500 MG in IV NORMAL SALINE 50 ML IV SCH (17:55)
--- NOTE | 2020-05-09 18:42 | NUR ---
Patient asleep, V-paced on the monitor, Oxygen saturatino 100% on 3L nasal cannula. Hemodynamically stable, and afebrile. Blankenship intact, IV antibiotics on right upper midline running with fluids. Right groin dialysis catheter dressing intact. Air mattress inflated, bed in low position, side rails uip x2. All alarms checked.
--- NOTE | 2020-05-09 20:00 | NUR ---
rounds made patient in bed non verbal only nod head to yes and no questions . v/s , ventricular - paced on the heart monitor HR 64,temp 97.7 axillary . no s/s/ of pain . turned and reposition patient,offloaded back with pillow and bilateral upper and lower heel elevated with pillow .
[2020-05-09] MEDS: DONEPEZIL 10 MG TABLET PO SCH (20:47)
[2020-05-09] MEDS: POLYVINYL ALCOHOL OPHT DROPS 15 ML BOTTLE OP SCH (20:47)
[2020-05-09] MEDS: ATORVASTATIN 20 MG TABLET PO SCH (20:48)
--- NOTE | 2020-05-09 21:00 | NUR ---
crushed po medication and given with applesauce patient able to swallow medication .hob up and aspiration precaution observed.
--- NOTE | 2020-05-09 23:15 | NUR ---
respiratory therapist at b/s placed patient on BIPAP 15/5 rate 16 fio2 35%. hob up . saturation 100% RR 21.
[2020-05-09] MEDS: MICAFUNGIN SODIUM 100 MG in IV NORMAL SALINE 100 ML IV SCH (23:59)
[2020-05-10] VITALS (43 sets, daily range): BP systolic 89–171; BP diastolic 38–94
--- NOTE | 2020-05-10 02:00 | NUR ---
turned patient incontinent of stool moderate in amt brownish in color . changed soiled linens and gown .sacral dressing clean dry and intact .applied z guard to sacral area and bilateral groin .turned and reposition .
--- NOTE | 2020-05-10 04:00 | NUR ---
afebrile and no s/s of pain .tolerating bipap saturation 100% RR 18.
[2020-05-10 05:01] LABS: BASOPHILS # (AUTO) 0.1 K/uL (0.0-8.0); BASOPHILS % (AUTO) 0.4 % (0.0-2.0); EOSINOPHILS # (AUTO) 0.2 K/uL (0.0-0.7); EOSINOPHILS % (AUTO) 1.3 % (0.0-7.0); HEMATOCRIT 27.3 % (36.7-47.1); HEMOGLOBIN 8.1 g/dL (12.5-16.3); LYMPHOCYTES # (AUTO) 1.3 K/uL (20.0-40.0); LYMPHOCYTES % (AUTO) 10.7 % (20.5-51.5); MEAN CORPUSCULAR HEMOGLOBIN 28.5 uug (23.8-33.4); MEAN CORPUSCULAR HGB CONC 30 g/dL (32.5-36.3); MEAN CORPUSCULAR VOLUME 95.7 fL (73.0-96.2); MONOCYTES # (AUTO) 0.8 K/uL (2.0-10.0); MONOCYTES % (AUTO) 6.3 % (0.0-11.0); NEUTROPHILS # (AUTO) 9.9 K/uL (1.8-8.9); NEUTROPHILS % (AUTO) 81.3 % (38.5-71.5); PLATELET COUNT (AUTO) 162 K/uL (152-348); RED BLOOD CELL COUNT(AUTO) 2.85 MIL/uL (4.06-5.63); WHITE BLOOD COUNT (AUTO) 12.2 K/uL (3.6-10.2)
[2020-05-10 05:11] LABS: CARBON DIOXIDE 30 mmol/L (21-32); CHLORIDE 105 mmol/L (98-107); CREATININE 3.2 mg/dL (0.6-1.3); GLUCOSE 89 mg/dL (74-106); MAGNESIUM 2.1 mg/dL (1.8-2.4); PHOSPHOROUS 4.6 mg/dL (2.5-4.9); POTASSIUM 5.7 mmol/L (3.5-5.1); UREA NITROGEN, BLOOD 71 mg/dL (7-18)
--- NOTE | 2020-05-10 05:30 | NUR ---
am care done ,had another bm moderate in amt form to soft brownish in color ,changed soiled linens an gown . f/c done and oral care done . turned and reposition .hob up . due medication given see emar .
[2020-05-10] MEDS: MIDODRINE HCL 5 MG TABLET PO SCH ×3 (05:46→21:14)
[2020-05-10] MEDS: IV NORMAL SALINE 250 ML IV PRN (05:47)
[2020-05-10] MEDS: Z GUARD REMEDY PASTE 57 GM TUBE TOP PRN (06:14)
[2020-05-10] MEDS: ALBUTEROL SULFATE 2.5 MG/3 ML NEBU IH SCH ×2 (07:43→19:26)
--- NOTE | 2020-05-10 08:00 | NUR ---
Patient seen by Dr. Hope
[2020-05-10] MEDS: CYANOCOBALAMIN 1,000 MCG TABLET PO SCH (08:10)
[2020-05-10] MEDS: ENSURE ENLIVE (VAN) 240 ML LIQUID PO SCH ×3 (08:10→17:00)
[2020-05-10] MEDS: FERROUS SULFATE 300 MG/5 ML LIQUID UDC PO SCH (08:10)
[2020-05-10] MEDS: ACETAzolamide 250 MG TABLET PO SCH ×2 (08:10→20:18)
[2020-05-10] MEDS: FINASTERIDE 5 MG TABLET PO SCH (08:10)
[2020-05-10] MEDS: PROTEIN SUPPLEMENT (PROSTAT) 30 ML LIQUID PO SCH (08:10)
[2020-05-10] MEDS: Z GUARD REMEDY PASTE 57 GM TUBE TOP SCH ×2 (08:11→20:19)
[2020-05-10] MEDS: SODIUM HYPOCHLORITE 0.25% (HALF STRENGTH) 480 ML BOTTLE TOP SCH (08:12)
[2020-05-10] MEDS: MUPIROCIN 2% OINT 22 GM TUBE TP SCH (08:12)
[2020-05-10] MEDS: LOPERAMIDE HCL 2 MG CAPSULE PO PRN (08:46)
[2020-05-10] MEDS: ALBUMIN HUMAN 25% 100 ML IV PRN (13:30)
--- NOTE | 2020-05-10 15:00 | NUR ---
Patient started desaturating oxygen down to 90%, and became tachypneic. Oxygen increased to 5L and notified Dialysis nurse that we may need to slow down or end dialysis if patient continues to be distressed.
--- NOTE | 2020-05-10 15:20 | NUR ---
Requested that dialysis be stopped as patient appears to be in distress with tachycardia and desaturation to 85%. Placed patient on 10L simple mask.
--- NOTE | 2020-05-10 15:32 | NUR ---
Notified Dr. Levine of patients condition.
[2020-05-10] MEDS: MEROPENEM 500 MG in IV NORMAL SALINE 50 ML IV SCH (17:21)
[2020-05-10] MEDS: FLUCONAZOLE 200 MG/NS 100ML IV 100 MG in PREMIXED 1 EACH IV SCH (18:15)
--- NOTE | 2020-05-10 20:15 | NUR ---
due po medication crushed given with ice cream patient able to swallow ,given some of his dinner , had the soup aspiration precaution observed .
[2020-05-10] MEDS: POLYVINYL ALCOHOL OPHT DROPS 15 ML BOTTLE OP SCH (20:17)
[2020-05-10] MEDS: ATORVASTATIN 20 MG TABLET PO SCH (20:18)
[2020-05-10] MEDS: DONEPEZIL 10 MG TABLET PO SCH (20:18)
--- NOTE | 2020-05-10 20:52 | NUR ---
NAHOMY BERNARD at b/s ,updated with patient condition ,informed patient had dialysis with fluid removal of 1100 ml .
--- NOTE | 2020-05-10 22:00 | NUR ---
turned and reposition patient offload back with pillow and upper and lower extremities with pillow .
--- NOTE | 2020-05-10 23:00 | NUR ---
respiratory therapist came and placed patient on nocturnal BIPAP settings are rate 16 15/5 fio2 35%.
[2020-05-11] VITALS (23 sets, daily range): BP systolic 100–147; BP diastolic 49–82
--- NOTE | 2020-05-11 01:45 | NUR ---
patient daughter Leighann (edmundo )called and questions answered given information about patient ,v/s and labs and the HD and status for wound debridement .
--- NOTE | 2020-05-11 04:30 | NUR ---
graduate teaching associate at b/s and am labs collected.cbc /bmp/mg/phos.
--- NOTE | 2020-05-11 04:45 | NUR ---
am care done ,bath patient ,incontinent of stool x1 moderate in amt . soft form stool brownish in color .changed soiled,linens an gown.oral care done.Blankenship care done .wound dressing done to sacral area and right lower leg follow wound care treatment .
[2020-05-11 05:01] LABS: BASOPHILS # (AUTO) 0.1 K/uL (0.0-8.0); BASOPHILS % (AUTO) 0.3 % (0.0-2.0); EOSINOPHILS # (AUTO) 0.1 K/uL (0.0-0.7); EOSINOPHILS % (AUTO) 0.8 % (0.0-7.0); HEMATOCRIT 27.2 % (36.7-47.1); HEMOGLOBIN 8.2 g/dL (12.5-16.3); LYMPHOCYTES # (AUTO) 1.7 K/uL (20.0-40.0); LYMPHOCYTES % (AUTO) 10.5 % (20.5-51.5); MEAN CORPUSCULAR HEMOGLOBIN 28.7 uug (23.8-33.4); MEAN CORPUSCULAR HGB CONC 30 g/dL (32.5-36.3); MEAN CORPUSCULAR VOLUME 94.8 fL (73.0-96.2); MONOCYTES # (AUTO) 1.1 K/uL (2.0-10.0); MONOCYTES % (AUTO) 6.4 % (0.0-11.0); NEUTROPHILS # (AUTO) 13.5 K/uL (1.8-8.9); PLATELET COUNT (AUTO) 167 K/uL (152-348); RED BLOOD CELL COUNT(AUTO) 2.87 MIL/uL (4.06-5.63); WHITE BLOOD COUNT (AUTO) 16.4 K/uL (3.6-10.2)
[2020-05-11] MEDS: MIDODRINE HCL 5 MG TABLET PO SCH ×3 (05:08→21:18)
[2020-05-11] MEDS: IV NORMAL SALINE 250 ML IV PRN (05:08)
[2020-05-11 05:11] LABS: CARBON DIOXIDE 29 mmol/L (21-32); CHLORIDE 106 mmol/L (98-107); CREATININE 3.2 mg/dL (0.6-1.3); GLUCOSE 98 mg/dL (74-106); MAGNESIUM 2.2 mg/dL (1.8-2.4); PHOSPHOROUS 4.6 mg/dL (2.5-4.9); POTASSIUM 5.7 mmol/L (3.5-5.1); UREA NITROGEN, BLOOD 72 mg/dL (7-18)
--- NOTE | 2020-05-11 05:45 | NUR ---
respiratory therapist at b/s ,removed HS bipap and now placed patient on nasal cannula at 3l/min . saturation 99 RR 19.
--- NOTE | 2020-05-11 07:15 | NUR ---
Received report from maintenance technician 3rd shift nurse, patient in bed asleep, no distress noted at this time. Oxygen saturation 100% on NC 3L, paced rhythm on the monitor 65 bpm. Blankenship draining, air mattress inflated, and all alarms checked. Bed in low position, side rails up x2.
[2020-05-11] MEDS: ALBUTEROL SULFATE 2.5 MG/3 ML NEBU IH SCH ×2 (07:45→20:17)
[2020-05-11] MEDS: PROTEIN SUPPLEMENT (PROSTAT) 30 ML LIQUID PO SCH (07:46)
[2020-05-11 07:53] LABS: ABG BASE EXCESS 1.9 mmol/L; ABG PCO2 38.5 mmHg (35.0-45.0); ABG PH 7.448 (7.350-7.450); ABG SITE LEFT RADIAL; ABG TOTAL HEMOGLOBIN 8.4 G/dL (13.5-18.0); COHb 1.7 % (0.5-1.5); MetHb 0.4 % (0.0-1.5); O2Hb 94.6 % (94.0-97.0); VENT MODE Nasal Cannula
--- NOTE | 2020-05-11 07:57 | NUR ---
Dr. Hope in the unit to evaluate the patient.
[2020-05-11] MEDS: FERROUS SULFATE 300 MG/5 ML LIQUID UDC PO SCH (08:00)
[2020-05-11] MEDS: CYANOCOBALAMIN 1,000 MCG TABLET PO SCH (08:00)
[2020-05-11] MEDS: ACETAzolamide 250 MG TABLET PO SCH ×2 (08:00→20:28)
[2020-05-11] MEDS: FINASTERIDE 5 MG TABLET PO SCH (08:00)
[2020-05-11] MEDS: ENSURE ENLIVE (VAN) 240 ML LIQUID PO SCH ×3 (08:01→17:00)
[2020-05-11] MEDS: MUPIROCIN 2% OINT 22 GM TUBE TP SCH (08:02)
[2020-05-11] MEDS: Z GUARD REMEDY PASTE 57 GM TUBE TOP SCH ×2 (08:02→20:33)
[2020-05-11] MEDS: SODIUM HYPOCHLORITE 0.25% (HALF STRENGTH) 480 ML BOTTLE TOP SCH (08:03)
--- NOTE | 2020-05-11 09:44 | NUR ---
Dr Del Cid at bedside to evaluate patient.
[2020-05-11] MEDS ORDERED: SODIUM POLYSTYRENE SULFONATE 15 G/60 ML LIQUID UDC PO ONE (11:15)
--- NOTE | 2020-05-11 11:53 | NUR ---
Patients daughter Leighann at bedside to visit with patient. Placed hearing aids in ear with new batteries. Case and new batteries added to belongings list. Leighann signed for consent to place a new dialysis catheter.
--- NOTE | 2020-05-11 12:00 | NUR ---
Patients Saturation dropped to 90%. Oxygen increased to 5L NC.
--- NOTE | 2020-05-11 14:59 | NUR ---
Patient appeared to have possibly aspirated during meal and forcefully coughed a couple times, patient not in distress but oxygen saturation declined to 90%, respiratory called, breathing treatment given and induced coughing, and increased oxygenation. Patient continues to be stable and in no distress. Notified [facility] for Dr. Levine.
--- NOTE | 2020-05-11 15:06 | NUR ---
Received orders for stat Chest X-Ray from [facility].
[2020-05-11 15:49] LABS: CARBON DIOXIDE 29 mmol/L (21-32); CHLORIDE 106 mmol/L (98-107); CREATININE 3.3 mg/dL (0.6-1.3); GLUCOSE 111 mg/dL (74-106); POTASSIUM 4.8 mmol/L (3.5-5.1); UREA NITROGEN, BLOOD 75 mg/dL (7-18)
--- NOTE | 2020-05-11 16:22 | NUR ---
Notified Dr. Hope that patient is pacing at rate of 113.
[2020-05-11] MEDS ORDERED: LIDOCAINE-MPF 1% 5 ML AMPUL INJ ONE (16:25)
[2020-05-11] MEDS ORDERED: SILVER NITRATE APPLICATOR STICK EACH TP ONE (16:30)
--- NOTE | 2020-05-11 17:00 | NUR ---
NAHOMY Mcdonald debrided the sacral wound. Patient tolerated well. Wound dressing c/d/i.
[2020-05-11] MEDS: MEROPENEM 500 MG in IV NORMAL SALINE 50 ML IV SCH (18:01)
[2020-05-11] MEDS ORDERED: HEPARIN SODIUM,PORCINE/PF 50 UNIT/5 ML SYR IV STA (18:39)
[2020-05-11] MEDS: FLUCONAZOLE 200 MG/NS 100ML IV 100 MG in PREMIXED 1 EACH IV SCH (18:43)
[2020-05-11] MEDS ORDERED: HEPARIN SODIUM,PORCINE 5,000 UNITS/ML VIAL MC ONE (19:00)
--- NOTE | 2020-05-11 19:00 | NUR ---
5000units of heparin ordered by SIDNEY Perrin, order not able to be placed, contacted pharmacist to let her know of the PA's requested order. Suni pulled as ordered from [facility] and given no PA for administration in new dialysis catheter which was diluted in 5ml NS flush by SUPERVISOR BUFFING AND PASTING.
--- NOTE | 2020-05-11 19:00 | NUR ---
Patient continues to be on 5L nasal cannula, Paced rhythm on the monitor, hemodynamically stable. Patient has new catheter currently being placed on left groin and right groin catheter removed and tip was sent to the lab for culture. Blankenship in place. Air mattress inflated, bed in low position, side rails upx2. Report given to maintenance supervisor 2nd shift nurse.
--- NOTE | 2020-05-11 19:12 | NUR ---
Suni moran, Danielle.
[2020-05-11] MEDS ORDERED: HEPARIN SODIUM,PORCINE 1,000 UNITS/ML VIAL MC ONE (19:15)
--- NOTE | 2020-05-11 19:15 | NUR ---
INNERSOLE MAKER EMELIA GARCIA at bedside . d/c right femoral Lily catheter and tip send for culture ,placed a new left Lily catheter for HD . SITE CHECKED RIGHT GROIN WITH PRESSURE DRESSING . LEFT NEW LILY CATHETER C/D/I.
--- NOTE | 2020-05-11 20:15 | NUR ---
PATIENT INCONTINENT OF STOOL,LIQUID ,MODERATE IN AMT ,BROWNISH IN COLOR . CHANGED SOILED LINENS AND GOWN . TURNED AND REPOSITION .
[2020-05-11] MEDS: DONEPEZIL 10 MG TABLET PO SCH (20:25)
[2020-05-11] MEDS: ATORVASTATIN 20 MG TABLET PO SCH (20:25)
[2020-05-11] MEDS: POLYVINYL ALCOHOL OPHT DROPS 15 ML BOTTLE OP SCH (20:25)
--- NOTE | 2020-05-11 20:38 | NUR ---
CRUSED PO MEDICATION GIVEN WITH APPLESAUCE PATIENT TOLERATED MEDICATION .PATIENT OPEN EYES TO NAME FOLLOW SIMPLE COMMANDS . NO S/S/ OF DISTRESS TOLERATING 02 AT 3 L/ 100% SATURATION RR 20.
--- NOTE | 2020-05-11 23:00 | NUR ---
RESPIRATORY THERAPIST AT B/S , PLACED PATIENT ON BIPAP RATE 16 ,16/5 AND FIO2 30%.
[2020-05-12] VITALS (23 sets, daily range): BP systolic 90–149; BP diastolic 35–85
--- NOTE | 2020-05-12 01:45 | NUR ---
patients daughter called name Leighann and updated with patient condition questions answered.
[2020-05-12 05:15] LABS: BASOPHILS # (AUTO) 0.1 K/uL (0.0-8.0); BASOPHILS % (AUTO) 0.8 % (0.0-2.0); EOSINOPHILS # (AUTO) 0.1 K/uL (0.0-0.7); EOSINOPHILS % (AUTO) 0.9 % (0.0-7.0); HEMATOCRIT 25.1 % (36.7-47.1); HEMOGLOBIN 7.7 g/dL (12.5-16.3); LYMPHOCYTES % (AUTO) 9.6 % (20.5-51.5); MEAN CORPUSCULAR HEMOGLOBIN 28.9 uug (23.8-33.4); MEAN CORPUSCULAR HGB CONC 31 g/dL (32.5-36.3); MEAN CORPUSCULAR VOLUME 94.5 fL (73.0-96.2); MONOCYTES # (AUTO) 0.9 K/uL (2.0-10.0); MONOCYTES % (AUTO) 8.5 % (0.0-11.0); NEUTROPHILS # (AUTO) 8.5 K/uL (1.8-8.9); NEUTROPHILS % (AUTO) 80.2 % (38.5-71.5); PLATELET COUNT (AUTO) 178 K/uL (152-348); RED BLOOD CELL COUNT(AUTO) 2.65 MIL/uL (4.06-5.63); WHITE BLOOD COUNT (AUTO) 10.6 K/uL (3.6-10.2)
[2020-05-12] MEDS: MIDODRINE HCL 5 MG TABLET PO SCH ×3 (05:18→21:36)
[2020-05-12 05:25] LABS: CARBON DIOXIDE 28 mmol/L (21-32); CHLORIDE 107 mmol/L (98-107); CREATININE 3.5 mg/dL (0.6-1.3); GLUCOSE 93 mg/dL (74-106); MAGNESIUM 2.3 mg/dL (1.8-2.4); PHOSPHOROUS 5.6 mg/dL (2.5-4.9); POTASSIUM 4.8 mmol/L (3.5-5.1)
--- NOTE | 2020-05-12 05:30 | NUR ---
incontinent of stool small soft brownish in color . changed soiled linens and gown . applied z guard to sacral and bilateral gown area. sacral wound dressing clean dry and intact . right lower leg dressing done and follow wound care tx. .
[2020-05-12 05:37] LABS: UREA NITROGEN, BLOOD 90 mg/dL (7-18)
--- NOTE | 2020-05-12 07:15 | NUR ---
Received pt. on BIPAP 15/5 Rate of 16, [id number]%. Patient awake and alert. IV line patent. Hemodynamically stable with sbp within desire limits. Will continue to monitor.
[2020-05-12] MEDS: ALBUTEROL SULFATE 2.5 MG/3 ML NEBU IH SCH ×2 (07:27→20:10)
[2020-05-12] MEDS: FERROUS SULFATE 300 MG/5 ML LIQUID UDC PO SCH (08:03)
[2020-05-12] MEDS: FINASTERIDE 5 MG TABLET PO SCH (08:03)
[2020-05-12] MEDS: ACETAzolamide 250 MG TABLET PO SCH ×2 (08:05→20:25)
[2020-05-12] MEDS: PROTEIN SUPPLEMENT (PROSTAT) 30 ML LIQUID PO SCH (08:07)
[2020-05-12] MEDS: ENSURE ENLIVE (VAN) 240 ML LIQUID PO SCH ×3 (08:08→17:26)
[2020-05-12] MEDS: CYANOCOBALAMIN 1,000 MCG TABLET PO SCH (08:09)
[2020-05-12] MEDS: Z GUARD REMEDY PASTE 57 GM TUBE TOP SCH ×2 (08:09→20:26)
[2020-05-12] MEDS: MUPIROCIN 2% OINT 22 GM TUBE TP SCH (08:12)
[2020-05-12] MEDS: SODIUM HYPOCHLORITE 0.25% (HALF STRENGTH) 480 ML BOTTLE TOP SCH (08:12)
--- NOTE | 2020-05-12 09:00 | NUR ---
Cardiology services, Dr. Fisher in the unit to see and examine pt report given.
[2020-05-12] MEDS: LOPERAMIDE HCL 2 MG CAPSULE PO PRN (09:10)
--- NOTE | 2020-05-12 09:45 | NUR ---
Pulmonary services, Dr. Corey in the unit to see and examine pt. report given and orders to continue with care plan received.
--- NOTE | 2020-05-12 13:15 | NUR ---
JASMINA Baca in the unit to dialyse pt.
--- NOTE | 2020-05-12 13:33 | NUR ---
HD in progress. pt with desaturation for about 10 min. pt tolerating procedure well with no need of pressors.
--- NOTE | 2020-05-12 14:00 | NUR ---
Pt. with desaturation in the high 80's, pulmonary toileting render and during this time oxygen need increased to 6 liter.
--- NOTE | 2020-05-12 15:15 | NUR ---
hemodialysis over pt. a total of 2 liters out as reported, patient with saturation in the 87-88% during procedure, and quickly recover right after procedure finish.
[2020-05-12] MEDS: FLUCONAZOLE 200 MG/NS 100ML IV 100 MG in PREMIXED 1 EACH IV SCH (17:26)
--- NOTE | 2020-05-12 18:58 | NUR ---
Patient left in bed resting s/p dinner. Hemodynamically stable sbp within desired limits. Tolerating diet well no n/v. passing loose BM's for which pt. was medicated prn. Blankenship to gravity. IV line patent. no news skin breakdown. Will endorse to incoming shift.
[2020-05-12] MEDS: POLYVINYL ALCOHOL OPHT DROPS 15 ML BOTTLE OP SCH (20:24)
[2020-05-12] MEDS: DONEPEZIL 10 MG TABLET PO SCH (20:25)
[2020-05-12] MEDS: ATORVASTATIN 20 MG TABLET PO SCH (20:40)
[2020-05-13] VITALS (24 sets, daily range): BP systolic 102–136; BP diastolic 40–75
--- NOTE | 2020-05-13 01:45 | NUR ---
DTR: Leighann called / update.
--- NOTE | 2020-05-13 02:24 | NUR ---
Noted accelerated paced heart rate.
--- NOTE | 2020-05-13 04:07 | NUR ---
PATIENT PLACE ON BI/PAP WITH FULL LARGE MASK @ 23:30, SETTINGS, 15/5 , R16, FIO2 @ 30% . ELICEO COFFMAN Addendum: 05/13/20 at 0410 by RICKEY MEHTA Amended: Links added.
[2020-05-13 05:46] LABS: CARBON DIOXIDE 28 mmol/L (21-32); CHLORIDE 106 mmol/L (98-107); CREATININE 3.1 mg/dL (0.6-1.3); GLUCOSE 94 mg/dL (74-106); MAGNESIUM 2.3 mg/dL (1.8-2.4); PHOSPHOROUS 4.8 mg/dL (2.5-4.9); UREA NITROGEN, BLOOD 79 mg/dL (7-18)
[2020-05-13 05:48] LABS: BASOPHILS % (AUTO) 0.2 % (0.0-2.0); EOSINOPHILS # (AUTO) 0.1 K/uL (0.0-0.7); EOSINOPHILS % (AUTO) 0.9 % (0.0-7.0); HEMATOCRIT 24.2 % (36.7-47.1); LYMPHOCYTES # (AUTO) 0.9 K/uL (20.0-40.0); LYMPHOCYTES % (AUTO) 8.2 % (20.5-51.5); MEAN CORPUSCULAR HEMOGLOBIN 28.3 uug (23.8-33.4); MEAN CORPUSCULAR HGB CONC 30 g/dL (32.5-36.3); MEAN CORPUSCULAR VOLUME 94.9 fL (73.0-96.2); MONOCYTES # (AUTO) 0.9 K/uL (2.0-10.0); NEUTROPHILS # (AUTO) 9.4 K/uL (1.8-8.9); NEUTROPHILS % (AUTO) 82.7 % (38.5-71.5); PLATELET COUNT (AUTO) 155 K/uL (152-348); RED BLOOD CELL COUNT(AUTO) 2.55 MIL/uL (4.06-5.63)
[2020-05-13 05:49] LABS: HEMOGLOBIN 7.2 g/dL (12.5-16.3)
[2020-05-13] MEDS: MIDODRINE HCL 5 MG TABLET PO SCH ×3 (05:49→21:14)
[2020-05-13 05:51] LABS: WHITE BLOOD COUNT (AUTO) 11.4 K/uL (3.6-10.2)
[2020-05-13] MEDS: ALBUTEROL SULFATE 2.5 MG/3 ML NEBU IH SCH ×2 (06:10→19:46)
--- NOTE | 2020-05-13 07:15 | NUR ---
Received pt. sleeping arousable to name. hemodynamically stable with sbp within desire limits no vasopressors. blakcburn to gravity. On 3LNC saturation above 95% no respiratory distress. Will continue with care plan.
[2020-05-13] MEDS: ENSURE ENLIVE (VAN) 240 ML LIQUID PO SCH ×4 (08:34→17:16)
[2020-05-13] MEDS: Z GUARD REMEDY PASTE 57 GM TUBE TOP SCH ×2 (08:35→21:15)
[2020-05-13] MEDS: CYANOCOBALAMIN 1,000 MCG TABLET PO SCH (08:35)
[2020-05-13] MEDS: ACETAzolamide 250 MG TABLET PO SCH ×2 (08:35→21:14)
[2020-05-13] MEDS: FERROUS SULFATE 300 MG/5 ML LIQUID UDC PO SCH (08:36)
[2020-05-13] MEDS: PROTEIN SUPPLEMENT (PROSTAT) 30 ML LIQUID PO SCH (08:36)
[2020-05-13] MEDS: FINASTERIDE 5 MG TABLET PO SCH (08:36)
[2020-05-13] MEDS: MUPIROCIN 2% OINT 22 GM TUBE TP SCH (08:37)
--- NOTE | 2020-05-13 09:15 | NUR ---
Attending Whit Downey in the unit to follow up on pt's care. Report given orders to continue with care plan received.
--- NOTE | 2020-05-13 09:58 | NUR ---
Pulmonary services, Dr. Ackerman in the unit to see and examine pt. report given.
--- NOTE | 2020-05-13 12:30 | NUR ---
Patient with persistent coughing with feeding in progress. Attending notified and swallow evaluation ordered. and pt. N.PO.
[2020-05-13] MEDS: SODIUM HYPOCHLORITE 0.25% (HALF STRENGTH) 480 ML BOTTLE TOP SCH (12:36)
--- NOTE | 2020-05-13 19:05 | NUR ---
Received patient in bed sleeping however responds to name. Patient is hemodynamically stable. Blankenship to patent draining clear yellow urine. On 3L NC saturation 97%% no respiratory distress. Was reported that patient had trouble swallowing his dinner with coughing. Patient is currently NPO except meds pending swallow eval.
[2020-05-13] MEDS: ATORVASTATIN 20 MG TABLET PO SCH (21:14)
[2020-05-13] MEDS: DONEPEZIL 10 MG TABLET PO SCH (21:14)
[2020-05-13] MEDS: POLYVINYL ALCOHOL OPHT DROPS 15 ML BOTTLE OP SCH (21:15)
--- NOTE | 2020-05-13 21:40 | NUR ---
Patient was able to swallow his medications in applesauce, however it was with some difficulty. Patient did not cough at all and had a weak but effective swallow.
--- NOTE | 2020-05-13 23:43 | NUR ---
PATIENT PLACED BACK ON BI/PAP MACHINE WITH FULL LARGE MASK, @ 23:30, PT STABLE DOING WELL ON BI/PAP WITH SETTINGS, 15/5 , RATE 16, FIO2 @ 30% , SAT 99%, D ROBERT COFFMAN Addendum: 05/13/20 at 2344 by RICKEY JONES RT Amended: Links added.
[2020-05-14] VITALS (25 sets, daily range): BP systolic 99–157; BP diastolic 34–74
[2020-05-14 05:04] LABS: BASOPHILS # (AUTO) 0.1 K/uL (0.0-8.0); BASOPHILS % (AUTO) 1.1 % (0.0-2.0); EOSINOPHILS # (AUTO) 0.1 K/uL (0.0-0.7); EOSINOPHILS % (AUTO) 0.8 % (0.0-7.0); HEMATOCRIT 25.1 % (36.7-47.1); HEMOGLOBIN 7.5 g/dL (12.5-16.3); LYMPHOCYTES # (AUTO) 1.8 K/uL (20.0-40.0); LYMPHOCYTES % (AUTO) 14.4 % (20.5-51.5); MEAN CORPUSCULAR HEMOGLOBIN 28.3 uug (23.8-33.4); MEAN CORPUSCULAR HGB CONC 30 g/dL (32.5-36.3); MEAN CORPUSCULAR VOLUME 95.1 fL (73.0-96.2); MONOCYTES % (AUTO) 7.8 % (0.0-11.0); NEUTROPHILS # (AUTO) 9.5 K/uL (1.8-8.9); NEUTROPHILS % (AUTO) 75.9 % (38.5-71.5); PLATELET COUNT (AUTO) 196 K/uL (152-348); RED BLOOD CELL COUNT(AUTO) 2.64 MIL/uL (4.06-5.63); WHITE BLOOD COUNT (AUTO) 12.5 K/uL (3.6-10.2)
[2020-05-14 05:26] LABS: CARBON DIOXIDE 29 mmol/L (21-32); CHLORIDE 107 mmol/L (98-107); CREATININE 3.6 mg/dL (0.6-1.3); GLUCOSE 94 mg/dL (74-106); MAGNESIUM 2.1 mg/dL (1.8-2.4); PHOSPHOROUS 5.4 mg/dL (2.5-4.9); POTASSIUM 5.1 mmol/L (3.5-5.1)
[2020-05-14 05:31] LABS: UREA NITROGEN, BLOOD 93 mg/dL (7-18)
--- NOTE | 2020-05-14 06:30 | NUR ---
Patient was able to take his medications this morning without difficulty. Patient exhibited much more energy and a strong swallow. No coughing or signs of aspiration.
[2020-05-14] MEDS: MIDODRINE HCL 5 MG TABLET PO SCH ×3 (06:48→21:04)
--- NOTE | 2020-05-14 07:42 | NUR ---
Dr. Del Cid in the unit to see and assess pt. full report given
[2020-05-14] MEDS: ALBUTEROL SULFATE 2.5 MG/3 ML NEBU IH SCH ×2 (07:58→19:31)
--- NOTE | 2020-05-14 08:02 | NUR ---
Cardio Dr. Groves in the unit to see and assess pt. full report given.
[2020-05-14] MEDS: ENSURE ENLIVE (VAN) 240 ML LIQUID PO SCH ×3 (08:17→16:20)
[2020-05-14] MEDS: PROTEIN SUPPLEMENT (PROSTAT) 30 ML LIQUID PO SCH (08:17)
[2020-05-14] MEDS: FERROUS SULFATE 300 MG/5 ML LIQUID UDC PO SCH (08:17)
[2020-05-14] MEDS: CYANOCOBALAMIN 1,000 MCG TABLET PO SCH (08:17)
[2020-05-14] MEDS: ACETAzolamide 250 MG TABLET PO SCH ×2 (08:17→21:03)
[2020-05-14] MEDS: FINASTERIDE 5 MG TABLET PO SCH (08:17)
[2020-05-14] MEDS: SODIUM HYPOCHLORITE 0.25% (HALF STRENGTH) 480 ML BOTTLE TOP SCH (08:20)
[2020-05-14] MEDS: Z GUARD REMEDY PASTE 57 GM TUBE TOP SCH ×2 (08:20→21:03)
[2020-05-14] MEDS: MUPIROCIN 2% OINT 22 GM TUBE TP SCH (08:21)
--- NOTE | 2020-05-14 08:52 | NUR ---
Dr. Mikhail Vargas in the unit to see and assess pt. full report given. Asked MD if he wanted to order IVF while pt NPO pending swallow eval and per MD, no IVF.
--- NOTE | 2020-05-14 10:04 | NUR ---
Speech therapy at bedside to assess pt for swallow eval. pt remains lethargic. per ST, keep pt NPO today as pt is lethargic and swallow reflex is more delayed today than previous assessments. ST will follow up again tomorrow
--- NOTE | 2020-05-14 10:49 | NUR ---
PT at bedside to work with pt
[2020-05-14] MEDS: IV NORMAL SALINE 250 ML IV PRN (11:45)
--- NOTE | 2020-05-14 13:41 | NUR ---
CALENDER ROLL OPERATOR Tamara in the unit to see and assess pt. full report given
[2020-05-14] MEDS: ALBUMIN HUMAN 25% 100 ML IV PRN ×2 (13:56→13:57)
--- NOTE | 2020-05-14 13:58 | NUR ---
dialysis nurse at bedside to dialyse pt. 2 bottles of PRN albumin given to associate professor of sociology as requested
--- NOTE | 2020-05-14 15:10 | NUR ---
Received call from pt's daughter Leighann. daughter updated on pt's condition and that pt was currently undergoing dialysis. also informed daughter that pt is currently NPO except meds. daughter expressed concern about pt not eating and not being on IVF. informed daughter that per Dr. Elizondo no IVF d/t renal function. also informed daughter that ST will follow up again tomorrow to see of diet can be resumed.
--- NOTE | 2020-05-14 16:06 | NUR ---
pt completed dialysis. pt had to be placed on 6L oxygen via NC during dialysis due to desaturation in the 88-90%, otherwise tolerated dialysis well with no IV pressors needed. total 1100ml taken out.
--- NOTE | 2020-05-14 19:05 | NUR ---
Received patient in bed sleeping however responds to name. Patient is hemodynamically stable. Blankenship to patent draining clear yellow urine. On 3L NC saturation 99% no respiratory distress. Patient remains NPO except meds after poor swallow evaluation result. Pending swallow eval in the morning. Patient currently has orders for dysphagia therapy.
--- NOTE | 2020-05-14 19:25 | NUR ---
Patient was able to take PO medications in applesauce without difficulty. no signs of aspiration.
[2020-05-14] MEDS: ATORVASTATIN 20 MG TABLET PO SCH (21:02)
[2020-05-14] MEDS: DONEPEZIL 10 MG TABLET PO SCH (21:03)
[2020-05-14] MEDS: POLYVINYL ALCOHOL OPHT DROPS 15 ML BOTTLE OP SCH (21:04)
[2020-05-15] VITALS (24 sets, daily range): BP systolic 102–133; BP diastolic 44–77
--- NOTE | 2020-05-15 01:45 | NUR ---
Spoke with the daughter Leighann and she expressed concern about the patient still being on NPO status. She brought up the same questions that were discussed with her by the day shift nurse. I reiterated what was previously discussed with her and that ST will follow up again today to see of diet can be resumed. I also referred her to speak with the day shift nurse who could get her in contact with the physician to discuss the plan of care.
[2020-05-15 04:45] LABS: BASOPHILS # (AUTO) 0.1 K/uL (0.0-8.0); BASOPHILS % (AUTO) 0.8 % (0.0-2.0); EOSINOPHILS % (AUTO) 0.3 % (0.0-7.0); HEMOGLOBIN 7.7 g/dL (12.5-16.3); LYMPHOCYTES # (AUTO) 1.4 K/uL (20.0-40.0); LYMPHOCYTES % (AUTO) 9.5 % (20.5-51.5); MEAN CORPUSCULAR HEMOGLOBIN 28.8 uug (23.8-33.4); MEAN CORPUSCULAR HGB CONC 31 g/dL (32.5-36.3); MEAN CORPUSCULAR VOLUME 93.8 fL (73.0-96.2); MONOCYTES # (AUTO) 1.2 K/uL (2.0-10.0); MONOCYTES % (AUTO) 7.9 % (0.0-11.0); NEUTROPHILS # (AUTO) 12.2 K/uL (1.8-8.9); NEUTROPHILS % (AUTO) 81.5 % (38.5-71.5); PLATELET COUNT (AUTO) 224 K/uL (152-348); RED BLOOD CELL COUNT(AUTO) 2.67 MIL/uL (4.06-5.63); WHITE BLOOD COUNT (AUTO) 14.9 K/uL (3.6-10.2)
[2020-05-15 05:28] LABS: CARBON DIOXIDE 29 mmol/L (21-32); CHLORIDE 107 mmol/L (98-107); CREATININE 3.5 mg/dL (0.6-1.3); GLUCOSE 83 mg/dL (74-106); MAGNESIUM 2.1 mg/dL (1.8-2.4); PHOSPHOROUS 5.3 mg/dL (2.5-4.9); UREA NITROGEN, BLOOD 76 mg/dL (7-18)
[2020-05-15] MEDS: MIDODRINE HCL 5 MG TABLET PO SCH ×3 (06:08→22:00)
--- NOTE | 2020-05-15 06:15 | NUR ---
Patient removed from BiPAP machine and placed back on 3L via NC. Patient was awake and alert and greeted me with a nice smile. Patient able to take his am medications just fine without difficulty. No signs of aspiration. Patient remains stable v-paced on the monitor, BP stable. 100% o2 SAT, no signs of distress.
--- NOTE | 2020-05-15 07:15 | NUR ---
Received pt. lethargic arousable to painful stimuli. Hemodynamically stable and SBP within desire limits. saturation above 95% on 3LNC. Awaiting to be follow up for swallow evaluation. IV line patent. blackburn to gravity. Will continue with care plan.
[2020-05-15] MEDS: ALBUTEROL SULFATE 2.5 MG/3 ML NEBU IH SCH ×2 (07:17→19:43)
--- NOTE | 2020-05-15 07:30 | NUR ---
Pulmonary services, Dr. Del Cid in the unit to see and examine pt. report given, see orders hx.
[2020-05-15] MEDS: PROTEIN SUPPLEMENT (PROSTAT) 30 ML LIQUID PO SCH (07:43)
[2020-05-15] MEDS: CYANOCOBALAMIN 1,000 MCG TABLET PO SCH (08:00)
[2020-05-15] MEDS: ACETAzolamide 250 MG TABLET PO SCH ×2 (08:00→21:00)
[2020-05-15] MEDS: FERROUS SULFATE 300 MG/5 ML LIQUID UDC PO SCH (08:00)
[2020-05-15] MEDS: FINASTERIDE 5 MG TABLET PO SCH (08:00)
[2020-05-15] MEDS: ENSURE ENLIVE (VAN) 240 ML LIQUID PO SCH ×3 (08:01→16:18)
[2020-05-15] MEDS: SODIUM HYPOCHLORITE 0.25% (HALF STRENGTH) 480 ML BOTTLE TOP SCH (08:02)
[2020-05-15] MEDS: Z GUARD REMEDY PASTE 57 GM TUBE TOP SCH ×2 (08:02→20:30)
[2020-05-15] MEDS: MUPIROCIN 2% OINT 22 GM TUBE TP SCH (08:03)
--- NOTE | 2020-05-15 11:11 | NUR ---
FIELD RETURN REPAIRER Tamara in the unit to see pt. labs reviewed and per FIELD RETURN REPAIRER she wants to wait a couple more days until Hgb is at least 8 to do another debridement. FIELD RETURN REPAIRER also put in order for serial debridement and asked to get consent from daughter.
--- NOTE | 2020-05-15 12:16 | NUR ---
Attending physician, Dr. Mcduffie in the unit to see and examine patient, report given and orders received.
--- NOTE | 2020-05-15 12:35 | NUR ---
Kyle speech master brewer at bedside to follow up on pt. Patient awake at this time, with first spoon of water with thickener; signs of aspiration noted. Also pt. had lots of drooling and unable to fully swallow. Addendum: 05/15/20 at 1238 by BOBBY JOHNSON RN Test stopped for safety precautions. Addendum: 05/15/20 at 1244 by BOBBY JOHNSON RN called to be notified.
[2020-05-15 12:44] LABS: ABG BASE EXCESS -0.8 mmol/L; ABG HCO3 23.8 mmol/L; ABG PCO2 38.8 mmHg (35.0-45.0); ABG PH 7.405 (7.350-7.450); ABG PO2 85.8 mmHg (75.0-100.0); ABG SITE RIGHT BRACHIAL; ABG TOTAL HEMOGLOBIN 8.5 G/dL (13.5-18.0); COHb 1.4 % (0.5-1.5); MetHb 0.3 % (0.0-1.5); O2Hb 94.1 % (94.0-97.0); VENT MODE Nasal Cannula
--- NOTE | 2020-05-15 12:48 | NUR ---
Attending notified of blood gas results.
--- NOTE | 2020-05-15 13:00 | NUR ---
Physical therapist in the unit to follow up on pt. as reported Passive ROM at this time pt. lethargic at this time.
--- NOTE | 2020-05-15 19:45 | NUR ---
rounds made patient in bed , afebrile temp via axillary 98.1(F),v- paced on the heart monitor rate 67,bp 111/66 saturation 99% rr 16 tolerating 02 nasal cannula at 3 l/min . hob up . patient open eyes to name but non verbal,goes back to sleep . patient very weak and very lethargic.f/c to bsd with 10 ml of yellowish urine .right midline with tko ivf n/s at 5 ml/hr infusing well patent . checked left femoral groin hemodialysis catheter access , dressing clean dry and intact.respiratory therapist at b/s .
[2020-05-15] MEDS: POLYVINYL ALCOHOL OPHT DROPS 15 ML BOTTLE OP SCH (20:30)
--- NOTE | 2020-05-15 20:42 | NUR ---
position changed turned and reposition patient . lotion applied to back area and upper/lower extremities ,off loaded back with pillow ,heel elevated with pillow . oral care done . patient unable to open mouth and very weak.
[2020-05-15] MEDS: DONEPEZIL 10 MG TABLET PO SCH (21:00)
[2020-05-15] MEDS: ATORVASTATIN 20 MG TABLET PO SCH (21:00)
--- NOTE | 2020-05-15 21:31 | NUR ---
awakened patient from his sleep ,try to give applesauce for swallowing trial before giving pm medications patient very weak and unable to open mouth ,given small amt of applesauce patient unable to thew and drooling .hold medication for now potential for aspiration . will continue to follow up patient mentation.
--- NOTE | 2020-05-15 22:00 | NUR ---
due po medication not given follow ST swallow treatment note . oral po doesn't appear to be safe at this time recommend NPO at this time .continue NPO at this time .
--- NOTE | 2020-05-15 23:15 | NUR ---
respiratory therapist at bedside place patient on bipap rate 16 16/5 fio2 30% ,hob up .RR 17 SATURATION 100%.
[2020-05-16] VITALS (22 sets, daily range): BP systolic 106–147; BP diastolic 51–81
--- NOTE | 2020-05-16 01:48 | NUR ---
daughter called and updated with patients condition ,dictated v/s and informed patient very weak and very lethargic ,patient only open eyes only to name and goes back to sleep . informed daughter also that patient failed swallow evaluation and as per ST to keep patient NPO ,potential for aspiration . 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 will endorsed .
--- NOTE | 2020-05-16 03:35 | NUR ---
Thursday photo day ,photo taken on patient skin issues ,right and left hand/forearm,right and left toes,right lateral lower leg,sacral area . placed in chart , wound dressing done and follow wound care treatment .
[2020-05-16] MEDS: IV NORMAL SALINE 250 ML IV PRN (03:40)
--- NOTE | 2020-05-16 04:30 | NUR ---
looper fixer at b/s for patient am labs
--- NOTE | 2020-05-16 04:45 | NUR ---
am care done ,bath patient changed soiled linens and gown . patient had x1 bm small in amt form brownish in color . turned and reposition patient ,lotion applied to upper and lower extremities . z guard applied to sacral and bilateral groin .
[2020-05-16 05:17] LABS: BASOPHILS # (AUTO) 0.1 K/uL (0.0-8.0); BASOPHILS % (AUTO) 0.8 % (0.0-2.0); EOSINOPHILS % (AUTO) 0.4 % (0.0-7.0); HEMATOCRIT 33.2 % (36.7-47.1); HEMOGLOBIN 10.2 g/dL (12.5-16.3); MEAN CORPUSCULAR HEMOGLOBIN 28.6 uug (23.8-33.4); MEAN CORPUSCULAR HGB CONC 31 g/dL (32.5-36.3); MEAN CORPUSCULAR VOLUME 93.4 fL (73.0-96.2); MONOCYTES # (AUTO) 0.7 K/uL (2.0-10.0); NEUTROPHILS % (AUTO) 75.8 % (38.5-71.5); PLATELET COUNT (AUTO) 254 K/uL (152-348); RED BLOOD CELL COUNT(AUTO) 3.55 MIL/uL (4.06-5.63); WHITE BLOOD COUNT (AUTO) 11.8 K/uL (3.6-10.2)
[2020-05-16 05:20] LABS: CARBON DIOXIDE 28 mmol/L (21-32); CHLORIDE 104 mmol/L (98-107); CREATININE 4.1 mg/dL (0.6-1.3); GLUCOSE 86 mg/dL (74-106); MAGNESIUM 2.3 mg/dL (1.8-2.4); PHOSPHOROUS 6.6 mg/dL (2.5-4.9); POTASSIUM 5.2 mmol/L (3.5-5.1)
[2020-05-16 05:32] LABS: UREA NITROGEN, BLOOD 81 mg/dL (7-18)
[2020-05-16] MEDS: MIDODRINE HCL 5 MG TABLET PO SCH ×3 (05:34→21:00)
--- NOTE | 2020-05-16 05:35 | NUR ---
xray at bedside for portable chest xray .
[2020-05-16 06:08] LABS: ABG BASE EXCESS -1.2 mmol/L; ABG HCO3 22.3 mmol/L; ABG PCO2 32.3 mmHg (35.0-45.0); ABG PH 7.456 (7.350-7.450); ABG PO2 136.3 mmHg (75.0-100.0); ABG SITE RIGHT BRACHIAL; ABG TOTAL HEMOGLOBIN 8.7 G/dL (13.5-18.0); COHb 1.8 % (0.5-1.5); MetHb 0.2 % (0.0-1.5); O2Hb 97.3 % (94.0-97.0); VENT MODE BIPAP 15/5
--- NOTE | 2020-05-16 07:15 | NUR ---
Received pt. on nocturnal BIPAP lethargic arousable only to deep painful stimuli. Hemodynamically stable, sbp within desired limits no need of vasopressors. blackburn to gravity. NPO. Will continue with care plan.
[2020-05-16] MEDS: ALBUTEROL SULFATE 2.5 MG/3 ML NEBU IH SCH ×2 (07:32→20:20)
[2020-05-16] MEDS: PROTEIN SUPPLEMENT (PROSTAT) 30 ML LIQUID PO SCH (08:00)
--- NOTE | 2020-05-16 08:00 | NUR ---
Pulmonary services, Dr. Del iCd in the unit to see and examine pt. report given. And orders to endorse future ABG orders to be off BIPAP and to clarify to staff that BIPAP is nocturnal only. Will continue with care plan.
--- NOTE | 2020-05-16 08:15 | NUR ---
Nava from speech therapy in the unit to follow up on pt. At this time pt unable to wake up, interact or to follow commands. As stated by therapist she'll follow up on a later basis.
[2020-05-16] MEDS: ENSURE ENLIVE (VAN) 240 ML LIQUID PO SCH ×3 (08:38→17:00)
[2020-05-16] MEDS: FERROUS SULFATE 300 MG/5 ML LIQUID UDC PO SCH (08:38)
[2020-05-16] MEDS: FINASTERIDE 5 MG TABLET PO SCH (08:38)
[2020-05-16] MEDS: CYANOCOBALAMIN 1,000 MCG TABLET PO SCH (08:38)
[2020-05-16] MEDS: ACETAzolamide 250 MG TABLET PO SCH ×2 (08:38→20:49)
--- NOTE | 2020-05-16 08:44 | NUR ---
A call from [facility] case management for update on pt's care plan telephone report given.
[2020-05-16] MEDS: SODIUM HYPOCHLORITE 0.25% (HALF STRENGTH) 480 ML BOTTLE TOP SCH (08:59)
[2020-05-16] MEDS: Z GUARD REMEDY PASTE 57 GM TUBE TOP SCH ×2 (08:59→20:50)
[2020-05-16] MEDS: MUPIROCIN 2% OINT 22 GM TUBE TP SCH (09:00)
--- NOTE | 2020-05-16 09:32 | NUR ---
HD R.N. in to dialyze patient. HR of 73, sbp of 129/67, rr of 18. Will continue monitoring.
--- NOTE | 2020-05-16 09:40 | NUR ---
HD in progress. sbp of 113/68 hr 73. RR 25. saturation of 1005 on 3 LNC.
--- NOTE | 2020-05-16 09:52 | NUR ---
Attending Whit Downey in the unit to see and examine pt. Whit updated on pt's current condition and the possible need of NG placement. As stated He's discuss care plan with family and will update us later on"
--- NOTE | 2020-05-16 11:14 | NUR ---
PROCESS CONTROL TECHNICIAN Conrado Brian in the unit. per PROCESS CONTROL TECHNICIAN, he spoke to pt's daughter regarding feeding. Per PROCESS CONTROL TECHNICIAN, if pt fails swallow eval again later, daughter is agreeable to NGT placement. PROCESS CONTROL TECHNICIAN wants to be updated whether pt passes or fails swallow eval.
--- NOTE | 2020-05-16 11:58 | NUR ---
HD over at this time HR of 76, rr 21, sbp of 115/66. saturation of 100% on 3LNC. as reported 1.1Liters removed.
--- NOTE | 2020-05-16 12:06 | NUR ---
Swallow eval in progress by Ms. Vick speech therapist.
--- NOTE | 2020-05-16 12:25 | NUR ---
Patient taken down for head CT. Vitals stable.
--- NOTE | 2020-05-16 12:49 | NUR ---
Patient back from CT. tolerated procedure well no distress noted. Hemodynamically stable. Saturation within normals.
--- NOTE | 2020-05-16 12:55 | NUR ---
N.P. surgery in for serial sacral debridement, pt. tolerated procedure well small amount of bleeding noted. Area cauterized with silver nitrate which stopped bleeding. Will continue to monitor.
--- NOTE | 2020-05-16 19:04 | NUR ---
Left pt. on bedrest, neuro-botello unchanged remains lethargi ob/off. Hemodynamically stable sbp within desired range. on 3L NC saturation above 95% no distress. Blankenship to gravity, pt. hemodialyzed today and tolerated well. NG clamped and to resume medications via NG. after failing swallow evaluation for the third time. No new skin breakdown. Will endorse to incoming shift.
--- NOTE | 2020-05-16 19:31 | NUR ---
Received report for AM nurse. Neurologically patient is doing worse than when I previously had this patient last week. Unable to swallow (NPO) and now has an NG tube. Patient opens his eyes when called and is still able to understand and nod his head when spoken to. Head CT done earlier today. Patient is very lethargic. Patient is getting VPaced. BP stable w/o the need of pressors. CHF hx. Patient has swelling in all 4 extremities. Dialyzed today (tolerated well) with an output of 1.1 L. Receiving 3L via Nasal Canula - saturations >94%. Nocturnal Bipap routine. GI/: Patient only produced 100cc urine output throughout dayshift. No report of BM. NG tube in place. NPO. Patient sacral wound was debrided - tolerated well - wound care instructions received.
[2020-05-16] MEDS: ATORVASTATIN 20 MG TABLET PO SCH (20:49)
[2020-05-16] MEDS: POLYVINYL ALCOHOL OPHT DROPS 15 ML BOTTLE OP SCH (20:49)
[2020-05-16] MEDS: DONEPEZIL 10 MG TABLET PO SCH (20:49)
[2020-05-17] VITALS (24 sets, daily range): BP systolic 92–129; BP diastolic 39–73
--- NOTE | 2020-05-17 01:00 | NUR ---
Tube feeding initiated per PULLMAN CLERK Conrado Brian & CHANELL Johnson's orders
[2020-05-17] MEDS: NEPRO 1000 ML GT PRN (04:25)
[2020-05-17 04:54] LABS: BASOPHILS # (AUTO) 0.2 K/uL (0.0-8.0); BASOPHILS % (AUTO) 1.2 % (0.0-2.0); EOSINOPHILS % (AUTO) 0.1 % (0.0-7.0); HEMATOCRIT 26.6 % (36.7-47.1); HEMOGLOBIN 7.8 g/dL (12.5-16.3); LYMPHOCYTES # (AUTO) 1.1 K/uL (20.0-40.0); LYMPHOCYTES % (AUTO) 8.5 % (20.5-51.5); MEAN CORPUSCULAR HEMOGLOBIN 27.5 uug (23.8-33.4); MEAN CORPUSCULAR HGB CONC 29 g/dL (32.5-36.3); MONOCYTES # (AUTO) 0.9 K/uL (2.0-10.0); NEUTROPHILS # (AUTO) 10.9 K/uL (1.8-8.9); NEUTROPHILS % (AUTO) 83.2 % (38.5-71.5); PLATELET COUNT (AUTO) 189 K/uL (152-348); RED BLOOD CELL COUNT(AUTO) 2.84 MIL/uL (4.06-5.63); WHITE BLOOD COUNT (AUTO) 13.2 K/uL (3.6-10.2)
[2020-05-17 05:06] LABS: CARBON DIOXIDE 29 mmol/L (21-32); CHLORIDE 105 mmol/L (98-107); CREATININE 3.7 mg/dL (0.6-1.3); GLUCOSE 77 mg/dL (74-106); MAGNESIUM 2.4 mg/dL (1.8-2.4); PHOSPHOROUS 6.7 mg/dL (2.5-4.9); POTASSIUM 4.4 mmol/L (3.5-5.1); UREA NITROGEN, BLOOD 68 mg/dL (7-18)
--- NOTE | 2020-05-17 05:42 | NUR ---
Patient has had frequent bursts of Sinus Tachycardia throughout shift - more than usual for him At 0538 HR spiked to 130BPM for about 30 seconds -- during that time it appears as though patient is being A&V paced - patient seemed visibly distressed (tremors/facial grimacing). 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
[2020-05-17] MEDS: MIDODRINE HCL 5 MG TABLET PO SCH (06:05)
--- NOTE | 2020-05-17 07:00 | NUR ---
No acute changes throughout shift. Patient opens eyes when called but is unable to verbally answer any question - does nod head in some instances. Very lethargic + weak. Slept the entirety of shift. Check previous note regarding Sudden bursts of Sinus Tachycardia. Patient generally asymptomatic (minus one event) - Tachycardia not sustained. Saturations >94% on 3L Nasal Canula & on Bipap (nocturnal routine maintained). No signs of labored breathing. No bowel movement. Continues to be oliguric (100cc output). NGT feeding was initiated per orders - verified position of tube via Abdominal X-Ray on 05/16 as well as Auscultation. All lines patient. Medications administered on time. No new wounds - no bleeding from debrided sacral wound. Linens changed, wound care done. Vitals at 0700: HR-68 BP- 110/49 O2-100% RR-19 Temp-97.7 (afebrile throughout shift).
--- NOTE | 2020-05-17 07:30 | NUR ---
Received report from night monitor nurse, patient in bed asleep, no distress noted at this time. paced Tachycardia on the monitor as high as 130, Hemodynamically stable. Oxygen saturation 100% on 3L nasal cannula. NG tube to right nares with Nepro tube feeding at 20cc/hr. Blankenship intact and draining. Air mattress inflated, bed in low position, side rails upx2.
[2020-05-17] MEDS: ALBUTEROL SULFATE 2.5 MG/3 ML NEBU IH SCH ×2 (07:32→19:40)
--- NOTE | 2020-05-17 07:51 | NUR ---
Patient seen by Dr. Del Cid, full report given.
--- NOTE | 2020-05-17 08:06 | NUR ---
Patient seen by Dr. Hope, reported tachycardic episodes and was told to contact him if sustained to place patient on amiodarone.
[2020-05-17] MEDS ORDERED: GUAIFENESIN SUGAR FREE 100 MG/5 ML UDC NG PRN (08:24)
[2020-05-17] MEDS ORDERED: ACETAMINOPHEN 325 MG TABLET NG PRN (08:25)
[2020-05-17] MEDS: FERROUS SULFATE 300 MG/5 ML LIQUID UDC NG SCH (08:41)
[2020-05-17] MEDS: CYANOCOBALAMIN 1,000 MCG TABLET NG SCH (08:42)
[2020-05-17] MEDS: ACETAzolamide 250 MG TABLET NG SCH ×2 (08:42→21:18)
[2020-05-17] MEDS: FINASTERIDE 5 MG TABLET NG SCH (08:42)
[2020-05-17] MEDS: Z GUARD REMEDY PASTE 57 GM TUBE TOP SCH ×2 (08:43→21:19)
[2020-05-17] MEDS: SODIUM HYPOCHLORITE 0.25% (HALF STRENGTH) 480 ML BOTTLE TOP SCH (08:44)
[2020-05-17] MEDS: MUPIROCIN 2% OINT 22 GM TUBE TP SCH (09:00)
--- NOTE | 2020-05-17 09:30 | NUR ---
Patient seen by Dr. Levine, full report given.
[2020-05-17] MEDS: ARGININE/GLUTAMINE/CALCIUM BMB 1 EACH POWD.PACK NG SCH (11:32)
[2020-05-17] MEDS: MIDODRINE HCL 5 MG TABLET NG SCH ×2 (13:35→21:19)
--- NOTE | 2020-05-17 17:24 | NUR ---
Notified Dr. Hope that patient has had 4 episodes of tachycardia today not sustained for more than a couple minutes. Received orders to give amioderone bolus and if tachycardia episode happens again, start the drip.
[2020-05-17] MEDS ORDERED: AMIODARONE HCL IV 450 MG in IV DEXTROSE 5% 250 ML IV PRN (17:30)
[2020-05-17] MEDS ORDERED: AMIODARONE HCL IV 150 MG in IV DEXTROSE 5% 100 ML IV ONE (17:30)
--- NOTE | 2020-05-17 18:00 | NUR ---
Patient seen by NAHOMY Mcdonald for wound care. Wound evaluated. No new orders at this time.
--- NOTE | 2020-05-17 18:04 | NUR ---
No residuals noted from feeding tube. Increased feeding to 30ml/hr. Patient has had third soft bowel movement today.
--- NOTE | 2020-05-17 19:05 | NUR ---
Received patient in bed sleeping however responds to name. Patient is hemodynamically stable. Blankenship to patent draining clear yellow urine. On 3L NC saturation 99% no respiratory distress. Patient remains NPO now with NG tube present and receiving feeding. Nepro 1.8 running @30mL/Hr, no residual at this time.
[2020-05-17] MEDS: ATORVASTATIN 20 MG TABLET NG SCH (21:18)
[2020-05-17] MEDS: DONEPEZIL 10 MG TABLET NG SCH (21:18)
[2020-05-17] MEDS: POLYVINYL ALCOHOL OPHT DROPS 15 ML BOTTLE OP SCH (21:19)
[2020-05-18] VITALS (24 sets, daily range): BP systolic 90–124; BP diastolic 37–66
--- NOTE | 2020-05-18 05:00 | NUR ---
Patient taken of BiPAP and returned to 3L via NC. ABG to be drawn in an hour.
[2020-05-18 05:02] LABS: BASOPHILS # (AUTO) 0.1 K/uL (0.0-8.0); BASOPHILS % (AUTO) 0.6 % (0.0-2.0); EOSINOPHILS # (AUTO) 0.1 K/uL (0.0-0.7); EOSINOPHILS % (AUTO) 0.6 % (0.0-7.0); HEMATOCRIT 25.4 % (36.7-47.1); HEMOGLOBIN 7.6 g/dL (12.5-16.3); LYMPHOCYTES # (AUTO) 1.2 K/uL (20.0-40.0); MEAN CORPUSCULAR HGB CONC 30 g/dL (32.5-36.3); MONOCYTES # (AUTO) 0.8 K/uL (2.0-10.0); MONOCYTES % (AUTO) 7.1 % (0.0-11.0); NEUTROPHILS # (AUTO) 9.6 K/uL (1.8-8.9); NEUTROPHILS % (AUTO) 81.7 % (38.5-71.5); PLATELET COUNT (AUTO) 189 K/uL (152-348); WHITE BLOOD COUNT (AUTO) 11.8 K/uL (3.6-10.2)
[2020-05-18 05:12] LABS: CARBON DIOXIDE 30 mmol/L (21-32); CHLORIDE 105 mmol/L (98-107); CREATININE 4.2 mg/dL (0.6-1.3); GLUCOSE 119 mg/dL (74-106); MAGNESIUM 2.2 mg/dL (1.8-2.4); PHOSPHOROUS 7.1 mg/dL (2.5-4.9); POTASSIUM 4.1 mmol/L (3.5-5.1)
[2020-05-18 05:29] LABS: UREA NITROGEN, BLOOD 82 mg/dL (7-18)
[2020-05-18 05:56] LABS: ABG BASE EXCESS 2.4 mmol/L; ABG HCO3 27.5 mmol/L; ABG PCO2 45.1 mmHg (35.0-45.0); ABG PH 7.403 (7.350-7.450); ABG PO2 82.6 mmHg (75.0-100.0); ABG SITE RIGHT RADIAL; ABG TOTAL HEMOGLOBIN 8.8 G/dL (13.5-18.0); MetHb 0.4 % (0.0-1.5); O2Hb 94.5 % (94.0-97.0); VENT MODE Nasal Cannula
[2020-05-18] MEDS: MIDODRINE HCL 5 MG TABLET NG SCH ×3 (06:29→21:32)
--- NOTE | 2020-05-18 07:01 | NUR ---
Critical BUN resulted however lab did not call and inform me of critical result. Lab note on the critical result states "consistent with previous result".
--- NOTE | 2020-05-18 07:29 | NUR ---
Received report from shift production supervisor nurse, patient in bed awake and smiling. Hemodynamically stable, HR 63 BPM paced. Oxygen saturation 97% on 3L NC. Tube feeding off, residual noted of 60cc. Patient has small dark loose BM, blackburn draining appropriately. Patient repositioned to right, Air mattress inflated, bed in low position, side rails upx2.
[2020-05-18] MEDS: ALBUTEROL SULFATE 2.5 MG/3 ML NEBU IH SCH ×2 (07:34→19:03)
[2020-05-18] MEDS: PROTEIN SUPPLEMENT (PROSTAT) 30 ML LIQUID NG SCH (07:38)
--- NOTE | 2020-05-18 07:57 | NUR ---
Patient seen by Dr. Del Cid, full report given.
[2020-05-18] MEDS: LOPERAMIDE HCL 2 MG CAPSULE NG PRN (08:00)
[2020-05-18] MEDS: CYANOCOBALAMIN 1,000 MCG TABLET NG SCH (08:00)
[2020-05-18] MEDS: ACETAzolamide 250 MG TABLET NG SCH ×2 (08:00→20:37)
[2020-05-18] MEDS: FINASTERIDE 5 MG TABLET NG SCH (08:00)
[2020-05-18] MEDS: FOLIC ACID/VITAMIN B COMP W-C TABLET NG SCH (08:00)
[2020-05-18] MEDS: ARGININE/GLUTAMINE/CALCIUM BMB 1 EACH POWD.PACK NG SCH (08:01)
[2020-05-18] MEDS: FERROUS SULFATE 300 MG/5 ML LIQUID UDC NG SCH (08:01)
[2020-05-18] MEDS: Z GUARD REMEDY PASTE 57 GM TUBE TOP SCH ×2 (08:01→20:37)
[2020-05-18] MEDS: MUPIROCIN 2% OINT 22 GM TUBE TP SCH (08:02)
[2020-05-18] MEDS: SODIUM HYPOCHLORITE 0.25% (HALF STRENGTH) 480 ML BOTTLE TOP SCH (08:02)
--- NOTE | 2020-05-18 08:20 | NUR ---
Patient seen by Dr. Kerr.
[2020-05-18] MEDS: NEPRO 1000 ML GT PRN (09:24)
--- NOTE | 2020-05-18 10:09 | NUR ---
Patient has a residual of 300cc from NG tube feeding. Feeding held at this time.
--- NOTE | 2020-05-18 12:00 | NUR ---
Resumed tube feeding as patient's residuals were 20cc.
[2020-05-18] MEDS: ALBUMIN HUMAN 25% 100 ML IV PRN (12:10)
--- NOTE | 2020-05-18 12:26 | NUR ---
Dialysis completed and patient is hemodynamically stable at this time. Oxygen increased to 5L nasal cannula for a period of desaturation down to 92%. No episodes of tachycardia or hypotension.
--- NOTE | 2020-05-18 13:45 | NUR ---
Consent received by daughter Leighann for EGD and PEG placement. Witness by Kusum Patel. Daughter wants to speak with Dr. Vila before procedure and requests to know the time/date.
--- NOTE | 2020-05-18 14:30 | NUR ---
Patient seen by NAHOMY Mcdonald for wound. Wound evaluated and dressing changed.
[2020-05-18] MEDS: IV NORMAL SALINE 250 ML IV PRN (16:12)
--- NOTE | 2020-05-18 19:30 | NUR ---
called pharmacy c/o amiodarone drip was discontinue in the [facility] according to pharmacist they called dr: arias this afternoon and with order to discontinue medication,informed pharmacist that there is a miscellaneous nursing order by the say shift RN , that if patient will have sustained VT to start amiodarone drip prn with no bolus .will verify the order with the day shift RN and with the truck striker . Addendum: 05/18/20 at 2233 by AUGIE WATERMAN RN DAY SHIFT RN TO START PRN AMIODARONE DRIP FOR SUSTAINED TACHYCARDIA ADMINISTERED AMIODARONE DRIP NO BOLUS .
--- NOTE | 2020-05-18 19:45 | NUR ---
received patient in bed sleeping easily arousable to name and patient open eyes to name,able to moved head from side to side ,then goes back to sleep .V/S wnl HR 62 V- PACING,BP108/56 ,SATURATION 94% on 02 nasal cannula at 4 l/min .TF in progress via the right nare NGT on Nepro at 40 ml/hr .f/C to BSD with yellowish urine will continue to monitor i and o ,turned and reposition patient,off loaded back with pillow and elevated upper and lower extremities with pillow heels off bed.
[2020-05-18] MEDS ORDERED: AMIODARONE HCL IV 450 MG in IV DEXTROSE 5% 250 ML IV PRN ×2 (20:00→22:15)
--- NOTE | 2020-05-18 20:30 | NUR ---
patient on TF via the right NGT ON NEPRO at 40 ml/hr checked residual obtained 30 ml of residual .due medication crushed and given via the ngt tube . aspiration precaution observed. hob up . 45 degrees.continue tube feedings at 40 ml .
[2020-05-18] MEDS: POLYVINYL ALCOHOL OPHT DROPS 15 ML BOTTLE OP SCH (20:36)
[2020-05-18] MEDS: ATORVASTATIN 20 MG TABLET NG SCH (20:36)
[2020-05-18] MEDS: DONEPEZIL 10 MG TABLET NG SCH (20:37)
--- NOTE | 2020-05-18 23:30 | NUR ---
respiratory therapist at bedside oral care done and placed patient on bipap .rate 16 15/5 fio2 30%. hob up .RR 20 SATURATION 99%
[2020-05-19] VITALS (24 sets, daily range): BP systolic 91–134; BP diastolic 43–77
--- NOTE | 2020-05-19 | NUR ---
checked tube feeding residual only 20 ml ,increase tube feeding to 45 ml /hr goal of 55 ml/hr ,will continue to monitor residual and tube feeding tolerance . flushed tube feedings with water,30 ml .hob up 45 degrees .
--- NOTE | 2020-05-19 00:13 | NUR ---
spoked with patients daughter and questions answered and updated with patient condition,as per daughter she wants to talk to the GI MD .
--- NOTE | 2020-05-19 02:00 | NUR ---
turned and reposition patient ,oral care done .hob up . patient v/s wnl no s/s of pain .
[2020-05-19] MEDS: IV NORMAL SALINE 250 ML IV PRN (03:48)
--- NOTE | 2020-05-19 04:30 | NUR ---
am care done bath patient , incontinent of stool soft to loose brownish in color moderate in amt . changed soiled linens and gown . wound dressing done to patient sacral area cleanse with normal saline ,pat dry applied Kerlix dakins solution and covered with abd secure with paper tape . changed dressing on patient left Torres catheter done aseptically .f/c done. applied z guard to patient bilateral groin ,scrotal area.turned and reposition patient .
[2020-05-19] MEDS: LOPERAMIDE HCL 2 MG CAPSULE NG PRN (04:52)
--- NOTE | 2020-05-19 04:52 | NUR ---
given Imodium prn c/o diarrhea see emar .
[2020-05-19] MEDS: CLOTRIMAZOLE 1% CREAM 30 GM TUBE TP PRN (04:55)
[2020-05-19] MEDS: Z GUARD REMEDY PASTE 57 GM TUBE TOP PRN (04:56)
[2020-05-19] MEDS: MIDODRINE HCL 5 MG TABLET NG SCH ×3 (05:14→21:36)
[2020-05-19 05:40] LABS: BASOPHILS # (AUTO) 0.1 K/uL (0.0-8.0); BASOPHILS % (AUTO) 0.7 % (0.0-2.0); EOSINOPHILS # (AUTO) 0.1 K/uL (0.0-0.7); EOSINOPHILS % (AUTO) 0.6 % (0.0-7.0); HEMOGLOBIN 7.7 g/dL (12.5-16.3); LYMPHOCYTES # (AUTO) 1.3 K/uL (20.0-40.0); LYMPHOCYTES % (AUTO) 9.7 % (20.5-51.5); MEAN CORPUSCULAR HGB CONC 30 g/dL (32.5-36.3); MONOCYTES % (AUTO) 7.2 % (0.0-11.0); NEUTROPHILS # (AUTO) 10.9 K/uL (1.8-8.9); NEUTROPHILS % (AUTO) 81.8 % (38.5-71.5); PLATELET COUNT (AUTO) 160 K/uL (152-348); RED BLOOD CELL COUNT(AUTO) 2.76 MIL/uL (4.06-5.63); WHITE BLOOD COUNT (AUTO) 13.4 K/uL (3.6-10.2)
[2020-05-19 05:49] LABS: CARBON DIOXIDE 30 mmol/L (21-32); CHLORIDE 102 mmol/L (98-107); CREATININE 3.3 mg/dL (0.6-1.3); GLUCOSE 115 mg/dL (74-106); MAGNESIUM 2.2 mg/dL (1.8-2.4); PHOSPHOROUS 5.4 mg/dL (2.5-4.9); UREA NITROGEN, BLOOD 67 mg/dL (7-18)
--- NOTE | 2020-05-19 06:00 | NUR ---
patient had another bm moderate in amt ,soft to loose brownish in color,changed soiled linens and gown .z guard applied to bilateral groin and scrotal area . flushed ngt and off Nepro tube feeding only for 22 hours .
[2020-05-19] MEDS: ALBUTEROL SULFATE 2.5 MG/3 ML NEBU IH SCH ×2 (07:57→19:34)
[2020-05-19] MEDS: CYANOCOBALAMIN 1,000 MCG TABLET NG SCH (08:05)
[2020-05-19] MEDS: Z GUARD REMEDY PASTE 57 GM TUBE TOP SCH ×2 (08:05→21:00)
[2020-05-19] MEDS: FINASTERIDE 5 MG TABLET NG SCH (08:05)
[2020-05-19] MEDS: ACETAzolamide 250 MG TABLET NG SCH ×2 (08:05→21:36)
[2020-05-19] MEDS: FOLIC ACID/VITAMIN B COMP W-C TABLET NG SCH (08:05)
[2020-05-19] MEDS: PROTEIN SUPPLEMENT (PROSTAT) 30 ML LIQUID NG SCH (08:05)
[2020-05-19] MEDS: ARGININE/GLUTAMINE/CALCIUM BMB 1 EACH POWD.PACK NG SCH (08:05)
[2020-05-19] MEDS: FERROUS SULFATE 300 MG/5 ML LIQUID UDC NG SCH (08:06)
[2020-05-19] MEDS: SODIUM HYPOCHLORITE 0.25% (HALF STRENGTH) 480 ML BOTTLE TOP SCH (08:15)
--- NOTE | 2020-05-19 10:01 | NUR ---
Patient seen by Dr. Shaw, notified him of patients high residual from NG tube. Feedings held at this time.
--- NOTE | 2020-05-19 10:32 | NUR ---
Patient has productive cough, orders received for low intermittent suction of NG tube for 24 hours.
--- NOTE | 2020-05-19 10:49 | NUR ---
Patient seen by DR. Levine, full report given.
[2020-05-19] MEDS: ALBUTEROL SULFATE 2.5 MG/3 ML NEBU NEB PRN ×2 (15:08→22:32)
[2020-05-19] MEDS: ACETYLCYSTEINE 10% 4ML VIAL NEB SCH ×2 (15:08→22:32)
--- NOTE | 2020-05-19 16:00 | NUR ---
Patient repositioned to left side, desaturation down to 82% and rapidly declining on 4L NC, patient placed on Nonrebreather 15L.
--- NOTE | 2020-05-19 16:14 | NUR ---
RT deep suctioned patient as he has a very productive cough. Improvement observed and patient trial back on 4L NC. Tolerating well, saturation @ 99%.
[2020-05-19] MEDS: ATORVASTATIN 20 MG TABLET NG SCH (21:35)
[2020-05-19] MEDS: DONEPEZIL 10 MG TABLET NG SCH (21:35)
[2020-05-19] MEDS: POLYVINYL ALCOHOL OPHT DROPS 15 ML BOTTLE OP SCH (21:37)
--- NOTE | 2020-05-19 23:00 | NUR ---
DTR: Leighann called / update.
[2020-05-20] VITALS (17 sets, daily range): BP systolic 96–139; BP diastolic 48–97
--- NOTE | 2020-05-20 00:01 | NUR ---
NGT clamped 1 hr after medications.
--- NOTE | 2020-05-20 05:00 | NUR ---
Dressings: sacral & right lower extremity done.
[2020-05-20 05:36] LABS: BASOPHILS # (AUTO) 0.1 K/uL (0.0-8.0); BASOPHILS % (AUTO) 0.6 % (0.0-2.0); EOSINOPHILS % (AUTO) 0.3 % (0.0-7.0); HEMATOCRIT 25.6 % (36.7-47.1); HEMOGLOBIN 7.6 g/dL (12.5-16.3); LYMPHOCYTES # (AUTO) 1.3 K/uL (20.0-40.0); LYMPHOCYTES % (AUTO) 9.6 % (20.5-51.5); MEAN CORPUSCULAR HEMOGLOBIN 27.7 uug (23.8-33.4); MEAN CORPUSCULAR HGB CONC 30 g/dL (32.5-36.3); MEAN CORPUSCULAR VOLUME 92.8 fL (73.0-96.2); NEUTROPHILS # (AUTO) 11.4 K/uL (1.8-8.9); NEUTROPHILS % (AUTO) 82.5 % (38.5-71.5); PLATELET COUNT (AUTO) 165 K/uL (152-348); RED BLOOD CELL COUNT(AUTO) 2.76 MIL/uL (4.06-5.63); WHITE BLOOD COUNT (AUTO) 13.9 K/uL (3.6-10.2)
[2020-05-20 05:43] LABS: CARBON DIOXIDE 31 mmol/L (21-32); CHLORIDE 102 mmol/L (98-107); CREATININE 3.9 mg/dL (0.6-1.3); GLUCOSE 84 mg/dL (74-106); MAGNESIUM 2.3 mg/dL (1.8-2.4); PHOSPHOROUS 6.2 mg/dL (2.5-4.9); POTASSIUM 4.3 mmol/L (3.5-5.1); UREA NITROGEN, BLOOD 78 mg/dL (7-18)
[2020-05-20] MEDS: MIDODRINE HCL 5 MG TABLET NG SCH ×3 (06:15→21:23)
[2020-05-20] MEDS: ACETYLCYSTEINE 10% 4ML VIAL NEB SCH ×3 (07:48→22:30)
[2020-05-20] MEDS: ALBUTEROL SULFATE 2.5 MG/3 ML NEBU IH SCH ×2 (07:48→19:38)
[2020-05-20] MEDS: PROTEIN SUPPLEMENT (PROSTAT) 30 ML LIQUID NG SCH (08:00)
--- NOTE | 2020-05-20 08:30 | NUR ---
Received pt in bed receiving hemodialysis with dialysis nurse at bedside. Pt sleeping, arousable to verbal and tactile stimuli. Pt oriented to self, opened eyes to name, able to follow simple commands. VSS. HR 81 BPM, paced. Pt remains on 4 L O2 via NC, O2 saturation 100% at this time. RT at bedside with treatments this am. R UA Midline patent, intact. Blankenship catheter patent and intact, small amount of yellow urine noted. NGT in place in R nare at 65 cm. Notified by shift foreman nurse of NGT residual, tube feeding off at this time. SITE COORDINATOR Conrado Brian at bedside, full report given, aware. Per SITE COORDINATOR Conrado Brian, pt able to be transferred to Telemetry status. Will carry out and continue to monitor pt.
--- NOTE | 2020-05-20 08:45 | NUR ---
Dr. Shaw at bedside, full report given.
[2020-05-20] MEDS: ARGININE/GLUTAMINE/CALCIUM BMB 1 EACH POWD.PACK NG SCH (09:00)
[2020-05-20] MEDS: IV NORMAL SALINE 250 ML IV PRN (09:01)
--- NOTE | 2020-05-20 09:10 | NUR ---
Hemodialysis completed, per HD nurse 2,500 mL removed. VSS: BP 122/60, HR 72 BPM paced, RR 21, O2 saturation 97% on 4 L NC, pain 0 on Diamond Jansen Scale.
[2020-05-20] MEDS: FINASTERIDE 5 MG TABLET NG SCH (09:39)
[2020-05-20] MEDS: FERROUS SULFATE 300 MG/5 ML LIQUID UDC NG SCH (09:39)
[2020-05-20] MEDS: FOLIC ACID/VITAMIN B COMP W-C TABLET NG SCH (09:39)
[2020-05-20] MEDS: CYANOCOBALAMIN 1,000 MCG TABLET NG SCH (09:40)
[2020-05-20] MEDS: ACETAzolamide 250 MG TABLET NG SCH ×2 (09:40→21:23)
[2020-05-20] MEDS: SODIUM HYPOCHLORITE 0.25% (HALF STRENGTH) 480 ML BOTTLE TOP SCH (09:41)
[2020-05-20] MEDS: Z GUARD REMEDY PASTE 57 GM TUBE TOP PRN (09:42)
[2020-05-20] MEDS: Z GUARD REMEDY PASTE 57 GM TUBE TOP SCH ×2 (09:59→21:25)
--- NOTE | 2020-05-20 10:00 | NUR ---
NGT residual checked, 5 mL noted. NGT placement checked via ausculatation. Medications administered via NGT, will monitor for a/r, residual. NGT tube clamped after medication administration. PO medication held d/t pt's NPO status at this time. Pt repositioned, kept clean and dry. HOB remained elevated, aspiration precautions in place. Fall precautions in place. Continue to monitor.
--- NOTE | 2020-05-20 11:20 | NUR ---
Pt noted with productive cough. Small amount of thin, clear secretions suctioned from oral cavity. Oral care provided. RT at bedside for chest PT.
--- NOTE | 2020-05-20 12:34 | NUR ---
Pt noted with episode of desaturation to 84% on 4 L NC, RR 25. Pt repositioned, O2 saturation now 100% on 4 L NC, RR 20 and unlabored. HR 75 BPM, paced. Continue to monitor.
--- NOTE | 2020-05-20 13:24 | NUR ---
Dr. Kerr at [facility], full report given. Addendum: 05/20/20 at 1324 by ANTONIETA KAYE RN RN Late entry, Dr. Kerr at [facility] [id number]
--- NOTE | 2020-05-20 14:00 | NUR ---
Dr. Siddiqui at bedside, full report given.
[2020-05-20] MEDS ORDERED: METOCLOPRAMIDE HCL 10 MG/2 ML VIAL IV ONE (14:15)
[2020-05-20] MEDS: ALBUTEROL SULFATE 2.5 MG/3 ML NEBU NEB PRN ×2 (15:46→22:30)
[2020-05-20] MEDS: NEPRO 1000 ML GT PRN (17:32)
--- NOTE | 2020-05-20 18:32 | NUR ---
EOSS: Pt resting in bed, eyes open to name, able to answer simple questions with slight head nod or shake. No acute distress noted, pt shook head "no" when asked about pain. O2 sat currently 100% on 4 L NC. BP 112/57, HR 65, RR 17, temp 98.0. Due medications given per order, no a/r noted. Tube feeding initiated per order. Residual checked before starting feeding, 15 mL. Tube placement confirmed via CXR today, checked via auscultation. HOB elevated, aspiration precautions remained in place. Pt remains anuric, Blankenship catheter in place, 37 mL of yellow urine emptied. No BM today. JOAQUIN midline remains patent and intact. TKO per order. Wound care administered per order. Pt given bath, Z-Guard applied per order, linens and gown changed, repositioned frequently and offloading per order. Will endorse care to night time nanny nurse.
[2020-05-20] MEDS: ATORVASTATIN 20 MG TABLET NG SCH (21:22)
[2020-05-20] MEDS: POLYVINYL ALCOHOL OPHT DROPS 15 ML BOTTLE OP SCH (21:24)
[2020-05-20] MEDS: DONEPEZIL 10 MG TABLET NG SCH (21:24)
--- NOTE | 2020-05-20 21:36 | NUR ---
Patient now total NPO / PEG placement in AM. via assisted living housekeeper: MD chester Lawton, want a telephone call before surgical procedure.
--- NOTE | 2020-05-20 22:30 | NUR ---
Brief episode paced heart rate 115 (see strip); then, returned to 83.
[2020-05-21 04:56] LABS: BASOPHILS # (AUTO) 0.1 K/uL (0.0-8.0); BASOPHILS % (AUTO) 0.6 % (0.0-2.0); EOSINOPHILS # (AUTO) 0.1 K/uL (0.0-0.7); EOSINOPHILS % (AUTO) 0.4 % (0.0-7.0); HEMATOCRIT 26.8 % (36.7-47.1); HEMOGLOBIN 8.3 g/dL (12.5-16.3); LYMPHOCYTES # (AUTO) 1.3 K/uL (20.0-40.0); LYMPHOCYTES % (AUTO) 8.8 % (20.5-51.5); MEAN CORPUSCULAR HEMOGLOBIN 28.7 uug (23.8-33.4); MEAN CORPUSCULAR HGB CONC 31 g/dL (32.5-36.3); MEAN CORPUSCULAR VOLUME 93.2 fL (73.0-96.2); MONOCYTES % (AUTO) 6.8 % (0.0-11.0); NEUTROPHILS # (AUTO) 12.2 K/uL (1.8-8.9); NEUTROPHILS % (AUTO) 83.4 % (38.5-71.5); PLATELET COUNT (AUTO) 171 K/uL (152-348); RED BLOOD CELL COUNT(AUTO) 2.88 MIL/uL (4.06-5.63); WHITE BLOOD COUNT (AUTO) 14.7 K/uL (3.6-10.2)
[2020-05-21 05:07] LABS: CARBON DIOXIDE 32 mmol/L (21-32); CHLORIDE 108 mmol/L (98-107); CREATININE 3.2 mg/dL (0.6-1.3); GLUCOSE 91 mg/dL (74-106); MAGNESIUM 2.2 mg/dL (1.8-2.4); PHOSPHOROUS 5.3 mg/dL (2.5-4.9); UREA NITROGEN, BLOOD 53 mg/dL (7-18)
--- NOTE | 2020-05-21 05:30 | NUR ---
To OR via surgical team. 4L N/C.
[2020-05-21] MEDS: MIDODRINE HCL 5 MG TABLET NG SCH ×3 (07:13→21:07)
[2020-05-21] MEDS: ALBUTEROL SULFATE 2.5 MG/3 ML NEBU IH SCH ×2 (07:39→20:53)
[2020-05-21] MEDS: ACETYLCYSTEINE 10% 4ML VIAL NEB SCH ×3 (07:40→23:22)
--- NOTE | 2020-05-21 07:50 | NUR ---
Linda Del Cid in the unit to see and assess pt. full report given.
--- NOTE | 2020-05-21 07:51 | NUR ---
received pt s/p PEG placement this morning. no bleeding noted at the site. order for NPO except meds, resume tube feeding tomorrow AM. pt on 4L NC. JOAQUIN midline in place running TKO. Blankenship cath in place.
[2020-05-21 08:00] VITALS: BP 123/56
[2020-05-21] MEDS: Z GUARD REMEDY PASTE 57 GM TUBE TOP SCH ×2 (08:06→20:48)
[2020-05-21] MEDS: ARGININE/GLUTAMINE/CALCIUM BMB 1 EACH POWD.PACK NG SCH (08:06)
[2020-05-21] MEDS: ACETAzolamide 250 MG TABLET NG SCH ×2 (08:06→20:52)
[2020-05-21] MEDS: PROTEIN SUPPLEMENT (PROSTAT) 30 ML LIQUID NG SCH (08:06)
[2020-05-21] MEDS: FINASTERIDE 5 MG TABLET NG SCH (08:06)
[2020-05-21] MEDS: CYANOCOBALAMIN 1,000 MCG TABLET NG SCH (08:06)
[2020-05-21] MEDS: FOLIC ACID/VITAMIN B COMP W-C TABLET NG SCH (08:06)
[2020-05-21] MEDS: FERROUS SULFATE 300 MG/5 ML LIQUID UDC NG SCH (08:06)
[2020-05-21] MEDS: SODIUM HYPOCHLORITE 0.25% (HALF STRENGTH) 480 ML BOTTLE TOP SCH (08:07)
--- NOTE | 2020-05-21 08:55 | NUR ---
Dr. Kerr in the unit to see and assess pt. full report given
--- NOTE | 2020-05-21 10:07 | NUR ---
NAHOMY Brian in the unit to see and assess pt. full report given. Informed SENIOR NETWORK SECURITY ARCHITECT that pt's daughter was requesting for IV fluids while NPO. awaiting possible order for IVF, NAHOMY said he will think about it. Addendum: 05/21/20 at 1032 by MARLENE MOHAN RN follow up note: Per NAHOMY Camp, he has decided not to order IVF for the pt at this time and he will talk to the pt's daughter about it.
--- NOTE | 2020-05-21 11:53 | NUR ---
Cardio Dr. Hope in the unit to see and assess pt. full report given. Informed MD that pt's daughter was asking for IV fluids while NPO however CHISELER HEAD Conrado said no IVF for now but can ask Dr. Hope if he wanted to order any. Per Dr. Hope, no IV fluids, ok to wait to resume TF tomorrow AM
[2020-05-21 12:00] VITALS: BP 118/50
[2020-05-21] MEDS: ALBUTEROL SULFATE 2.5 MG/3 ML NEBU NEB PRN (15:09)
[2020-05-21 16:00] VITALS: BP 133/65
[2020-05-21 20:00] VITALS: BP 120/53
[2020-05-21] MEDS: POLYVINYL ALCOHOL OPHT DROPS 15 ML BOTTLE OP SCH (20:47)
[2020-05-21] MEDS: ATORVASTATIN 20 MG TABLET NG SCH (20:52)
[2020-05-21] MEDS: DONEPEZIL 10 MG TABLET NG SCH (20:53)
[2020-05-22] VITALS (7 sets, daily range): BP systolic 108–131; BP diastolic 57–74
--- NOTE | 2020-05-22 01:40 | NUR ---
DTR: Leighann called / update.
[2020-05-22 05:03] LABS: BASOPHILS # (AUTO) 0.1 K/uL (0.0-8.0); BASOPHILS % (AUTO) 0.5 % (0.0-2.0); EOSINOPHILS % (AUTO) 0.1 % (0.0-7.0); HEMATOCRIT 29.4 % (36.7-47.1); HEMOGLOBIN 8.6 g/dL (12.5-16.3); LYMPHOCYTES # (AUTO) 1.2 K/uL (20.0-40.0); LYMPHOCYTES % (AUTO) 9.3 % (20.5-51.5); MEAN CORPUSCULAR HEMOGLOBIN 27.4 uug (23.8-33.4); MEAN CORPUSCULAR HGB CONC 29 g/dL (32.5-36.3); MONOCYTES # (AUTO) 0.8 K/uL (2.0-10.0); MONOCYTES % (AUTO) 6.1 % (0.0-11.0); NEUTROPHILS # (AUTO) 11.2 K/uL (1.8-8.9); PLATELET COUNT (AUTO) 198 K/uL (152-348); RED BLOOD CELL COUNT(AUTO) 3.13 MIL/uL (4.06-5.63); WHITE BLOOD COUNT (AUTO) 13.4 K/uL (3.6-10.2)
[2020-05-22 05:10] LABS: CARBON DIOXIDE 30 mmol/L (21-32); CHLORIDE 106 mmol/L (98-107); CREATININE 3.7 mg/dL (0.6-1.3); GLUCOSE 100 mg/dL (74-106); MAGNESIUM 2.3 mg/dL (1.8-2.4); PHOSPHOROUS 5.7 mg/dL (2.5-4.9); POTASSIUM 4.2 mmol/L (3.5-5.1); UREA NITROGEN, BLOOD 70 mg/dL (7-18)
[2020-05-22] MEDS: MIDODRINE HCL 5 MG TABLET NG SCH ×2 (05:55→14:28)
[2020-05-22] MEDS ORDERED: NEPRO 1000 ML GT PRN (07:12)
[2020-05-22] MEDS: ACETYLCYSTEINE 10% 4ML VIAL NEB SCH ×2 (07:55→14:20)
[2020-05-22] MEDS: ALBUTEROL SULFATE 2.5 MG/3 ML NEBU IH SCH ×2 (07:55→19:53)
[2020-05-22] MEDS: FOLIC ACID/VITAMIN B COMP W-C TABLET NG SCH (08:01)
[2020-05-22] MEDS: FERROUS SULFATE 300 MG/5 ML LIQUID UDC NG SCH (08:01)
[2020-05-22] MEDS: ACETAzolamide 250 MG TABLET NG SCH ×2 (08:01→20:52)
[2020-05-22] MEDS: ARGININE/GLUTAMINE/CALCIUM BMB 1 EACH POWD.PACK NG SCH (08:01)
[2020-05-22] MEDS: CYANOCOBALAMIN 1,000 MCG TABLET NG SCH (08:01)
[2020-05-22] MEDS: PROTEIN SUPPLEMENT (PROSTAT) 30 ML LIQUID NG SCH (08:01)
[2020-05-22] MEDS: FINASTERIDE 5 MG TABLET NG SCH (08:02)
[2020-05-22] MEDS: Z GUARD REMEDY PASTE 57 GM TUBE TOP SCH ×2 (08:02→21:00)
[2020-05-22] MEDS: SODIUM HYPOCHLORITE 0.25% (HALF STRENGTH) 480 ML BOTTLE TOP SCH (08:02)
--- NOTE | 2020-05-22 09:20 | NUR ---
Dr. Del Cid in the unit to see and assess pt. full report given. see order hx
--- NOTE | 2020-05-22 10:05 | NUR ---
SITE SAFETY COORDINATOR Conrado Brian in the unit to see and assess pt. full report given.
--- NOTE | 2020-05-22 11:05 | NUR ---
dialysis nurse in the unit to dialyze patient
--- NOTE | 2020-05-22 12:30 | NUR ---
REceived call from employment evaluator/case manager Abbie. Per CM, patient has been accepted into [facility] and is to be picked up at [facility] 6pm. pt will be admitted under Dr. Nixon and going into room 3357. Phone# to give report is [phone] option#3, ext. [phone]
--- NOTE | 2020-05-22 13:30 | NUR ---
pt completed dialysis and had 1.5L taken out. no IV pressors needed. VSS Addendum: 05/22/20 at 1752 by MARLENE MOHAN RN correction: total of 1.1L taken out during dialysis
[2020-05-22] MEDS ORDERED: SODI480S2 TOP (14:08)
[2020-05-22] MEDS ORDERED: NUTR1PAC14 NG (14:08)
[2020-05-22] MEDS ORDERED: ACET250T9 NG (14:08)
[2020-05-22] MEDS ORDERED: Nepro GT (14:08)
[2020-05-22] MEDS ORDERED: MIDO5TAB4 NG (14:08)
[2020-05-22] MEDS ORDERED: PROT30LI NG (14:08)
[2020-05-22] MEDS: ALBUTEROL SULFATE 2.5 MG/3 ML NEBU NEB PRN (14:20)
--- NOTE | 2020-05-22 15:30 | NUR ---
called [facility] and spoke to Juan Manuel to give report. full report given.
--- NOTE | 2020-05-22 15:55 | NUR ---
DAVID Zambrano from [facility] asked if patient's blackburn can be removed. Asked SALESPERSON RECREATIONAL VEHICLES Conrado Brian and per SALESPERSON RECREATIONAL VEHICLES okay to remove blackburn.
--- NOTE | 2020-05-22 16:00 | NUR ---
NAHOMY Oleaa in the unit to see and assess pt. DIRECTOR QUALITY ASSURANCE was initially gonna do debridement however later said no debridement today and she will follow patient at [facility].
--- NOTE | 2020-05-22 19:00 | NUR ---
received patient lethargic , open s only when turned , unable to follow command , on RA , , NEPHRO GT FEEDING RUNNING AT 30 ML , NO RESIDUAL NOTED , INCONTINENT OF BOWEL MOVEMENT TARRY STOOL SOFT , LILY CATH INTACT ON THE LEFT GROIN , MIDLINE INTAC ON RIGHT UPPER ARM , DRESSING ON THE SACRAL AND LEG INTACT
[2020-05-22] MEDS ORDERED: LIDOCAINE-MPF 2% 5 ML VIAL IJ ONE (20:44)
[2020-05-22] MEDS ORDERED: IRR STERIL WATER FOR IRR 1000 ML BOTTLE IR ONE (20:44)
[2020-05-22] MEDS ORDERED: IV LACTATED RINGERS SOLUTION 1,000 ML BAG IV ONE (20:44)
[2020-05-22] MEDS ORDERED: PROPOFOL 200 MG/20 ML BOTTLE IV ONE (20:44)
--- NOTE | 2020-05-22 20:45 | NUR ---
PICKED UP BY AMBULANCE TO GO TO [facility] , VS STABLE , HISTORY GIVEN , MEDICATION AND PROCEDURE DONE , MENTAL AND CODE STATUS TO EFFIE ONTIVEROS . . HEARING AID AND DENTURES WERE SENT AND GIVEN . ROOM NUMBER AND PERSON GIVEN REPORT TO WERE GIVEN Addendum: 05/23/20 at 0041 by GODFREY CARBALLO RN CORRECTION , NO DENTURES , JUST PAIR OF HEARING AIDS
[2020-05-22] MEDS: POLYVINYL ALCOHOL OPHT DROPS 15 ML BOTTLE OP SCH (20:52)
[2020-05-22] MEDS: DONEPEZIL 10 MG TABLET NG SCH (20:52)
[2020-05-22] MEDS: ATORVASTATIN 20 MG TABLET NG SCH (20:52)
--- NOTE | 2020-05-22 21:11 | NUR ---
DAUGHTER CALLED AND NOTIFIED OF TRANSFER
--- NOTE | 2020-05-23 00:30 | NUR ---
DR LAMAR CALLED AND NOTIFIED WHERE PATIENT WAS TRANSFERRED
== END 2020-05-22 20:45 | DRG 981 ==
LOC: ER 20:56 → TELE3 04-13 03:05 → TELE-TD3 04-22 13:48 → CCU 05-03 07:01
PROVIDERS: ADMIT Internal Medicine; ATTEND Internal Medicine
PROC: B546ZZA Ultrasonography of Right Subclavian Vein, Guidance (ICD-10-PCS; 2020-04-13)
PROC: 05H533Z Insertion of Infusion Device into Right Subclavian Vein, Percutaneous Approach (ICD-10-PCS; 2020-04-13)
PROC: 0W9B3ZZ Drainage of Left Pleural Cavity, Percutaneous Approach (ICD-10-PCS; 2020-04-22)
PROC: 0W993ZZ Drainage of Right Pleural Cavity, Percutaneous Approach (ICD-10-PCS; 2020-04-23)
PROC: 06HM33Z Insertion of Infusion Device into Right Femoral Vein, Percutaneous Approach (ICD-10-PCS; 2020-04-26)
PROC: 5A1D70Z Performance of Urinary Filtration, Intermittent, Less than 6 Hours Per Day (ICD-10-PCS; 2020-04-26)
PROC: 5A09357 Assistance with Respiratory Ventilation, Less than 24 Consecutive Hours, Continuous Positive Airway Pressure (ICD-10-PCS; 2020-04-27)
PROC: 5A09457 Assistance with Respiratory Ventilation, 24-96 Consecutive Hours, Continuous Positive Airway Pressure (ICD-10-PCS; 2020-05-03)
PROC: 06HY33Z Insertion of Infusion Device into Lower Vein, Percutaneous Approach (ICD-10-PCS; 2020-05-11)
PROC: 06PY33Z Removal of Infusion Device from Lower Vein, Percutaneous Approach (ICD-10-PCS; 2020-05-11)
PROC: 0KBP0ZZ Excision of Left Hip Muscle, Open Approach (ICD-10-PCS; 2020-05-11)
PROC: 0KBN0ZZ Excision of Right Hip Muscle, Open Approach (ICD-10-PCS; 2020-05-11)
PROC: 0QB10ZZ Excision of Sacrum, Open Approach (ICD-10-PCS; principal; 2020-05-16)
PROC: 0DH63UZ Insertion of Feeding Device into Stomach, Percutaneous Approach (ICD-10-PCS; 2020-05-21)
DX: I13.0 Hypertensive heart and chronic kidney disease with heart failure and stage 1 through stage 4 chronic kidney disease, or unspecified chronic kidney disease (principal); L89.153 Pressure ulcer of sacral region, stage 3; L89.154 Pressure ulcer of sacral region, stage 4; I50.33 Acute on chronic diastolic (congestive) heart failure; A41.9 Sepsis, unspecified organism; N17.0 Acute kidney failure with tubular necrosis; R65.21 Severe sepsis with septic shock; J96.21 Acute and chronic respiratory failure with hypoxia; J96.22 Acute and chronic respiratory failure with hypercapnia; G93.41 Metabolic encephalopathy; I21.4 Non-ST elevation (NSTEMI) myocardial infarction; J18.9 Pneumonia, unspecified organism; I69.351 Hemiplegia and hemiparesis following cerebral infarction affecting right dominant side; L97.319 Non-pressure chronic ulcer of right ankle with unspecified severity; N39.0 Urinary tract infection, site not specified; J91.8 Pleural effusion in other conditions classified elsewhere; Z16.19 Resistance to other specified beta lactam antibiotics; N18.4 Chronic kidney disease, stage 4 (severe); Z16.11 Resistance to penicillins; E87.0 Hyperosmolality and hypernatremia; E87.3 Alkalosis; J90 Pleural effusion, not elsewhere classified; L97.919 Non-pressure chronic ulcer of unspecified part of right lower leg with unspecified severity; I13.2 Hypertensive heart and chronic kidney disease with heart failure and with stage 5 chronic kidney disease, or end stage renal disease; L89.892 Pressure ulcer of other site, stage 2; B35.1 Tinea unguium; I73.9 Peripheral vascular disease, unspecified; B95.62 Methicillin resistant Staphylococcus aureus infection as the cause of diseases classified elsewhere; D63.8 Anemia in other chronic diseases classified elsewhere; C61 Malignant neoplasm of prostate; E78.5 Hyperlipidemia, unspecified; E87.5 Hyperkalemia; F03.90 Unspecified dementia, unspecified severity, without behavioral disturbance, psychotic disturbance, mood disturbance, and anxiety; I25.10 Atherosclerotic heart disease of native coronary artery without angina pectoris; Z88.0 Allergy status to penicillin; Z95.0 Presence of cardiac pacemaker; Z95.2 Presence of prosthetic heart valve; Z95.5 Presence of coronary angioplasty implant and graft; Z99.2 Dependence on renal dialysis; Z87.440 Personal history of urinary (tract) infections; E87.6 Hypokalemia; I27.20 Pulmonary hypertension, unspecified; Z20.822 Contact with and (suspected) exposure to COVID-19; Z85.46 Personal history of malignant neoplasm of prostate; Z79.01 Long term (current) use of anticoagulants; Z87.891 Personal history of nicotine dependence; Z85.828 Personal history of other malignant neoplasm of skin; M20.42 Other hammer toe(s) (acquired), left foot; M20.41 Other hammer toe(s) (acquired), right foot; L89.899 Pressure ulcer of other site, unspecified stage; Z22.322 Carrier or suspected carrier of Methicillin resistant Staphylococcus aureus; I48.0 Paroxysmal atrial fibrillation; I95.3 Hypotension of hemodialysis; K29.70 Gastritis, unspecified, without bleeding; R13.10 Dysphagia, unspecified
CPT/HCPCS: 32555; 36415; 36600; 70030-TC; 70450; 71045; 71250; 74018; 76604; 83605; 83615; 83735; 83935; 83986; 84100; 84132; 84133; 84155; 84156; 84300; 85025; 85730; 86140; 86706; 87040; 87070; 87075; 87077; 87086; 87205; 87340; 87400; 90937; 93005; 93307; 94640; 94660; 94664; A4217; A4663; C1758; G0378; J0282; J0456; J0692; J0696; J1450; J1644; J1940; J2185; J2248; J2765; J3370; J3480; J3490; J7030; J7040; J7050; J7060; J7120; J8499; P9047; U0003